=== PATIENT | female | born 1940 | race Caucasian/White ===

== ENCOUNTER 2018-01-02 10:05 | Inpatient (IN) | payer MEDICARE, OTHER ==
[2018-01-02 11:09] LABS: BASO # 0.1 10^3/uL (0.0-0.2); BASO % 0.4 % (0.0-1.0); EOS # 0.1 10^3/uL (0.0-0.50); EOS % 0.4 % (0.0-3.0); HEMATOCRIT 35.5 % (36.0-47.0); IMMATURE GRANULOCYTE % 0.4 % (0-3.0); LYMPH # 1.1 10^3/uL (1.5-4.5); LYMPH % 9.5 % (24.0-44.0); MEAN CORPUSCULAR HEMOGLOBIN 31.7 pg (27.0-33.0); MEAN CORPUSCULAR HGB CONC 33.8 g/dl (32.0-36.5); MEAN CORPUSCULAR VOLUME 93.7 fl (80.0-96.0); MONO # 0.8 10^3/uL (0.0-0.8); MONO % 7.2 % (0.0-5.0); NEUTROPHILS # 9.2 10^3/uL (1.8-7.7); NEUTROPHILS % 82.1 % (36.0-66.0); PLATELET COUNT, AUTOMATED 413 10^3/uL (150-450); RED BLOOD COUNT 3.79 10^6/uL (4.00-5.40); RED CELL DISTRIBUTION WIDTH 12.3 % (11.5-14.5); WHITE BLOOD COUNT 11.2 10^3/uL (4.0-10.0)
[2018-01-02] MEDS: NS 1,000 ML IV (11:13)
[2018-01-02] MEDS: ALPRAZolam 0.25 MG TAB PO (11:13)
[2018-01-02] MEDS: MORPHINE 2 MG/ML 1ML SYRINGE (J2270) IV ×2 (11:14→12:47)
[2018-01-02] MEDS: ONDANSETRON 4MG/2ML VIAL (J2405) IV (11:14)
[2018-01-02 11:36] LABS: ALBUMIN 3.8 GM/DL (3.2-5.2); ALBUMIN/GLOBULIN RATIO 0.95 (1.00-1.93); ALKALINE PHOSPHATASE 114 U/L (45-117); ALT/SGPT 84 U/L (12-78); ANION GAP 6 MEQ/L (8-16); AST/SGOT 24 U/L (7-37); BILIRUBIN,DIRECT 0.1 MG/DL (0.0-0.2); BILIRUBIN,TOTAL 0.4 MG/DL (0.2-1.0); BLOOD UREA NITROGEN 10 MG/DL (7-18); CARBON DIOXIDE LEVEL 25 MEQ/L (21-32); CHLORIDE LEVEL 94 MEQ/L (98-107); CPK CREATINE PHOSPHOKINASE 99 U/L (26-192); CREATININE FOR GFR 0.53 MG/DL (0.55-1.30); GLOMERULAR FILTRATION RATE > 60.0 (>39); GLUCOSE, FASTING 97 MG/DL (70-100); POTASSIUM SERUM 3.8 MEQ/L (3.5-5.1); SODIUM LEVEL 125 MEQ/L (136-145); TOTAL PROTEIN 7.8 GM/DL (6.4-8.2); TROPONIN I < 0.02 NG/ML (< 0.10)
[2018-01-02 11:41] LABS: CK-MB VALUE MASS 2.4 NG/ML (<3.6); MB/CK RELATIVE INDEX 2.42 (< OR =4); THYROID STIMULATING HORMONE 0.294 uIU/ML (0.358-3.740)
[2018-01-02 14:25] LABS: OSMOLALITY SERUM 263 MOSM/KG (280-301)
[2018-01-02 15:48] LABS: ANION GAP 8 MEQ/L (8-16); BLOOD UREA NITROGEN 8 MG/DL (7-18); CALCIUM LEVEL 8.7 MG/DL (8.8-10.2); CARBON DIOXIDE LEVEL 23 MEQ/L (21-32); CHLORIDE LEVEL 104 MEQ/L (98-107); CREATININE FOR GFR 0.54 MG/DL (0.55-1.30); FREE T4 1.21 NG/DL (0.76-1.46); GLOMERULAR FILTRATION RATE > 60.0 (>39); GLUCOSE, FASTING 106 MG/DL (70-100); POTASSIUM SERUM 4.4 MEQ/L (3.5-5.1); SODIUM LEVEL 135 MEQ/L (136-145); THYROID STIMULATING HORMONE 0.282 uIU/ML (0.358-3.740)
[2018-01-02 15:50] LABS: VITAMIN B12 LEVEL 356 PG/ML (247-911)
[2018-01-02 15:51] LABS: FOLATE 20.6 NG/ML (>5.4)
[2018-01-02] MEDS: SIMBRINZA OPTH OS ×2 (16:00→20:53)
[2018-01-02 16:01] LABS: HEPATITIS B SURFACE ANTIGEN NEGATIVE (NEGATIVE)
[2018-01-02 16:27] LABS: HEPATITIS C VIRUS ABY INDEX < 0.0 INDEX (<0.8)
[2018-01-02 16:28] LABS: HEPATITIS B CORE ANTIBODY IGM NEGATIVE (NEGATIVE)
[2018-01-02 16:30] LABS: HEPATITIS A ANTIBODY IGM NEGATIVE (NEGATIVE)
[2018-01-02] MEDS: PERCOCET 5MG/325MG TAB PO ×2 (17:00→23:42)
[2018-01-02 18:17] LABS: ANION GAP 7 MEQ/L (8-16); BLOOD UREA NITROGEN 6 MG/DL (7-18); CALCIUM LEVEL 8.4 MG/DL (8.8-10.2); CARBON DIOXIDE LEVEL 25 MEQ/L (21-32); CHLORIDE LEVEL 102 MEQ/L (98-107); CREATININE FOR GFR 0.54 MG/DL (0.55-1.30); GLOMERULAR FILTRATION RATE > 60.0 (>39); GLUCOSE, FASTING 159 MG/DL (70-100); SODIUM LEVEL 134 MEQ/L (136-145)
[2018-01-02 18:21] LABS: CPK CREATINE PHOSPHOKINASE 75 U/L (26-192); TROPONIN I < 0.02 NG/ML (< 0.10)
[2018-01-02 18:22] LABS: CK-MB VALUE MASS 1.6 NG/ML (<3.6); MB/CK RELATIVE INDEX 2.13 (< OR =4)
[2018-01-02] MEDS: OPTH OS (20:53)
[2018-01-02] MEDS: LUMIGAN 0.01% OS (20:53)
[2018-01-02] MEDS: VALSARTAN 80 MG TAB (DIOVAN) PO (20:54)
[2018-01-02 23:58] LABS: ANION GAP 5 MEQ/L (8-16); BLOOD UREA NITROGEN 9 MG/DL (7-18); CALCIUM LEVEL 8.4 MG/DL (8.8-10.2); CARBON DIOXIDE LEVEL 26 MEQ/L (21-32); CHLORIDE LEVEL 105 MEQ/L (98-107); CREATININE FOR GFR 0.56 MG/DL (0.55-1.30); GLOMERULAR FILTRATION RATE > 60.0 (>39); GLUCOSE, FASTING 96 MG/DL (70-100); POTASSIUM SERUM 4.2 MEQ/L (3.5-5.1); SODIUM LEVEL 136 MEQ/L (136-145)
[2018-01-03 02:32] LABS: ANION GAP 8 MEQ/L (8-16); BLOOD UREA NITROGEN 9 MG/DL (7-18); CALCIUM LEVEL 8.2 MG/DL (8.8-10.2); CARBON DIOXIDE LEVEL 24 MEQ/L (21-32); CHLORIDE LEVEL 104 MEQ/L (98-107); CREATININE FOR GFR 0.57 MG/DL (0.55-1.30); GLOMERULAR FILTRATION RATE > 60.0 (>39); GLUCOSE, FASTING 95 MG/DL (70-100); POTASSIUM SERUM 4.1 MEQ/L (3.5-5.1); SODIUM LEVEL 136 MEQ/L (136-145)
[2018-01-03 02:41] LABS: CK-MB VALUE MASS 1.7 NG/ML (<3.6); CPK CREATINE PHOSPHOKINASE 69 U/L (26-192); MB/CK RELATIVE INDEX 2.46 (< OR =4); TROPONIN I < 0.02 NG/ML (< 0.10)
[2018-01-03 06:19] LABS: HEMATOCRIT 36.7 % (36.0-47.0); HEMOGLOBIN 12.1 g/dl (12.0-15.5); MEAN CORPUSCULAR HEMOGLOBIN 31.4 pg (27.0-33.0); MEAN CORPUSCULAR VOLUME 95.3 fl (80.0-96.0); PLATELET COUNT, AUTOMATED 405 10^3/uL (150-450); RED BLOOD COUNT 3.85 10^6/uL (4.00-5.40); RED CELL DISTRIBUTION WIDTH 12.6 % (11.5-14.5); WHITE BLOOD COUNT 6.7 10^3/uL (4.0-10.0)
[2018-01-03 06:46] LABS: ALBUMIN 3.5 GM/DL (3.2-5.2); ALBUMIN/GLOBULIN RATIO 1.06 (1.00-1.93); ALKALINE PHOSPHATASE 106 U/L (45-117); ALT/SGPT 66 U/L (12-78); ANION GAP 8 MEQ/L (8-16); AST/SGOT 21 U/L (7-37); BILIRUBIN,TOTAL 0.3 MG/DL (0.2-1.0); BLOOD UREA NITROGEN 8 MG/DL (7-18); CALCIUM LEVEL 8.8 MG/DL (8.8-10.2); CARBON DIOXIDE LEVEL 25 MEQ/L (21-32); CHLORIDE LEVEL 104 MEQ/L (98-107); CREATININE FOR GFR 0.58 MG/DL (0.55-1.30); GLOMERULAR FILTRATION RATE > 60.0 (>39); GLUCOSE, FASTING 92 MG/DL (70-100); MAGNESIUM LEVEL 2.3 MG/DL (1.8-2.4); POTASSIUM SERUM 4.3 MEQ/L (3.5-5.1); SODIUM LEVEL 137 MEQ/L (136-145); TOTAL PROTEIN 6.8 GM/DL (6.4-8.2)
[2018-01-03] MEDS: VALSARTAN 80 MG TAB (DIOVAN) PO ×2 (08:25→20:59)
[2018-01-03] MEDS: ASPIRIN 81 MG ENTERIC TAB PO (08:26)
[2018-01-03] MEDS: SIMBRINZA OPTH OS ×3 (08:26→20:59)
[2018-01-03] MEDS: PERCOCET 5MG/325MG TAB PO (09:26)
[2018-01-03 10:22] LABS: CPK CREATINE PHOSPHOKINASE 62 U/L (26-192); MB/CK RELATIVE INDEX 3.22 (< OR =4); TROPONIN I < 0.02 NG/ML (< 0.10)
[2018-01-03] MEDS: GABAPENTIN 300 MG CAP PO ×3 (12:35→20:59)
[2018-01-03] MEDS: ENOXAPARIN 40 MG/0.4 ML SYRINGE (J1650) SC (12:36)
[2018-01-03 19:48] LABS: ANION GAP 6 MEQ/L (8-16); BLOOD UREA NITROGEN 14 MG/DL (7-18); CALCIUM LEVEL 8.5 MG/DL (8.8-10.2); CARBON DIOXIDE LEVEL 24 MEQ/L (21-32); CHLORIDE LEVEL 105 MEQ/L (98-107); CREATININE FOR GFR 0.66 MG/DL (0.55-1.30); GLOMERULAR FILTRATION RATE > 60.0 (>39); GLUCOSE, FASTING 170 MG/DL (70-100); POTASSIUM SERUM 3.8 MEQ/L (3.5-5.1); SODIUM LEVEL 135 MEQ/L (136-145)
[2018-01-03] MEDS: LUMIGAN 0.01% OS (20:59)
[2018-01-03] MEDS: OPTH OS (20:59)
[2018-01-04] MEDS: PERCOCET 5MG/325MG TAB PO ×3 (00:52→21:44)
[2018-01-04 06:48] LABS: HEMATOCRIT 33.4 % (36.0-47.0); HEMOGLOBIN 10.7 g/dl (12.0-15.5); MEAN CORPUSCULAR HEMOGLOBIN 31.6 pg (27.0-33.0); MEAN CORPUSCULAR VOLUME 98.5 fl (80.0-96.0); PLATELET COUNT, AUTOMATED 295 10^3/uL (150-450); RED BLOOD COUNT 3.39 10^6/uL (4.00-5.40); RED CELL DISTRIBUTION WIDTH 12.7 % (11.5-14.5); WHITE BLOOD COUNT 6.4 10^3/uL (4.0-10.0)
[2018-01-04 07:14] LABS: ALBUMIN 3.1 GM/DL (3.2-5.2); ALKALINE PHOSPHATASE 93 U/L (45-117); ALT/SGPT 52 U/L (12-78); ANION GAP 9 MEQ/L (8-16); AST/SGOT 17 U/L (7-37); BILIRUBIN,TOTAL 0.2 MG/DL (0.2-1.0); BLOOD UREA NITROGEN 12 MG/DL (7-18); CALCIUM LEVEL 8.6 MG/DL (8.8-10.2); CARBON DIOXIDE LEVEL 22 MEQ/L (21-32); CHLORIDE LEVEL 107 MEQ/L (98-107); CREATININE FOR GFR 0.53 MG/DL (0.55-1.30); GLOMERULAR FILTRATION RATE > 60.0 (>39); GLUCOSE, FASTING 85 MG/DL (70-100); POTASSIUM SERUM 4.2 MEQ/L (3.5-5.1); SODIUM LEVEL 138 MEQ/L (136-145); TOTAL PROTEIN 6.2 GM/DL (6.4-8.2)
[2018-01-04] MEDS: GABAPENTIN 300 MG CAP PO ×4 (09:00→20:39)
[2018-01-04] MEDS: ASPIRIN 81 MG ENTERIC TAB PO (09:19)
[2018-01-04] MEDS: ENOXAPARIN 40 MG/0.4 ML SYRINGE (J1650) SC (09:20)
[2018-01-04] MEDS: VALSARTAN 80 MG TAB (DIOVAN) PO ×2 (09:20→20:39)
[2018-01-04] MEDS: SIMBRINZA OPTH OS ×3 (09:21→20:39)
[2018-01-04] MEDS: ACETAMINOPHEN TAB 650MG DOSE (2X325MG) PO (12:09)
[2018-01-04] MEDS: OPTH OS (20:39)
[2018-01-04] MEDS: LUMIGAN 0.01% OS (20:39)
[2018-01-05] MEDS: PERCOCET 5MG/325MG TAB PO ×3 (04:40→20:54)
[2018-01-05 07:05] LABS: HEMATOCRIT 32.7 % (36.0-47.0); HEMOGLOBIN 10.6 g/dl (12.0-15.5); MEAN CORPUSCULAR HEMOGLOBIN 30.9 pg (27.0-33.0); MEAN CORPUSCULAR HGB CONC 32.4 g/dl (32.0-36.5); MEAN CORPUSCULAR VOLUME 95.3 fl (80.0-96.0); PLATELET COUNT, AUTOMATED 384 10^3/uL (150-450); RED BLOOD COUNT 3.43 10^6/uL (4.00-5.40); RED CELL DISTRIBUTION WIDTH 12.6 % (11.5-14.5); WHITE BLOOD COUNT 5.5 10^3/uL (4.0-10.0)
[2018-01-05 07:14] LABS: INR 0.92; PROTHROMBIN TIME 12.4 SECONDS (12.4-14.5)
[2018-01-05 07:39] LABS: ALBUMIN 3.1 GM/DL (3.2-5.2); ALBUMIN/GLOBULIN RATIO 0.89 (1.00-1.93); ALKALINE PHOSPHATASE 83 U/L (45-117); ALT/SGPT 47 U/L (12-78); ANION GAP 6 MEQ/L (8-16); AST/SGOT 21 U/L (7-37); BILIRUBIN,TOTAL 0.3 MG/DL (0.2-1.0); BLOOD UREA NITROGEN 10 MG/DL (7-18); CALCIUM LEVEL 8.8 MG/DL (8.8-10.2); CARBON DIOXIDE LEVEL 26 MEQ/L (21-32); CHLORIDE LEVEL 106 MEQ/L (98-107); GLOMERULAR FILTRATION RATE > 60.0 (>39); GLUCOSE, FASTING 93 MG/DL (70-100); POTASSIUM SERUM 3.8 MEQ/L (3.5-5.1); SODIUM LEVEL 138 MEQ/L (136-145); TOTAL PROTEIN 6.6 GM/DL (6.4-8.2)
[2018-01-05] MEDS: ASPIRIN 81 MG ENTERIC TAB PO (09:02)
[2018-01-05] MEDS: VALSARTAN 80 MG TAB (DIOVAN) PO ×2 (09:02→20:53)
[2018-01-05] MEDS: ENOXAPARIN 40 MG/0.4 ML SYRINGE (J1650) SC (09:04)
[2018-01-05] MEDS: SIMBRINZA OPTH OS ×3 (09:05→20:55)
[2018-01-05] MEDS: LUMIGAN 0.01% OS (20:55)
[2018-01-05] MEDS: OPTH OS (20:55)
[2018-01-06] MEDS: PERCOCET 5MG/325MG TAB PO ×3 (03:10→20:46)
[2018-01-06 06:45] LABS: HEMATOCRIT 32.4 % (36.0-47.0); HEMOGLOBIN 10.4 g/dl (12.0-15.5); MEAN CORPUSCULAR HEMOGLOBIN 30.8 pg (27.0-33.0); MEAN CORPUSCULAR HGB CONC 32.1 g/dl (32.0-36.5); MEAN CORPUSCULAR VOLUME 95.9 fl (80.0-96.0); PLATELET COUNT, AUTOMATED 342 10^3/uL (150-450); RED BLOOD COUNT 3.38 10^6/uL (4.00-5.40); RED CELL DISTRIBUTION WIDTH 12.5 % (11.5-14.5); WHITE BLOOD COUNT 5.3 10^3/uL (4.0-10.0)
[2018-01-06 07:12] LABS: ALBUMIN 3.1 GM/DL (3.2-5.2); ALKALINE PHOSPHATASE 83 U/L (45-117); ALT/SGPT 43 U/L (12-78); ANION GAP 8 MEQ/L (8-16); AST/SGOT 17 U/L (7-37); BILIRUBIN,TOTAL 0.2 MG/DL (0.2-1.0); BLOOD UREA NITROGEN 11 MG/DL (7-18); CALCIUM LEVEL 8.6 MG/DL (8.8-10.2); CARBON DIOXIDE LEVEL 24 MEQ/L (21-32); CHLORIDE LEVEL 108 MEQ/L (98-107); CREATININE FOR GFR 0.53 MG/DL (0.55-1.30); GLOMERULAR FILTRATION RATE > 60.0 (>39); GLUCOSE, FASTING 85 MG/DL (70-100); MAGNESIUM LEVEL 2.1 MG/DL (1.8-2.4); POTASSIUM SERUM 4.3 MEQ/L (3.5-5.1); SODIUM LEVEL 140 MEQ/L (136-145); TOTAL PROTEIN 6.2 GM/DL (6.4-8.2)
[2018-01-06] MEDS: VALSARTAN 80 MG TAB (DIOVAN) PO ×2 (08:43→20:45)
[2018-01-06] MEDS: ASPIRIN 81 MG ENTERIC TAB PO (08:43)
[2018-01-06] MEDS: SIMBRINZA OPTH OS ×3 (08:44→20:45)
[2018-01-06] MEDS: ENOXAPARIN 40 MG/0.4 ML SYRINGE (J1650) SC (08:57)
[2018-01-06] MEDS ORDERED: MOM 30ML SUSPENSION UDC PO (09:30)
[2018-01-06] MEDS: LUMIGAN 0.01% OS (20:45)
[2018-01-06] MEDS: OPTH OS (20:45)
[2018-01-07] MEDS: PERCOCET 5MG/325MG TAB PO ×3 (03:46→21:08)
[2018-01-07 06:50] LABS: HEMATOCRIT 34.3 % (36.0-47.0); HEMOGLOBIN 11.1 g/dl (12.0-15.5); MEAN CORPUSCULAR HEMOGLOBIN 30.6 pg (27.0-33.0); MEAN CORPUSCULAR HGB CONC 32.4 g/dl (32.0-36.5); MEAN CORPUSCULAR VOLUME 94.5 fl (80.0-96.0); PLATELET COUNT, AUTOMATED 359 10^3/uL (150-450); RED BLOOD COUNT 3.63 10^6/uL (4.00-5.40); RED CELL DISTRIBUTION WIDTH 12.6 % (11.5-14.5); WHITE BLOOD COUNT 4.9 10^3/uL (4.0-10.0)
[2018-01-07 07:14] LABS: ALBUMIN 3.3 GM/DL (3.2-5.2); ALBUMIN/GLOBULIN RATIO 0.89 (1.00-1.93); ALKALINE PHOSPHATASE 86 U/L (45-117); ALT/SGPT 46 U/L (12-78); ANION GAP 6 MEQ/L (8-16); AST/SGOT 22 U/L (7-37); BILIRUBIN,TOTAL 0.2 MG/DL (0.2-1.0); BLOOD UREA NITROGEN 10 MG/DL (7-18); CALCIUM LEVEL 8.8 MG/DL (8.8-10.2); CARBON DIOXIDE LEVEL 25 MEQ/L (21-32); CHLORIDE LEVEL 107 MEQ/L (98-107); CREATININE FOR GFR 0.54 MG/DL (0.55-1.30); GLOMERULAR FILTRATION RATE > 60.0 (>39); GLUCOSE, FASTING 89 MG/DL (70-100); MAGNESIUM LEVEL 2.1 MG/DL (1.8-2.4); SODIUM LEVEL 138 MEQ/L (136-145)
[2018-01-07] MEDS: SIMBRINZA OPTH OS ×3 (09:00→21:07)
[2018-01-07] MEDS: VALSARTAN 80 MG TAB (DIOVAN) PO ×2 (09:00→21:08)
[2018-01-07] MEDS: ASPIRIN 81 MG ENTERIC TAB PO (09:00)
[2018-01-07] MEDS ORDERED: ISOVUE-M 300 61% 15ML VIAL (Q9967) As Ordered (11:00)
[2018-01-07] MEDS ORDERED: TRIAMCINOLONE ACETONIDE SUSP 40 MG/ML VIAL (J3301) As Ordered (11:00)
[2018-01-07] MEDS ORDERED: BUPIVACAINE HCL 0.25% 30 ML VIAL As Ordered (11:00)
[2018-01-07] MEDS ORDERED: LIDOCAINE 1% SDV INJ 30 ML VIAL As Ordered (11:00)
[2018-01-07] MEDS: OPTH OS (21:07)
[2018-01-07] MEDS: LUMIGAN 0.01% OS (21:07)
[2018-01-08 06:07] LABS: HEMATOCRIT 33.4 % (36.0-47.0); MEAN CORPUSCULAR HEMOGLOBIN 31.3 pg (27.0-33.0); MEAN CORPUSCULAR HGB CONC 32.9 g/dl (32.0-36.5); MEAN CORPUSCULAR VOLUME 94.9 fl (80.0-96.0); PLATELET COUNT, AUTOMATED 359 10^3/uL (150-450); RED BLOOD COUNT 3.52 10^6/uL (4.00-5.40); RED CELL DISTRIBUTION WIDTH 12.8 % (11.5-14.5); WHITE BLOOD COUNT 8.2 10^3/uL (4.0-10.0)
[2018-01-08 06:36] LABS: ALBUMIN 3.5 GM/DL (3.2-5.2); ALKALINE PHOSPHATASE 88 U/L (45-117); ALT/SGPT 43 U/L (12-78); ANION GAP 9 MEQ/L (8-16); AST/SGOT 17 U/L (7-37); BILIRUBIN,TOTAL 0.3 MG/DL (0.2-1.0); BLOOD UREA NITROGEN 14 MG/DL (7-18); CALCIUM LEVEL 8.8 MG/DL (8.8-10.2); CARBON DIOXIDE LEVEL 24 MEQ/L (21-32); CHLORIDE LEVEL 105 MEQ/L (98-107); CREATININE FOR GFR 0.56 MG/DL (0.55-1.30); GLOMERULAR FILTRATION RATE > 60.0 (>39); GLUCOSE, FASTING 131 MG/DL (70-100); MAGNESIUM LEVEL 2.2 MG/DL (1.8-2.4); POTASSIUM SERUM 4.3 MEQ/L (3.5-5.1); SODIUM LEVEL 138 MEQ/L (136-145)
[2018-01-08] MEDS: VALSARTAN 80 MG TAB (DIOVAN) PO (07:53)
[2018-01-08] MEDS: ENOXAPARIN 40 MG/0.4 ML SYRINGE (J1650) SC (07:54)
[2018-01-08] MEDS: ASPIRIN 81 MG ENTERIC TAB PO (07:54)
[2018-01-08] MEDS: SIMBRINZA OPTH OS (07:55)
[2018-01-09 14:14] LABS: ADH PANEL OSMOLALITY 273 mOsmol/kg (280-301)
== END 2018-01-08 12:40 | disposition home or self-care (01) | DRG 552 ==
LOC: M MS5PR 01-03 16:33 → M ED 10:05 → M ED INP 13:55 → M PCU 17:44
PROC: 3E0233Z Introduction of Anti-inflammatory into Muscle, Percutaneous Approach (ICD-10-PCS; principal; 2018-01-07)
DX: M54.9 Dorsalgia, unspecified (principal); E87.1 Hypo-osmolality and hyponatremia; I10 Essential (primary) hypertension; E86.1 Hypovolemia; H40.9 Unspecified glaucoma; G89.29 Other chronic pain; R94.5 Abnormal results of liver function studies; R94.6 Abnormal results of thyroid function studies; R26.81 Unsteadiness on feet; E05.80 Other thyrotoxicosis without thyrotoxic crisis or storm; Z95.0 Presence of cardiac pacemaker; Z98.1 Arthrodesis status; Z90.710 Acquired absence of both cervix and uterus; Z79.82 Long term (current) use of aspirin; Z79.899 Other long term (current) drug therapy; Z88.2 Allergy status to sulfonamides; Z88.8 Allergy status to other drugs, medicaments and biological substances

== ENCOUNTER 2018-01-12 18:44 | Emergency (ER) | payer MEDICARE, OTHER ==
[2018-01-12 19:58] LABS: BASO % 0.4 % (0.0-1.0); EOS # 0.1 10^3/uL (0.0-0.50); EOS % 0.5 % (0.0-3.0); HEMATOCRIT 31.9 % (36.0-47.0); HEMOGLOBIN 10.7 g/dl (12.0-15.5); IMMATURE GRANULOCYTE % 0.5 % (0-3.0); LYMPH # 1.9 10^3/uL (1.5-4.5); LYMPH % 18.9 % (24.0-44.0); MEAN CORPUSCULAR HEMOGLOBIN 31.8 pg (27.0-33.0); MEAN CORPUSCULAR HGB CONC 33.5 g/dl (32.0-36.5); MEAN CORPUSCULAR VOLUME 94.9 fl (80.0-96.0); MONO # 0.9 10^3/uL (0.0-0.8); MONO % 8.9 % (0.0-5.0); NEUTROPHILS % 70.8 % (36.0-66.0); PLATELET COUNT, AUTOMATED 384 10^3/uL (150-450); RED BLOOD COUNT 3.36 10^6/uL (4.00-5.40); RED CELL DISTRIBUTION WIDTH 12.8 % (11.5-14.5); WHITE BLOOD COUNT 9.8 10^3/uL (4.0-10.0)
[2018-01-12 20:04] LABS: ALBUMIN 3.4 GM/DL (3.2-5.2); ALBUMIN/GLOBULIN RATIO 1.13 (1.00-1.93); ALKALINE PHOSPHATASE 71 U/L (45-117); ALT/SGPT 29 U/L (12-78); ANION GAP 8 MEQ/L (8-16); AST/SGOT 23 U/L (7-37); BILIRUBIN,TOTAL 0.2 MG/DL (0.2-1.0); BLOOD UREA NITROGEN 21 MG/DL (7-18); CALCIUM LEVEL 8.5 MG/DL (8.8-10.2); CARBON DIOXIDE LEVEL 23 MEQ/L (21-32); CHLORIDE LEVEL 104 MEQ/L (98-107); CREATININE FOR GFR 0.57 MG/DL (0.55-1.30); GLOMERULAR FILTRATION RATE > 60.0 (>39); GLUCOSE, FASTING 98 MG/DL (70-100); POTASSIUM SERUM 4.7 MEQ/L (3.5-5.1); SODIUM LEVEL 135 MEQ/L (136-145); TOTAL PROTEIN 6.4 GM/DL (6.4-8.2)
[2018-01-12] MEDS: ONDANSETRON 4MG/2ML VIAL (J2405) IV (20:11)
[2018-01-12 20:39] LABS: SODIUM,RANDOM URINE 53 MEQ/L
[2018-01-12 20:42] LABS: MAGNESIUM LEVEL 2.2 MG/DL (1.8-2.4)
== END 2018-01-12 21:54 | disposition home or self-care (01) ==
LOC: M ED 18:44
DX: R11.0 Nausea (principal); R41.0 Disorientation, unspecified; E87.1 Hypo-osmolality and hyponatremia; I10 Essential (primary) hypertension; H40.20X0 Unspecified primary angle-closure glaucoma, stage unspecified; Z88.8 Allergy status to other drugs, medicaments and biological substances; Z88.5 Allergy status to narcotic agent; Z55.2 Failed school examinations; Z79.899 Other long term (current) drug therapy; Z79.82 Long term (current) use of aspirin
CPT/HCPCS: J2405

== ENCOUNTER → 2018-01-19 | Outpatient (CLI) | payer MEDICARE, OTHER ==
[~2018-01-19] MED LIST: BUPIVACAINE HCL 0.25% 30 ML VIAL As Ordered; ISOVUE-M 300 61% 15ML VIAL (Q9967) As Ordered; LIDOCAINE 1% SDV INJ 30 ML VIAL As Ordered; TRIAMCINOLONE ACETONIDE SUSP 40 MG/ML VIAL (J3301) As Ordered
== END ==
LOC: M PAIN 15:00
DX: M79.1 Myalgia (principal); M54.5 Low back pain; G89.29 Other chronic pain
CPT/HCPCS: G0463

== ENCOUNTER → 2018-01-20 | Outpatient (CLI) | payer MEDICARE, OTHER | LOC: M PAIN 08:45 | DX: M79.1 Myalgia (principal); I10 Essential (primary) hypertension; H40.9 Unspecified glaucoma; I44.7 Left bundle-branch block, unspecified; Z87.891 Personal history of nicotine dependence; Z79.891 Long term (current) use of opiate analgesic; Z79.899 Other long term (current) drug therapy; Z98.1 Arthrodesis status; Z95.0 Presence of cardiac pacemaker; Z88.5 Allergy status to narcotic agent; Z88.1 Allergy status to other antibiotic agents; Z88.8 Allergy status to other drugs, medicaments and biological substances | CPT/HCPCS: J3301 ==

== ENCOUNTER 2018-01-22 02:49 | Observation (INO) | payer MEDICARE, OTHER ==
[2018-01-22] MEDS: METHOCARBAMOL 1,000 MG/10 ML VIAL (J2800) IV ×2 (03:45)
[2018-01-22] MEDS: MORPHINE 4 MG/ML 1ML VIAL/SYRINGE (J2270) IV ×4 (03:48→04:47)
[2018-01-22] MEDS: ONDANSETRON 4MG/2ML VIAL (J2405) IV ×2 (03:48)
[2018-01-22 03:56] LABS: BASO % 0.1 % (0.0-1.0); EOS % 0.3 % (0.0-3.0); HEMATOCRIT 32.1 % (36.0-47.0); IMMATURE GRANULOCYTE % 0.3 % (0-3.0); LYMPH # 1.5 10^3/uL (1.5-4.5); LYMPH % 14.4 % (24.0-44.0); MEAN CORPUSCULAR HEMOGLOBIN 31.6 pg (27.0-33.0); MEAN CORPUSCULAR HGB CONC 34.3 g/dl (32.0-36.5); MEAN CORPUSCULAR VOLUME 92.2 fl (80.0-96.0); MONO # 0.8 10^3/uL (0.0-0.8); NEUTROPHILS # 8.1 10^3/uL (1.8-7.7); NEUTROPHILS % 76.9 % (36.0-66.0); PLATELET COUNT, AUTOMATED 354 10^3/uL (150-450); RED BLOOD COUNT 3.48 10^6/uL (4.00-5.40); RED CELL DISTRIBUTION WIDTH 12.6 % (11.5-14.5); WHITE BLOOD COUNT 10.6 10^3/uL (4.0-10.0)
[2018-01-22 04:45] LABS: ANION GAP 9 MEQ/L (8-16); BLOOD UREA NITROGEN 19 MG/DL (7-18); CALCIUM LEVEL 8.7 MG/DL (8.8-10.2); CARBON DIOXIDE LEVEL 23 MEQ/L (21-32); CHLORIDE LEVEL 98 MEQ/L (98-107); CREATININE FOR GFR 0.59 MG/DL (0.55-1.30); GLOMERULAR FILTRATION RATE > 60.0 (>39); GLUCOSE, FASTING 104 MG/DL (70-100); POTASSIUM SERUM 4.5 MEQ/L (3.5-5.1); SODIUM LEVEL 130 MEQ/L (136-145)
[2018-01-22] MEDS ORDERED: ACETAMINOPHEN TAB 650MG DOSE (2X325MG) PO ×2 (07:45)
[2018-01-22] MEDS: ASPIRIN 81 MG ENTERIC TAB PO ×2 (09:23)
[2018-01-22] MEDS: ENOXAPARIN 40 MG/0.4 ML SYRINGE (J1650) SC ×2 (09:23)
[2018-01-22] MEDS: VALSARTAN 80 MG TAB (DIOVAN) PO ×4 (12:46→20:33)
[2018-01-22] MEDS: IBUPROFEN 800 MG TAB PO ×2 (20:19)
[2018-01-22] MEDS: LUMIGAN 0.01% EYE DROPS (PATIENT'S OWN MED) OU ×2 (20:33)
[2018-01-22] MEDS: CARISOPRODOL 350 MG TAB PO ×2 (21:20)
[2018-01-23 06:00] LABS: BASO % 0.5 % (0.0-1.0); EOS # 0.1 10^3/uL (0.0-0.50); EOS % 0.8 % (0.0-3.0); HEMATOCRIT 36.1 % (36.0-47.0); HEMOGLOBIN 11.8 g/dl (12.0-15.5); IMMATURE GRANULOCYTE % 0.4 % (0-3.0); LYMPH # 1.9 10^3/uL (1.5-4.5); LYMPH % 22.2 % (24.0-44.0); MEAN CORPUSCULAR HEMOGLOBIN 31.3 pg (27.0-33.0); MEAN CORPUSCULAR HGB CONC 32.7 g/dl (32.0-36.5); MEAN CORPUSCULAR VOLUME 95.8 fl (80.0-96.0); MONO # 0.8 10^3/uL (0.0-0.8); MONO % 9.6 % (0.0-5.0); NEUTROPHILS # 5.5 10^3/uL (1.8-7.7); NEUTROPHILS % 66.5 % (36.0-66.0); PLATELET COUNT, AUTOMATED 338 10^3/uL (150-450); RED BLOOD COUNT 3.77 10^6/uL (4.00-5.40); WHITE BLOOD COUNT 8.3 10^3/uL (4.0-10.0)
[2018-01-23 06:21] LABS: ANION GAP 6 MEQ/L (8-16); BLOOD UREA NITROGEN 24 MG/DL (7-18); C REACTIVE PROTEIN QUANTITATIV < 0.30 MG/DL (0.00-0.30); CALCIUM LEVEL 8.6 MG/DL (8.8-10.2); CARBON DIOXIDE LEVEL 23 MEQ/L (21-32); CHLORIDE LEVEL 102 MEQ/L (98-107); CREATININE FOR GFR 0.69 MG/DL (0.55-1.30); GLOMERULAR FILTRATION RATE > 60.0 (>39); GLUCOSE, FASTING 92 MG/DL (70-100); POTASSIUM SERUM 4.7 MEQ/L (3.5-5.1); SODIUM LEVEL 131 MEQ/L (136-145)
[2018-01-23] MEDS: VALSARTAN 80 MG TAB (DIOVAN) PO ×2 (09:49)
[2018-01-23] MEDS: ASPIRIN 81 MG ENTERIC TAB PO ×2 (09:49)
[2018-01-23] MEDS: ENOXAPARIN 40 MG/0.4 ML SYRINGE (J1650) SC ×2 (09:50)
== END 2018-01-23 12:00 | disposition home or self-care (01) ==
LOC: M ED 02:49 → M ED INP 07:37 → M MSPAV 16:31
DX: M54.5 Low back pain (principal); G89.29 Other chronic pain; G57.02 Lesion of sciatic nerve, left lower limb; M79.1 Myalgia; M48.061 Spinal stenosis, lumbar region without neurogenic claudication; M47.816 Spondylosis without myelopathy or radiculopathy, lumbar region; M43.16 Spondylolisthesis, lumbar region; I11.9 Hypertensive heart disease without heart failure; H40.9 Unspecified glaucoma; I25.10 Atherosclerotic heart disease of native coronary artery without angina pectoris; G51.8 Other disorders of facial nerve; Z87.828 Personal history of other (healed) physical injury and trauma; Z98.1 Arthrodesis status; Z95.0 Presence of cardiac pacemaker; E05.90 Thyrotoxicosis, unspecified without thyrotoxic crisis or storm; Z79.899 Other long term (current) drug therapy; Z79.82 Long term (current) use of aspirin; Z88.6 Allergy status to analgesic agent; Z88.8 Allergy status to other drugs, medicaments and biological substances; Z88.5 Allergy status to narcotic agent
CPT/HCPCS: J2270

== ENCOUNTER → 2018-01-26 | Outpatient (CLI) | payer MEDICARE, OTHER | LOC: M PAIN 13:30 | DX: M79.1 Myalgia (principal); R52 Pain, unspecified; I10 Essential (primary) hypertension; Z79.82 Long term (current) use of aspirin; Z79.899 Other long term (current) drug therapy; Z88.8 Allergy status to other drugs, medicaments and biological substances; Z88.5 Allergy status to narcotic agent; Z88.6 Allergy status to analgesic agent; Z87.891 Personal history of nicotine dependence; Z95.0 Presence of cardiac pacemaker | CPT/HCPCS: G0463 ==

== ENCOUNTER 2018-02-01 10:45 | Emergency (ER) | payer MEDICARE, OTHER ==
[2018-02-01] MEDS: NS 500 ML IV (11:45)
[2018-02-01] MEDS: PANTOPRAZOLE 40MG INJ (PROTONIX) (C9113) IV (13:15)
[2018-02-01] MEDS: ONDANSETRON 4MG/2ML VIAL (J2405) IV (13:16)
[2018-02-01] MEDS: MORPHINE 4 MG/ML 1ML VIAL/SYRINGE (J2270) IV ×2 (13:20→15:18)
[2018-02-01 13:43] LABS: BASO % 0.1 % (0.0-1.0); EOS % 0.1 % (0.0-3.0); HEMATOCRIT 37.1 % (36.0-47.0); HEMOGLOBIN 12.2 g/dl (12.0-15.5); IMMATURE GRANULOCYTE % 0.4 % (0-3.0); LYMPH # 1.1 10^3/uL (1.5-4.5); LYMPH % 7.4 % (24.0-44.0); MEAN CORPUSCULAR HEMOGLOBIN 31.2 pg (27.0-33.0); MEAN CORPUSCULAR HGB CONC 32.9 g/dl (32.0-36.5); MEAN CORPUSCULAR VOLUME 94.9 fl (80.0-96.0); MONO # 0.8 10^3/uL (0.0-0.8); MONO % 5.5 % (0.0-5.0); NEUTROPHILS # 12.2 10^3/uL (1.8-7.7); NEUTROPHILS % 86.5 % (36.0-66.0); PLATELET COUNT, AUTOMATED 298 10^3/uL (150-450); RED BLOOD COUNT 3.91 10^6/uL (4.00-5.40); RED CELL DISTRIBUTION WIDTH 13.2 % (11.5-14.5); WHITE BLOOD COUNT 14.2 10^3/uL (4.0-10.0)
[2018-02-01 14:35] LABS: ALBUMIN 3.4 GM/DL (3.2-5.2); ALBUMIN/GLOBULIN RATIO 0.85 (1.00-1.93); ALKALINE PHOSPHATASE 64 U/L (45-117); ALT/SGPT 28 U/L (12-78); ANION GAP 11 MEQ/L (8-16); AST/SGOT 19 U/L (7-37); BILIRUBIN,DIRECT 0.1 MG/DL (0.0-0.2); BILIRUBIN,TOTAL 0.3 MG/DL (0.2-1.0); BLOOD UREA NITROGEN 21 MG/DL (7-18); CALCIUM LEVEL 9.3 MG/DL (8.8-10.2); CARBON DIOXIDE LEVEL 25 MEQ/L (21-32); CHLORIDE LEVEL 99 MEQ/L (98-107); CREATININE FOR GFR 0.75 MG/DL (0.55-1.30); GLOMERULAR FILTRATION RATE > 60.0 (>39); GLUCOSE, FASTING 98 MG/DL (70-100); LIPASE 80 U/L (73-393); POTASSIUM SERUM 3.8 MEQ/L (3.5-5.1); SODIUM LEVEL 135 MEQ/L (136-145); TOTAL PROTEIN 7.4 GM/DL (6.4-8.2)
== END 2018-02-01 16:30 | disposition home or self-care (01) ==
LOC: M ED 10:45
DX: M54.9 Dorsalgia, unspecified (principal); G89.29 Other chronic pain; K21.9 Gastro-esophageal reflux disease without esophagitis; R11.2 Nausea with vomiting, unspecified; I10 Essential (primary) hypertension; H40.9 Unspecified glaucoma; Z87.891 Personal history of nicotine dependence; Z88.8 Allergy status to other drugs, medicaments and biological substances; Z88.5 Allergy status to narcotic agent; Z88.1 Allergy status to other antibiotic agents; Z88.2 Allergy status to sulfonamides; Z79.899 Other long term (current) drug therapy; Z79.82 Long term (current) use of aspirin
CPT/HCPCS: C9113

== ENCOUNTER → 2018-02-06 | Outpatient (CLI) | payer MEDICARE, OTHER | LOC: M PAIN 08:45 | DX: M79.1 Myalgia (principal); I10 Essential (primary) hypertension; R19.7 Diarrhea, unspecified; Z79.82 Long term (current) use of aspirin; Z79.899 Other long term (current) drug therapy; Z90.711 Acquired absence of uterus with remaining cervical stump; Z95.0 Presence of cardiac pacemaker; Z87.891 Personal history of nicotine dependence | CPT/HCPCS: G0463 ==

== ENCOUNTER → 2018-02-19 | Outpatient (CLI) | payer MEDICARE, OTHER | LOC: M PAIN 10:15 | DX: G89.29 Other chronic pain (principal); M79.1 Myalgia; G57.02 Lesion of sciatic nerve, left lower limb; I10 Essential (primary) hypertension; Z79.82 Long term (current) use of aspirin; Z79.899 Other long term (current) drug therapy; Z88.5 Allergy status to narcotic agent; Z88.6 Allergy status to analgesic agent; Z88.8 Allergy status to other drugs, medicaments and biological substances; Z86.79 Personal history of other diseases of the circulatory system; Z95.0 Presence of cardiac pacemaker; Z87.891 Personal history of nicotine dependence | CPT/HCPCS: J3301 ==

== ENCOUNTER → 2018-02-24 | Outpatient (CLI) | payer MEDICARE, OTHER | LOC: M PAIN 09:30 | DX: M48.061 Spinal stenosis, lumbar region without neurogenic claudication (principal); G57.02 Lesion of sciatic nerve, left lower limb; M47.27 Other spondylosis with radiculopathy, lumbosacral region; G89.29 Other chronic pain; I10 Essential (primary) hypertension; Z79.82 Long term (current) use of aspirin; Z79.899 Other long term (current) drug therapy; Z88.8 Allergy status to other drugs, medicaments and biological substances; Z88.5 Allergy status to narcotic agent; Z88.6 Allergy status to analgesic agent; Z87.891 Personal history of nicotine dependence; Z95.0 Presence of cardiac pacemaker | CPT/HCPCS: G0463 ==

== ENCOUNTER → 2018-03-04 | Outpatient (CLI) | payer MEDICARE, OTHER ==
[2018-03-04 20:17] LABS: ALBUMIN 3.4 GM/DL (3.2-5.2); ALKALINE PHOSPHATASE 66 U/L (45-117); ALT/SGPT 34 U/L (12-78); ANION GAP 8 MEQ/L (8-16); AST/SGOT 18 U/L (7-37); BILIRUBIN,TOTAL 0.2 MG/DL (0.2-1.0); BLOOD UREA NITROGEN 14 MG/DL (7-18); CALCIUM LEVEL 8.7 MG/DL (8.8-10.2); CARBON DIOXIDE LEVEL 29 MEQ/L (21-32); CHLORIDE LEVEL 98 MEQ/L (98-107); CREATININE FOR GFR 0.74 MG/DL (0.55-1.30); GLOMERULAR FILTRATION RATE > 60.0 (>39); GLUCOSE, FASTING 120 MG/DL (70-100); POTASSIUM SERUM 4.5 MEQ/L (3.5-5.1); SODIUM LEVEL 135 MEQ/L (136-145); TOTAL PROTEIN 6.8 GM/DL (6.4-8.2)
== END ==
LOC: M ADAMS 15:51
DX: E87.1 Hypo-osmolality and hyponatremia (principal)
CPT/HCPCS: 80053

== ENCOUNTER 2018-04-22 11:07 | Emergency (ER) | payer MEDICARE, OTHER ==
[2018-04-22 13:38] LABS: KETONE, URINE AUTO RFX NEGATIVE (NEGATIVE); LEUKOCYTE ESTERASE UR AUTO RFX NEGATIVE (NEGATIVE); RBC, URINE AUTO RFX 1 /HPF (0-3); SPECIFIC GRAVITY UR AUTO RFX 1.005 (1.002-1.035); SQUAM EPITHELIAL CELL UR AURFX 0 /HPF (0-6); WBC, URINE AUTO RFX 0 /HPF (0-3)
[2018-04-22 13:40] LABS: NITRITE, URINE AUTO RFX POSITIVE (NEGATIVE)
[2018-04-22] MEDS: FLUCONAZOLE 100 MG TAB PO (14:17)
[2018-04-22] MEDS: BACTRIM 160MG/800MG DS TAB PO (14:19)
== END 2018-04-22 14:27 | disposition home or self-care (01) ==
LOC: M ED 11:07
DX: N30.00 Acute cystitis without hematuria (principal); I10 Essential (primary) hypertension; H40.9 Unspecified glaucoma; Z79.01 Long term (current) use of anticoagulants; Z88.8 Allergy status to other drugs, medicaments and biological substances; Z91.02 Food additives allergy status; Z86.73 Personal history of transient ischemic attack (TIA), and cerebral infarction without residual deficits

== ENCOUNTER 2018-04-24 02:23 | Inpatient (IN) | payer MEDICARE, OTHER ==
[2018-04-24] MEDS: MORPHINE 4 MG/ML 1ML VIAL/SYRINGE (J2270) IV ×2 (04:26→05:56)
[2018-04-24] MEDS: ONDANSETRON 4MG/2ML VIAL (J2405) IV (04:26)
[2018-04-24] MEDS ORDERED: ONDANSETRON 4MG/2ML VIAL (J2405) IV (09:45)
[2018-04-24] MEDS: ASPIRIN 81 MG ENTERIC TAB PO (10:19)
[2018-04-24] MEDS: VALSARTAN 80 MG TAB (DIOVAN) PO (10:19)
[2018-04-24] MEDS: SENOKOT S TAB PO ×2 (10:19→20:20)
[2018-04-24] MEDS: SERTRALINE HCL 50 MG TAB PO (10:21)
[2018-04-24] MEDS: BACTRIM 160MG/800MG DS TAB PO ×2 (10:21→20:20)
[2018-04-24 16:15] LABS: HEMATOCRIT 31.3 % (36.0-47.0); HEMOGLOBIN 10.4 g/dl (12.0-15.5); MEAN CORPUSCULAR HEMOGLOBIN 31.7 pg (27.0-33.0); MEAN CORPUSCULAR HGB CONC 33.2 g/dl (32.0-36.5); MEAN CORPUSCULAR VOLUME 95.4 fl (80.0-96.0); PLATELET COUNT, AUTOMATED 413 10^3/uL (150-450); RED BLOOD COUNT 3.28 10^6/uL (4.00-5.40); RED CELL DISTRIBUTION WIDTH 12.7 % (11.5-14.5); WHITE BLOOD COUNT 6.7 10^3/uL (4.0-10.0)
[2018-04-24 16:26] LABS: INR 4.07; PROTHROMBIN TIME 40.5 SECONDS (12.1-14.4)
[2018-04-24 16:35] LABS: ANION GAP 11 MEQ/L (8-16); BLOOD UREA NITROGEN 12 MG/DL (7-18); CALCIUM LEVEL 8.8 MG/DL (8.8-10.2); CARBON DIOXIDE LEVEL 23 MEQ/L (21-32); CHLORIDE LEVEL 102 MEQ/L (98-107); CREATININE FOR GFR 0.84 MG/DL (0.55-1.30); GLOMERULAR FILTRATION RATE > 60.0 (>39); GLUCOSE, FASTING 87 MG/DL (70-100); POTASSIUM SERUM 4.7 MEQ/L (3.5-5.1); SODIUM LEVEL 136 MEQ/L (136-145)
[2018-04-24] MEDS: oxyCODONE 5MG TAB PO ×2 (17:56→22:18)
[2018-04-24] MEDS: WARFARIN SOD 2.5 MG TAB PO (17:57)
[2018-04-25 06:01] LABS: HEMATOCRIT 34.4 % (36.0-47.0); HEMOGLOBIN 10.9 g/dl (12.0-15.5); MEAN CORPUSCULAR HEMOGLOBIN 31.4 pg (27.0-33.0); MEAN CORPUSCULAR HGB CONC 31.7 g/dl (32.0-36.5); MEAN CORPUSCULAR VOLUME 99.1 fl (80.0-96.0); PLATELET COUNT, AUTOMATED 413 10^3/uL (150-450); RED BLOOD COUNT 3.47 10^6/uL (4.00-5.40); RED CELL DISTRIBUTION WIDTH 12.8 % (11.5-14.5); WHITE BLOOD COUNT 5.5 10^3/uL (4.0-10.0)
[2018-04-25 06:06] LABS: ANION GAP 8 MEQ/L (8-16); BLOOD UREA NITROGEN 11 MG/DL (7-18); CALCIUM LEVEL 9.1 MG/DL (8.8-10.2); CARBON DIOXIDE LEVEL 22 MEQ/L (21-32); CHLORIDE LEVEL 103 MEQ/L (98-107); CREATININE FOR GFR 0.82 MG/DL (0.55-1.30); GLOMERULAR FILTRATION RATE > 60.0 (>39); GLUCOSE, FASTING 87 MG/DL (70-100); POTASSIUM SERUM 4.7 MEQ/L (3.5-5.1); SODIUM LEVEL 133 MEQ/L (136-145)
[2018-04-25 06:12] LABS: PROTHROMBIN TIME 50.5 SECONDS (12.1-14.4)
[2018-04-25 06:16] LABS: INR 5.37
[2018-04-25] MEDS: VALSARTAN 80 MG TAB (DIOVAN) PO (09:00)
[2018-04-25] MEDS: ASPIRIN 81 MG ENTERIC TAB PO (09:05)
[2018-04-25] MEDS: BACTRIM 160MG/800MG DS TAB PO ×2 (09:05→19:50)
[2018-04-25] MEDS: oxyCODONE 5MG TAB PO ×2 (09:06→18:07)
[2018-04-25] MEDS: SERTRALINE HCL 50 MG TAB PO (09:06)
[2018-04-25] MEDS: SENOKOT S TAB PO ×2 (09:06→19:50)
[2018-04-25] MEDS: PHYTONADIONE 5 MG TAB PO (14:10)
[2018-04-25] MEDS: LUMIGAN (PATIENT'S OWN MED) OS (19:50)
[2018-04-26] MEDS: oxyCODONE 5MG TAB PO ×4 (01:12→21:07)
[2018-04-26 05:49] LABS: HEMATOCRIT 33.3 % (36.0-47.0); HEMOGLOBIN 10.8 g/dl (12.0-15.5); MEAN CORPUSCULAR HEMOGLOBIN 31.6 pg (27.0-33.0); MEAN CORPUSCULAR HGB CONC 32.4 g/dl (32.0-36.5); MEAN CORPUSCULAR VOLUME 97.4 fl (80.0-96.0); PLATELET COUNT, AUTOMATED 406 10^3/uL (150-450); RED BLOOD COUNT 3.42 10^6/uL (4.00-5.40); RED CELL DISTRIBUTION WIDTH 12.4 % (11.5-14.5); WHITE BLOOD COUNT 4.9 10^3/uL (4.0-10.0)
[2018-04-26 06:05] LABS: ANION GAP 8 MEQ/L (8-16); BLOOD UREA NITROGEN 13 MG/DL (7-18); CALCIUM LEVEL 8.9 MG/DL (8.8-10.2); CARBON DIOXIDE LEVEL 25 MEQ/L (21-32); CHLORIDE LEVEL 100 MEQ/L (98-107); CREATININE FOR GFR 0.81 MG/DL (0.55-1.30); GLOMERULAR FILTRATION RATE > 60.0 (>39); GLUCOSE, FASTING 88 MG/DL (70-100); POTASSIUM SERUM 4.3 MEQ/L (3.5-5.1); SODIUM LEVEL 133 MEQ/L (136-145)
[2018-04-26 06:10] LABS: INR 1.54; PROTHROMBIN TIME 18.7 SECONDS (12.1-14.4)
[2018-04-26] MEDS: SERTRALINE HCL 50 MG TAB PO (08:07)
[2018-04-26] MEDS: BACTRIM 160MG/800MG DS TAB PO ×2 (08:07→19:39)
[2018-04-26] MEDS: SENOKOT S TAB PO ×2 (08:07→19:39)
[2018-04-26] MEDS: VALSARTAN 80 MG TAB (DIOVAN) PO (08:08)
[2018-04-26 10:20] LABS: KETONE, URINE AUTO RFX NEGATIVE (NEGATIVE); LEUKOCYTE ESTERASE UR AUTO RFX NEGATIVE (NEGATIVE); MUCUS, URINE RFX SMALL (NEGATIVE); NITRITE, URINE AUTO RFX NEGATIVE (NEGATIVE); RBC, URINE AUTO RFX 0 /HPF (0-3); SQUAM EPITHELIAL CELL UR AURFX 0 /HPF (0-6); URIC ACID CRYSTALS RFX SMALL; WBC, URINE AUTO RFX 1 /HPF (0-3)
[2018-04-26] MEDS: hydrOXYzine 10 MG TAB PO (15:48)
[2018-04-26] MEDS: WARFARIN SOD 1 MG TAB PO (15:48)
[2018-04-26] MEDS: LUMIGAN (PATIENT'S OWN MED) OS (19:40)
[2018-04-27] MEDS: PHENAZOPYRIDINE 100 MG TAB PO ×3 (00:11→20:20)
[2018-04-27] MEDS: SERTRALINE HCL 50 MG TAB PO (08:10)
[2018-04-27] MEDS: SENOKOT S TAB PO ×2 (08:10→20:19)
[2018-04-27] MEDS: VALSARTAN 80 MG TAB (DIOVAN) PO (08:10)
[2018-04-27 08:11] LABS: HEMATOCRIT 33.7 % (36.0-47.0); MEAN CORPUSCULAR HEMOGLOBIN 31.3 pg (27.0-33.0); MEAN CORPUSCULAR HGB CONC 32.6 g/dl (32.0-36.5); PLATELET COUNT, AUTOMATED 428 10^3/uL (150-450); RED BLOOD COUNT 3.51 10^6/uL (4.00-5.40); RED CELL DISTRIBUTION WIDTH 12.5 % (11.5-14.5)
[2018-04-27 08:26] LABS: INR 1.11; PROTHROMBIN TIME 14.5 SECONDS (12.1-14.4)
[2018-04-27 08:31] LABS: ANION GAP 12 MEQ/L (8-16); BLOOD UREA NITROGEN 14 MG/DL (7-18); CARBON DIOXIDE LEVEL 19 MEQ/L (21-32); CHLORIDE LEVEL 100 MEQ/L (98-107); CREATININE FOR GFR 1.05 MG/DL (0.55-1.30); GLUCOSE, FASTING 179 MG/DL (70-100); POTASSIUM SERUM 4.6 MEQ/L (3.5-5.1); SODIUM LEVEL 131 MEQ/L (136-145)
[2018-04-27] MEDS: LACTOBACILLUS ACIDOPHILUS CAP (BACID) PO ×2 (12:00→20:19)
[2018-04-27] MEDS: oxyCODONE 5MG TAB PO ×2 (12:52→22:46)
[2018-04-27] MEDS: WARFARIN SOD 1 MG TAB PO ×2 (16:25)
[2018-04-27] MEDS: BISACODYL 10 MG SUPP PR (20:20)
[2018-04-27] MEDS: LUMIGAN (PATIENT'S OWN MED) OS (20:20)
[2018-04-28] MEDS: PHENAZOPYRIDINE 100 MG TAB PO ×2 (09:16→20:17)
[2018-04-28] MEDS: SENOKOT S TAB PO ×2 (09:17→20:17)
[2018-04-28] MEDS: LACTOBACILLUS ACIDOPHILUS CAP (BACID) PO ×2 (09:17→20:17)
[2018-04-28] MEDS: SERTRALINE HCL 50 MG TAB PO (09:21)
[2018-04-28] MEDS: VALSARTAN 80 MG TAB (DIOVAN) PO (09:31)
[2018-04-28 10:40] LABS: HEMATOCRIT 34.6 % (36.0-47.0); HEMOGLOBIN 11.2 g/dl (12.0-15.5); MEAN CORPUSCULAR HEMOGLOBIN 31.8 pg (27.0-33.0); MEAN CORPUSCULAR HGB CONC 32.4 g/dl (32.0-36.5); MEAN CORPUSCULAR VOLUME 98.3 fl (80.0-96.0); PLATELET COUNT, AUTOMATED 445 10^3/uL (150-450); RED BLOOD COUNT 3.52 10^6/uL (4.00-5.40); RED CELL DISTRIBUTION WIDTH 12.4 % (11.5-14.5)
[2018-04-28 11:00] LABS: INR 1.22; PROTHROMBIN TIME 15.6 SECONDS (12.1-14.4)
[2018-04-28] MEDS: oxyCODONE 5MG TAB PO ×2 (11:11→20:17)
[2018-04-28 11:30] LABS: ANION GAP 9 MEQ/L (8-16); BLOOD UREA NITROGEN 17 MG/DL (7-18); CALCIUM LEVEL 8.9 MG/DL (8.8-10.2); CARBON DIOXIDE LEVEL 24 MEQ/L (21-32); CHLORIDE LEVEL 98 MEQ/L (98-107); GLOMERULAR FILTRATION RATE > 60.0 (>39); GLUCOSE, FASTING 110 MG/DL (70-100); SODIUM LEVEL 131 MEQ/L (136-145)
[2018-04-28] MEDS: ENOXAPARIN 60 MG/0.6 ML SYR (J1650) SC (15:50)
[2018-04-28] MEDS: WARFARIN SOD 5 MG TAB PO (17:26)
[2018-04-28] MEDS: LUMIGAN (PATIENT'S OWN MED) OS (20:19)
[2018-04-29] MEDS: ENOXAPARIN 60 MG/0.6 ML SYR (J1650) SC ×2 (04:01→15:00)
[2018-04-29 07:18] LABS: HEMATOCRIT 33.2 % (36.0-47.0); HEMOGLOBIN 10.6 g/dl (12.0-15.5); MEAN CORPUSCULAR HEMOGLOBIN 31.5 pg (27.0-33.0); MEAN CORPUSCULAR HGB CONC 31.9 g/dl (32.0-36.5); MEAN CORPUSCULAR VOLUME 98.5 fl (80.0-96.0); PLATELET COUNT, AUTOMATED 366 10^3/uL (150-450); RED BLOOD COUNT 3.37 10^6/uL (4.00-5.40); RED CELL DISTRIBUTION WIDTH 12.1 % (11.5-14.5); WHITE BLOOD COUNT 4.7 10^3/uL (4.0-10.0)
[2018-04-29 07:31] LABS: INR 1.36
[2018-04-29 07:59] LABS: ANION GAP 5 MEQ/L (8-16); BLOOD UREA NITROGEN 17 MG/DL (7-18); CALCIUM LEVEL 8.7 MG/DL (8.8-10.2); CARBON DIOXIDE LEVEL 27 MEQ/L (21-32); CHLORIDE LEVEL 103 MEQ/L (98-107); CREATININE FOR GFR 0.73 MG/DL (0.55-1.30); GLOMERULAR FILTRATION RATE > 60.0 (>39); GLUCOSE, FASTING 89 MG/DL (70-100); POTASSIUM SERUM 4.1 MEQ/L (3.5-5.1); SODIUM LEVEL 135 MEQ/L (136-145)
[2018-04-29] MEDS: VALSARTAN 80 MG TAB (DIOVAN) PO (09:00)
[2018-04-29] MEDS: PHENAZOPYRIDINE 100 MG TAB PO ×2 (09:37→20:11)
[2018-04-29] MEDS: SERTRALINE HCL 50 MG TAB PO (09:37)
[2018-04-29] MEDS: SENOKOT S TAB PO ×2 (09:37→20:11)
[2018-04-29] MEDS: LACTOBACILLUS ACIDOPHILUS CAP (BACID) PO ×2 (09:37→20:11)
[2018-04-29] MEDS: ACETAMINOPHEN TAB 650MG DOSE (2X325MG) PO ×2 (12:12→17:12)
[2018-04-29] MEDS: WARFARIN SOD 3 MG TAB PO (17:12)
[2018-04-29] MEDS: LUMIGAN (PATIENT'S OWN MED) OS (20:12)
[2018-04-30] MEDS: ACETAMINOPHEN TAB 650MG DOSE (2X325MG) PO (02:13)
[2018-04-30] MEDS: ENOXAPARIN 60 MG/0.6 ML SYR (J1650) SC (02:26)
[2018-04-30 06:55] LABS: HEMATOCRIT 32.9 % (36.0-47.0); HEMOGLOBIN 10.3 g/dl (12.0-15.5); MEAN CORPUSCULAR HEMOGLOBIN 31.3 pg (27.0-33.0); MEAN CORPUSCULAR HGB CONC 31.3 g/dl (32.0-36.5); RED BLOOD COUNT 3.29 10^6/uL (4.00-5.40); WHITE BLOOD COUNT 3.6 10^3/uL (4.0-10.0)
[2018-04-30 07:00] LABS: PLATELET COUNT, AUTOMATED 239 10^3/uL (150-450)
[2018-04-30 07:06] LABS: INR 1.81; PROTHROMBIN TIME 21.3 SECONDS (12.1-14.4)
[2018-04-30 07:24] LABS: ANION GAP 7 MEQ/L (8-16); BLOOD UREA NITROGEN 16 MG/DL (7-18); CALCIUM LEVEL 8.5 MG/DL (8.8-10.2); CARBON DIOXIDE LEVEL 21 MEQ/L (21-32); CHLORIDE LEVEL 109 MEQ/L (98-107); CREATININE FOR GFR 0.64 MG/DL (0.55-1.30); GLOMERULAR FILTRATION RATE > 60.0 (>39); GLUCOSE, FASTING 85 MG/DL (70-100); POTASSIUM SERUM 4.2 MEQ/L (3.5-5.1); SODIUM LEVEL 137 MEQ/L (136-145)
[2018-04-30] MEDS: VALSARTAN 80 MG TAB (DIOVAN) PO (09:00)
[2018-04-30] MEDS: SENOKOT S TAB PO (09:00)
[2018-04-30] MEDS: LACTOBACILLUS ACIDOPHILUS CAP (BACID) PO (09:01)
[2018-04-30] MEDS: SERTRALINE HCL 50 MG TAB PO (09:02)
== END 2018-04-30 11:15 | disposition home or self-care (01) | DRG 948 ==
LOC: M ED 02:23 → M ED INP 09:39 → M MS5PR 17:15
DX: R53.1 Weakness (principal); N39.0 Urinary tract infection, site not specified; I10 Essential (primary) hypertension; F41.9 Anxiety disorder, unspecified; I49.5 Sick sinus syndrome; F32.9 Major depressive disorder, single episode, unspecified; M54.9 Dorsalgia, unspecified; I69.393 Ataxia following cerebral infarction; Z98.1 Arthrodesis status; Z79.82 Long term (current) use of aspirin; Z79.01 Long term (current) use of anticoagulants; Z95.0 Presence of cardiac pacemaker; Z91.048 Other nonmedicinal substance allergy status; Z88.5 Allergy status to narcotic agent; Z88.6 Allergy status to analgesic agent; Z88.8 Allergy status to other drugs, medicaments and biological substances; Z90.710 Acquired absence of both cervix and uterus; Z86.711 Personal history of pulmonary embolism

== ENCOUNTER → 2018-05-02 | Outpatient (REF) | payer MEDICARE ==
[2018-05-02 13:28] LABS: PROTHROMBIN TIME 28.4 SECONDS (12.1-14.4)
== END ==
LOC: M LAB REF 13:04
DX: Z51.81 Encounter for therapeutic drug level monitoring (principal); Z79.899 Other long term (current) drug therapy
CPT/HCPCS: 85610

== ENCOUNTER → 2018-05-11 | Outpatient (CLI) | payer MEDICARE, OTHER | LOC: M PAIN 13:15 | DX: M48.061 Spinal stenosis, lumbar region without neurogenic claudication (principal); G57.02 Lesion of sciatic nerve, left lower limb; M47.27 Other spondylosis with radiculopathy, lumbosacral region; I10 Essential (primary) hypertension; I44.7 Left bundle-branch block, unspecified; H40.9 Unspecified glaucoma; Z86.73 Personal history of transient ischemic attack (TIA), and cerebral infarction without residual deficits; Z86.711 Personal history of pulmonary embolism; Z98.1 Arthrodesis status; Z95.0 Presence of cardiac pacemaker; Z87.891 Personal history of nicotine dependence; Z79.01 Long term (current) use of anticoagulants; Z79.899 Other long term (current) drug therapy; Z79.891 Long term (current) use of opiate analgesic; Z88.1 Allergy status to other antibiotic agents; Z88.5 Allergy status to narcotic agent; Z88.8 Allergy status to other drugs, medicaments and biological substances | CPT/HCPCS: G0463 ==

== ENCOUNTER → 2018-05-13 | Outpatient (REF) | payer MEDICARE, OTHER ==
[2018-05-13 12:07] LABS: INR 4.09; PROTHROMBIN TIME 40.7 SECONDS (12.1-14.4)
== END ==
LOC: M LAB REF 11:28
DX: Z79.899 Other long term (current) drug therapy (principal); Z79.01 Long term (current) use of anticoagulants
CPT/HCPCS: 85610

== ENCOUNTER → 2018-05-28 | Outpatient (CLI) | payer MEDICARE, OTHER | LOC: M PAIN 10:30 | DX: G89.29 Other chronic pain (principal); M79.18 Myalgia, other site; M79.10 Myalgia, unspecified site; G57.02 Lesion of sciatic nerve, left lower limb; I10 Essential (primary) hypertension; Z79.899 Other long term (current) drug therapy; Z88.5 Allergy status to narcotic agent; Z88.6 Allergy status to analgesic agent; Z88.8 Allergy status to other drugs, medicaments and biological substances; Z86.73 Personal history of transient ischemic attack (TIA), and cerebral infarction without residual deficits | CPT/HCPCS: J3301 ==

== ENCOUNTER → 2018-05-30 | Outpatient (REF) | payer MEDICARE, OTHER ==
[2018-05-30 16:41] LABS: INR 2.13; PROTHROMBIN TIME 24.2 SECONDS (12.1-14.4)
== END ==
LOC: M LABDRWAD 11:03
DX: Z79.01 Long term (current) use of anticoagulants (principal)
CPT/HCPCS: 85610

== ENCOUNTER → 2018-06-05 | Outpatient (REF) | payer MEDICARE, OTHER ==
[2018-06-05 20:10] LABS: APPEARANCE, URINE CLEAR (CLEAR); BACTERIA, URINE AUTO NEGATIVE (NEGATIVE); BILIRUBIN, URINE AUTO NEGATIVE (NEGATIVE); BLOOD, URINE BLOOD NEGATIVE (NEGATIVE); COLOR, URINE YELLOW (YELLOW); GLUCOSE, URINE (UA) AUTO NEGATIVE (NEGATIVE); KETONE, URINE AUTO NEGATIVE (NEGATIVE); LEUKOCYTE ESTERASE, URINE AUTO NEGATIVE (NEGATIVE); NITRITE, URINE AUTO NEGATIVE (NEGATIVE); PROTEIN, URINE AUTO NEGATIVE (NEGATIVE); RBC, URINE AUTO 0 /HPF (0-3); SPECIFIC GRAVITY URINE AUTO 1.003 (1.002-1.035); SQUAMOUS EPITHELIAL CELL UR AU 0 /HPF (0-6); UROBILINOGEN, URINE AUTO 0.2 mg/dL (0.0-2.0); WBC, URINE AUTO 0 /HPF (0-3)
== END ==
LOC: M LAB REF 19:26
DX: R30.0 Dysuria (principal)
CPT/HCPCS: 81001

== ENCOUNTER 2018-06-07 13:14 | Emergency (ER) | payer MEDICARE, OTHER ==
[2018-06-07 13:55] LABS: BASO % 0.4 % (0.0-1.0); EOS % 0.6 % (0.0-3.0); HEMATOCRIT 39.9 % (36.0-47.0); HEMOGLOBIN 12.9 g/dl (12.0-15.5); IMMATURE GRANULOCYTE % 0.3 % (0-3.0); LYMPH # 1.5 10^3/uL (1.5-4.5); LYMPH % 20.1 % (24.0-44.0); MEAN CORPUSCULAR HEMOGLOBIN 30.9 pg (27.0-33.0); MEAN CORPUSCULAR HGB CONC 32.3 g/dl (32.0-36.5); MEAN CORPUSCULAR VOLUME 95.5 fl (80.0-96.0); MONO # 0.8 10^3/uL (0.0-0.8); MONO % 10.3 % (0.0-5.0); NEUTROPHILS % 68.3 % (36.0-66.0); PLATELET COUNT, AUTOMATED 389 10^3/uL (150-450); RED BLOOD COUNT 4.18 10^6/uL (4.00-5.40); RED CELL DISTRIBUTION WIDTH 12.7 % (11.5-14.5); WHITE BLOOD COUNT 7.3 10^3/uL (4.0-10.0)
[2018-06-07 14:02] LABS: AMMONIA 17 uMOL/L (<32)
[2018-06-07 14:11] LABS: OSMOLALITY SERUM 273 MOSM/KG (280-301)
[2018-06-07 14:13] LABS: ACETAMINOPHEN LEVEL < 2.0 UG/ML (10.0-30.0); ALBUMIN 3.7 GM/DL (3.2-5.2); ALBUMIN/GLOBULIN RATIO 0.97 (1.00-1.93); ALKALINE PHOSPHATASE 76 U/L (45-117); ALT/SGPT 31 U/L (12-78); ANION GAP 10 MEQ/L (8-16); AST/SGOT 23 U/L (7-37); BILIRUBIN,DIRECT < 0.1 MG/DL (0.0-0.2); BILIRUBIN,TOTAL 0.3 MG/DL (0.2-1.0); BLOOD UREA NITROGEN 15 MG/DL (7-18); CALCIUM LEVEL 8.2 MG/DL (8.8-10.2); CARBON DIOXIDE LEVEL 24 MEQ/L (21-32); CHLORIDE LEVEL 95 MEQ/L (98-107); CPK CREATINE PHOSPHOKINASE 109 U/L (26-192); CREATININE FOR GFR 0.95 MG/DL (0.55-1.30); ETHYL ALCOHOL (ETHANOL) < 0.003 % (0.000-0.010); GLOMERULAR FILTRATION RATE > 60.0 (>39); GLUCOSE, FASTING 93 MG/DL (70-100); MB/CK RELATIVE INDEX 3.76 (< OR =4); POTASSIUM SERUM 4.4 MEQ/L (3.5-5.1); SALICYLATE LEVEL < 1.7 MG/DL (5.0-30.0); SODIUM LEVEL 129 MEQ/L (136-145); THYROID STIMULATING HORMONE 0.718 uIU/ML (0.358-3.740); TOTAL PROTEIN 7.5 GM/DL (6.4-8.2); TROPONIN I < 0.02 NG/ML (< 0.10)
[2018-06-07 14:22] LABS: INR 4.68; PARTIAL THROMBOPLASTIN TIME 42.1 SECONDS (25.4-37.6); PROTHROMBIN TIME 45.3 SECONDS (12.1-14.4)
[2018-06-07 14:38] LABS: LACTIC ACID SEPSIS PROTOCOL 1.4 MMOL/L (0.4-2.0)
[2018-06-07 14:56] LABS: KETONE, URINE AUTO RFX NEGATIVE (NEGATIVE); LEUKOCYTE ESTERASE UR AUTO RFX NEGATIVE (NEGATIVE); RBC, URINE AUTO RFX 1 /HPF (0-3); SPECIFIC GRAVITY UR AUTO RFX 1.004 (1.002-1.035); SQUAM EPITHELIAL CELL UR AURFX 0 /HPF (0-6); WBC, URINE AUTO RFX 1 /HPF (0-3)
[2018-06-07 14:57] LABS: OSMOLALITY URINE 210 MOSM/KG (500-800)
[2018-06-07 15:01] LABS: NITRITE, URINE AUTO RFX POSITIVE (NEGATIVE)
[2018-06-07 15:11] LABS: AMPHETAMINES LEVEL URINE NEGATIVE (NEGATIVE); BARBITURATES URINE NEGATIVE (NEGATIVE); BENZODIAZEPINES URINE NEGATIVE (NEGATIVE); CANNABINOIDS URINE NEGATIVE (NEGATIVE); COCAINE METABOLITE URINE NEGATIVE (NEGATIVE); CREATININE,RANDOM URINE 22.9 MG/DL; METHADONE URINE NEGATIVE (NEGATIVE); OPIATES URINE NEGATIVE (NEGATIVE); PHENCYCLIDINE URINE NEGATIVE (NEGATIVE); SODIUM,RANDOM URINE 30 MEQ/L
[2018-06-07 15:19] LABS: FREE T4 1.08 NG/DL (0.76-1.46)
== END 2018-06-07 18:00 | disposition home or self-care (01) ==
LOC: M ED 13:14
DX: E87.1 Hypo-osmolality and hyponatremia (principal); H40.9 Unspecified glaucoma; Z95.0 Presence of cardiac pacemaker; Z79.899 Other long term (current) drug therapy; Z79.01 Long term (current) use of anticoagulants; Z88.8 Allergy status to other drugs, medicaments and biological substances; Z91.048 Other nonmedicinal substance allergy status; Z87.891 Personal history of nicotine dependence
CPT/HCPCS: 71045

== ENCOUNTER → 2018-06-12 | Outpatient (CLI) | payer MEDICARE, OTHER ==
[2018-06-12 14:16] LABS: PROTHROMBIN TIME 31.8 SECONDS (12.1-14.4)
== END ==
LOC: M LAB 13:09
DX: Z51.81 Encounter for therapeutic drug level monitoring (principal); Z79.01 Long term (current) use of anticoagulants
CPT/HCPCS: 85610

== ENCOUNTER 2018-06-16 12:33 | Outpatient (RCR) | payer MEDICARE, OTHER | END 2018-06-17 | LOC: M OT 12:33 | DX: Z51.89 Encounter for other specified aftercare (principal); I63.9 Cerebral infarction, unspecified | CPT/HCPCS: 97110 ==

== ENCOUNTER → 2018-06-19 | Outpatient (REF) | payer MEDICARE, OTHER ==
[2018-06-19 13:06] LABS: INR 3.27
== END ==
LOC: M LABDRWAD 12:35
DX: Z79.01 Long term (current) use of anticoagulants (principal)
CPT/HCPCS: 85610

== ENCOUNTER → 2018-06-22 | Outpatient (CLI) | payer MEDICARE, OTHER | LOC: M PAIN 10:30 | DX: M48.061 Spinal stenosis, lumbar region without neurogenic claudication (principal); G57.02 Lesion of sciatic nerve, left lower limb; M47.27 Other spondylosis with radiculopathy, lumbosacral region; G89.29 Other chronic pain; I10 Essential (primary) hypertension; Z79.01 Long term (current) use of anticoagulants; Z79.899 Other long term (current) drug therapy; Z88.5 Allergy status to narcotic agent; Z88.8 Allergy status to other drugs, medicaments and biological substances; Z95.0 Presence of cardiac pacemaker; Z86.73 Personal history of transient ischemic attack (TIA), and cerebral infarction without residual deficits; Z86.711 Personal history of pulmonary embolism; Z87.891 Personal history of nicotine dependence | CPT/HCPCS: G0463 ==

== ENCOUNTER 2018-06-24 12:20 | Outpatient (RCR) | payer MEDICARE, OTHER | END 2018-07-17 | LOC: M OT 12:20 → M ST 06-26 12:58 → M OT 07-01 11:13 → M ST 07-06 12:30 → M OT 07-13 11:33 → M ST 06-29 10:23 → M OT 07-01 11:13 → M ST 07-06 12:30 → M OT 07-13 11:33 | DX: M48.061 Spinal stenosis, lumbar region without neurogenic claudication (principal); G57.02 Lesion of sciatic nerve, left lower limb; M47.27 Other spondylosis with radiculopathy, lumbosacral region | CPT/HCPCS: 97110 ==

== ENCOUNTER → 2018-06-25 | Outpatient (REF) | payer MEDICARE, OTHER ==
[2018-06-25 13:34] LABS: INR 2.05; PROTHROMBIN TIME 23.5 SECONDS (12.1-14.4)
== END ==
LOC: M LABDRWAD 12:47
DX: Z79.01 Long term (current) use of anticoagulants (principal)
CPT/HCPCS: 85610

== ENCOUNTER → 2018-07-14 | Outpatient (REF) | payer MEDICARE, OTHER ==
[2018-07-14 13:13] LABS: INR 2.58; PROTHROMBIN TIME 28.2 SECONDS (12.1-14.4)
== END ==
LOC: M LABDRWAD 12:40
DX: Z51.81 Encounter for therapeutic drug level monitoring (principal); Z79.01 Long term (current) use of anticoagulants
CPT/HCPCS: 85610

== ENCOUNTER → 2018-12-22 | Outpatient (CLI) | payer MEDICARE, OTHER ==
[~2018-12-22] MED LIST changes: +ACET-683 PO; +ACET1TAB55 PO; +AMIT10TA; +ASPI81TA26 PO; +ASPI81TAEC PO; +BACT800T5 PO; +BIMA01SOL OS; -BUPIVACAINE HCL 0.25% 30 ML VIAL As Ordered; +DIFL150T PO; +DIOV160T6 PO; +IBUP80TA PO; -ISOVUE-M 300 61% 15ML VIAL (Q9967) As Ordered; -LIDOCAINE 1% SDV INJ 30 ML VIAL As Ordered; +MORP15TA2 PO; +MS C15TA8 PO; +OXYC-517 PO; +OXYC15TA76 PO; +OXYC1TAB23 PO; +PROT1TAB2 PO; +SERT-155 PO; +SIMB1SUS OS; +SOMA350T PO; -TRIAMCINOLONE ACETONIDE SUSP 40 MG/ML VIAL (J3301) As Ordered; +VALS1TAB66 PO; +WARF-18 PO; +WARF-20 PO; +ZOLO50TA PO
--- NOTE | 2019-01-13 01:13 | ECWPNPC ---
PATIENT NAME: MIREYA PAREDES : 1940 GENDER: FEMALE VISIT DATE: 12/22/2018 DISCHARGE DATE: 12/22/18 1536 VISIT LOCKED DATE TIME: PHYSICIAN: RAJESH FELIX RESOURCE: RAJESH FELIX REASON FOR APPOINTMENT 1. MEDS, JUST GOT BACK FROM [place]. HISTORY OF PRESENT ILLNESS HISTORY OF PRESENT ILLNESS: HERE FOR F/U OF CHRONIC LOW BACK PAIN WITH RADIATION INTO LEFT LEG.RATING PAIN VAS 5/10.CURRENTLY USING PERCOCET 5/325 3 PER DAY THAT IS SOMEWHAT HELPFUL.RATING PAIN VAS 5/10.DESCRIBES PAIN CONTINUOUS AND BURNING. PAIN THE PATIENT DESCRIBES THE PAIN... FALL RISK SCREENING: SCREENING :NO FALLS REPORTED IN THE LAST YEAR CURRENT MEDICATIONS TAKING DIOVAN 80 MG TABLET 1 CAP(S) ORALLY ONCE A DAY TAKING ZOLOFT 50 MG TABLET 1 TABLET ORALLY ONCE A DAY TAKING WARFARIN SODIUM 3 MG TABLET 1 TABLET ORALLY ONCE A DAY TAKING COLACE 100 MG CAPSULE 1 CAPSULE NEEDED ORALLY ONCE A DAY TAKING LUMIGAN 0.03 % SOLUTION 1 DROP INTO AFFECTED EYE IN THE EVENING OPHTHALMIC ONCE A DAY TAKING VALSARTAN 160 MG TABLET 1 TABLET ORALLY ONCE A DAY TAKING PERCOCET 5-325 MG TABLET 1 TABLET NEEDED ORALLY Q4-6H PRN MDD4 THREE MOS SUPPLY CAT D CHRONIC PAIN TAKING ZYPREXA 2.5 MG TABLET 1 TABLET ORALLY BEFORE BEDTIME NOT-TAKING TYLENOL 325 MG TABLET 1 TABLET NEEDED ORALLY EVERY 4 HRS NOT-TAKING TYLENOL WITH CODEINE #3 300-30 MG TABLET 1 TABLET NEEDED ORALLY EVERY 6 HRS MEDICATION LIST REVIEWED AND RECONCILED WITH THE PATIENT PAST MEDICAL HISTORY HTN LEFT BRANCH BUNDLE BLOCK GLAUCOMA LEFT BUTTOCK PAIN 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 ALLERGIES KETOPROFEN: SLOWS KIDNEY FUNCTION - ALLERGY MACROBID: NAUSEA/VOMITING - ALLERGY BETA BLOCKERS: DIGESTIVE PROBLEMS - ALLERGY STATINS: DIGESTIVE PROBLEMS - ALLERGY CYMBALTA: ANAPHYLAXIS - ALLERGY TRAMADOL HCL: ANAPHYLAXIS - ALLERGY HYDROCODONE-ACETAMINOPHEN: ANAPHYLAXIS - ALLERGY IBUPROFEN: ANGIOEDEMA - ALLERGY SOMA: NAUSEA/VOMITING - ALLERGY SURGICAL HISTORY SPINAL FUSION [id number] FACIAL RECONSTRUCTIONS X9 RIGHT EYES SURGERIES X7.EYE REMOVAL 1999 HYSTERECTOMY, TOTAL WITH BSO 1991 GANGLION CYST RIGHT FOOT PACEMAKER INSERTION TONSILLECTOMY A CHILD SEVERAL D&C'S BILATERAL THUMB SURGERIES FOR ARTHRITIS FAMILY HISTORY FATHER: , DIAGNOSED WITH HYPERTENSION MOTHER: , OTHER, HYPERTENSION, HEART DISEASE, STROKE 2DAUGHTER(S) . MOM-GLAUCOMA\N1 DAUGHTER--MULTIPLE AUTOIMMUNES DISEASES. SOCIAL HISTORY GENERAL: TOBACCO USE ARE YOU A:FORMER SMOKER HOW LONG HAS IT BEEN SINCE YOU LAST SMOKED?> 10 YEARS PAIN CLINIC PFS, CLERGY, PUBLIC HEALTH REFERRALS WAS THE PROVIDER NOTIFIED OF ANY PERTINENT INFO?YES HAS THE PATIENT BEEN EDUCATED REGARDING HIS/HER PLAN OF CARE?YES HAS THE PATIENT BEEN EDUCATED REGARDING PAIN, THE RISK FOR PAIN, THE IMPORTANCE OF EFFECTIVE PAIN MANAGEMENT, AND THE PAIN ASSESSMENT PROCESS?YES LATEX QUESTIONNAIRE LATEX ALLERGY : HAVE YOU EVER DEVELOPED ANY TYPE OF REACTION AFTER HANDLING LATEX PRODUCTS SUCH RUBBER GLOVES, CONDOMS, DIAPHRAGMS, BALLOONS, SOCKS, OR UNDERWEAR?NO LATEX ALLERGY : HAVE YOU EVER DEVELOPED ANY TYPE OF REACTION DURING OR AFTER DENTAL APPOINTMENT, VAGINAL/RECTAL EXAMINATION, SURGICAL PROCEDURE, OR ANY OTHER EXPOSURE?NO LATEX RISK : HAVE YOU EVER HAD ANY DIFFICULTY BREATHING OR HIVES AFTER EATING OR HANDLING ANY FRUITS, OR VEGETABLES; SUCH KIWI, BANANAS, STONE FRUITS, OR CHESTNUTSNO LATEX RISK : DO YOU HAVE A PREVIOUS PERSONAL HISTORY OF MORE THAN NINE SURGERIES, SPINA BIFIDA, OR REPEATED CATHERTIZATIONS? NO LATEX RISK : ARE YOU FREQUENTLY EXPOSED TO LATEX PRODUCTS IN YOUR OCCUPATION?NO DATE ASKED : 12/22/2018 CAFFEINE CAFFEINE USE?YES HOW OFTEN AND HOW MUCH? 1 CUP DAILY ADVANCE DIRECTIVE ADVANCE DIRECTIVE DISCUSSED WITH PATIENT:YES PT. HAS HCP, JAME MAI - [phone] -PT ALSO HAS LIVING WILL, POA JAME MAI, NONHOSPITAL DNR EDUCATION LEVEL OF EDUCATION:COLLEGE YAZIDISM [id number] MORMONISM LANGUAGE LANGUAGES SPOKEN:SYRIAC DOMESTIC VIOLENCE DO YOU FEEL SAFE IN YOUR ENVIRONMENT?YES ALCOHOL SCREENING DID YOU HAVE A DRINK CONTAINING ALCOHOL IN THE PAST YEAR?NO POINTS0 INTERPRETATIONNEGATIVE RECREATIONAL DRUG USE DRUG USE?NO LEARNING BARRIERS / SPECIAL NEEDS BARRIERS TO LEARNING?NO HEARING IMPAIRED?NO VISION IMPAIRED?YES :CORRECTIVE LENSES COGNITIVELY IMPAIRED?NO READINESS TO LEARN?YES LEARNING PREFERENCES?YES :HANDOUTS, DEMONSTRATION/VERBAL INSTRUCTION LEARNING CAPABILITIES PRESENT?YES EMOTIONAL BARRIERS?NO SPECIAL DEVICES?YES : OCC. 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 AD05/11/18 1352 REVIEWED WITH PT LASREVIEWED WITH PATIENT 06/22/18 1049 JSREVIEWED WITH PATIENT 12/22/18 1300 BV. HOSPITALIZATION/MAJOR DIAGNOSTIC PROCEDURE THOUGHT SHE WAS HAVING A STROKE AND PAIN MANAGEMENT 01/02/18 SURGERY RELATED STROKE 02/2018 BLADDER INFECTION 07/2018 PNEUMONIA 10/2018 REVIEW OF SYSTEMS REVIEWED BY: PROVIDER: RAJESH ORTIZ . CONSTITUTIONAL: ANY CHANGE IN YOUR MEDICAL CONDITION? NO . CHILLS NO . FEVER NO . INFECTION: DO YOU HAVE NEW INFECTIONS? NO . DO YOU HAVE HISTORY OF MRSA? NO . MUSCULOSKELETAL: ANY NEW PATTERNS OF PAIN OR NUMBNESS? NO . GASTROENTEROLOGY: ANY NEW CHANGE IN BOWEL CONTROL? NO . GENITOURINARY: ANY NEW CHANGE IN BLADDER CONTROL? NO . IS THERE A CHANCE YOU COULD BE ? NO . HEMATOLOGY/LYMPH: DO YOU TAKE ANY BLOOD THINNERS? (FOR EXAMPLE- COUMADIN, PLAVIX, AGGRENOX, PLATEL, PRADAXA, OR XARELTO) YES, WARFARIN . WHEN WAS YOUR LAST DOSE? DATE: TIME: . NEUROLOGY: HAVE YOU FALLEN IN THE PAST 12 MONTHS? NO . ANY NEW EXTREMITY NUMBNESS OR WEAKNESS? NO . CARDIOLOGY: DO YOU HAVE A PACEMAKER OR DEFIBRILLATOR? YES, PACEMAKER . RESPIRATORY: HAVE YOU BEEN SICK IN THE PAST WEEK? NO . FEVER NO . FLU LIKE SYMPTOMS? NO . COUGH NO . INTEGUMENTARY: DO YOU HAVE ANY RASHES OR OPEN SORES? NO . ALLERGIC/IMMUNO: ARE YOU ALLERGIC TO IV DYE? NO . ANY NEW ALLERGIES? NO . PSYCHIATRIC: DO YOU HAVE THOUGHTS OF HURTING YOURSELF OR SOMEONE ELSE? NO . ARE YOU ABUSED, NEGLECTED, OR IN AN UNSAFE ENVIRONMENT? NO . ENDOCRINOLOGY: ARE YOU DIABETIC? NO . OTHER: DO YOU NEED ANY PRESCRIPTIONS? YES, OXYCODONE . IF YES, PLEASE LIST: ____ . ANY NEW PROBLEMS WITH YOUR MEDICATIONS? NO . WHEN DID YOU LAST EAT? ____ . WHEN DID YOU LAST DRINK? ____ . WHAT DID YOU LAST DRINK? ____ . NAME OF PERSON DRIVING YOU HOME? ____ . DO YOU HAVE ANY OTHER QUESTIONS OR CONCERNS NO . VITAL SIGNS WT 120.6 LBS, HT 61 IN, BMI 22.78 INDEX, BP 165/69 MM HG, HR 68 /MIN, RR 16 /MIN, TEMP 97.7 F, OXYGEN SAT % 97%, NA INITIALS SC 14:34, REVIEWED BY: MISTY. EXAMINATION GENERAL EXAMINATION: GENERAL APPEARANCE: AWAKE,ALERT ,PLEAASANT . PSYCH AFFECT NORMAL . LUNGS: LUNG BOWERS ARE CLEAR TO AUSCULTATION BILATERALLY. GOOD MOVEMENT OF AIR . HEART: S1, S2 IN A REGULAR RATE AND RHYTHM. NO SIGNIFICANT MURMURS, RUBS OR GALLOPS NOTED . LUMBAR SACRAL SPINEPALPATION:TENDER OVER BILAT. L3/4-L4/5/ LUMBAR FACETS WITH FACET LOADING.. 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 (REF # [id number] ) BRINGS IN MEDICATIONS WHICH IS APPROPRIATE FOR WHAT WAS DISPENSED. RECENT URINE TOXICOLOGY REVIEWED. NO UNAUTHORIZED MEDICATIONS. NO ILLICIT SUBSTANCES AND PRESCRIBED MEDICATIONS WERE PRESENT. , RISKS AND BENEFITS OF NARCOTIC/OPIOD MEDICATIONS WERE REVIEWED WITH PATIENT - THIS INCLUDES BUT IS NOT LIMITED TO RISK OF DEPENDANCE/DEVELOPMENT OF ADDICTION, MOOD DISTURBANCE AND DEPRESSION, OSTEOPOROSIS, HORMONAL AND LABIDAL CHANGES, RESPIRATORY DEPRESSION AND . PATIENT IS ADVISED NOT TO DRIVE OR DRINK ALCOHOL WHILE ON THESE MEDICATIONSBILAT L3/4-L4/5 THERAPEUTIC LFB. PROCEDURE CODES FA211 ESTABILISHED PATIENT [facility] FACILITY CHARGE DISPOSITION & COMMUNICATION FOLLOW UP POST (REASON: L3/4-L4/5 BILAT LFB THERAPEUTIC) ELECTRONICALLY SIGNED BY DIANA WILSON ON 01/12/2019 AT 03:54 PM EDT DISCLAIMER : THIS IS A VISIT SUMMARY EXTRACTED FROM THE [employer] CHART. IT IS NOT A COPY OF THE [employer] PROGRESS NOTE. MARIEL
== END ==
LOC: M PAIN 14:15
PROVIDERS: ATTEND Nurse Practitioner Family
DX: M48.061 Spinal stenosis, lumbar region without neurogenic claudication (principal); G89.29 Other chronic pain; G57.02 Lesion of sciatic nerve, left lower limb; M47.27 Other spondylosis with radiculopathy, lumbosacral region; I10 Essential (primary) hypertension; Z79.01 Long term (current) use of anticoagulants; Z79.899 Other long term (current) drug therapy; Z88.5 Allergy status to narcotic agent; Z88.6 Allergy status to analgesic agent; Z88.8 Allergy status to other drugs, medicaments and biological substances; Z95.0 Presence of cardiac pacemaker; Z86.73 Personal history of transient ischemic attack (TIA), and cerebral infarction without residual deficits; Z86.711 Personal history of pulmonary embolism; Z87.891 Personal history of nicotine dependence

== ENCOUNTER → 2019-02-09 | Outpatient (CLI) | payer MEDICARE, OTHER ==
[~2019-02-09] MED LIST changes: +BUPIVACAINE HCL 0.25% 30 ML VIAL As Ordered ONE; +ISOVUE-M 300 61% 15ML VIAL (Q9967) As Ordered ONE; +LIDOCAINE 1% SDV INJ 30 ML VIAL As Ordered ONE; +TRIAMCINOLONE ACETONIDE SUSP 40 MG/ML VIAL (J3301) As Ordered ONE; +diazePAM 5 MG TAB As Ordered ONE; +oxyCODONE 5MG TAB As Ordered ONE
--- NOTE | 2019-02-09 12:59 | REP ---
Partial lumbar spine series: Two views . History: Injection procedure for pain. 49 seconds of fluoroscopy time is reported. Findings: A sequence of a two fluoroscopically obtained last image hold procedural spot radiographs of the lumbar spine document needle position and contrast injection associated with injection procedure. Electronically Signed by Jorge Alexandra MD 02/09/2019 12:51 P
--- NOTE | 2019-02-18 00:57 | ECWPNPC ---
PATIENT NAME: MIREYA PAREDES : 1940 GENDER: FEMALE VISIT DATE: 02/09/2019 DISCHARGE DATE: 02/09/19 1218 VISIT LOCKED DATE TIME: PHYSICIAN: MICHAEL SABILLON MD RESOURCE: MICHAEL SABILLON MD REASON FOR APPOINTMENT 1. LUMBAR BILAT THRAPEUTIC BLOCK HISTORY OF PRESENT ILLNESS HISTORY OF PRESENT ILLNESS: PAIN THE PATIENT DESCRIBES THE PAIN... FALL RISK SCREENING: SCREENING :NO FALLS REPORTED IN THE LAST YEAR CURRENT MEDICATIONS TAKING DIOVAN 80 MG TABLET 1 CAP(S) ORALLY ONCE A DAY, NOTES: 02/10 800 TAKING ZOLOFT 50 MG TABLET 1 TABLET ORALLY ONCE A DAY, NOTES: 02/10 800 TAKING LUMIGAN 0.03 % SOLUTION 1 DROP INTO AFFECTED EYE IN THE EVENING OPHTHALMIC ONCE A DAY, NOTES: 02/08 2100 TAKING ZYPREXA 2.5 MG TABLET 1 TABLET ORALLY BEFORE BEDTIME, NOTES: 02/08 2100 TAKING COLACE 100 MG CAPSULE 1 CAPSULE NEEDED ORALLY ONCE A DAY, NOTES: NONE RECENT TAKING PERCOCET 5-325 MG TABLET 1 TABLET NEEDED ORALLY Q4-6H PRN MDD4 THREE MOS SUPPLY CAT D CHRONIC PAIN, NOTES: 02/09 730 TAKING LIPITOR 10 MG TABLET 1 TABLET ORALLY ONCE A DAY, NOTES: 02/08 2100 TAKING SIMBRINZA 1-0.2 % SUSPENSION 1 DROP INTO AFFECTED EYE OPHTHALMIC THREE TIMES A DAY, NOTES: 02/09 09 NOT-TAKING WARFARIN SODIUM 3 MG TABLET 1 TABLET ORALLY ONCE A DAY NOT-TAKING TYLENOL 325 MG TABLET 1 TABLET NEEDED ORALLY EVERY 4 HRS NOT-TAKING TYLENOL WITH CODEINE #3 300-30 MG TABLET 1 TABLET NEEDED ORALLY EVERY 6 HRS DISCONTINUED VALSARTAN 160 MG TABLET 1 TABLET ORALLY ONCE A DAY MEDICATION LIST REVIEWED AND RECONCILED WITH THE PATIENT PAST MEDICAL HISTORY HTN LEFT BRANCH BUNDLE BLOCK GLAUCOMA LEFT BUTTOCK PAIN 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 PNEUMONIA 10/2018 ALLERGIES KETOPROFEN: SLOWS KIDNEY FUNCTION - ALLERGY MACROBID: NAUSEA/VOMITING - ALLERGY BETA BLOCKERS: DIGESTIVE PROBLEMS - ALLERGY STATINS: DIGESTIVE PROBLEMS - ALLERGY CYMBALTA: ANAPHYLAXIS - ALLERGY TRAMADOL HCL: ANAPHYLAXIS - ALLERGY HYDROCODONE-ACETAMINOPHEN: ANAPHYLAXIS - ALLERGY IBUPROFEN: ANGIOEDEMA - ALLERGY SOMA: NAUSEA/VOMITING - ALLERGY SURGICAL HISTORY SPINAL FUSION [id number] FACIAL RECONSTRUCTIONS X9 RIGHT EYES SURGERIES X7.EYE REMOVAL 1999 HYSTERECTOMY, TOTAL WITH BSO 1991 GANGLION CYST RIGHT FOOT PACEMAKER INSERTION TONSILLECTOMY A CHILD SEVERAL D&C'S BILATERAL THUMB SURGERIES FOR ARTHRITIS FAMILY HISTORY FATHER: , DIAGNOSED WITH HYPERTENSION MOTHER: , HYPERTENSION, HEART DISEASE, STROKE, OTHER 2DAUGHTER(S) . MOM-GLAUCOMA\N1 DAUGHTER--MULTIPLE AUTOIMMUNES DISEASES. SOCIAL HISTORY GENERAL: TOBACCO USE ARE YOU A:FORMER SMOKER HOW LONG HAS IT BEEN SINCE YOU LAST SMOKED?> 10 YEARS PAIN CLINIC PFS, CLERGY, PUBLIC HEALTH REFERRALS WAS THE PROVIDER NOTIFIED OF ANY PERTINENT INFO? N/A HAS THE PATIENT BEEN EDUCATED REGARDING HIS/HER PLAN OF CARE?YES HAS THE PATIENT BEEN EDUCATED REGARDING PAIN, THE RISK FOR PAIN, THE IMPORTANCE OF EFFECTIVE PAIN MANAGEMENT, AND THE PAIN ASSESSMENT PROCESS?YES LATEX QUESTIONNAIRE LATEX ALLERGY : HAVE YOU EVER DEVELOPED ANY TYPE OF REACTION AFTER HANDLING LATEX PRODUCTS SUCH RUBBER GLOVES, CONDOMS, DIAPHRAGMS, BALLOONS, SOCKS, OR UNDERWEAR?NO LATEX ALLERGY : HAVE YOU EVER DEVELOPED ANY TYPE OF REACTION DURING OR AFTER DENTAL APPOINTMENT, VAGINAL/RECTAL EXAMINATION, SURGICAL PROCEDURE, OR ANY OTHER EXPOSURE?NO LATEX RISK : HAVE YOU EVER HAD ANY DIFFICULTY BREATHING OR HIVES AFTER EATING OR HANDLING ANY FRUITS, OR VEGETABLES; SUCH KIWI, BANANAS, STONE FRUITS, OR CHESTNUTSNO LATEX RISK : DO YOU HAVE A PREVIOUS PERSONAL HISTORY OF MORE THAN NINE SURGERIES, SPINA BIFIDA, OR REPEATED CATHERTIZATIONS? NO LATEX RISK : ARE YOU FREQUENTLY EXPOSED TO LATEX PRODUCTS IN YOUR OCCUPATION?NO DATE ASKED : 02/09/2019 CAFFEINE CAFFEINE USE?YES HOW OFTEN AND HOW MUCH? 1 CUP DAILY ADVANCE DIRECTIVE ADVANCE DIRECTIVE DISCUSSED WITH PATIENT:YES PT. HAS HCP, JAME MAI - [phone] -PT ALSO HAS LIVING WILL, CLAIR MAI, NONHOSPITAL DNR EDUCATION LEVEL OF EDUCATION:COLLEGE JAIN [id number] RASTAFARIAN LANGUAGE LANGUAGES SPOKEN:FAROESE DOMESTIC VIOLENCE DO YOU FEEL SAFE IN YOUR ENVIRONMENT?YES ALCOHOL SCREENING DID YOU HAVE A DRINK CONTAINING ALCOHOL IN THE PAST YEAR?NO POINTS0 INTERPRETATIONNEGATIVE RECREATIONAL DRUG USE DRUG USE?NO LEARNING BARRIERS / SPECIAL NEEDS BARRIERS TO LEARNING?NO HEARING IMPAIRED?NO VISION IMPAIRED?YES :CORRECTIVE LENSES COGNITIVELY IMPAIRED?NO READINESS TO LEARN?YES LEARNING PREFERENCES?YES :HANDOUTS, DEMONSTRATION/VERBAL INSTRUCTION LEARNING CAPABILITIES PRESENT?YES EMOTIONAL BARRIERS?NO SPECIAL DEVICES?YES : OCC. 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 AD05/11/18 1352 REVIEWED WITH PT NALLELYD WITH PATIENT 06/22/18 1049 JS02/09/19 REVIEWED WITH PT. MITRAWED WITH PATIENT 12/22/18 1300 BV. HOSPITALIZATION/MAJOR DIAGNOSTIC PROCEDURE THOUGHT SHE WAS HAVING A STROKE AND PAIN MANAGEMENT 01/02/18 SURGERY RELATED STROKE 02/2018 BLADDER INFECTION 07/2018 PNEUMONIA 10/2018 REVIEW OF SYSTEMS REVIEWED BY: PROVIDER: . CONSTITUTIONAL: ANY CHANGE IN YOUR MEDICAL CONDITION? NO . CHILLS NO . FEVER NO . INFECTION: DO YOU HAVE NEW INFECTIONS? NO . DO YOU HAVE HISTORY OF MRSA? NO . MUSCULOSKELETAL: ANY NEW PATTERNS OF PAIN OR NUMBNESS? NO . GASTROENTEROLOGY: ANY NEW CHANGE IN BOWEL CONTROL? NO . GENITOURINARY: ANY NEW CHANGE IN BLADDER CONTROL? NO . IS THERE A CHANCE YOU COULD BE ? NO . HEMATOLOGY/LYMPH: DO YOU TAKE ANY BLOOD THINNERS? (FOR EXAMPLE- COUMADIN, PLAVIX, AGGRENOX, PLATEL, PRADAXA, OR XARELTO) NO . WHEN WAS YOUR LAST DOSE? DATE: TIME: . NEUROLOGY: HAVE YOU FALLEN IN THE PAST 12 MONTHS? NO . ANY NEW EXTREMITY NUMBNESS OR WEAKNESS? NO . CARDIOLOGY: DO YOU HAVE A PACEMAKER OR DEFIBRILLATOR? YES PACEMAKER . RESPIRATORY: HAVE YOU BEEN SICK IN THE PAST WEEK? NO . FEVER NO . FLU LIKE SYMPTOMS? NO . COUGH NO . INTEGUMENTARY: DO YOU HAVE ANY RASHES OR OPEN SORES? NO . ALLERGIC/IMMUNO: ARE YOU ALLERGIC TO IV DYE? NO . ANY NEW ALLERGIES? NO . PSYCHIATRIC: DO YOU HAVE THOUGHTS OF HURTING YOURSELF OR SOMEONE ELSE? NO . ARE YOU ABUSED, NEGLECTED, OR IN AN UNSAFE ENVIRONMENT? NO . ENDOCRINOLOGY: ARE YOU DIABETIC? NO . OTHER: DO YOU NEED ANY PRESCRIPTIONS? NO . IF YES, PLEASE LIST: ____ . ANY NEW PROBLEMS WITH YOUR MEDICATIONS? NO . WHEN DID YOU LAST EAT? 02/09 2000 . WHEN DID YOU LAST DRINK? 05/11 2100 . WHAT DID YOU LAST DRINK? WATER . NAME OF PERSON DRIVING YOU HOME? JAME . DO YOU HAVE ANY OTHER QUESTIONS OR CONCERNS NO PT HAS NOT HAD ANY VACCINES IN THE PAST 30 DAYS . VITAL SIGNS WT 120.6 LBS, HT 61 IN, BMI 22.78 INDEX, BP 124/61 MM HG, HR 62 /MIN, RR 16 /MIN, TEMP 97.0 F, OXYGEN SAT % 98%, SAFE IN ENV? (Y/N) Y, NA INITIALS SC 10:10, REVIEWED BY: AD. ASSESSMENTS SPONDYLOSIS OF LUMBAR REGION WITHOUT MYELOPATHY OR RADICULOPATHY - M47.816 (PRIMARY) PROCEDURES PN LUMBAR FACET BLOCK THERAPEUTIC PRE PROCEDURE DIAGNOSIS LUMBAR SPONDYLOSIS POST PROCEDURE DIAGNOSIS LUMBAR SPONDYLOSIS PROCEDURE BILATERAL L1-L2, BILATERAL L2-L3, AND BILATERAL L3-L4 LUMBAR FACET THERAPEUTIC BLOCK SURGEON DR. MICHAEL SABILLON RELIABILITY TECHNOLOGIST NONE ANESTHESIA LOCAL PRE PROCEDURE NOTE THE PATIENT HAS A HISTORY OF CHRONIC LOW BACK PAIN. I EVALUATE THE PATIENT AND REVIEWED THE CHART. I WENT OVER THE RISKS, ALTERNATIVES, AND BENEFITS ASSOCIATED WITH THIS PROCEDURE. THE PATIENT WOULD LIKE TO PROCEED AND GIVE CONSENT TO PERFORMED THE PROCEDURE. THE PATIENT DENIES UNEXPLAINABLE WEIGHT LOSS, FEVER, CHILLS, OR NEW CHANGES IN URINARY OR BOWEL CONTROL DESCRIPTION OF PROCEDURE THE PATIENT WAS BROUGHT TO THE PROCEDURE ROOM AND PLACED IN THE PRONE POSITION. THE LUMBOSACRAL AREA WAS CLEANED WITH CHLORAPREP SOLUTION AND DRAPED ASEPTICALLY. THE PROCEDURE WAS DONE UNDER STERILE CONDITIONS. I CHECKED LATERALITY AND THE LEVEL WHERE THE PROCEDURE WAS GOING TO BE PERFORMED WITH THE PATIENT AND THE SUPPORTING STAFF AT THE MOMENT OF THE TIME OUT IN THE PROCEDURE ROOM. UNDER FLUOROSCOPIC GUIDANCE, THE TARGET POINT WAS SELECTED AT THE RIGHT AND LEFT L1-L2, RIGHT AND LEFT L2-L3, AND RIGHT AND LEFT L3-L4 FACET JOINT. TARGET POINT WAS SELECTED AFTER LATERAL ROTATION AND TILT OF THE MAGNIFIER OF THE C-ARM. LIDOCAINE 0.5% WAS USED TO NUMB THE SKIN AND THE SUBCUTANEOUS TISSUE BELOW IT. SPINAL NEEDLES, 22-GAUGE, WERE ADVANCED UNDER FLUOROSCOPIC GUIDANCE AND FOLLOWING PATIENT FEEDBACK UNTIL THE TARGETS WERE TOUCHED. THE POSITION OF THE NEEDLES WAS VERIFIED WITH AP AND LATERAL VIEWS. AFTER PROPER POSITION OF THE NEEDLES WAS ACHIEVED, ISOVUE-M DYE 30% 0.1 ML WAS INJECTED SHOWING ADEQUATE SPREAD OF THE DYE. THEN A SOLUTION OF 1.9 ML OF BUPIVACAINE 0.125% OF KENALOG 10 MG WAS INJECTED AT EACH SITE. THERE WAS NO EVIDENCE OF BLOOD, PARESTHESIA OR CEREBROSPINAL FLUID DURING THE PROCEDURE. THE PATIENT WAS SENT TO THE RECOVERY ROOM. THE PATIENT WAS MOVING THE EXTREMITIES AND DOING WELL. THERE WAS NO COMPLICATION DURING THE PROCEDURE. FLUOROSCOPY TIME WAS 49 SECONDS POST PROCEDURE NOTE THE PATIENT WILL BE SEEN IN A FOLLOW UP IN THE NEXT FEW WEEKS. INSTRUCTIONS WERE GIVEN, QUESTIONS WERE ANSWERED, AND THE PATIENT EXPRESSED UNDERSTANDING AND AGREES WITH THE PLAN. I, SEKOU AMATO, DOCUMENTED THE ABOVE INFORMATION ACTING A SCRIBE FOR DR. SABILLON. I HAVE REVIEWED THE ABOVE DOCUMENT, WRITTEN BY SEKOU FLORES AND I VERIFY THAT IT IS ACCURATE. DIAGNOSTIC IMAGING [facility] FACET BLOCK (PAIN)[id number] PROCEDURE CODES 6045F RADXPS IN END [id number] PXD [id number] INJ PARAVERT F JNT L/S 1 LEV, MODIFIERS: 50 [id number] INJ PARAVERT F JNT L/S 2 LEV, MODIFIERS: 50 [id number] INJ PARAVERT F JNT L/S 3 LEV, MODIFIERS: 50 DISPOSITION & COMMUNICATION FOLLOW UP 3 WEEKS ELECTRONICALLY SIGNED BY MICHAEL SABILLON MD, MD ON 02/17/2019 AT 12:49 PM EDT DISCLAIMER : THIS IS A VISIT SUMMARY EXTRACTED FROM THE [employer] CHART. IT IS NOT A COPY OF THE [employer] PROGRESS NOTE. MTDD
== END ==
LOC: M PAIN 10:00
PROVIDERS: ATTEND Anesthesiology
DX: M47.816 Spondylosis without myelopathy or radiculopathy, lumbar region (principal); I10 Essential (primary) hypertension; H40.9 Unspecified glaucoma; Z86.73 Personal history of transient ischemic attack (TIA), and cerebral infarction without residual deficits; Z86.711 Personal history of pulmonary embolism; Z98.1 Arthrodesis status; Z95.0 Presence of cardiac pacemaker; Z87.891 Personal history of nicotine dependence; Z79.891 Long term (current) use of opiate analgesic; Z79.899 Other long term (current) drug therapy; Z88.1 Allergy status to other antibiotic agents; Z88.5 Allergy status to narcotic agent; Z88.8 Allergy status to other drugs, medicaments and biological substances
CPT/HCPCS: 64493; 64494; 64495; J3301; Q9967

== ENCOUNTER → 2019-02-25 | Outpatient (REF) | payer MEDICARE, OTHER ==
[~2019-02-25] MED LIST changes: -BUPIVACAINE HCL 0.25% 30 ML VIAL As Ordered ONE; -ISOVUE-M 300 61% 15ML VIAL (Q9967) As Ordered ONE; -LIDOCAINE 1% SDV INJ 30 ML VIAL As Ordered ONE; -TRIAMCINOLONE ACETONIDE SUSP 40 MG/ML VIAL (J3301) As Ordered ONE; -diazePAM 5 MG TAB As Ordered ONE; -oxyCODONE 5MG TAB As Ordered ONE
== END ==
LOC: M LAB REF 11:20
PROVIDERS: ATTEND Physician Assistant
DX: R30.0 Dysuria (principal)

== ENCOUNTER 2019-03-06 18:54 | Emergency (ER) | payer MEDICARE, OTHER ==
[~2019-03-06] VITALS: Ht 154.9 cm; Wt 54.1 kg
[2019-03-06 19:53] LABS: BASO % 0.3 % (0.0-1.0); EOS % 0.3 % (0.0-3.0); HEMATOCRIT 34.2 % (36.0-47.0); HEMOGLOBIN 11.3 g/dl (12.0-15.5); LYMPH # 0.9 10^3/uL (1.5-4.5); LYMPH % 16.4 % (24.0-44.0); MEAN CORPUSCULAR HEMOGLOBIN 32.1 pg (27.0-33.0); MEAN CORPUSCULAR VOLUME 97.2 fl (80.0-96.0); MONO # 0.4 10^3/uL (0.0-0.8); MONO % 6.3 % (0.0-5.0); NEUTROPHILS # 4.4 10^3/uL (1.8-7.7); NEUTROPHILS % 76.2 % (36.0-66.0); PLATELET COUNT, AUTOMATED 278 10^3/uL (150-450); RED BLOOD COUNT 3.52 10^6/uL (4.00-5.40); WHITE BLOOD COUNT 5.7 10^3/uL (4.0-10.0)
[2019-03-06 20:05] LABS: INR 0.97; PARTIAL THROMBOPLASTIN TIME 26.6 SECONDS (25.0-38.4); PROTHROMBIN TIME 12.6 SECONDS (11.8-14.0)
[2019-03-06 20:11] LABS: BLOOD UREA NITROGEN 15 MG/DL (7-18); CALCIUM LEVEL 8.4 MG/DL (8.8-10.2); CARBON DIOXIDE LEVEL 24 MEQ/L (21-32); CHLORIDE LEVEL 97 MEQ/L (98-107); CREATININE FOR GFR 0.75 MG/DL (0.55-1.30); ETHYL ALCOHOL (ETHANOL) < 0.003 % (0.000-0.010); GLOMERULAR FILTRATION RATE > 60.0 (>39); GLUCOSE, FASTING 166 MG/DL (70-100); POTASSIUM SERUM 4.1 MEQ/L (3.5-5.1); SODIUM LEVEL 130 MEQ/L (136-145)
--- NOTE | 2019-03-06 20:16 | REPVR ---
EXAM: CT Head Without Contrast EXAM DATE/TIME: 03/06/2019 7:04 PM CLINICAL HISTORY: 78 years old, female; Pain; Headache not specified; Prior surgery; Surgery date: 6+ months; Surgery type: Eye; Additional info: Severe headache TECHNIQUE: Imaging protocol: Computed tomography images of the head without contrast. Radiation optimization: All CT scans at this facility use at least one of these dose optimization techniques: automated exposure control; mA and/or kV adjustment per patient size (includes targeted exams where dose is matched to clinical indication); or iterative reconstruction. COMPARISON: CT Head without contrast 06/07/2018 1:48 PM FINDINGS: Brain: A new lacunar infarct is identified within the right basal ganglia, which appears to be subacute. A small lacunar infarct is again visualized within the left thalamus. Encephalomalacia and gliosis are identified within the high right frontoparietal region, which has mildly progressed. There are scattered foci of white matter hypodensity, likely representing small vessel ischemic disease in a patient this age. The acuity of the white matter disease is indeterminate. The white-morrissey differentiation is otherwise preserved demonstrating no acute territorial type infarct. No acute intracranial hemorrhage is seen. Midline shift: There is no midline shift. Ventricles: There is stable prominence of the ventricles and sulci, compatible with atrophy. Bones/joints: There is thinning of the left frontal cortex of the skull, which is stable. Sinuses: Visualized sinuses are unremarkable. No fluid levels. Mastoid air cells: No mastoid effusion. Orbits: A right orbital lens implant is visualized. Soft tissues: Unremarkable. Vasculature: Intracranial atherosclerosis visualized. IMPRESSION: 1. No acute intracranial hemorrhage. 2. A new lacunar infarct is identified within the right basal ganglia, which appears to be subacute. A small lacunar infarct is again visualized within the left thalamus. 3. Encephalomalacia and gliosis are identified within the high right frontoparietal region, which has mildly progressed. 4. There are scattered foci of white matter hypodensity, likely representing small vessel ischemic disease in a patient this age. 5. Stable atrophy. 6. If further evaluation is clinically indicated, an MRI of the brain is recommended. Electronically signed by: Nima Haines On 03/06/2019 20:16:20 PM
[2019-03-06 20:18] LABS: ERYTHROCYTE SEDIMENTATION RATE 31 mm/hr (0-30)
[2019-03-06 20:30] VITALS: BP 153/68
[2019-03-06] MEDS ORDERED: WARFARIN SOD 4 MG TAB PO ONE (21:00)
[2019-03-06] MEDS ORDERED: NS 500 ML IV ONE (21:15)
--- NOTE | 2019-03-07 06:50 | ED PDOC ---
Post-Departure Follow-Up dr alarcon faxed formal report of ct head for fu Eduar Jo MD Mar 07, 2019 06:50
== END 2019-03-06 22:20 | disposition home or self-care (01) ==
LOC: M ED 18:54
DX: E87.1 Hypo-osmolality and hyponatremia (principal); I10 Essential (primary) hypertension; Z95.0 Presence of cardiac pacemaker; Z79.01 Long term (current) use of anticoagulants; Z79.899 Other long term (current) drug therapy; Z88.6 Allergy status to analgesic agent; Z88.8 Allergy status to other drugs, medicaments and biological substances; Z88.5 Allergy status to narcotic agent
CPT/HCPCS: 70450; 80048; 85025; 85610; 85652; 85730; 99284; G0480

== ENCOUNTER → 2019-03-09 | Outpatient (CLI) | payer MEDICARE, OTHER ==
--- NOTE | 2019-03-23 02:13 | ECWPNPC ---
PATIENT NAME: MIREYA PAREDES : 1940 GENDER: FEMALE VISIT DATE: 03/09/2019 DISCHARGE DATE: 03/09/19 1244 VISIT LOCKED DATE TIME: PHYSICIAN: RAJESH FELIX RESOURCE: RAJESH FELIX REASON FOR APPOINTMENT 1. MEDS HISTORY OF PRESENT ILLNESS HISTORY OF PRESENT ILLNESS: HERE FOR F/U OF CHRONIC LOW BACK PAIN WITH RADIATION INTO LEFT LEG.RATING PAIN VAS 5/10.CURRENTLY USING PERCOCET 5/325 3 PER DAY THAT IS SOMEWHAT HELPFUL.RATING PAIN VAS 7/10.CHIEF AREA OF PAIN IS LEFT POSTERIOR HAMSTRING AND ANAL PAIN.DESCRIBES PAIN CONTINUOUS AND BURNING. PAIN THE PATIENT DESCRIBES THE PAIN... THE PATIENT DESCRIBES THE PAIN... FALL RISK SCREENING: SCREENING :NO FALLS REPORTED IN THE LAST YEAR CURRENT MEDICATIONS TAKING ZOLOFT 50 MG TABLET 1 TABLET ORALLY ONCE A DAY TAKING LUMIGAN 0.03 % SOLUTION 1 DROP INTO AFFECTED EYE IN THE EVENING OPHTHALMIC ONCE A DAY TAKING ZYPREXA 2.5 MG TABLET 1 TABLET ORALLY BEFORE BEDTIME TAKING COLACE 100 MG CAPSULE 1 CAPSULE NEEDED ORALLY ONCE A DAY TAKING PERCOCET 5-325 MG TABLET 1 TABLET NEEDED ORALLY Q4-6H PRN MDD4 THREE MOS SUPPLY CAT D CHRONIC PAIN TAKING LIPITOR 10 MG TABLET 1 TABLET ORALLY ONCE A DAY TAKING SIMBRINZA 1-0.2 % SUSPENSION 1 DROP INTO AFFECTED EYE OPHTHALMIC THREE TIMES A DAY NOT-TAKING WARFARIN SODIUM 3 MG TABLET 1 TABLET ORALLY ONCE A DAY NOT-TAKING TYLENOL 325 MG TABLET 1 TABLET NEEDED ORALLY EVERY 4 HRS NOT-TAKING TYLENOL WITH CODEINE #3 300-30 MG TABLET 1 TABLET NEEDED ORALLY EVERY 6 HRS DISCONTINUED DIOVAN 80 MG TABLET 1 CAP(S) ORALLY ONCE A DAY MEDICATION LIST REVIEWED AND RECONCILED WITH THE PATIENT PAST MEDICAL HISTORY HTN LEFT BRANCH BUNDLE BLOCK GLAUCOMA LEFT BUTTOCK PAIN 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 PNEUMONIA 10/2018 ALLERGIES KETOPROFEN: SLOWS KIDNEY FUNCTION - ALLERGY MACROBID: NAUSEA/VOMITING - ALLERGY BETA BLOCKERS: DIGESTIVE PROBLEMS - ALLERGY STATINS: DIGESTIVE PROBLEMS - ALLERGY CYMBALTA: ANAPHYLAXIS - ALLERGY TRAMADOL HCL: ANAPHYLAXIS - ALLERGY HYDROCODONE-ACETAMINOPHEN: ANAPHYLAXIS - ALLERGY IBUPROFEN: ANGIOEDEMA - ALLERGY SOMA: NAUSEA/VOMITING - ALLERGY SURGICAL HISTORY SPINAL FUSION [id number] FACIAL RECONSTRUCTIONS X9 RIGHT EYES SURGERIES X7.EYE REMOVAL 1999 HYSTERECTOMY, TOTAL WITH BSO 1991 GANGLION CYST RIGHT FOOT PACEMAKER INSERTION TONSILLECTOMY A CHILD SEVERAL D&C'S BILATERAL THUMB SURGERIES FOR ARTHRITIS FAMILY HISTORY FATHER: , DIAGNOSED WITH HYPERTENSION MOTHER: , OTHER, HYPERTENSION, HEART DISEASE, STROKE 2DAUGHTER(S) . MOM-GLAUCOMA\N1 DAUGHTER--MULTIPLE AUTOIMMUNES DISEASES. SOCIAL HISTORY GENERAL: TOBACCO USE ARE YOU A:FORMER SMOKER HOW LONG HAS IT BEEN SINCE YOU LAST SMOKED?> 10 YEARS PAIN CLINIC PFS, CLERGY, PUBLIC HEALTH REFERRALS WAS THE PROVIDER NOTIFIED OF ANY PERTINENT INFO? N/A HAS THE PATIENT BEEN EDUCATED REGARDING HIS/HER PLAN OF CARE?YES HAS THE PATIENT BEEN EDUCATED REGARDING PAIN, THE RISK FOR PAIN, THE IMPORTANCE OF EFFECTIVE PAIN MANAGEMENT, AND THE PAIN ASSESSMENT PROCESS?YES LATEX QUESTIONNAIRE LATEX ALLERGY : HAVE YOU EVER DEVELOPED ANY TYPE OF REACTION AFTER HANDLING LATEX PRODUCTS SUCH RUBBER GLOVES, CONDOMS, DIAPHRAGMS, BALLOONS, SOCKS, OR UNDERWEAR?NO LATEX ALLERGY : HAVE YOU EVER DEVELOPED ANY TYPE OF REACTION DURING OR AFTER DENTAL APPOINTMENT, VAGINAL/RECTAL EXAMINATION, SURGICAL PROCEDURE, OR ANY OTHER EXPOSURE?NO LATEX RISK : HAVE YOU EVER HAD ANY DIFFICULTY BREATHING OR HIVES AFTER EATING OR HANDLING ANY FRUITS, OR VEGETABLES; SUCH KIWI, BANANAS, STONE FRUITS, OR CHESTNUTSNO LATEX RISK : DO YOU HAVE A PREVIOUS PERSONAL HISTORY OF MORE THAN NINE SURGERIES, SPINA BIFIDA, OR REPEATED CATHERIZATIONS? NO LATEX RISK : ARE YOU FREQUENTLY EXPOSED TO LATEX PRODUCTS IN YOUR OCCUPATION?NO DATE ASKED : 02/09/2019 CAFFEINE CAFFEINE USE?YES HOW OFTEN AND HOW MUCH? 1 CUP DAILY ADVANCE DIRECTIVE ADVANCE DIRECTIVE DISCUSSED WITH PATIENT:YES PT. HAS HCPJAME - [phone] -PT ALSO HAS LIVING WILL, CLAIR MAI, NONHOSPITAL DNR EDUCATION LEVEL OF EDUCATION:COLLEGE WORSHIP [id number] MORMONISM LANGUAGE LANGUAGES SPOKEN:[place] DOMESTIC VIOLENCE DO YOU FEEL SAFE IN YOUR ENVIRONMENT?YES ALCOHOL SCREENING DID YOU HAVE A DRINK CONTAINING ALCOHOL IN THE PAST YEAR?NO POINTS0 INTERPRETATIONNEGATIVE RECREATIONAL DRUG USE DRUG USE?NO LEARNING BARRIERS / SPECIAL NEEDS BARRIERS TO LEARNING?NO HEARING IMPAIRED?NO VISION IMPAIRED?YES :CORRECTIVE LENSES COGNITIVELY IMPAIRED?NO READINESS TO LEARN?YES LEARNING PREFERENCES?YES :HANDOUTS, DEMONSTRATION/VERBAL INSTRUCTION LEARNING CAPABILITIES PRESENT?YES EMOTIONAL BARRIERS?NO SPECIAL DEVICES?YES : OCC. WHEELING WALKER VIDEO MANAGER NEEDED?NO REVIEWED WITH PT 01/26/18 1412REVIEWED WITH PT 02/06/18 0904 BV02/19/18 1055 REVIEWED WITH PT. AD05/11/18 1352 REVIEWED WITH PT LASREVIEWED WITH PATIENT 06/22/18 1049 JS02/09/19 REVIEWED WITH PT. ADRRAMAIEWED WITH PATIENT 12/22/18 1300 BV. HOSPITALIZATION/MAJOR DIAGNOSTIC PROCEDURE THOUGHT SHE WAS HAVING A STROKE AND PAIN MANAGEMENT 01/02/18 SURGERY RELATED STROKE 02/2018 BLADDER INFECTION 07/2018 PNEUMONIA 10/2018 REVIEW OF SYSTEMS REVIEWED BY: PROVIDER: RAJESH ORTIZ . CONSTITUTIONAL: ANY CHANGE IN YOUR MEDICAL CONDITION? NO . CHILLS NO . FEVER NO . INFECTION: DO YOU HAVE NEW INFECTIONS? NO . DO YOU HAVE HISTORY OF MRSA? NO . MUSCULOSKELETAL: ANY NEW PATTERNS OF PAIN OR NUMBNESS? NO . GASTROENTEROLOGY: ANY NEW CHANGE IN BOWEL CONTROL? NO . GENITOURINARY: ANY NEW CHANGE IN BLADDER CONTROL? NO . IS THERE A CHANCE YOU COULD BE ? NO . HEMATOLOGY/LYMPH: DO YOU TAKE ANY BLOOD THINNERS? (FOR EXAMPLE- COUMADIN, PLAVIX, AGGRENOX, PLATEL, PRADAXA, OR XARELTO) NO . WHEN WAS YOUR LAST DOSE? DATE: TIME: . NEUROLOGY: HAVE YOU FALLEN IN THE PAST 12 MONTHS? NO . ANY NEW EXTREMITY NUMBNESS OR WEAKNESS? NO . CARDIOLOGY: DO YOU HAVE A PACEMAKER OR DEFIBRILLATOR? YES, PACEMAKER . RESPIRATORY: HAVE YOU BEEN SICK IN THE PAST WEEK? YES, COLD CHILLS, LOW GRADE FEVER NAUSEA X 1 WEEK, PT SAW PCP FRIDAY CHANGED B/P MED BECAUSE SODIUM LEVEL WAS LOW, NO ABX WERE PRESCRIBED, PROBABLY A VIRUS PER PCP . FEVER YES, LOW GRADE 98.5 WHICH IS HIGH FOR PT . FLU LIKE SYMPTOMS? NO . COUGH NO . INTEGUMENTARY: DO YOU HAVE ANY RASHES OR OPEN SORES? NO . ALLERGIC/IMMUNO: ARE YOU ALLERGIC TO IV DYE? NO . ANY NEW ALLERGIES? NO . PSYCHIATRIC: DO YOU HAVE THOUGHTS OF HURTING YOURSELF OR SOMEONE ELSE? NO . ARE YOU ABUSED, NEGLECTED, OR IN AN UNSAFE ENVIRONMENT? NO . ENDOCRINOLOGY: ARE YOU DIABETIC? NO . OTHER: DO YOU NEED ANY PRESCRIPTIONS? NO . IF YES, PLEASE LIST: ____ . ANY NEW PROBLEMS WITH YOUR MEDICATIONS? YES, B/P MED WAS CHANGED FOR LOW SODIUM NOT SURE OF NEW B/P MED NAME WILL BRING IN NEXT TIME . WHEN DID YOU LAST EAT? ____ . WHEN DID YOU LAST DRINK? ____ . WHAT DID YOU LAST DRINK? ____ . NAME OF PERSON DRIVING YOU HOME? ____ . DO YOU HAVE ANY OTHER QUESTIONS OR CONCERNS NO . VITAL SIGNS WT 121.2 LBS, HT 61 IN, BMI 22.90 INDEX, BP 135/69 MM HG, HR 84 /MIN, RR 16 /MIN, TEMP 96.6 F, OXYGEN SAT % 98%, NA INITIALS AW 1150, REVIEWED BY: EM. EXAMINATION GENERAL EXAMINATION: GENERAL AWAKE,ALERT ,PLEAASANT . PSYCH AFFECT NORMAL . LUNGS: LUNG BOWERS ARE CLEAR TO AUSCULTATION BILATERALLY. GOOD MOVEMENT OF AIR . HEART: S1, S2 IN A REGULAR RATE AND RHYTHM. NO SIGNIFICANT MURMURS, RUBS OR GALLOPS NOTED . MUSCULOSKELETAL:TENDERNESS WITH PALPATION OVER LEFT PROXIMALPOSTERIOR HAMSTRING. LUMBAR SACRAL SPINEPALPATION:TENDER OVER BILAT. L3/4-L4/5/ LUMBAR FACETS WITH FACET LOADING.. ASSESSMENTS LEFT BUTTOCK PAIN - M79.18 (PRIMARY) TREATMENT LEFT BUTTOCK PAIN CONTINUE PERCOCET TABLET, 5-325 MG, 1 TABLET NEEDED, ORALLY, Q4-6H PRN MDD4 THREE MOS SUPPLY CAT D CHRONIC PAIN NOTES: LEFT POSTERIOR HAMSTRING STEROID INJECTION, ISTOP REGISTRY REVIEWED AND DEMONSTRATES COMPLLIANCE. BRINGS IN MEDICATIONS WHICH IS APPROPRIATE FOR WHAT WAS DISPENSED. RECENT URINE TOXICOLOGY REVIEWED. NO UNAUTHORIZED MEDICATIONS. NO ILLICIT SUBSTANCES AND PRESCRIBED MEDICATIONS WERE PRESENT. URINE TOX [facility] NARCOTIC AGREEMENT WAS REVIEWED AND SIGNED TODAY BY THE PATIENT. SEE ATTACHED DOCUMENT FOR FULL DETAILS; SPECIFIC ISSUES WERE REVIEWED: 1) KEEP PAIN MEDS IN THEIR ORIGINAL BOTTLES AND ANY WEEKLY PLANNERS ARE TO BE BROUGHT TO THE PAIN CENTER AT EVERY VISIT. 2) THE PATIENT IS NOT TO INCREASE DOSING OR TIMING OF THEIR PAIN MEDICATION WITHOUT SPECIFIC DIRECTION OF THEIR PAIN CENTERPROVIDER (NOT ER OR OTHER PROVIDERS). 3) ALL PAIN MEDS ARE TO BE KEPT SECURED, IN A LOCKED BOX. 4) NO PAIN MEDS ARE TO BE SHARED WITH ANY OTHER PERSON FOR ANY REASON. 5) NO PAIN MEDS MAY BE TAKEN FROM ANY FRIENDS OR RELATIVES FOR ANY REASON 6) NO MEDS OR SUBSTANCES WHICH ARE NOT LEGAL ARE TO BE USED- NO MARIJUANA, NO COCAINE, AMPHETAMINES, HEROIN, OR OTHERS ARE EVER TO BE USED. 7)URINE TESTING IS DONE TO ACCOUNT FOR MEDS AND SUBSTANCES BEING TAKEN AND WILL BE DONE RANDOMLY., RISKS AND BENEFITS OF NARCOTIC/OPIOD MEDICATIONS WERE REVIEWED WITH PATIENT - THIS INCLUDES BUT IS NOT LIMITED TO RISK OF DEPENDANCE/DEVELOPMENT OF ADDICTION, MOOD DISTURBANCE AND DEPRESSION, OSTEOPOROSIS, HORMONAL AND LABIDAL CHANGES, RESPIRATORY DEPRESSION AND . PATIENT IS ADVISED NOT TO DRIVE OR DRINK ALCOHOL WHILE ON THESE MEDICATIONS. PROCEDURE CODES FA211 ESTABILISHED PATIENT [facility] CHARGE DISPOSITION & COMMUNICATION FOLLOW UP POST (REASON: LEFT POSTERIOR HAMSTRING STEROID INJECTION) ELECTRONICALLY SIGNED BY DIANA WILSON ON 03/22/2019 AT 03:26 PM EDT DISCLAIMER : THIS IS A VISIT SUMMARY EXTRACTED FROM THE [employer] CHART. IT IS NOT A COPY OF THE [employer] PROGRESS NOTE. MARIEL
== END ==
LOC: M PAIN 11:00
PROVIDERS: ATTEND Nurse Practitioner Family
DX: M79.18 Myalgia, other site (principal); I10 Essential (primary) hypertension; Z86.711 Personal history of pulmonary embolism; Z95.0 Presence of cardiac pacemaker; Z87.891 Personal history of nicotine dependence; Z88.1 Allergy status to other antibiotic agents; Z88.5 Allergy status to narcotic agent; Z88.6 Allergy status to analgesic agent; Z88.8 Allergy status to other drugs, medicaments and biological substances; Z79.899 Other long term (current) drug therapy

== ENCOUNTER → 2019-03-11 | Outpatient (CLI) | payer MEDICARE, OTHER ==
[~2019-03-11] MED LIST changes: +BUPIVACAINE HCL 0.25% 30 ML VIAL As Ordered ONE; +ISOVUE-M 200 41% 20ML VIAL (Q9966) As Ordered ONE; +LIDOCAINE 1% SDV INJ 30 ML VIAL As Ordered ONE; +TRIAMCINOLONE ACETONIDE SUSP 40 MG/ML VIAL (J3301) As Ordered ONE; +diazePAM 5 MG TAB As Ordered ONE; +oxyCODONE 5MG TAB As Ordered ONE
--- NOTE | 2019-03-11 15:03 | REP ---
C-ARM VIEWS LEFT PELVIS: Clinical history: Pain. Three C-Arm views are performed during left piriformis injection performed by Dr. Grove. Needle overlies the left hip region. Contrast is injected. 9 seconds fluoroscopy time utilized. Electronically Signed by Byron Hood MD 03/11/2019 05:45 P
--- NOTE | 2019-03-19 23:33 | ECWPNPC ---
PATIENT NAME: MIREYA PAREDES : 1940 GENDER: FEMALE VISIT DATE: 03/11/2019 DISCHARGE DATE: 03/11/19 1156 VISIT LOCKED DATE TIME: PHYSICIAN: MICHAEL SABILLON MD RESOURCE: MICHAEL SABILLON MD REASON FOR APPOINTMENT 1. LEFT POSTERIOR HAMSTRING STEROID INJECTION HISTORY OF PRESENT ILLNESS HISTORY OF PRESENT ILLNESS: PAIN THE PATIENT DESCRIBES THE PAIN... 78 YEAR OLD FEMALE PATIENT WITH A HISTORY OF CHRONIC LEFT BUTTOCK PAIN. THE PATIENT DESCRIBES THE PAIN ACHING, TENDER, AND CONTINUOUS WITH A PAIN SCORE OF 7-9/10 DEPENDING ON PHYSICAL ACTIVITY. THE PATIENT SAYS HER PAIN CAUSES DIFFICULTIES IN PERFORMING HER DAILY ACTIVITIES, SUCH COOKING, CLEANING, AND GROCERY SHOPPING. PATIENT DENIES UNEXPLAINABLE WEIGHT LOSS, FEVER, CHILLS, NEW CHANGES ON HER URINARY OR BOWEL CONTROL. FALL RISK SCREENING: SCREENING :NO FALLS REPORTED IN THE LAST YEAR CURRENT MEDICATIONS TAKING ZOLOFT 50 MG TABLET 1 TABLET ORALLY ONCE A DAY, NOTES: 0800 TAKING LUMIGAN 0.03 % SOLUTION 1 DROP INTO AFFECTED EYE IN THE EVENING OPHTHALMIC ONCE A DAY, NOTES: 03/10/19 PM TAKING ZYPREXA 2.5 MG TABLET 1 TABLET ORALLY BEFORE BEDTIME, NOTES: 03/10/19 PM TAKING COLACE 100 MG CAPSULE 1 CAPSULE NEEDED ORALLY ONCE A DAY, NOTES: NONE RECENT TAKING LIPITOR 10 MG TABLET 1 TABLET ORALLY ONCE A DAY, NOTES: 03/10/19 PM TAKING SIMBRINZA 1-0.2 % SUSPENSION 1 DROP INTO AFFECTED EYE OPHTHALMIC THREE TIMES A DAY, NOTES: 0800 TAKING PERCOCET 5-325 MG TABLET 1 TABLET NEEDED ORALLY Q4-6H PRN MDD4 THREE MOS SUPPLY CAT D CHRONIC PAIN, NOTES: 03/10/19 1700 TAKING NORVASC 5MG TABLET 1 TAB DAILY, NOTES: 0800 NOT-TAKING WARFARIN SODIUM 3 MG TABLET 1 TABLET ORALLY ONCE A DAY NOT-TAKING TYLENOL 325 MG TABLET 1 TABLET NEEDED ORALLY EVERY 4 HRS NOT-TAKING TYLENOL WITH CODEINE #3 300-30 MG TABLET 1 TABLET NEEDED ORALLY EVERY 6 HRS MEDICATION LIST REVIEWED AND RECONCILED WITH THE PATIENT PAST MEDICAL HISTORY HTN LEFT BRANCH BUNDLE BLOCK GLAUCOMA LEFT BUTTOCK PAIN 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 PNEUMONIA 10/2018 ALLERGIES KETOPROFEN: SLOWS KIDNEY FUNCTION - ALLERGY MACROBID: NAUSEA/VOMITING - ALLERGY BETA BLOCKERS: DIGESTIVE PROBLEMS - ALLERGY STATINS: DIGESTIVE PROBLEMS - ALLERGY CYMBALTA: ANAPHYLAXIS - ALLERGY TRAMADOL HCL: ANAPHYLAXIS - ALLERGY HYDROCODONE-ACETAMINOPHEN: ANAPHYLAXIS - ALLERGY IBUPROFEN: ANGIOEDEMA - ALLERGY SOMA: NAUSEA/VOMITING - ALLERGY SURGICAL HISTORY SPINAL FUSION [id number] FACIAL RECONSTRUCTIONS X9 RIGHT EYES SURGERIES X7.EYE REMOVAL 1999 HYSTERECTOMY, TOTAL WITH BSO 1991 GANGLION CYST RIGHT FOOT PACEMAKER INSERTION TONSILLECTOMY A CHILD SEVERAL D&C'S BILATERAL THUMB SURGERIES FOR ARTHRITIS FAMILY HISTORY FATHER: , DIAGNOSED WITH HYPERTENSION MOTHER: , OTHER, HYPERTENSION, HEART DISEASE, STROKE 2DAUGHTER(S) . MOM-GLAUCOMA\N1 DAUGHTER--MULTIPLE AUTOIMMUNES DISEASES. SOCIAL HISTORY GENERAL: TOBACCO USE ARE YOU A:FORMER SMOKER HOW LONG HAS IT BEEN SINCE YOU LAST SMOKED?> 10 YEARS PAIN CLINIC PFS, CLERGY, PUBLIC HEALTH REFERRALS WAS THE PROVIDER NOTIFIED OF ANY PERTINENT INFO? N/A HAS THE PATIENT BEEN EDUCATED REGARDING HIS/HER PLAN OF CARE?YES HAS THE PATIENT BEEN EDUCATED REGARDING PAIN, THE RISK FOR PAIN, THE IMPORTANCE OF EFFECTIVE PAIN MANAGEMENT, AND THE PAIN ASSESSMENT PROCESS?YES LATEX QUESTIONNAIRE LATEX ALLERGY : HAVE YOU EVER DEVELOPED ANY TYPE OF REACTION AFTER HANDLING LATEX PRODUCTS SUCH RUBBER GLOVES, CONDOMS, DIAPHRAGMS, BALLOONS, SOCKS, OR UNDERWEAR?NO LATEX ALLERGY : HAVE YOU EVER DEVELOPED ANY TYPE OF REACTION DURING OR AFTER DENTAL APPOINTMENT, VAGINAL/RECTAL EXAMINATION, SURGICAL PROCEDURE, OR ANY OTHER EXPOSURE?NO LATEX RISK : HAVE YOU EVER HAD ANY DIFFICULTY BREATHING OR HIVES AFTER EATING OR HANDLING ANY FRUITS, OR VEGETABLES; SUCH KIWI, BANANAS, STONE FRUITS, OR CHESTNUTSNO LATEX RISK : DO YOU HAVE A PREVIOUS PERSONAL HISTORY OF MORE THAN NINE SURGERIES, SPINA BIFIDA, OR REPEATED CATHERIZATIONS? NO LATEX RISK : ARE YOU FREQUENTLY EXPOSED TO LATEX PRODUCTS IN YOUR OCCUPATION?NO DATE ASKED : 02/09/2019 CAFFEINE CAFFEINE USE?YES HOW OFTEN AND HOW MUCH? 1 CUP DAILY ADVANCE DIRECTIVE ADVANCE DIRECTIVE DISCUSSED WITH PATIENT:YES PT. HAS HCP, JAME MAI - [phone] -PT ALSO HAS LIVING WILL, CLAIR MAI, NONHOSPITAL DNR EDUCATION LEVEL OF EDUCATION:COLLEGE CONGREGATIONAL [id number] SHINTO LANGUAGE LANGUAGES SPOKEN:GREEK DOMESTIC VIOLENCE DO YOU FEEL SAFE IN YOUR ENVIRONMENT?YES ALCOHOL SCREENING DID YOU HAVE A DRINK CONTAINING ALCOHOL IN THE PAST YEAR?NO POINTS0 INTERPRETATIONNEGATIVE RECREATIONAL DRUG USE DRUG USE?NO LEARNING BARRIERS / SPECIAL NEEDS BARRIERS TO LEARNING?NO HEARING IMPAIRED?NO VISION IMPAIRED?YES :CORRECTIVE LENSES COGNITIVELY IMPAIRED?NO READINESS TO LEARN?YES LEARNING PREFERENCES?YES :HANDOUTS, DEMONSTRATION/VERBAL INSTRUCTION LEARNING CAPABILITIES PRESENT?YES EMOTIONAL BARRIERS?NO SPECIAL DEVICES?YES : OCC. WHEELING WALKER INTERPRETIVE PROGRAM COORDINATOR NEEDED?NO REVIEWED WITH PT 01/26/18 1412REVIEWED WITH PT 02/06/18 0904 BV02/19/18 1055 REVIEWED WITH PT. AD05/11/18 1352 REVIEWED WITH PT LASREVIEWED WITH PATIENT 06/22/18 1049 JSREVIEWED WITH PATIENT 03/11/19 0937 JS02/09/19 REVIEWED WITH PT. ADREVIEWED WITH PATIENT 12/22/18 1300 BV. HOSPITALIZATION/MAJOR DIAGNOSTIC PROCEDURE THOUGHT SHE WAS HAVING A STROKE AND PAIN MANAGEMENT 01/02/18 SURGERY RELATED STROKE 02/2018 BLADDER INFECTION 07/2018 PNEUMONIA 10/2018 REVIEW OF SYSTEMS REVIEWED BY: PROVIDER: MICHAEL SABILLON MD . CONSTITUTIONAL: ANY CHANGE IN YOUR MEDICAL CONDITION? NO . CHILLS NO . FEVER NO . INFECTION: DO YOU HAVE NEW INFECTIONS? NO . DO YOU HAVE HISTORY OF MRSA? NO . MUSCULOSKELETAL: ANY NEW PATTERNS OF PAIN OR NUMBNESS? NO . GASTROENTEROLOGY: ANY NEW CHANGE IN BOWEL CONTROL? NO . GENITOURINARY: ANY NEW CHANGE IN BLADDER CONTROL? NO . IS THERE A CHANCE YOU COULD BE ? NO . HEMATOLOGY/LYMPH: DO YOU TAKE ANY BLOOD THINNERS? (FOR EXAMPLE- COUMADIN, PLAVIX, AGGRENOX, PLATEL, PRADAXA, OR XARELTO) NO . WHEN WAS YOUR LAST DOSE? DATE: TIME: . NEUROLOGY: HAVE YOU FALLEN IN THE PAST 12 MONTHS? NO . ANY NEW EXTREMITY NUMBNESS OR WEAKNESS? NO . CARDIOLOGY: DO YOU HAVE A PACEMAKER OR DEFIBRILLATOR? YES, PACEMAKER . RESPIRATORY: HAVE YOU BEEN SICK IN THE PAST WEEK? YES, LOW SODIUM LEVEL LAST WEEKEND, HAS SEEN DOCTOR SINCE AND WAS GIVEN IV SALINE . FEVER NO . FLU LIKE SYMPTOMS? NO . COUGH NO . INTEGUMENTARY: DO YOU HAVE ANY RASHES OR OPEN SORES? NO . ALLERGIC/IMMUNO: ARE YOU ALLERGIC TO IV DYE? NO . ANY NEW ALLERGIES? NO . PSYCHIATRIC: DO YOU HAVE THOUGHTS OF HURTING YOURSELF OR SOMEONE ELSE? NO . ARE YOU ABUSED, NEGLECTED, OR IN AN UNSAFE ENVIRONMENT? NO . ENDOCRINOLOGY: ARE YOU DIABETIC? NO . OTHER: DO YOU NEED ANY PRESCRIPTIONS? NO . IF YES, PLEASE LIST: ____ . ANY NEW PROBLEMS WITH YOUR MEDICATIONS? NO . WHEN DID YOU LAST EAT? ____03/10/19 1700 . WHEN DID YOU LAST DRINK? ____03/11/19 0800 . WHAT DID YOU LAST DRINK? ____WATER . NAME OF PERSON DRIVING YOU HOME? ____URSULA (CAREGIVER) . DO YOU HAVE ANY OTHER QUESTIONS OR CONCERNS NO . VITAL SIGNS WT 121.1 LBS, HT 61 IN, BMI 22.88 INDEX, BP 120/61 MM HG, HR 63 /MIN, RR 16 /MIN, TEMP 97.8 F, OXYGEN SAT % 96%, SAFE IN ENV? (Y/N) YES, NA INITIALS AW 0853, REVIEWED BY: DRU. EXAMINATION GENERAL EXAMINATION: PATIENT IS ALERT O X 3 AND COOPERATIVE. TENDERNESS IN THE LEFT BUTTOCK OVER THE PIRIFORMIS MUSCLE. 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 PAREDES'S PAIN MANAGEMENT CASE. DUE TO THE LEFT BUTTOCK PAIN, I WOULD LIKE TO PROCEED WITH A LEFT PIRIFORMIS MUSCLE BLOCK UNDER FLUOROSCOPIC GUIDANCE. WE DISCUSSED THE BENEFITS, RISKS, AND ALTERNATIVES OF THE INJECTION AND THE PATIENT WOULD LIKE TO PROCEED. THE PATIENT WILL FOLLOW UP IN SEVERAL WEEKS AFTER THE INJECTION. INSTRUCTIONS WERE GIVEN, QUESTIONS WERE ANSWERED, PATIENT REPORTS UNDERSTANDING AND AGREES WITH THE PLAN. I, SHALINI VALENTE, DOCUMENTED THE ABOVE INFORMATION ACTING A SCRIBE FOR DR. SABILLON. I HAVE REVIEWED THE ABOVE DOCUMENT, WRITTEN BY SHALINI FLORES AND I VERIFY THAT IT IS ACCURATE. . PROCEDURES PREOPERATIVE DIAGNOSIS: LEFT PIRIFORMIS SYNDROME. MYALGIAPOSTOPERATIVE DIAGNOSIS: LEFT PIRIFORMIS SYNDROME. MYALGIAPROCEDURE: LEFT PIRIFORMIS MUSCLE BLOCK UNDER FLUOROSCOPIC GUIDANCE.ANESTHESIA: LOCAL.SURGEON: MICHAEL WHATLEY M.D.PREOPERATIVE NOTE: THE PATIENT HAS HISTORY OF CHRONIC LOW BACK PAIN. I EVALUATED THE PATIENT AND REVIEWED THE CHART. WE BOTH AGREED ON PERFORMING A LEFT PIRIFORMIS MUSCLE BLOCK UNDER FLUOROSCOPIC GUIDANCE. I WENT THROUGH THE RISKS, ALTERNATIVES AND BENEFITS ASSOCIATED WITH THIS PROCEDURE AND THE PATIENTEXPRESSED THAT SHE WOULD LIKE TO PROCEED. THE PATIENT DENIES UNEXPLAINABLE WEIGHT LOSS, FEVER, CHILLS, OR CHANGES IN URINARY OR BOWEL CONTROL.PROCEDURE NOTE: AFTER CONSENT WAS TAKEN, THE PATIENT WAS BROUGHT TO THE PROCEDURE ROOM AND THE PATIENT WAS PLACED IN THE PRONE POSITION. THE LUMBOSACRAL AREA WAS CLEANED WITH CHLORAPREP SOLUTION AND DRAPED ASEPTICALLY. THE PROCEDURE WAS DONE UNDER STERILE CONDITIONS. LATERALLITY WAS CHECK WITH THE PATIENT AND THE STAFF AT THE TIME OF TIME OUT. UNDER FLUOROSCOPIC GUIDANCE, THE TARGET POINT WAS SELECTED AT THE MIDDLE AREA BETWEEN THE LEFT GREATER TROCHANTER OF THE FEMUR AND THE BORDER OF THE SACRUM. LIDOCAINE WAS USED TO NUMB THE SKIN AND THE SUBCUTANEOUS TISSUE BELOW IT. A SPINAL NEEDLE 22 GAUGE, WAS ADVANCED UNDER FLUOROSCOPIC GUIDANCE TO THE SUBSTANCE OF THE LEFT PIRIFORMIS MUSCLE. WHEN APPROPRIATE POSITION OF THE NEEDLE WAS ACHIEVED, ISOVUE M-200 DYE, WAS INJECTED SHOWING ADEQUATE SPREAD OF THE DYE. THEN A SOLUTION OF 30 ML OF BUPIVACAINE, 0.25%, AND KENALOG 40 MG WAS INJECTED. THERE WAS NO EVIDENCE OF BLOOD, PARESTHESIAS OR CEREBROSPINAL FLUID. THE PATIENT WAS SENT TO THE RECOVERY ROOM WHERE SHE WAS MOVING HER EXTREMITIES AND DOING WELL. THERE WERE NO COMPLICATIONS DURING THE PROCEDURE. FLUOROSCOPY TIME WAS 9 SECONDS.POSTOPERATIVE NOTE: I DISCUSSED ALTERNATIVES WITH THE PATIENT. I AM LOOKING FOR LONG-LASTING PAIN RELIEF WITH THIS INTERVENTION. THERE WERE NO COMPLICATIONS. FURTHER RECOMMENDATIONS DEPEND ON HOW THE PATIENT DOES. INSTRUCTIONS WERE GIVEN QUESTIONS WERE ANSWERED PATIENT REPORTS UNDERSTANDING AND AGREES WITH THE PLAN. I, SEKOU AMATO, DOCUMENTED THE ABOVE INFORMATION ACTING A SCRIBE FOR DR. SABILLON. I HAVE REVIEWED THE ABOVE DOCUMENT, WRITTEN BY SEKOU AMATO SCRIBTania AND I VERIFY THAT IT IS ACCURATE. DIAGNOSTIC IMAG[facility] FLUORO GUIDANCE (PAIN)[id number] PROCEDURE CODES 6045F RADXPS IN END [id number] PXD [id number] NEEDLE LOCALIZATION BY XRAY, MODIFIERS: [id number] INJ TRIGGER POINT 08/19 MUSCL, MODIFIERS: LT DISPOSITION & COMMUNICATION FOLLOW UP 3 WEEKS ELECTRONICALLY SIGNED BY MICHAEL SABILLON MD, MD ON 03/19/2019 AT 02:10 PM EDT DISCLAIMER : THIS IS A VISIT SUMMARY EXTRACTED FROM THE [employer] CHART. IT IS NOT A COPY OF THE [employer] PROGRESS NOTE. MTDD
== END ==
LOC: M PAIN 09:00
PROVIDERS: ATTEND Anesthesiology
DX: M79.18 Myalgia, other site (principal); G57.02 Lesion of sciatic nerve, left lower limb; I10 Essential (primary) hypertension; H40.9 Unspecified glaucoma; Z86.718 Personal history of other venous thrombosis and embolism; Z86.73 Personal history of transient ischemic attack (TIA), and cerebral infarction without residual deficits; Z98.1 Arthrodesis status; Z90.710 Acquired absence of both cervix and uterus; Z95.0 Presence of cardiac pacemaker; Z87.891 Personal history of nicotine dependence; Z79.891 Long term (current) use of opiate analgesic; Z79.899 Other long term (current) drug therapy; Z88.8 Allergy status to other drugs, medicaments and biological substances; Z88.5 Allergy status to narcotic agent; Z88.1 Allergy status to other antibiotic agents; Z88.6 Allergy status to analgesic agent
CPT/HCPCS: 20552; 77002; J3301; Q9966

== ENCOUNTER → 2019-03-29 | Outpatient (CLI) | payer MEDICARE, OTHER ==
[~2019-03-29] MED LIST changes: -BUPIVACAINE HCL 0.25% 30 ML VIAL As Ordered ONE; -ISOVUE-M 200 41% 20ML VIAL (Q9966) As Ordered ONE; -LIDOCAINE 1% SDV INJ 30 ML VIAL As Ordered ONE; -TRIAMCINOLONE ACETONIDE SUSP 40 MG/ML VIAL (J3301) As Ordered ONE; -diazePAM 5 MG TAB As Ordered ONE; -oxyCODONE 5MG TAB As Ordered ONE
--- NOTE | 2019-04-14 23:56 | ECWPNPC ---
PATIENT NAME: MIREYA PAREDES : 1940 GENDER: FEMALE VISIT DATE: 03/29/2019 DISCHARGE DATE: 03/29/19 1100 VISIT LOCKED DATE TIME: PHYSICIAN: RAJESH FELIX RESOURCE: RAJESH FELIX REASON FOR APPOINTMENT 1. POST PROCEDURE HISTORY OF PRESENT ILLNESS HISTORY OF PRESENT ILLNESS: HERE FOR POST PROCEDURE F/U.HAD LEFT PIRIFORMIS INJECTION 03/11/19.REPORTING NO IMPROVEMENT POST PROCEDURE.RATING PAIN VAS 8/10.REPORTING ANAL BURNING PAIN AND SEVERE LBP.PAIN IS UNBEARABLE AT TIMES.HX OF EXTENSIVE LUMBAR SURGERY SEVERAL YEARS AGO.REVIEWD MRI AND DISCUSSED TREATMENT OPTIONS. PAIN THE PATIENT DESCRIBES THE PAIN... FALL RISK SCREENING: SCREENING :NO FALLS REPORTED IN THE LAST YEAR CURRENT MEDICATIONS TAKING ZOLOFT 50 MG TABLET 1 TABLET ORALLY ONCE A DAY TAKING LUMIGAN 0.03 % SOLUTION 1 DROP INTO AFFECTED EYE IN THE EVENING OPHTHALMIC ONCE A DAY TAKING ZYPREXA 2.5 MG TABLET 1 TABLET ORALLY BEFORE BEDTIME TAKING COLACE 100 MG CAPSULE 1 CAPSULE NEEDED ORALLY ONCE A DAY TAKING LIPITOR 10 MG TABLET 1 TABLET ORALLY ONCE A DAY TAKING SIMBRINZA 1-0.2 % SUSPENSION 1 DROP INTO AFFECTED EYE OPHTHALMIC THREE TIMES A DAY TAKING PERCOCET 5-325 MG TABLET 1 TABLET NEEDED ORALLY Q4-6H PRN MDD4 THREE MOS SUPPLY CAT D CHRONIC PAIN TAKING NORVASC 5MG TABLET 1 TAB DAILY NOT-TAKING WARFARIN SODIUM 3 MG TABLET 1 TABLET ORALLY ONCE A DAY NOT-TAKING TYLENOL 325 MG TABLET 1 TABLET NEEDED ORALLY EVERY 4 HRS NOT-TAKING TYLENOL WITH CODEINE #3 300-30 MG TABLET 1 TABLET NEEDED ORALLY EVERY 6 HRS MEDICATION LIST REVIEWED AND RECONCILED WITH THE PATIENT PAST MEDICAL HISTORY HTN LEFT BRANCH BUNDLE BLOCK GLAUCOMA LEFT BUTTOCK PAIN 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 PNEUMONIA 10/2018 ALLERGIES KETOPROFEN: SLOWS KIDNEY FUNCTION - ALLERGY MACROBID: NAUSEA/VOMITING - ALLERGY BETA BLOCKERS: DIGESTIVE PROBLEMS - ALLERGY STATINS: DIGESTIVE PROBLEMS - ALLERGY CYMBALTA: ANAPHYLAXIS - ALLERGY TRAMADOL HCL: ANAPHYLAXIS - ALLERGY HYDROCODONE-ACETAMINOPHEN: ANAPHYLAXIS - ALLERGY IBUPROFEN: ANGIOEDEMA - ALLERGY SOMA: NAUSEA/VOMITING - ALLERGY SURGICAL HISTORY SPINAL FUSION [id number] FACIAL RECONSTRUCTIONS X9 RIGHT EYES SURGERIES X7.EYE REMOVAL 1999 HYSTERECTOMY, TOTAL WITH BSO 1991 GANGLION CYST RIGHT FOOT PACEMAKER INSERTION TONSILLECTOMY A CHILD SEVERAL D&C'S BILATERAL THUMB SURGERIES FOR ARTHRITIS FAMILY HISTORY FATHER: , DIAGNOSED WITH HYPERTENSION MOTHER: , HEART DISEASE, STROKE, OTHER, HYPERTENSION 2DAUGHTER(S) . MOM-GLAUCOMA\N1 DAUGHTER--MULTIPLE AUTOIMMUNES DISEASES. SOCIAL HISTORY GENERAL: TOBACCO USE ARE YOU A:FORMER SMOKER HOW LONG HAS IT BEEN SINCE YOU LAST SMOKED?> 10 YEARS PAIN CLINIC PFS, CLERGY, PUBLIC HEALTH REFERRALS WAS THE PROVIDER NOTIFIED OF ANY PERTINENT INFO?YES N/A HAS THE PATIENT BEEN EDUCATED REGARDING HIS/HER PLAN OF CARE?YES HAS THE PATIENT BEEN EDUCATED REGARDING PAIN, THE RISK FOR PAIN, THE IMPORTANCE OF EFFECTIVE PAIN MANAGEMENT, AND THE PAIN ASSESSMENT PROCESS?YES LATEX QUESTIONNAIRE LATEX ALLERGY : HAVE YOU EVER DEVELOPED ANY TYPE OF REACTION AFTER HANDLING LATEX PRODUCTS SUCH RUBBER GLOVES, CONDOMS, DIAPHRAGMS, BALLOONS, SOCKS, OR UNDERWEAR?NO LATEX ALLERGY : HAVE YOU EVER DEVELOPED ANY TYPE OF REACTION DURING OR AFTER DENTAL APPOINTMENT, VAGINAL/RECTAL EXAMINATION, SURGICAL PROCEDURE, OR ANY OTHER EXPOSURE?NO LATEX RISK : HAVE YOU EVER HAD ANY DIFFICULTY BREATHING OR HIVES AFTER EATING OR HANDLING ANY FRUITS, OR VEGETABLES; SUCH KIWI, BANANAS, STONE FRUITS, OR CHESTNUTSNO LATEX RISK : DO YOU HAVE A PREVIOUS PERSONAL HISTORY OF MORE THAN NINE SURGERIES, SPINA BIFIDA, OR REPEATED CATHERIZATIONS? NO LATEX RISK : ARE YOU FREQUENTLY EXPOSED TO LATEX PRODUCTS IN YOUR OCCUPATION?NO DATE ASKED : 03/29/2019 CAFFEINE CAFFEINE USE?YES HOW OFTEN AND HOW MUCH? 1 CUP DAILY ADVANCE DIRECTIVE ADVANCE DIRECTIVE DISCUSSED WITH PATIENT:YES PT. HAS HCP, JAME MAI - [phone] -PT ALSO HAS LIVING WILL, PODoreen MAI, NONHOSPITAL DNR EDUCATION LEVEL OF EDUCATION:COLLEGE PENT[employer]AL [id number] DENOMINATIONAL LANGUAGE LANGUAGES SPOKEN:WOLOF DOMESTIC VIOLENCE DO YOU FEEL SAFE IN YOUR ENVIRONMENT?YES ALCOHOL SCREENING DID YOU HAVE A DRINK CONTAINING ALCOHOL IN THE PAST YEAR?NO POINTS0 INTERPRETATIONNEGATIVE RECREATIONAL DRUG USE DRUG USE?NO LEARNING BARRIERS / SPECIAL NEEDS BARRIERS TO LEARNING?NO HEARING IMPAIRED?NO VISION IMPAIRED?YES :CORRECTIVE LENSES COGNITIVELY IMPAIRED?NO READINESS TO LEARN?YES LEARNING PREFERENCES?YES :HANDOUTS, DEMONSTRATION/VERBAL INSTRUCTION LEARNING CAPABILITIES PRESENT?YES EMOTIONAL BARRIERS?NO SPECIAL DEVICES?YES : OCC. WHEELING WALKER DIRECTOR CALL CENTER SALES NEEDED?NO REVIEWED WITH PT 01/26/18 1412REVIEWED WITH PT 02/06/18 0904 BV02/19/18 1055 REVIEWED WITH PT. AD05/11/18 1352 REVIEWED WITH PT LASREVIEWED WITH PATIENT 06/22/18 1049 JSREVIEWED WITH PATIENT 03/11/19 0937 JS02/09/19 REVIEWED WITH PT. ADREVIEWED WITH PATIENT 12/22/18 1300 BV. HOSPITALIZATION/MAJOR DIAGNOSTIC PROCEDURE THOUGHT SHE WAS HAVING A STROKE AND PAIN MANAGEMENT 01/02/18 SURGERY RELATED STROKE 02/2018 BLADDER INFECTION 07/2018 PNEUMONIA 10/2018 REVIEW OF SYSTEMS REVIEWED BY: PROVIDER: RAJESH ORTIZ . CONSTITUTIONAL: ANY CHANGE IN YOUR MEDICAL CONDITION? NO . CHILLS NO . FEVER NO . INFECTION: DO YOU HAVE NEW INFECTIONS? NO . DO YOU HAVE HISTORY OF MRSA? NO . MUSCULOSKELETAL: ANY NEW PATTERNS OF PAIN OR NUMBNESS? YES, ACROSS LOWER BACK AND DOWN RIGHT LEG. BURNING IN RECTUM IS UNBEARABLE . GASTROENTEROLOGY: ANY NEW CHANGE IN BOWEL CONTROL? NO . GENITOURINARY: ANY NEW CHANGE IN BLADDER CONTROL? NO . IS THERE A CHANCE YOU COULD BE ? NO . HEMATOLOGY/LYMPH: DO YOU TAKE ANY BLOOD THINNERS? (FOR EXAMPLE- COUMADIN, PLAVIX, AGGRENOX, PLATEL, PRADAXA, OR XARELTO) NO . WHEN WAS YOUR LAST DOSE? DATE: TIME: . NEUROLOGY: HAVE YOU FALLEN IN THE PAST 12 MONTHS? YES, PT STATES THAT SHE FELL WHILE AT HOME, NO INJURY, NO REPORT TO ED . ANY NEW EXTREMITY NUMBNESS OR WEAKNESS? NO . CARDIOLOGY: DO YOU HAVE A PACEMAKER OR DEFIBRILLATOR? NO . RESPIRATORY: HAVE YOU BEEN SICK IN THE PAST WEEK? NO . FEVER NO . FLU LIKE SYMPTOMS? NO . COUGH NO . INTEGUMENTARY: DO YOU HAVE ANY RASHES OR OPEN SORES? NO . ALLERGIC/IMMUNO: ARE YOU ALLERGIC TO IV DYE? NO . ANY NEW ALLERGIES? NO . PSYCHIATRIC: DO YOU HAVE THOUGHTS OF HURTING YOURSELF OR SOMEONE ELSE? NO . ARE YOU ABUSED, NEGLECTED, OR IN AN UNSAFE ENVIRONMENT? NO . ENDOCRINOLOGY: ARE YOU DIABETIC? NO . OTHER: DO YOU NEED ANY PRESCRIPTIONS? NO . IF YES, PLEASE LIST: ____ . ANY NEW PROBLEMS WITH YOUR MEDICATIONS? NO . WHEN DID YOU LAST EAT? ____ . WHEN DID YOU LAST DRINK? ____ . WHAT DID YOU LAST DRINK? ____ . NAME OF PERSON DRIVING YOU HOME? ____ . DO YOU HAVE ANY OTHER QUESTIONS OR CONCERNS YES, BURNING IN RECTUM . VITAL SIGNS WT 120.6 LBS, HT 61 IN, BMI 22.78 INDEX, BP 138/80 MM HG, HR 86 /MIN, RR 16 /MIN, TEMP 97.0 F, OXYGEN SAT % 96%, SAFE IN ENV? (Y/N) Y, NA INITIALS AW 1010, REVIEWED BY: ASAD. EXAMINATION GENERAL EXAMINATION: GENERAL AWAKE,ALERT ,PLEAASANT . PSYCH AFFECT NORMAL . LUNGS: LUNG BOWERS ARE CLEAR TO AUSCULTATION BILATERALLY. GOOD MOVEMENT OF AIR . HEART: S1, S2 IN A REGULAR RATE AND RHYTHM. NO SIGNIFICANT MURMURS, RUBS OR GALLOPS NOTED . LUMBAR SACRAL SPINEPALPATION:TENDER OVER BILAT. L3/4-L4/5/ LUMBAR FACETS WITH FACET LOADING.TENDER OVER LEFT PIRIFORMIS.WELL HEALED SURGICAL SCAR LOW THORACIC TO SACRUM. ASSESSMENTS POST LAMINECTOMY SYNDROME - M96.1 (PRIMARY) ANAL PAIN - K62.89 TREATMENT POST LAMINECTOMY SYNDROME CONTINUE COLACE CAPSULE, 100 MG, 1 CAPSULE NEEDED, ORALLY, ONCE A DAY CONTINUE PERCOCET TABLET, 5-325 MG, 1 TABLET NEEDED, ORALLY, Q4-6H PRN MDD4 THREE MOS SUPPLY CAT D CHRONIC PAIN NOTES: CAUDAL EPIDURAL STEROID INJECTION, ISTOP REGISTRY REVIEWED AND DEMONSTRATES COMPLLIANCE. BRINGS IN MEDICATIONS WHICH IS APPROPRIATE FOR WHAT WAS DISPENSED. RECENT URINE TOXICOLOGY REVIEWED. NO UNAUTHORIZED MEDICATIONS. NO ILLICIT SUBSTANCES AND PRESCRIBED MEDICATIONS WERE PRESENT. , RISKS AND BENEFITS OF NARCOTIC/OPIOD MEDICATIONS WERE REVIEWED WITH PATIENT - THIS INCLUDES BUT IS NOT LIMITED TO RISK OF DEPENDANCE/DEVELOPMENT OF ADDICTION, MOOD DISTURBANCE AND DEPRESSION, OSTEOPOROSIS, HORMONAL AND LABIDAL CHANGES, RESPIRATORY DEPRESSION AND . PATIENT IS ADVISED NOT TO DRIVE OR DRINK ALCOHOL WHILE ON THESE MEDICATIONS. PROCEDURE CODES FA211 ESTABILISHED PATIENT [facility] CHARGE DISPOSITION & COMMUNICATION FOLLOW UP POST (REASON: CAUDAL EPIDURAL STEROID INJECTION) ELECTRONICALLY SIGNED BY DIANA WILSON ON 04/14/2019 AT 09:42 AM EDT DISCLAIMER : THIS IS A VISIT SUMMARY EXTRACTED FROM THE [employer] CHART. IT IS NOT A COPY OF THE [employer] PROGRESS NOTE. MTDD
== END ==
LOC: M PAIN 10:00
PROVIDERS: ATTEND Nurse Practitioner Family
DX: M96.1 Postlaminectomy syndrome, not elsewhere classified (principal); K62.89 Other specified diseases of anus and rectum; I10 Essential (primary) hypertension; Z86.711 Personal history of pulmonary embolism; Z87.891 Personal history of nicotine dependence; Z88.1 Allergy status to other antibiotic agents; Z88.5 Allergy status to narcotic agent; Z88.6 Allergy status to analgesic agent; Z88.8 Allergy status to other drugs, medicaments and biological substances; Z79.899 Other long term (current) drug therapy

== ENCOUNTER → 2019-04-08 | Outpatient (CLI) | payer MEDICARE, OTHER ==
[~2019-04-08] MED LIST changes: +BUPIVACAINE HCL 0.25% 30 ML VIAL As Ordered ONE; +ISOVUE-M 200 41% 20ML VIAL (Q9966) As Ordered ONE; +LIDOCAINE 1% SDV INJ 30 ML VIAL As Ordered ONE; +TRIAMCINOLONE ACETONIDE SUSP 40 MG/ML VIAL (J3301) As Ordered ONE; +diazePAM 5 MG TAB As Ordered ONE; +oxyCODONE 5MG TAB As Ordered ONE
--- NOTE | 2019-04-08 16:18 | REP ---
With partial SI joint series: Two views. History: Injection procedure for pain. 10 seconds of fluoroscopy time is reported. Findings: A sequence to last image hold fluoroscopically obtained spot radiographs of the SI joint region document needle position and contrast injection associated with injection procedure. No laterality markers are visible. Electronically Signed by Jorge Alexandra MD 04/08/2019 04:09 P
--- NOTE | 2019-04-08 16:49 | REP ---
SI joint series: Two views. History: Caudal. Findings: A sequence of two last image hold fluoroscopically obtained spot radiographs of the sacrum document needle position associated with what appears to be SI joint injection procedure. No laterality markers are visible. Electronically Signed by Jorge Alexandra MD 04/08/2019 04:52 P
--- NOTE | 2019-04-15 23:29 | ECWPNPC ---
PATIENT NAME: MIREYA PAREDES : 1940 GENDER: FEMALE VISIT DATE: 04/08/2019 DISCHARGE DATE: 04/08/19 1611 VISIT LOCKED DATE TIME: PHYSICIAN: MICHAEL SABILLON MD RESOURCE: MICHAEL SABILLON MD REASON FOR APPOINTMENT 1. LEFT SIJ HISTORY OF PRESENT ILLNESS HISTORY OF PRESENT ILLNESS: PAIN THE PATIENT DESCRIBES THE PAIN... FALL RISK SCREENING: SCREENING :NO FALLS REPORTED IN THE LAST YEAR CURRENT MEDICATIONS TAKING ZOLOFT 50 MG TABLET 1 TABLET ORALLY ONCE A DAY TAKING LUMIGAN 0.03 % SOLUTION 1 DROP INTO AFFECTED EYE IN THE EVENING OPHTHALMIC ONCE A DAY TAKING ZYPREXA 2.5 MG TABLET 1 TABLET ORALLY BEFORE BEDTIME TAKING LIPITOR 10 MG TABLET 1 TABLET ORALLY ONCE A DAY TAKING SIMBRINZA 1-0.2 % SUSPENSION 1 DROP INTO AFFECTED EYE OPHTHALMIC THREE TIMES A DAY TAKING NORVASC 5MG TABLET 1 TAB DAILY TAKING COLACE 100 MG CAPSULE 1 CAPSULE NEEDED ORALLY ONCE A DAY TAKING PERCOCET 5-325 MG TABLET 1 TABLET NEEDED ORALLY Q4-6H PRN MDD4 THREE MOS SUPPLY CAT D CHRONIC PAIN NOT-TAKING WARFARIN SODIUM 3 MG TABLET 1 TABLET ORALLY ONCE A DAY NOT-TAKING TYLENOL 325 MG TABLET 1 TABLET NEEDED ORALLY EVERY 4 HRS NOT-TAKING TYLENOL WITH CODEINE #3 300-30 MG TABLET 1 TABLET NEEDED ORALLY EVERY 6 HRS MEDICATION LIST REVIEWED AND RECONCILED WITH THE PATIENT PAST MEDICAL HISTORY HTN LEFT BRANCH BUNDLE BLOCK GLAUCOMA LEFT BUTTOCK PAIN 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 PNEUMONIA 10/2018 ALLERGIES KETOPROFEN: SLOWS KIDNEY FUNCTION - ALLERGY MACROBID: NAUSEA/VOMITING - ALLERGY BETA BLOCKERS: DIGESTIVE PROBLEMS - ALLERGY STATINS: DIGESTIVE PROBLEMS - ALLERGY CYMBALTA: ANAPHYLAXIS - ALLERGY TRAMADOL HCL: ANAPHYLAXIS - ALLERGY HYDROCODONE-ACETAMINOPHEN: ANAPHYLAXIS - ALLERGY IBUPROFEN: ANGIOEDEMA - ALLERGY SOMA: NAUSEA/VOMITING - ALLERGY SURGICAL HISTORY SPINAL FUSION [id number] FACIAL RECONSTRUCTIONS X9 RIGHT EYES SURGERIES X7.EYE REMOVAL 1999 HYSTERECTOMY, TOTAL WITH BSO 1991 GANGLION CYST RIGHT FOOT PACEMAKER INSERTION TONSILLECTOMY A CHILD SEVERAL D&C'S BILATERAL THUMB SURGERIES FOR ARTHRITIS FAMILY HISTORY FATHER: , DIAGNOSED WITH HYPERTENSION MOTHER: , HYPERTENSION, HEART DISEASE, STROKE, OTHER 2DAUGHTER(S) . MOM-GLAUCOMA\N1 DAUGHTER--MULTIPLE AUTOIMMUNES DISEASES. SOCIAL HISTORY GENERAL: TOBACCO USE ARE YOU A:FORMER SMOKER HOW LONG HAS IT BEEN SINCE YOU LAST SMOKED?> 10 YEARS PAIN CLINIC PFS, CLERGY, PUBLIC HEALTH REFERRALS WAS THE PROVIDER NOTIFIED OF ANY PERTINENT INFO?YES N/A HAS THE PATIENT BEEN EDUCATED REGARDING HIS/HER PLAN OF CARE?YES HAS THE PATIENT BEEN EDUCATED REGARDING PAIN, THE RISK FOR PAIN, THE IMPORTANCE OF EFFECTIVE PAIN MANAGEMENT, AND THE PAIN ASSESSMENT PROCESS?YES LATEX QUESTIONNAIRE LATEX ALLERGY : HAVE YOU EVER DEVELOPED ANY TYPE OF REACTION AFTER HANDLING LATEX PRODUCTS SUCH RUBBER GLOVES, CONDOMS, DIAPHRAGMS, BALLOONS, SOCKS, OR UNDERWEAR?NO LATEX ALLERGY : HAVE YOU EVER DEVELOPED ANY TYPE OF REACTION DURING OR AFTER DENTAL APPOINTMENT, VAGINAL/RECTAL EXAMINATION, SURGICAL PROCEDURE, OR ANY OTHER EXPOSURE?NO LATEX RISK : HAVE YOU EVER HAD ANY DIFFICULTY BREATHING OR HIVES AFTER EATING OR HANDLING ANY FRUITS, OR VEGETABLES; SUCH KIWI, BANANAS, STONE FRUITS, OR CHESTNUTSNO LATEX RISK : DO YOU HAVE A PREVIOUS PERSONAL HISTORY OF MORE THAN NINE SURGERIES, SPINA BIFIDA, OR REPEATED CATHERIZATIONS? NO LATEX RISK : ARE YOU FREQUENTLY EXPOSED TO LATEX PRODUCTS IN YOUR OCCUPATION?NO DATE ASKED : 03/29/2019 CAFFEINE CAFFEINE USE?YES HOW OFTEN AND HOW MUCH? 1 CUP DAILY ADVANCE DIRECTIVE ADVANCE DIRECTIVE DISCUSSED WITH PATIENT:YES PT. HAS HCP, JAME MAI - [phone] -PT ALSO HAS LIVING WILL, CLAIR MAI, NONHOSPITAL DNR EDUCATION LEVEL OF EDUCATION:COLLEGE BAHAI [id number] [employer] LANGUAGE LANGUAGES SPOKEN:LUXEMBOURGISH DOMESTIC VIOLENCE DO YOU FEEL SAFE IN YOUR ENVIRONMENT?YES ALCOHOL SCREENING DID YOU HAVE A DRINK CONTAINING ALCOHOL IN THE PAST YEAR?NO POINTS0 INTERPRETATIONNEGATIVE RECREATIONAL DRUG USE DRUG USE?NO LEARNING BARRIERS / SPECIAL NEEDS BARRIERS TO LEARNING?NO HEARING IMPAIRED?NO VISION IMPAIRED?YES :CORRECTIVE LENSES COGNITIVELY IMPAIRED?NO READINESS TO LEARN?YES LEARNING PREFERENCES?YES :HANDOUTS, DEMONSTRATION/VERBAL INSTRUCTION LEARNING CAPABILITIES PRESENT?YES EMOTIONAL BARRIERS?NO SPECIAL DEVICES?YES : OCC. WHEELING WALKER EXTERNAL RELATIONS MANAGER NEEDED?NO REVIEWED WITH PT 01/26/18 1412REVIEWED WITH PT 02/06/18 0904 BV02/19/18 1055 REVIEWED WITH PT. AD05/11/18 1352 REVIEWED WITH PT LASREVIEWED WITH PATIENT 06/22/18 1049 JSREVIEWED WITH PATIENT 03/11/19 0937 JS02/09/19 REVIEWED WITH PT. BEBETO WITH PATIENT 12/22/18 1300 BV. HOSPITALIZATION/MAJOR DIAGNOSTIC PROCEDURE THOUGHT SHE WAS HAVING A STROKE AND PAIN MANAGEMENT 01/02/18 SURGERY RELATED STROKE 02/2018 BLADDER INFECTION 07/2018 PNEUMONIA 10/2018 REVIEW OF SYSTEMS REVIEWED BY: PROVIDER: . CONSTITUTIONAL: ANY CHANGE IN YOUR MEDICAL CONDITION? NO . CHILLS NO . FEVER NO . INFECTION: DO YOU HAVE NEW INFECTIONS? NO . DO YOU HAVE HISTORY OF MRSA? NO . MUSCULOSKELETAL: ANY NEW PATTERNS OF PAIN OR NUMBNESS? YES, PAIN IS WORSE . GASTROENTEROLOGY: ANY NEW CHANGE IN BOWEL CONTROL? NO . GENITOURINARY: ANY NEW CHANGE IN BLADDER CONTROL? NO . IS THERE A CHANCE YOU COULD BE ? NO . HEMATOLOGY/LYMPH: DO YOU TAKE ANY BLOOD THINNERS? (FOR EXAMPLE- COUMADIN, PLAVIX, AGGRENOX, PLATEL, PRADAXA, OR XARELTO) NO . WHEN WAS YOUR LAST DOSE? DATE: TIME: . NEUROLOGY: HAVE YOU FALLEN IN THE PAST 12 MONTHS? NO . ANY NEW EXTREMITY NUMBNESS OR WEAKNESS? NO . CARDIOLOGY: DO YOU HAVE A PACEMAKER OR DEFIBRILLATOR? YES, PACEMAKER . RESPIRATORY: HAVE YOU BEEN SICK IN THE PAST WEEK? NO . FEVER NO . FLU LIKE SYMPTOMS? NO . COUGH NO . INTEGUMENTARY: DO YOU HAVE ANY RASHES OR OPEN SORES? NO . ALLERGIC/IMMUNO: ARE YOU ALLERGIC TO IV DYE? NO . ANY NEW ALLERGIES? NO . PSYCHIATRIC: DO YOU HAVE THOUGHTS OF HURTING YOURSELF OR SOMEONE ELSE? NO . ARE YOU ABUSED, NEGLECTED, OR IN AN UNSAFE ENVIRONMENT? NO . ENDOCRINOLOGY: ARE YOU DIABETIC? NO . OTHER: DO YOU NEED ANY PRESCRIPTIONS? NO . IF YES, PLEASE LIST: ____ . ANY NEW PROBLEMS WITH YOUR MEDICATIONS? NO . WHEN DID YOU LAST EAT? 04/07/19 PM . WHEN DID YOU LAST DRINK? 04/08/19 1000 . WHAT DID YOU LAST DRINK? WATER . NAME OF PERSON DRIVING YOU HOME? [place] . DO YOU HAVE ANY OTHER QUESTIONS OR CONCERNS YES, 2 WEEKS AGO PT WAS SEEN AT [facility] ER FOR CONFUSION, TREMBLING, SEEN AND TX'D FOR LOW SODIUM, MEDS CHANGED, PT SAW PCP AFTER ER VISIT . VITAL SIGNS WT 119.0 LBS, HT 61 IN, BMI 22.48 INDEX, BP 120/64 MM HG, HR 83 /MIN, RR 16 /MIN, TEMP 97.0 F, OXYGEN SAT % 97%, NA INITIALS 1339, REVIEWED BY: EM. ASSESSMENTS SACROILIITIS, NOT ELSEWHERE CLASSIFIED - M46.1 (PRIMARY) TREATMENT SACROILIITIS, NOT ELSEWHERE CLASSIFIED [facility] FLUORO GUIDANCE (PAIN)[id number] PROCEDURES PN SI PRE PROCEDURE DIAGNOSIS SACROILIITIS, SACROILIAC JOINT DYSFUNCTION POST PROCEDURE DIAGNOSIS SACROILIITIS, SACROILIAC JOINT DYSFUNCTION PROCEDURE LEFT SACROILIAC JOINT BLOCK SURGEON DR. MICHAEL SABILLON CORRECTION WORKER NONE ANESTHESIA LOCAL PRE PROCEDURE NOTE PATIENT WITH HISTORY OF CHRONIC LOW BACK PAIN. I EVALUATED THE PATIENT AND REVIEWED THE CHART. I WENT OVER THE RISKS, ALTERNATIVES, AND BENEFITS ASSOCIATED WITH THIS PROCEDURE. THE PATIENT WOULD LIKE TO PROCEED AND GAVE CONSENT TO PERFORM THE PROCEDURE. THE PATIENT DENIES UNEXPLAINABLE WEIGHT LOSS, FEVER, CHILLS, OR NEW CHANGES IN URINARY OR BOWEL CONTROL DESCRIPTION OF PROCEDURE THE PATIENT WAS BROUGHT TO THE PROCEDURE ROOM AND PLACED IN THE PRONE POSITION. THE LUMBOSACRAL AREA WAS CLEANED WITH CHLORAPREP SOLUTION AND DRAPED ASEPTICALLY. THE PROCEDURE WAS DONE UNDER STERILE CONDITIONS. I CHECKED LATERALITY AND THE LEVEL WHERE THE PROCEDURE WAS GOING TO BE PERFORMED WITH THE PATIENT AND THE SUPPORTING STAFF AT THE MOMENT OF THE TIME OUT IN THE PROCEDURE ROOM. UNDER FLUOROSCOPIC GUIDANCE, TARGET POINT WAS SELECTED AT THE LOWER BORDER OF THE LEFT SACROILIAC JOINT. TARGET POINT WAS SELECTED AFTER MEDIAL ROTATION AND TILT OF THE MAGNIFIER OF THE C-ARM. LIDOCAINE WAS USED TO NUMB THE SKIN AND SUBCUTANEOUS TISSUE BELOW IT. A SPINAL NEEDLE, 22-GAUGE, WAS ADVANCED UNDER FLUOROSCOPIC GUIDANCE AND FOLLOWING PATIENT FEEDBACK UNTIL THE TARGET AREA WAS TOUCHED. THE POSITION OF THE NEEDLE WAS VERIFIED WITH AP AND LATERAL VIEWS. AFTER PROPER POSITION OF THE NEEDLE WAS ACHIEVED, ISOVUE M-200 CONTRAST WAS INJECTED SHOWING SPREAD OF THE DYE. THEN, A SOLUTION OF 30 MG OF KENALOG WAS INJECTED IN LEFT JOINT WITH 3 ML OF BUPIVACAINE 0.125%. THERE WAS NO EVIDENCE OF BLOOD, PARESTHESIA OR CEREBROSPINAL FLUID DURING THE PROCEDURE. THE PATIENT WAS SENT TO THE RECOVERY ROOM. THE PATIENT WAS MOVING THE EXTREMITIES AND DOING WELL. THERE WAS NO COMPLICATION DURING THE PROCEDURE. FLUOROSCOPY TIME WAS 15 SECONDS POST PROCEDURE NOTE THE PATIENT WILL BE SEEN IN A FOLLOW UP IN THE NEXT FEW WEEKS. INSTRUCTIONS WERE GIVEN, QUESTIONS WERE ANSWERED, AND THE PATIENT EXPRESSED UNDERSTANDING AND AGREED WITH THE PLAN. I, SIRIA SHABAZZ, DOCUMENTED THE ABOVE INFORMATION ACTING A SCRIBE FOR DR. SABILLON. I HAVE REVIEWED THE ABOVE DOCUMENT, WRITTEN BY SIRIA CASONIBTania AND I VERIFY THAT IT IS ACCURATE. DIAGNOSTIC IMAGING [facility] FLUORO GUIDE SPINE INJECTION (PAIN)[id number] PROCEDURE CODES 45655 INJECT SACROILIAC JOINT, MODIFIERS: LT 6045F RADXPS IN END [id number] PXD DISPOSITION & COMMUNICATION FOLLOW UP 3 WEEKS ELECTRONICALLY SIGNED BY MICHAEL SABILLON MD, MD ON 04/15/2019 AT 12:18 PM EDT DISCLAIMER : THIS IS A VISIT SUMMARY EXTRACTED FROM THE [employer] CHART. IT IS NOT A COPY OF THE [employer] [facility] PROGRESS NOTE. MTDD
== END ==
LOC: M PAIN 13:30
PROVIDERS: ATTEND Anesthesiology
DX: G89.29 Other chronic pain (principal); M46.1 Sacroiliitis, not elsewhere classified; M54.5 Low back pain; I10 Essential (primary) hypertension; Z79.891 Long term (current) use of opiate analgesic; Z79.899 Other long term (current) drug therapy; Z87.891 Personal history of nicotine dependence; Z88.5 Allergy status to narcotic agent; Z88.8 Allergy status to other drugs, medicaments and biological substances; Z95.5 Presence of coronary angioplasty implant and graft
CPT/HCPCS: G0260; J3301; Q9966

== ENCOUNTER → 2019-04-23 | Outpatient (CLI) | payer MEDICARE, OTHER ==
[~2019-04-23] MED LIST changes: +AMLO5TAB6 PO; +ASPI81TA85 PO; +ATOR1TAB19 PO; +BACL10TA2 PO; +BACL5TAB2 PO; -BUPIVACAINE HCL 0.25% 30 ML VIAL As Ordered ONE; +COLA100C5 PO; -ISOVUE-M 200 41% 20ML VIAL (Q9966) As Ordered ONE; -LIDOCAINE 1% SDV INJ 30 ML VIAL As Ordered ONE; +MIRA1POW3 PO; +SENN1TAB89; -SERT-155 PO; +SERT50TA29 PO; -TRIAMCINOLONE ACETONIDE SUSP 40 MG/ML VIAL (J3301) As Ordered ONE; +ZYPR2.5T2 PO; -diazePAM 5 MG TAB As Ordered ONE; -oxyCODONE 5MG TAB As Ordered ONE
--- NOTE | 2019-04-27 02:29 | ECWPNPC ---
PATIENT NAME: MIREYA PAREDES : 1940 GENDER: FEMALE VISIT DATE: 04/23/2019 DISCHARGE DATE: 04/23/19 1452 VISIT LOCKED DATE TIME: PHYSICIAN: AGUILAR BOSCH RESOURCE: AGUILAR BOSCH REASON FOR APPOINTMENT 1. POST PROC. HISTORY OF PRESENT ILLNESS HISTORY OF PRESENT ILLNESS: PAIN THE PATIENT DESCRIBES THE PAIN... 78-YEAR-OLD FEMALE IN FOR POST LEFT SACROILIAC BLOCK FOLLOW-UP. PATIENT FEELS THE PROCEDURE WAS INEFFECTIVE. SHE RATES HER PAIN AT A 5 OUT OF 10 CURRENTLY AND DESCRIBES IT A BURNING SENSATION. PATIENT DOES ADMIT TO AN APPOINTMENT WITH HER PRIMARY CARE PROVIDER ON FRIDAY SHE FEELS THIS PAIN MAY BE RELATED TO PREVIOUS BOWEL ISSUES. FALL RISK SCREENING: SCREENING :NO FALLS REPORTED IN THE LAST YEAR CURRENT MEDICATIONS TAKING ZOLOFT 50 MG TABLET 1 TABLET ORALLY ONCE A DAY TAKING LUMIGAN 0.03 % SOLUTION 1 DROP INTO AFFECTED EYE IN THE EVENING OPHTHALMIC ONCE A DAY TAKING ZYPREXA 2.5 MG TABLET 1 TABLET ORALLY BEFORE BEDTIME TAKING LIPITOR 10 MG TABLET 1 TABLET ORALLY ONCE A DAY TAKING SIMBRINZA 1-0.2 % SUSPENSION 1 DROP INTO AFFECTED EYE OPHTHALMIC THREE TIMES A DAY TAKING NORVASC 5MG TABLET 1 TAB DAILY TAKING COLACE 100 MG CAPSULE 1 CAPSULE NEEDED ORALLY ONCE A DAY TAKING PERCOCET 5-325 MG TABLET 1 TABLET NEEDED ORALLY Q4-6H PRN MDD4 THREE MOS SUPPLY CAT D CHRONIC PAIN NOT-TAKING WARFARIN SODIUM 3 MG TABLET 1 TABLET ORALLY ONCE A DAY NOT-TAKING TYLENOL 325 MG TABLET 1 TABLET NEEDED ORALLY EVERY 4 HRS NOT-TAKING TYLENOL WITH CODEINE #3 300-30 MG TABLET 1 TABLET NEEDED ORALLY EVERY 6 HRS MEDICATION LIST REVIEWED AND RECONCILED WITH THE PATIENT PAST MEDICAL HISTORY HTN LEFT BRANCH BUNDLE BLOCK GLAUCOMA LEFT BUTTOCK PAIN 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 PNEUMONIA 10/2018 ALLERGIES KETOPROFEN: SLOWS KIDNEY FUNCTION - ALLERGY MACROBID: NAUSEA/VOMITING - ALLERGY BETA BLOCKERS: DIGESTIVE PROBLEMS - ALLERGY STATINS: DIGESTIVE PROBLEMS - ALLERGY CYMBALTA: ANAPHYLAXIS - ALLERGY TRAMADOL HCL: ANAPHYLAXIS - ALLERGY HYDROCODONE-ACETAMINOPHEN: ANAPHYLAXIS - ALLERGY IBUPROFEN: ANGIOEDEMA - ALLERGY SOMA: NAUSEA/VOMITING - ALLERGY SURGICAL HISTORY SPINAL FUSION [id number] FACIAL RECONSTRUCTIONS X9 RIGHT EYES SURGERIES X7.EYE REMOVAL 1999 HYSTERECTOMY, TOTAL WITH BSO 1991 GANGLION CYST RIGHT FOOT PACEMAKER INSERTION TONSILLECTOMY A CHILD SEVERAL D&C'S BILATERAL THUMB SURGERIES FOR ARTHRITIS FAMILY HISTORY FATHER: , DIAGNOSED WITH HYPERTENSION MOTHER: , HYPERTENSION, UNSPECIFIED HEART DISEASE, UNSPECIFIED CEREBRAL ARTERY OCCLUSION WITH CEREBRAL INFARCTION, OTHER SPECIFIED CONDITIONS INFLUENCING HEALTH STATUS 2DAUGHTER(S) . MOM-GLAUCOMA\N1 DAUGHTER--MULTIPLE AUTOIMMUNES DISEASES. SOCIAL HISTORY GENERAL: TOBACCO USE ARE YOU A:FORMER SMOKER HOW LONG HAS IT BEEN SINCE YOU LAST SMOKED?> 10 YEARS PAIN CLINIC PFS, CLERGY, PUBLIC HEALTH REFERRALS WAS THE PROVIDER NOTIFIED OF ANY PERTINENT INFO?YES N/A HAS THE PATIENT BEEN EDUCATED REGARDING HIS/HER PLAN OF CARE?YES HAS THE PATIENT BEEN EDUCATED REGARDING PAIN, THE RISK FOR PAIN, THE IMPORTANCE OF EFFECTIVE PAIN MANAGEMENT, AND THE PAIN ASSESSMENT PROCESS?YES LATEX QUESTIONNAIRE LATEX ALLERGY : HAVE YOU EVER DEVELOPED ANY TYPE OF REACTION AFTER HANDLING LATEX PRODUCTS SUCH RUBBER GLOVES, CONDOMS, DIAPHRAGMS, BALLOONS, SOCKS, OR UNDERWEAR?NO LATEX ALLERGY : HAVE YOU EVER DEVELOPED ANY TYPE OF REACTION DURING OR AFTER DENTAL APPOINTMENT, VAGINAL/RECTAL EXAMINATION, SURGICAL PROCEDURE, OR ANY OTHER EXPOSURE?NO DATE ASKED : 03/29/2019 LATEX RISK : HAVE YOU EVER HAD ANY DIFFICULTY BREATHING OR HIVES AFTER EATING OR HANDLING ANY FRUITS, OR VEGETABLES; SUCH KIWI, BANANAS, STONE FRUITS, OR CHESTNUTSNO LATEX RISK : DO YOU HAVE A PREVIOUS PERSONAL HISTORY OF MORE THAN NINE SURGERIES, SPINA BIFIDA, OR REPEATED CATHERIZATIONS? NO LATEX RISK : ARE YOU FREQUENTLY EXPOSED TO LATEX PRODUCTS IN YOUR OCCUPATION?NO CAFFEINE CAFFEINE USE?YES HOW OFTEN AND HOW MUCH? 1 CUP DAILY ADVANCE DIRECTIVE ADVANCE DIRECTIVE DISCUSSED WITH PATIENT:YES PT. HAS HCP, JAME MAI - [phone] -PT ALSO HAS LIVING WILL, CLAIR MAI, NONHOSPITAL DNR EDUCATION LEVEL OF EDUCATION:COLLEGE JUDAISM [id number] ALEVISM LANGUAGE LANGUAGES SPOKEN:CITIZEN OF [place] DOMESTIC VIOLENCE DO YOU FEEL SAFE IN YOUR ENVIRONMENT?YES ALCOHOL SCREENING DID YOU HAVE A DRINK CONTAINING ALCOHOL IN THE PAST YEAR?NO POINTS0 INTERPRETATIONNEGATIVE RECREATIONAL DRUG USE DRUG USE?NO LEARNING BARRIERS / SPECIAL NEEDS BARRIERS TO LEARNING?NO HEARING IMPAIRED?NO VISION IMPAIRED?YES COGNITIVELY IMPAIRED?NO :CORRECTIVE LENSES READINESS TO LEARN?YES LEARNING PREFERENCES?YES :HANDOUTS, DEMONSTRATION/VERBAL INSTRUCTION LEARNING CAPABILITIES PRESENT?YES EMOTIONAL BARRIERS?NO SPECIAL DEVICES?YES : 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 AD05/11/18 1352 REVIEWED WITH PT LASREVIEWED WITH PATIENT 06/22/18 1049 JSREVIEWED WITH PATIENT 03/11/19 0937 JS02/09/19 REVIEWED WITH PT. ADREVIEWED WITH PATIENT 12/22/18 1300 BVREVIEWED WITH PATIENT 04-23-19 1420 BV. HOSPITALIZATION/MAJOR DIAGNOSTIC PROCEDURE THOUGHT SHE WAS HAVING A STROKE AND PAIN MANAGEMENT 01/02/18 SURGERY RELATED STROKE 02/2018 BLADDER INFECTION 07/2018 PNEUMONIA 10/2018 REVIEW OF SYSTEMS REVIEWED BY: PROVIDER: RICHIE TAYLOR . CONSTITUTIONAL: ANY CHANGE IN YOUR MEDICAL CONDITION? NO . CHILLS NO . FEVER NO . INFECTION: DO YOU HAVE NEW INFECTIONS? NO . DO YOU HAVE HISTORY OF MRSA? NO . MUSCULOSKELETAL: ANY NEW PATTERNS OF PAIN OR NUMBNESS? NO . GASTROENTEROLOGY: ANY NEW CHANGE IN BOWEL CONTROL? NO . GENITOURINARY: ANY NEW CHANGE IN BLADDER CONTROL? NO . IS THERE A CHANCE YOU COULD BE ? NO . HEMATOLOGY/LYMPH: DO YOU TAKE ANY BLOOD THINNERS? (FOR EXAMPLE- COUMADIN, PLAVIX, AGGRENOX, PLATEL, PRADAXA, OR XARELTO) NO . WHEN WAS YOUR LAST DOSE? DATE: TIME: . NEUROLOGY: HAVE YOU FALLEN IN THE PAST 12 MONTHS? YES, PT REPORTS A FEW MINOR FALLS IN THE PAST FEW MONTHS, DENIES ANY INJURIES OR ED VISIT. . ANY NEW EXTREMITY NUMBNESS OR WEAKNESS? NO . CARDIOLOGY: DO YOU HAVE A PACEMAKER OR DEFIBRILLATOR? YES, PACEMAKER . RESPIRATORY: HAVE YOU BEEN SICK IN THE PAST WEEK? NO . FEVER NO . FLU LIKE SYMPTOMS? NO . COUGH NO . INTEGUMENTARY: DO YOU HAVE ANY RASHES OR OPEN SORES? NO . ALLERGIC/IMMUNO: ARE YOU ALLERGIC TO IV DYE? YES, IODINE . ANY NEW ALLERGIES? NO . PSYCHIATRIC: DO YOU HAVE THOUGHTS OF HURTING YOURSELF OR SOMEONE ELSE? NO . ARE YOU ABUSED, NEGLECTED, OR IN AN UNSAFE ENVIRONMENT? NO . ENDOCRINOLOGY: ARE YOU DIABETIC? NO . OTHER: DO YOU NEED ANY PRESCRIPTIONS? NO . IF YES, PLEASE LIST: ____ . ANY NEW PROBLEMS WITH YOUR MEDICATIONS? NO . WHEN DID YOU LAST EAT? ____ . WHEN DID YOU LAST DRINK? ____ . WHAT DID YOU LAST DRINK? ____ . NAME OF PERSON DRIVING YOU HOME? ____ . DO YOU HAVE ANY OTHER QUESTIONS OR CONCERNS NO . VITAL SIGNS WT 119 LBS, HT 61 IN, BMI 22.48 INDEX, BP 128/58 MM HG, HR 85 /MIN, RR 16 /MIN, TEMP 97.6 F, OXYGEN SAT % 97%, NA INITIALS SC 14:10, REVIEWED BY: BV. EXAMINATION GENERAL EXAMINATION: GENERALNO ACUTE DISTRESS, WELL NOURISHED AND HYDRATED. PSYCHAPPROPRIATE MOOD AND AFFECT . LUNGS:CLEAR TO AUSCULTATION BILATERALLY, NO WHEEZES, RHONCHI, RALES. HEART:NO MURMURS, REGULAR RATE AND RHYTHM. 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 PATIENT ADMITS TO AN UPCOMING APPOINTMENT WITH HER PRIMARY CARE PROVIDER TO DISCUSS THIS PAIN SHE FEELS IT MAY BE RELATED TO A PREVIOUS DISIMPACTION. GIVEN PRESENTING SYMPTOMS AND RESULTS OF PHYSICAL EXAMINATION RECOMMENDED THAT WE AWAIT THE RESULTS OF HER VISIT WITH HER PCP PRIOR TO PLANNING FOR MORE PROCEDURES. PATIENT HAS EXPRESSED UNDERSTANDING OF AND WAS IN AGREEMENT WITH TREATMENT PLAN. GIVEN TIME TO ASK QUESTIONS AND EXPRESS CONCERNS. PROCEDURE CODES FA211 ESTABILISHED PATIENT [facility] FACILITY CHARGE DISPOSITION & COMMUNICATION FOLLOW UP 2 MONTHS (REASON: CHRONIC PAIN ) ELECTRONICALLY SIGNED BY DIANA AKHTAR ON 04/26/2019 AT 02:34 PM EDT DISCLAIMER : THIS IS A VISIT SUMMARY EXTRACTED FROM THE [employer] CHART. IT IS NOT A COPY OF THE [employer] PROGRESS NOTE. MARIEL
== END ==
LOC: M PAIN 14:00
PROVIDERS: ATTEND Family Medicine
DX: G57.02 Lesion of sciatic nerve, left lower limb (principal); I10 Essential (primary) hypertension; Z86.711 Personal history of pulmonary embolism; Z95.0 Presence of cardiac pacemaker; Z87.891 Personal history of nicotine dependence; Z88.1 Allergy status to other antibiotic agents; Z88.5 Allergy status to narcotic agent; Z88.6 Allergy status to analgesic agent; Z88.8 Allergy status to other drugs, medicaments and biological substances; Z79.899 Other long term (current) drug therapy

== ENCOUNTER → 2019-04-27 | Outpatient (REF) | payer MEDICARE, OTHER ==
[~2019-04-27] MED LIST changes: -AMLO5TAB6 PO; -ASPI81TA85 PO; -ATOR1TAB19 PO; -BACL10TA2 PO; -BACL5TAB2 PO; -COLA100C5 PO; -MIRA1POW3 PO; -SENN1TAB89; +SERT-155 PO; -SERT50TA29 PO; -ZYPR2.5T2 PO
[2019-04-27 21:35] LABS: APPEARANCE, URINE CLEAR (CLEAR); BACTERIA, URINE AUTO NEGATIVE (NEGATIVE); BILIRUBIN, URINE AUTO NEGATIVE (NEGATIVE); BLOOD, URINE BLOOD NEGATIVE (NEGATIVE); COLOR, URINE YELLOW (YELLOW); GLUCOSE, URINE (UA) AUTO NEGATIVE (NEGATIVE); KETONE, URINE AUTO NEGATIVE (NEGATIVE); LEUKOCYTE ESTERASE, URINE AUTO NEGATIVE (NEGATIVE); MUCUS, URINE SMALL (NEGATIVE); NITRITE, URINE AUTO NEGATIVE (NEGATIVE); PROTEIN, URINE AUTO NEGATIVE (NEGATIVE); RBC, URINE AUTO 1 /HPF (0-3); SPECIFIC GRAVITY URINE AUTO 1.012 (1.002-1.035); SQUAMOUS EPITHELIAL CELL UR AU 0 /HPF (0-6); UROBILINOGEN, URINE AUTO 0.2 mg/dL (0.0-2.0); WBC, URINE AUTO 1 /HPF (0-3)
== END ==
LOC: M LAB REF 13:24
PROVIDERS: ATTEND Physician Assistant Medical
DX: N39.0 Urinary tract infection, site not specified (principal)

== ENCOUNTER → 2019-04-29 | Outpatient (CLI) | payer MEDICARE, OTHER ==
[~2019-04-29] MED LIST changes: +AMLO5TAB6 PO; +ATOR1TAB19 PO; +BACL5TAB2 PO; +ZYPR2.5T2 PO
--- NOTE | 2019-05-04 23:25 | ECWPNPC ---
PATIENT NAME: MIREYA PAREDES : 1940 GENDER: FEMALE VISIT DATE: 04/29/2019 DISCHARGE DATE: 04/29/19 1029 VISIT LOCKED DATE TIME: PHYSICIAN: AGUILAR BOSCH RESOURCE: AGUILAR BOSCH REASON FOR APPOINTMENT 1. INCREASED PAIN- ADD ON PER PASCALE HISTORY OF PRESENT ILLNESS HISTORY OF PRESENT ILLNESS: PAIN THE PATIENT DESCRIBES THE PAIN... 78-YEAR-OLD FEMALE WHO PRESENTS TODAY WITH WORSENING LOW BACK AND LEFT HIP PAIN THAT RADIATES DOWN THE LEFT LEG. SHE RATES HER PAIN CURRENTLY AT A 10 OUT OF 10 AND DESCRIBES IT STABBING. SHE WAS SEEN IN URGENT CARE FOR THIS AND THEY DIAGNOSED HER WITH A UTI SHE WAS SUBSEQUENTLY SEEN BY HER PCP WHO STARTED HER ON OXYCODONE AND CYCLOBENZAPRINE WHICH SHE STATES HAS HELPED A LITTLE. FALL RISK SCREENING: SCREENING :NO FALLS REPORTED IN THE LAST YEAR CURRENT MEDICATIONS TAKING ZOLOFT 25 MG TABLET 1 TABLET ORALLY ONCE A DAY TAKING LUMIGAN 0.03 % SOLUTION 1 DROP INTO AFFECTED EYE IN THE EVENING OPHTHALMIC ONCE A DAY TAKING ZYPREXA 2.5 MG TABLET 1 TABLET ORALLY BEFORE BEDTIME TAKING LIPITOR 10 MG TABLET 1 TABLET ORALLY ONCE A DAY TAKING SIMBRINZA 1-0.2 % SUSPENSION 1 DROP INTO AFFECTED EYE OPHTHALMIC THREE TIMES A DAY TAKING NORVASC 5MG TABLET 1 TAB DAILY TAKING COLACE 100 MG CAPSULE 1 CAPSULE NEEDED ORALLY ONCE A DAY TAKING PERCOCET 5-325 MG TABLET 1 TABLET NEEDED ORALLY Q4-6H PRN MDD4 THREE MOS SUPPLY CAT D CHRONIC PAIN TAKING CYCLOBENZAPRINE HCL 5 MG TABLET 1 TABLET NEEDED ORALLY THREE TIMES A DAY TAKING IBUPROFEN 400 MG TABLET 1 TABLET WITH FOOD OR MILK NEEDED ORALLY THREE TIMES A DAY TAKING OXYCODONE HCL 10 MG TABLET 1 TABLET NEEDED ORALLY EVERY 6 HRS NOT-TAKING WARFARIN SODIUM 3 MG TABLET 1 TABLET ORALLY ONCE A DAY NOT-TAKING TYLENOL 325 MG TABLET 1 TABLET NEEDED ORALLY EVERY 4 HRS NOT-TAKING TYLENOL WITH CODEINE #3 300-30 MG TABLET 1 TABLET NEEDED ORALLY EVERY 6 HRS MEDICATION LIST REVIEWED AND RECONCILED WITH THE PATIENT PAST MEDICAL HISTORY HTN LEFT BRANCH BUNDLE BLOCK GLAUCOMA LEFT BUTTOCK PAIN 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 PNEUMONIA 10/2018 ALLERGIES KETOPROFEN: SLOWS KIDNEY FUNCTION - ALLERGY MACROBID: NAUSEA/VOMITING - ALLERGY BETA BLOCKERS: DIGESTIVE PROBLEMS - ALLERGY STATINS: DIGESTIVE PROBLEMS - ALLERGY CYMBALTA: ANAPHYLAXIS - ALLERGY TRAMADOL HCL: ANAPHYLAXIS - ALLERGY HYDROCODONE-ACETAMINOPHEN: ANAPHYLAXIS - ALLERGY IBUPROFEN: ANGIOEDEMA - ALLERGY SOMA: NAUSEA/VOMITING - ALLERGY SURGICAL HISTORY SPINAL FUSION [id number] FACIAL RECONSTRUCTIONS X9 RIGHT EYES SURGERIES X7.EYE REMOVAL 1999 HYSTERECTOMY, TOTAL WITH BSO 1991 GANGLION CYST RIGHT FOOT PACEMAKER INSERTION TONSILLECTOMY A CHILD SEVERAL D&C'S BILATERAL THUMB SURGERIES FOR ARTHRITIS FAMILY HISTORY FATHER: , DIAGNOSED WITH HYPERTENSION MOTHER: , OTHER SPECIFIED CONDITIONS INFLUENCING HEALTH STATUS, HYPERTENSION, UNSPECIFIED HEART DISEASE, UNSPECIFIED CEREBRAL ARTERY OCCLUSION WITH CEREBRAL INFARCTION 2DAUGHTER(S) . MOM-GLAUCOMA\N1 DAUGHTER--MULTIPLE AUTOIMMUNES DISEASES. SOCIAL HISTORY GENERAL: TOBACCO USE ARE YOU A:FORMER SMOKER HOW LONG HAS IT BEEN SINCE YOU LAST SMOKED?> 10 YEARS PAIN CLINIC PFS, CLERGY, PUBLIC HEALTH REFERRALS WAS THE PROVIDER NOTIFIED OF ANY PERTINENT INFO?YES N/A HAS THE PATIENT BEEN EDUCATED REGARDING HIS/HER PLAN OF CARE?YES HAS THE PATIENT BEEN EDUCATED REGARDING PAIN, THE RISK FOR PAIN, THE IMPORTANCE OF EFFECTIVE PAIN MANAGEMENT, AND THE PAIN ASSESSMENT PROCESS?YES LATEX QUESTIONNAIRE LATEX ALLERGY : HAVE YOU EVER DEVELOPED ANY TYPE OF REACTION AFTER HANDLING LATEX PRODUCTS SUCH RUBBER GLOVES, CONDOMS, DIAPHRAGMS, BALLOONS, SOCKS, OR UNDERWEAR?NO LATEX ALLERGY : HAVE YOU EVER DEVELOPED ANY TYPE OF REACTION DURING OR AFTER DENTAL APPOINTMENT, VAGINAL/RECTAL EXAMINATION, SURGICAL PROCEDURE, OR ANY OTHER EXPOSURE?NO DATE ASKED : 03/29/2019 LATEX RISK : HAVE YOU EVER HAD ANY DIFFICULTY BREATHING OR HIVES AFTER EATING OR HANDLING ANY FRUITS, OR VEGETABLES; SUCH KIWI, BANANAS, STONE FRUITS, OR CHESTNUTSNO LATEX RISK : DO YOU HAVE A PREVIOUS PERSONAL HISTORY OF MORE THAN NINE SURGERIES, SPINA BIFIDA, OR REPEATED CATHERIZATIONS? NO LATEX RISK : ARE YOU FREQUENTLY EXPOSED TO LATEX PRODUCTS IN YOUR OCCUPATION?NO CAFFEINE CAFFEINE USE?YES HOW OFTEN AND HOW MUCH? 1 CUP DAILY ADVANCE DIRECTIVE ADVANCE DIRECTIVE DISCUSSED WITH PATIENT:YES PT. HAS HCP, JAME MAI - [phone] -PT ALSO HAS LIVING WILL, CLAIR MAI, NONHOSPITAL DNR EDUCATION LEVEL OF EDUCATION:COLLEGE CHEONDOISM [id number] SABIANIST LANGUAGE LANGUAGES SPOKEN:[place] DOMESTIC VIOLENCE DO YOU FEEL SAFE IN YOUR ENVIRONMENT?YES ALCOHOL SCREENING DID YOU HAVE A DRINK CONTAINING ALCOHOL IN THE PAST YEAR?NO POINTS0 INTERPRETATIONNEGATIVE RECREATIONAL DRUG USE DRUG USE?NO LEARNING BARRIERS / SPECIAL NEEDS BARRIERS TO LEARNING?NO HEARING IMPAIRED?NO VISION IMPAIRED?YES COGNITIVELY IMPAIRED?NO :CORRECTIVE LENSES READINESS TO LEARN?YES LEARNING PREFERENCES?YES :HANDOUTS, DEMONSTRATION/VERBAL INSTRUCTION LEARNING CAPABILITIES PRESENT?YES EMOTIONAL BARRIERS?NO SPECIAL DEVICES?YES : 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 AD05/11/18 1352 REVIEWED WITH PT LASREVIEWED WITH PATIENT 06/22/18 1049 JSREVIEWED WITH PATIENT 03/11/19 0937 JS02/09/19 REVIEWED WITH PT. ADREVIEWED WITH PATIENT 12/22/18 1300 BVREVIEWED WITH PATIENT 04-23-19 1420 BV. HOSPITALIZATION/MAJOR DIAGNOSTIC PROCEDURE THOUGHT SHE WAS HAVING A STROKE AND PAIN MANAGEMENT 01/02/18 SURGERY RELATED STROKE 02/2018 BLADDER INFECTION 07/2018 PNEUMONIA 10/2018 REVIEW OF SYSTEMS REVIEWED BY: PROVIDER: RICHIE ORTIZ-Desmond . CONSTITUTIONAL: ANY CHANGE IN YOUR MEDICAL CONDITION? NO . CHILLS NO . FEVER NO . INFECTION: DO YOU HAVE NEW INFECTIONS? NO . DO YOU HAVE HISTORY OF MRSA? NO . MUSCULOSKELETAL: ANY NEW PATTERNS OF PAIN OR NUMBNESS? NO . GASTROENTEROLOGY: ANY NEW CHANGE IN BOWEL CONTROL? NO . GENITOURINARY: ANY NEW CHANGE IN BLADDER CONTROL? NO . IS THERE A CHANCE YOU COULD BE ? NO . HEMATOLOGY/LYMPH: DO YOU TAKE ANY BLOOD THINNERS? (FOR EXAMPLE- COUMADIN, PLAVIX, AGGRENOX, PLATEL, PRADAXA, OR XARELTO) NO . WHEN WAS YOUR LAST DOSE? DATE: TIME: . NEUROLOGY: HAVE YOU FALLEN IN THE PAST 12 MONTHS? NO . ANY NEW EXTREMITY NUMBNESS OR WEAKNESS? YES, LBP RADIATING DOWN RIGHT LEG W NUMBNESS . CARDIOLOGY: DO YOU HAVE A PACEMAKER OR DEFIBRILLATOR? YES . RESPIRATORY: HAVE YOU BEEN SICK IN THE PAST WEEK? NO . FEVER NO . FLU LIKE SYMPTOMS? NO . COUGH NO . INTEGUMENTARY: DO YOU HAVE ANY RASHES OR OPEN SORES? NO . ALLERGIC/IMMUNO: ARE YOU ALLERGIC TO IV DYE? NO . ANY NEW ALLERGIES? NO . PSYCHIATRIC: DO YOU HAVE THOUGHTS OF HURTING YOURSELF OR SOMEONE ELSE? NO . ARE YOU ABUSED, NEGLECTED, OR IN AN UNSAFE ENVIRONMENT? NO . ENDOCRINOLOGY: ARE YOU DIABETIC? NO . OTHER: DO YOU NEED ANY PRESCRIPTIONS? NO . IF YES, PLEASE LIST: ____ . ANY NEW PROBLEMS WITH YOUR MEDICATIONS? NO . WHEN DID YOU LAST EAT? ____ . WHEN DID YOU LAST DRINK? ____ . WHAT DID YOU LAST DRINK? ____ . NAME OF PERSON DRIVING YOU HOME? ____ . DO YOU HAVE ANY OTHER QUESTIONS OR CONCERNS NO . VITAL SIGNS WT 119.0 LBS, HT 61 IN, BMI 22.48 INDEX, BP 151/70 MM HG, HR 75 /MIN, RR 16 /MIN, TEMP 96.8 F, OXYGEN SAT % 96%, NA INITIALS AW 0956, REVIEWED BY: BARBARA. EXAMINATION GENERAL EXAMINATION: GENERALNO ACUTE DISTRESS, WELL NOURISHED AND HYDRATED. PSYCHAPPROPRIATE MOOD AND AFFECT . LUNGS:CLEAR TO AUSCULTATION BILATERALLY, NO WHEEZES, RHONCHI, RALES. HEART:NO MURMURS, REGULAR RATE AND RHYTHM. 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 DISCUSSED PAIN WITH PATIENT AND RECOMMENDED SHE GO TO THE ER FOR FURTHER EVALUATION GIVEN THE INTENSITY OF PAIN HOWEVER PATIENT DECLINES AT THIS TIME. ALSO DISCUSSED PREVIOUS PROCEDURES WITH PATIENT AND SHE ADMITS THAT SHE RECEIVED LITTLE TO NO RELIEF WITH THOSE PROCEDURES. GIVEN THE PATIENT HAS EXPERIENCED SOME RELIEF WITH ANY MEDICATIONS FROM HER PCP IT WAS DECIDED THAT SHE WILL CONTINUE THESE MEDICATIONS AND REPORTS THE ER SHOULD HER PAIN PERSIST AND/OR WORSEN. PATIENT HAS EXPRESSED UNDERSTANDING OF AND WAS IN AGREEMENT WITH TREATMENT PLAN. GIVEN TIME TO ASK QUESTIONS AND EXPRESS CONCERNS., ISTOP REGISTRY REVIEWED AND DEMONSTRATES COMPLLIANCE. (REF # [id number] ) BRINGS IN MEDICATIONS WHICH IS APPROPRIATE FOR WHAT WAS DISPENSED. RECENT URINE TOXICOLOGY REVIEWED. NO UNAUTHORIZED MEDICATIONS. NO ILLICIT SUBSTANCES AND PRESCRIBED MEDICATIONS WERE PRESENT. PROCEDURE CODES FA211 ESTABILISHED PATIENT [facility] CHARGE DISPOSITION & COMMUNICATION ELECTRONICALLY SIGNED BY DIANA AKHTRA ON 05/04/2019 AT 09:25 AM EDT DISCLAIMER : THIS IS A VISIT SUMMARY EXTRACTED FROM THE [employer] CHART. IT IS NOT A COPY OF THE [employer] PROGRESS NOTE. MARIEL
== END ==
LOC: M PAIN 09:45
PROVIDERS: ATTEND Family Medicine
DX: M47.27 Other spondylosis with radiculopathy, lumbosacral region (principal); I10 Essential (primary) hypertension; Z86.711 Personal history of pulmonary embolism; Z95.0 Presence of cardiac pacemaker; Z87.891 Personal history of nicotine dependence; Z88.1 Allergy status to other antibiotic agents; Z88.5 Allergy status to narcotic agent; Z88.6 Allergy status to analgesic agent; Z88.8 Allergy status to other drugs, medicaments and biological substances; Z79.899 Other long term (current) drug therapy

== ENCOUNTER 2019-05-07 14:25 | Emergency (ER) | payer MEDICARE, OTHER ==
[~2019-05-07] VITALS: Ht 154.9 cm; Wt 54.9 kg
[~2019-05-07 14:25] MED LIST changes: -AMLO5TAB6 PO; -ATOR1TAB19 PO; -BACL5TAB2 PO; -ZYPR2.5T2 PO
[2019-05-07] MEDS ORDERED: ATOR1TAB19 PO (14:43)
[2019-05-07] MEDS ORDERED: ZYPR2.5T2 PO (14:43)
[2019-05-07] MEDS ORDERED: AMLO5TAB6 PO (14:43)
[2019-05-07] MEDS ORDERED: BACL5TAB2 PO (14:43)
[2019-05-07] MEDS ORDERED: MORPHINE 4 MG/ML 1ML VIAL/SYRINGE (J2270) IV ONE (16:45)
[2019-05-07] MEDS ORDERED: NS 1,000 ML IV ONE (16:45)
[2019-05-07 17:20] LABS: BASO % 0.5 % (0.0-1.0); EOS # 0.1 10^3/uL (0.0-0.5); HEMATOCRIT 40.1 % (36.0-47.0); HEMOGLOBIN 12.9 g/dl (12.0-15.5); LYMPH # 1.1 10^3/uL (1.5-5.0); LYMPH % 20.1 % (24.0-44.0); MEAN CORPUSCULAR HEMOGLOBIN 32.7 pg (27.0-33.0); MEAN CORPUSCULAR HGB CONC 32.2 g/dl (32.0-36.5); MEAN CORPUSCULAR VOLUME 101.5 fl (80.0-96.0); MONO # 0.5 10^3/uL (0.0-0.8); MONO % 8.7 % (0.0-5.0); NEUTROPHILS # 3.8 10^3/uL (1.5-8.5); NEUTROPHILS % 68.3 % (36.0-66.0); PLATELET COUNT, AUTOMATED 246 10^3/uL (150-450); RED BLOOD COUNT 3.95 10^6/uL (4.00-5.40); WHITE BLOOD COUNT 5.5 10^3/uL (4.0-10.0)
[2019-05-07 17:47] LABS: ALBUMIN 3.5 GM/DL (3.2-5.2); ALT/SGPT 32 U/L (12-78); BILIRUBIN,DIRECT 0.1 MG/DL (0.0-0.2); BILIRUBIN,TOTAL 0.3 MG/DL (0.2-1.0); BLOOD UREA NITROGEN 10 MG/DL (7-18); CALCIUM LEVEL 8.8 MG/DL (8.8-10.2); CARBON DIOXIDE LEVEL 28 MEQ/L (21-32); CHLORIDE LEVEL 108 MEQ/L (98-107); CREATININE FOR GFR 0.68 MG/DL (0.55-1.30); GLOMERULAR FILTRATION RATE > 60.0 (>39); GLUCOSE, FASTING 93 MG/DL (70-100); LIPASE 46 U/L (73-393); POTASSIUM SERUM 4.8 MEQ/L (3.5-5.1); SODIUM LEVEL 142 MEQ/L (136-145)
--- NOTE | 2019-05-07 18:01 | REPVR ---
PROCEDURE INFORMATION: Exam: CT Abdomen and Pelvis Without Contrast Exam date and time: 05/07/2019 5:17 PM Clinical history: 78 years old, female; Abdominal pain; Flank; Left; Additional info: Left flank pain TECHNIQUE: Imaging protocol: Computed tomography of the abdomen and pelvis without contrast. Radiation optimization: All CT scans at this facility use at least one of these dose optimization techniques: automated exposure control; mA and/or kV adjustment per patient size (includes targeted exams where dose is matched to clinical indication); or iterative reconstruction. COMPARISON: LIVER US 01/03/2018 4:55 PM FINDINGS: Liver: Normal. No mass. Gallbladder and bile ducts: Normal. No calcified stones. No ductal dilation. Pancreas: There is diffuse pancreatic atrophy. Spleen: Normal. No splenomegaly. Adrenals: Normal. No mass. Kidneys and ureters: Subcapsular cyst right kidney measures 11 mm. Stomach and bowel: There is increased feces throughout the colon consistent with constipation. Mild diverticulosis is present in the distal colon. No diverticulitis. Appendix: No evidence of appendicitis. Intraperitoneal space: Unremarkable. No free air. No significant fluid collection. Vasculature: The aorta demonstrates mild atherosclerotic calcification. Lymph nodes: Unremarkable. No enlarged lymph nodes. Bladder: Unremarkable as visualized. Reproductive: There has been a hysterectomy. Bones/joints: Osteoporosis. Severe degenerative changes in the lumbar spine. Age-indeterminate compression fractures of L1 and L5 although described on prior CT lumbar spine examinations on both 04/24/2018 and 01/22/2018. Severe central spinal stenosis at L2-3 and L3-4, moderate to severe central spinal stenosis at L4-5. Soft tissues: Unremarkable. Other findings: Levoscoliosis. IMPRESSION: 1. There is diffuse pancreatic atrophy. 2. There has been a hysterectomy. 3. There is increased feces throughout the colon consistent with constipation. 4. Mild diverticulosis is present in the distal colon. No diverticulitis. Electronically signed by: Willy Randolph On 05/07/2019 18:01:10 PM
[2019-05-07] MEDS ORDERED: METHYLNALTREXONE BROMIDE 12 MG/0.6 ML VIAL (RELISTOR) SC ONE (19:00)
[2019-05-07 19:35] VITALS: BP 183/95
== END 2019-05-07 19:48 | disposition home or self-care (01) ==
LOC: M ED 14:25
DX: K59.00 Constipation, unspecified (principal); G89.29 Other chronic pain; M54.5 Low back pain; I10 Essential (primary) hypertension; F33.9 Major depressive disorder, recurrent, unspecified; H40.9 Unspecified glaucoma; Z79.899 Other long term (current) drug therapy; Z88.8 Allergy status to other drugs, medicaments and biological substances
CPT/HCPCS: 74176; 80048; 80076; 81001; 83690; 85025; 96361; 96374; 99284; J2270

== ENCOUNTER → 2019-05-27 | Outpatient (CLI) | payer MEDICARE, OTHER ==
[~2019-05-27] MED LIST changes: +AMLO5TAB6 PO; +ASPI81TA85 PO; +ATOR1TAB19 PO; +BACL10TA2 PO; +BACL5TAB2 PO; +COLA100C5 PO; +MIRA1POW3 PO; +SENN1TAB89; -SERT-155 PO; +SERT50TA29 PO; +ZYPR2.5T2 PO
--- NOTE | 2019-06-07 11:46 | ECWPNPC ---
PATIENT NAME: MIREYA PAREDES : 1940 GENDER: FEMALE VISIT DATE: 05/27/2019 DISCHARGE DATE: 05/27/19 1518 VISIT LOCKED DATE TIME: PHYSICIAN: AGUILAR BOSCH RESOURCE: AGUILAR BOSCH REASON FOR APPOINTMENT 1. INCREASED PAIN HISTORY OF PRESENT ILLNESS HISTORY OF PRESENT ILLNESS: PAIN THE PATIENT DESCRIBES THE PAIN... 78-YEAR-OLD FEMALE IN FOR CHRONIC PAIN FOLLOW-UP. SHE RATES HER PAIN CURRENTLY AT AN 8 OUT OF 10 AND DESCRIBES IT BURNING. SHE WOULD LIKE TO DISCUSS A THERAPEUTIC FACET BLOCK. FALL RISK SCREENING: SCREENING :NO FALLS REPORTED IN THE LAST YEAR CURRENT MEDICATIONS TAKING ZOLOFT 25 MG TABLET 1 TABLET ORALLY ONCE A DAY TAKING LUMIGAN 0.03 % SOLUTION 1 DROP INTO AFFECTED EYE IN THE EVENING OPHTHALMIC ONCE A DAY TAKING ZYPREXA 2.5 MG TABLET 1 TABLET ORALLY BEFORE BEDTIME TAKING LIPITOR 10 MG TABLET 1 TABLET ORALLY ONCE A DAY TAKING SIMBRINZA 1-0.2 % SUSPENSION 1 DROP INTO AFFECTED EYE OPHTHALMIC THREE TIMES A DAY TAKING NORVASC 5MG TABLET 1 TAB DAILY TAKING COLACE 100 MG CAPSULE 1 CAPSULE NEEDED ORALLY ONCE A DAY TAKING IBUPROFEN 400 MG TABLET 1 TABLET WITH FOOD OR MILK NEEDED ORALLY THREE TIMES A DAY TAKING PERCOCET 5-325 MG TABLET 1 TABLET NEEDED ORALLY Q4-6H PRN MDD4 THREE MOS SUPPLY CAT D CHRONIC PAIN TAKING ASPIRIN ADULT LOW DOSE 81 MG TABLET DELAYED RELEASE 1 TABLET ORALLY ONCE A DAY NOT-TAKING CYCLOBENZAPRINE HCL 5 MG TABLET 1 TABLET NEEDED ORALLY THREE TIMES A DAY NOT-TAKING OXYCODONE HCL 10 MG TABLET 1 TABLET NEEDED ORALLY EVERY 6 HRS NOT-TAKING WARFARIN SODIUM 3 MG TABLET 1 TABLET ORALLY ONCE A DAY NOT-TAKING TYLENOL 325 MG TABLET 1 TABLET NEEDED ORALLY EVERY 4 HRS NOT-TAKING TYLENOL WITH CODEINE #3 300-30 MG TABLET 1 TABLET NEEDED ORALLY EVERY 6 HRS MEDICATION LIST REVIEWED AND RECONCILED WITH THE PATIENT PAST MEDICAL HISTORY HTN LEFT BRANCH BUNDLE BLOCK GLAUCOMA LEFT BUTTOCK PAIN 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 PNEUMONIA 10/2018 LUMBPSACRAL SPONDYLOSIS WITH RADICULOPATHY ALLERGIES KETOPROFEN: SLOWS KIDNEY FUNCTION - ALLERGY MACROBID: NAUSEA/VOMITING - ALLERGY BETA BLOCKERS: DIGESTIVE PROBLEMS - ALLERGY STATINS: DIGESTIVE PROBLEMS - ALLERGY CYMBALTA: ANAPHYLAXIS - ALLERGY TRAMADOL HCL: ANAPHYLAXIS - ALLERGY HYDROCODONE-ACETAMINOPHEN: ANAPHYLAXIS - ALLERGY SOMA: NAUSEA/VOMITING - ALLERGY SURGICAL HISTORY SPINAL FUSION [id number] FACIAL RECONSTRUCTIONS X9 RIGHT EYES SURGERIES X7.EYE REMOVAL 1999 HYSTERECTOMY, TOTAL WITH BSO 1991 GANGLION CYST RIGHT FOOT PACEMAKER INSERTION TONSILLECTOMY A CHILD SEVERAL D&C'S BILATERAL THUMB SURGERIES FOR ARTHRITIS FAMILY HISTORY FATHER: , DIAGNOSED WITH HYPERTENSION MOTHER: , HYPERTENSION, UNSPECIFIED HEART DISEASE, UNSPECIFIED CEREBRAL ARTERY OCCLUSION WITH CEREBRAL INFARCTION, OTHER SPECIFIED CONDITIONS INFLUENCING HEALTH STATUS 2DAUGHTER(S) . MOM-GLAUCOMA\N1 DAUGHTER--MULTIPLE AUTOIMMUNES DISEASES. SOCIAL HISTORY GENERAL: TOBACCO USE ARE YOU A:FORMER SMOKER HOW LONG HAS IT BEEN SINCE YOU LAST SMOKED?> 10 YEARS PAIN CLINIC PFS, CLERGY, PUBLIC HEALTH REFERRALS WAS THE PROVIDER NOTIFIED OF ANY PERTINENT INFO? N/A HAS THE PATIENT BEEN EDUCATED REGARDING HIS/HER PLAN OF CARE?YES HAS THE PATIENT BEEN EDUCATED REGARDING PAIN, THE RISK FOR PAIN, THE IMPORTANCE OF EFFECTIVE PAIN MANAGEMENT, AND THE PAIN ASSESSMENT PROCESS?YES LATEX QUESTIONNAIRE LATEX ALLERGY : HAVE YOU EVER DEVELOPED ANY TYPE OF REACTION AFTER HANDLING LATEX PRODUCTS SUCH RUBBER GLOVES, CONDOMS, DIAPHRAGMS, BALLOONS, SOCKS, OR UNDERWEAR?NO LATEX ALLERGY : HAVE YOU EVER DEVELOPED ANY TYPE OF REACTION DURING OR AFTER DENTAL APPOINTMENT, VAGINAL/RECTAL EXAMINATION, SURGICAL PROCEDURE, OR ANY OTHER EXPOSURE?NO LATEX RISK : HAVE YOU EVER HAD ANY DIFFICULTY BREATHING OR HIVES AFTER EATING OR HANDLING ANY FRUITS, OR VEGETABLES; SUCH KIWI, BANANAS, STONE FRUITS, OR CHESTNUTSNO LATEX RISK : DO YOU HAVE A PREVIOUS PERSONAL HISTORY OF MORE THAN NINE SURGERIES, SPINA BIFIDA, OR REPEATED CATHERIZATIONS? YES - PLEASE INDICATE : > 9 SURGERIES LATEX RISK : ARE YOU FREQUENTLY EXPOSED TO LATEX PRODUCTS IN YOUR OCCUPATION?NO DATE ASKED : 05/27/2019 CAFFEINE CAFFEINE USE?YES HOW OFTEN AND HOW MUCH? 1 CUP DAILY ADVANCE DIRECTIVE ADVANCE DIRECTIVE DISCUSSED WITH PATIENT:YES PT. HAS HCP, JAME MAI - [phone] -PT ALSO HAS LIVING WILL, CLAIR MAI, NONHOSPITAL DNR EDUCATION LEVEL OF EDUCATION:COLLEGE YARSANI [id number] GNOSTICISM LANGUAGE LANGUAGES SPOKEN:LAO DOMESTIC VIOLENCE DO YOU FEEL SAFE IN YOUR ENVIRONMENT?YES ALCOHOL SCREENING DID YOU HAVE A DRINK CONTAINING ALCOHOL IN THE PAST YEAR?NO POINTS0 INTERPRETATIONNEGATIVE RECREATIONAL DRUG USE DRUG USE?NO LEARNING BARRIERS / SPECIAL NEEDS BARRIERS TO LEARNING?NO HEARING IMPAIRED?NO VISION IMPAIRED?YES COGNITIVELY IMPAIRED?NO :CORRECTIVE LENSES READINESS TO LEARN?YES LEARNING PREFERENCES?YES :HANDOUTS, DEMONSTRATION/VERBAL INSTRUCTION LEARNING CAPABILITIES PRESENT?YES EMOTIONAL BARRIERS?NO SPECIAL DEVICES?YES : OCC. 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 AD05/11/18 1352 REVIEWED WITH PT LASREVIEWED WITH PATIENT 06/22/18 1049 JS05/27/19 1435 REVIEWED WITH PT. ADREVIEWED WITH PATIENT 03/11/19 0937 JS02/09/19 REVIEWED WITH PT. ADREVIEWED WITH PATIENT 12/22/18 1300 BVREVIEWED WITH PATIENT 04-23-19 1420 BV. HOSPITALIZATION/MAJOR DIAGNOSTIC PROCEDURE THOUGHT SHE WAS HAVING A STROKE AND PAIN MANAGEMENT 01/02/18 SURGERY RELATED STROKE 02/2018 BLADDER INFECTION 07/2018 PNEUMONIA 10/2018 SEVERE BACK PAIN 05/07/19 REVIEW OF SYSTEMS REVIEWED BY: PROVIDER: RICHIE TAYLOR . CONSTITUTIONAL: ANY CHANGE IN YOUR MEDICAL CONDITION? NO . CHILLS NO . FEVER NO . INFECTION: DO YOU HAVE NEW INFECTIONS? NO . DO YOU HAVE HISTORY OF MRSA? NO . MUSCULOSKELETAL: ANY NEW PATTERNS OF PAIN OR NUMBNESS? NO . GASTROENTEROLOGY: ANY NEW CHANGE IN BOWEL CONTROL? NO . GENITOURINARY: ANY NEW CHANGE IN BLADDER CONTROL? NO . IS THERE A CHANCE YOU COULD BE ? NO . HEMATOLOGY/LYMPH: DO YOU TAKE ANY BLOOD THINNERS? (FOR EXAMPLE- COUMADIN, PLAVIX, AGGRENOX, PLATEL, PRADAXA, OR XARELTO) NO . WHEN WAS YOUR LAST DOSE? DATE: TIME: . NEUROLOGY: HAVE YOU FALLEN IN THE PAST 12 MONTHS? NO . ANY NEW EXTREMITY NUMBNESS OR WEAKNESS? NO . CARDIOLOGY: DO YOU HAVE A PACEMAKER OR DEFIBRILLATOR? YES, PACEMAKER . RESPIRATORY: HAVE YOU BEEN SICK IN THE PAST WEEK? NO . FEVER NO . FLU LIKE SYMPTOMS? NO . COUGH NO . INTEGUMENTARY: DO YOU HAVE ANY RASHES OR OPEN SORES? NO . ALLERGIC/IMMUNO: ARE YOU ALLERGIC TO IV DYE? NO . ANY NEW ALLERGIES? NO . PSYCHIATRIC: DO YOU HAVE THOUGHTS OF HURTING YOURSELF OR SOMEONE ELSE? NO . ARE YOU ABUSED, NEGLECTED, OR IN AN UNSAFE ENVIRONMENT? NO . ENDOCRINOLOGY: ARE YOU DIABETIC? NO . OTHER: DO YOU NEED ANY PRESCRIPTIONS? NO . IF YES, PLEASE LIST: ____ . ANY NEW PROBLEMS WITH YOUR MEDICATIONS? NO . WHEN DID YOU LAST EAT? ____ . WHEN DID YOU LAST DRINK? ____ . WHAT DID YOU LAST DRINK? ____ . NAME OF PERSON DRIVING YOU HOME? ____ . DO YOU HAVE ANY OTHER QUESTIONS OR CONCERNS YES, NOTICE LUMP LEFT SIDE JUST BELOW RIBS APPROX. 2 1/2 WEEKS AGO. WAS IN THE HOSPITAL ([facility] DUE TO INCREASE IN HER BACK PAIN. . VITAL SIGNS WT 119.0 LBS, HT 61 IN, BMI 22.48 INDEX, BP 118/59 MM HG, HR 89 /MIN, RR 16 /MIN, TEMP 97.9 F, OXYGEN SAT % 96%, SAFE IN ENV? (Y/N) Y, NA INITIALS AW 1422, REVIEWED BY: MARIA D. EXAMINATION GENERAL EXAMINATION: GENERALNO ACUTE DISTRESS, WELL NOURISHED AND HYDRATED. PSYCHAPPROPRIATE MOOD AND AFFECT . LUNGS:CLEAR TO AUSCULTATION BILATERALLY, NO WHEEZES, RHONCHI, RALES. HEART:NO MURMURS, REGULAR RATE AND RHYTHM. BACK:POINT TENDER L3-L4 L4-L5 , ENDORSES INCREASED PAIN WITH FACET LOADING, SURROUNDING SKIN SHOWS NO ERYTHEMA, ECCHYMOSIS, INCREASED WARMTH, AND/OR SKIN ERUPTIONS NOTED. . ASSESSMENTS LUMBOSACRAL SPONDYLOSIS WITH RADICULOPATHY - M47.27 (PRIMARY) TREATMENT LUMBOSACRAL SPONDYLOSIS WITH RADICULOPATHY NOTES: BILATERAL THERAPEUTIC FACET BLOCK L3-L4 L4-L5. CLINICAL NOTES: 78-YEAR-OLD FEMALE IN FOR CHRONIC PAIN FOLLOW-UP. GIVEN PRESENTING SYMPTOMS AND RESULTS PHYSICAL EXAMINATION RECOMMENDED BILATERAL THERAPEUTIC FACET BLOCK WITH POST PROCEDURAL FOLLOW-UP. PATIENT HAS EXPRESSED UNDERSTANDING OF AND WAS IN AGREEMENT WITH TREATMENT PLAN. GIVEN TIME TO ASK QUESTIONS AND EXPRESS CONCERNS., ISTOP REGISTRY REVIEWED AND DEMONSTRATES COMPLLIANCE. (REF # [id number] ) BRINGS IN MEDICATIONS WHICH IS APPROPRIATE FOR WHAT WAS DISPENSED. RECENT URINE TOXICOLOGY REVIEWED. NO UNAUTHORIZED MEDICATIONS. NO ILLICIT SUBSTANCES AND PRESCRIBED MEDICATIONS WERE PRESENT. PREVENTIVE MEDICINE PAIN CLINIC TEACHING: PROCEDURE TEACHING PT DECLINED PRINTED INFORMATION ON FACET BLOCK STATING SHE HAS HAD ONE AND IS FAMILIAR WITH IT. PRINTED PRE-PROCEDURE INSTRUCTIONS GIVEN TO AND REVIEWED WITH PT. AND SHE VERBALIZED UNDERSTANDING. ALSO REVIEWED WAS THE BENEFIT OF HAVING FLU SHOT 30 DAYS BEFORE OR 21-30 AFTER THE PROCEDURE. AD. PROCEDURE CODES FA211 ESTABILISHED PATIENT [facility] CHARGE DISPOSITION & COMMUNICATION FOLLOW UP POSTPROCEDURE (REASON: BILATERAL THERAPEUTIC FACET BLOCK L3-L4 L4-L5) ELECTRONICALLY SIGNED BY DIANA AKHTAR ON 05/28/2019 AT 09:01 AM EDT DISCLAIMER : THIS IS A VISIT SUMMARY EXTRACTED FROM THE [employer] CHART. IT IS NOT A COPY OF THE [employer] PROGRESS NOTE. DEVANGD
== END ==
LOC: M PAIN 14:15
PROVIDERS: ATTEND Family Medicine
DX: M47.27 Other spondylosis with radiculopathy, lumbosacral region (principal); Z79.82 Long term (current) use of aspirin; Z79.891 Long term (current) use of opiate analgesic; Z79.899 Other long term (current) drug therapy; Z87.891 Personal history of nicotine dependence; Z88.5 Allergy status to narcotic agent; Z88.8 Allergy status to other drugs, medicaments and biological substances

== ENCOUNTER 2019-06-01 16:42 | Observation (INO) | payer MEDICARE, OTHER ==
[~2019-06-01] VITALS: Ht 154.9 cm; Wt 52.9 kg
[~2019-06-01 16:42] MED LIST changes: -ASPI81TA85 PO; -BACL10TA2 PO; -COLA100C5 PO; -MIRA1POW3 PO; -SENN1TAB89
[2019-06-01 18:15] LABS: HEMATOCRIT 38.7 % (36.0-47.0); HEMOGLOBIN 12.4 g/dl (12.0-15.5); MEAN CORPUSCULAR HEMOGLOBIN 32.5 pg (27.0-33.0); MEAN CORPUSCULAR VOLUME 101.6 fl (80.0-96.0); PLATELET COUNT, AUTOMATED 263 10^3/uL (150-450); RED BLOOD COUNT 3.81 10^6/uL (4.00-5.40); WHITE BLOOD COUNT 7.1 10^3/uL (4.0-10.0)
[2019-06-01] MEDS ORDERED: ASPI81TA85 PO (18:22)
[2019-06-01] MEDS ORDERED: SENN1TAB89 (18:22)
[2019-06-01 18:51] LABS: ALBUMIN 3.5 GM/DL (3.2-5.2); ALT/SGPT 31 U/L (12-78); BILIRUBIN,TOTAL 0.3 MG/DL (0.2-1.0); BLOOD UREA NITROGEN 9 MG/DL (7-18); CALCIUM LEVEL 8.7 MG/DL (8.8-10.2); CARBON DIOXIDE LEVEL 27 MEQ/L (21-32); CHLORIDE LEVEL 104 MEQ/L (98-107); CK-MB VALUE MASS 4.9 NG/ML (<3.6); CPK CREATINE PHOSPHOKINASE 135 U/L (26-192); CREATININE FOR GFR 0.58 MG/DL (0.55-1.30); GLOMERULAR FILTRATION RATE > 60.0 (>39); GLUCOSE, FASTING 108 MG/DL (70-100); MAGNESIUM LEVEL 1.7 MG/DL (1.8-2.4); MB/CK RELATIVE INDEX 3.63 (< OR =4); POTASSIUM SERUM 4.3 MEQ/L (3.5-5.1); SODIUM LEVEL 138 MEQ/L (136-145); TOTAL PROTEIN 6.9 GM/DL (6.4-8.2); TROPONIN I < 0.02 NG/ML (< 0.10)
[2019-06-01] MEDS ORDERED: amLODIPine 5 MG TAB PO ONE (19:00)
[2019-06-01] MEDS ORDERED: MAGNESIUM OXIDE 400 MG TAB (MAG-OX) PO ONE (19:30)
[2019-06-01] MEDS ORDERED: COLA100C5 PO (19:41)
[2019-06-01] MEDS ORDERED: MIRA1POW3 PO (19:42)
[2019-06-01] MEDS ORDERED: BACL10TA2 PO (19:42)
--- NOTE | 2019-06-01 20:06 | REPVR ---
PROCEDURE INFORMATION: Exam: CT Head Without Contrast Exam date and time: 06/01/2019 7:20 PM Clinical history: 78 years old, female; Other: Seizure TECHNIQUE: Imaging protocol: Computed tomography of the head without contrast. Radiation optimization: All CT scans at this facility use at least one of these dose optimization techniques: automated exposure control; mA and/or kV adjustment per patient size (includes targeted exams where dose is matched to clinical indication); or iterative reconstruction. COMPARISON: CT Head without contrast 03/06/2019 7:03 PM FINDINGS: Brain: Global cerebral atrophy is consistent with patient's age. Decreased attenuation within the white matter tracts of both cerebral hemispheres is nonspecific but typically seen with small vessel disease/chronic white matter ischemic changes of aging. Right frontoparietal encephalomalacia and mild ex vacuo dilatation of the atrium and posterior body of the right lateral ventricle are unchanged. Old tiny bilateral basal ganglia lacunar infarcts, unchanged. No intracranial hemorrhage or mass effect. Ventricles: Mild expected dilatation of the right lateral ventricle, unchanged. Bones/joints: Status post right facial reconstruction with internally fixed healed fracture deformities and prosthetic right globe, unchanged. No acute fracture. Sinuses: Mucosal and bony thickening of the left maxillary sinus, consistent with chronic sinus inflammatory disease. No paranasal sinus air fluid level. Mastoid air cells: Visualized mastoid air cells are well aerated. Soft tissues: Unremarkable. Vasculature: Atherosclerosis of the cavernous carotid arteries. IMPRESSION: No acute abnormality. Electronically signed by: Mirza Osboren On 06/01/2019 20:06:37 PM
[2019-06-01] MEDS ORDERED: PERCOCET 5MG/325MG TAB PO ONE (21:00)
--- NOTE | 2019-06-01 21:34 | ECGEPIP ---
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
[2019-06-01] MEDS ORDERED: DOCUSATE SODIUM 100 MG CAP PO PRN (21:45)
[2019-06-01] MEDS ORDERED: ACETAMINOPHEN TAB 650MG DOSE (2X325MG) PO PRN (21:45)
[2019-06-01] MEDS ORDERED: BACLOFEN 5MG PER 1/2 TABLET PO PRN (21:45)
[2019-06-01] MEDS ORDERED: MIRALAX *UNIT DOSE* 17GM PACKET PO PRN (21:45)
[2019-06-01] MEDS ORDERED: ISOVUE-370 76% 100ML VIAL (Q9967) As Ordered ONE (21:52)
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
--- NOTE | 2019-06-01 22:35 | REPVR ---
PROCEDURE INFORMATION: Exam: CT Angiography Neck With Contrast Exam date and time: 06/01/2019 9:56 PM Clinical history: 78 years old, female; Numbness; Additional info: HX of carotid a. Disease, numbness of RT face TECHNIQUE: Imaging protocol: Computed tomography angiography of the neck with intravenous contrast. 3D rendering: MIP reconstructed images were created and reviewed. Radiation optimization: All CT scans at this facility use at least one of these dose optimization techniques: automated exposure control; mA and/or kV adjustment per patient size (includes targeted exams where dose is matched to clinical indication); or iterative reconstruction. Contrast material: ISOVUE 370; Contrast volume: 75 ml; Contrast route: IV; COMPARISON: CT Spine,cervical w/o contrast 01/02/2018 2:47 PM FINDINGS: VASCULATURE: Right common carotid artery: Unremarkable. No stenosis. No dissection or occlusion. Right internal carotid artery: Mild calcified plaque within the proximal right internal carotid artery with less than 50% stenosis. No right ICA dissection or pseudoaneurysm. Right external carotid artery: Unremarkable. No occlusion or stenosis of the origin. Right vertebral artery: Unremarkable. No stenosis. No dissection or occlusion. Left common carotid artery: Unremarkable. No stenosis. No dissection or occlusion. Left internal carotid artery: Minimal calcified plaque at the origin of the left internal carotid artery with less than 50% stenosis. No dissection or pseudoaneurysm of the left internal carotid artery identified. Left external carotid artery: Unremarkable. No occlusion or stenosis of the origin. Left vertebral artery: Unremarkable. No stenosis. No dissection or occlusion. NECK: Bones/joints: No acute fracture. Soft tissues: Normal. No significant soft tissue swelling. Lungs: 10 mm calcified pleural plaque within the posterior right upper thorax. The lung apices are clear. IMPRESSION: Minimal atherosclerosis of the right and left internal carotid artery origins with less than 50% stenosis. COMMENT: Reference per NASCET criteria for degree of stenosis: Mild: less than 50% stenosis. Moderate: 50-69% stenosis. Severe: 70-94% stenosis. Near occlusion: 95-99% stenosis. Electronically signed by: Mirza Osborne On 06/01/2019 22:35:08 PM
[2019-06-01 23:34] VITALS: BP 154/70
[2019-06-02] MEDS: OLANZapine 2.5MG TABLET PO SCH ×2 (00:25→21:57)
[2019-06-02] MEDS: ATORVASTATIN 10 MG TAB PO SCH ×2 (00:25→21:57)
[2019-06-02] MEDS: PERCOCET 5MG/325MG TAB PO PRN ×4 (03:01→22:54)
[2019-06-02] MEDS: ASPIRIN 81 MG ENTERIC TAB PO SCH (07:56)
[2019-06-02] MEDS: SERTRALINE HCL 50 MG TAB PO SCH (07:56)
[2019-06-02 07:59] VITALS: BP 170/74
[2019-06-02] MEDS: amLODIPine 5 MG TAB PO SCH (07:59)
[2019-06-02 08:00] VITALS: BP 170/74
[2019-06-02] MEDS: HEPARIN SOD (PORCINE) 5000 UNITS/ML VIAL SC SCH ×2 (08:00→21:58)
[2019-06-02] MEDS: GABAPENTIN 300 MG CAP PO SCH ×3 (08:46→21:00)
[2019-06-02 10:36] LABS: HEMATOCRIT 37.5 % (36.0-47.0); MEAN CORPUSCULAR HEMOGLOBIN 32.3 pg (27.0-33.0); MEAN CORPUSCULAR VOLUME 100.8 fl (80.0-96.0); PLATELET COUNT, AUTOMATED 243 10^3/uL (150-450); RED BLOOD COUNT 3.72 10^6/uL (4.00-5.40); WHITE BLOOD COUNT 5.8 10^3/uL (4.0-10.0)
[2019-06-02 11:05] LABS: ALBUMIN 3.2 GM/DL (3.2-5.2); ALT/SGPT 26 U/L (12-78); BILIRUBIN,TOTAL 0.3 MG/DL (0.2-1.0); BLOOD UREA NITROGEN 11 MG/DL (7-18); CALCIUM LEVEL 8.7 MG/DL (8.8-10.2); CARBON DIOXIDE LEVEL 25 MEQ/L (21-32); CHLORIDE LEVEL 102 MEQ/L (98-107); CREATININE FOR GFR 0.67 MG/DL (0.55-1.30); GLOMERULAR FILTRATION RATE > 60.0 (>39); GLUCOSE, FASTING 139 MG/DL (70-100); MAGNESIUM LEVEL 1.8 MG/DL (1.8-2.4); SODIUM LEVEL 134 MEQ/L (136-145); TOTAL PROTEIN 6.3 GM/DL (6.4-8.2)
[2019-06-02 12:00] VITALS: BP 141/65
[2019-06-02] MEDS: ONDANSETRON 4MG/2ML VIAL (J2405) IV PRN (15:14)
[2019-06-02 16:00] VITALS: BP 131/61
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
[2019-06-02 20:00] VITALS: BP 144/68
[2019-06-02] MEDS ORDERED: OLANZapine 2.5MG TABLET PO SCH (21:00)
[2019-06-02] MEDS ORDERED: LUMIGAN 0.01% OS SCH (21:00)
[2019-06-02] MEDS ORDERED: BRINZOLAMIDE 1 % OPHTH SUSP (AZOPT) 10ML OS SCH (21:00)
[2019-06-02] MEDS ORDERED: ATORVASTATIN 10 MG TAB PO SCH (21:00)
[2019-06-03] VITALS: BP_SYST 140; BP_SYST 158; BP_DIAS 67; BP_DIAS 71
[2019-06-03] MEDS: SIMBRINZA OS SCH ×2 (00:05→08:30)
[2019-06-03 04:00] VITALS: BP 137/64
[2019-06-03] MEDS: PERCOCET 5MG/325MG TAB PO PRN ×2 (06:09→14:33)
--- NOTE | 2019-06-03 07:21 | ECHO ---
DATE OF STUDY: 06/02/2019 REFERRING PHYSICIAN: Deion High MD INDICATION: Transient cerebral ischemia, unspecified. HEIGHT: 155 cm WEIGHT: 54 kg 2D MEASUREMENTS: Aortic root 2.7 cm Left atrium 3.1 cm Ventricular septum 1.00 cm Posterior wall 1.03 cm Left ventricle diastole 4.5 cm Aortic annulus 1.8 cm Inferior vena cava 1.1 cm DOPPLER MEASUREMENTS: Aortic valve velocity 175 cm/s LVOT velocity 116 cm/s LVOT VTI 20.4 cm Mitral E velocity 83.9 cm/s Mitral A velocity 67.1 cm/s Mitral deceleration time 183 ms Right ventricle systolic pressure estimated to be 30 mmHg assuming a right atrial pressure of 5 mmHg MITRAL ANNULAR TISSUE DOPPLER: E prime lateral 9.1 cm/s DESCRIPTION: Rhythm appeared to be AV sequential paced at 60 beats per minute. Image quality was fair. No pericardial effusion. This was a 2D, M mode, color flow Doppler and pulse wave Doppler examination and included mitral annular tissue Doppler. CONCLUSIONS: 1. Mild paradoxical septal motion. Preserved overall LV systolic function. LVEF 55% by visual estimate. Normal regional LV wall motion and wall thickening elsewhere. 2. Appearance of right atrial and right ventricular cardiac rhythm management endocardial leads. Normal right ventricle size and systolic function. 3. Mild aortic valve sclerosis of a three-cuspid aortic valve. No aortic regurgitation. 4. Normal LV diastolic function. 5. Otherwise normal appearing echocardiogram Doppler findings.
[2019-06-03 08:00] VITALS: BP 140/70
[2019-06-03] MEDS: SERTRALINE HCL 50 MG TAB PO SCH (08:30)
[2019-06-03] MEDS: ASPIRIN 81 MG ENTERIC TAB PO SCH (08:30)
[2019-06-03] MEDS: HEPARIN SOD (PORCINE) 5000 UNITS/ML VIAL SC SCH (08:30)
[2019-06-03] MEDS: amLODIPine 5 MG TAB PO SCH (08:30)
[2019-06-03] MEDS: GABAPENTIN 300 MG CAP PO SCH (09:00)
[2019-06-03] MEDS: ONDANSETRON 4MG/2ML VIAL (J2405) IV PRN (10:43)
[2019-06-03 12:00] VITALS: BP 138/65
--- NOTE | 2019-06-04 07:17 | EEG ---
DATE OF PROCEDURE:06/02/2019 REFERRING PHYSICIAN: Dr. Deion High DIAGNOSIS: Rule out complex partial seizure. EEG NUMBER: [id number]. HISTORY: The patient is a 78-year-old woman with history of sick sinus syndrome status post pacemaker placement, history of stroke with left-sided incoordination in 2018. She has off-and-on sudden onset numbness of right side of face and head which radiates towards her neck and ears. The patient is currently taking new Neurontin, Lipitor for olanzapine, Zoloft, Percocet etc. TECHNICAL DESCRIPTION: This digital EEG was recorded by 21 scalp ear and two EKG electrodes and was seen was reviewed in bipolar and referential montages following reformatting in 10-20 international electrode placement system. INTERPRETATION: The patient was noted to be in awake and drowsy states during this EEG. Resting awake background rhythm consisted of 8- 9 Hz alpha activity measuring 15 - 20 microvolts in amplitude which was symmetric and reactive to eye opening. Frontal intermittent rhythmic delta activity was noted bilaterally. The patient became drowsy with attenuation of background rhythm with no sleep was achieved. Hyperventilation could not be performed. Photic stimulation remained unremarkable. EKG revealed paced rhythm. No lateralizing or epileptiform abnormalities were seen. No clinical or electrographic seizures were recorded. CONCLUSIONS: This EEG in awake and drowsy states is abnormal due to presence of right greater than left frontal intermittent rhythmic delta activity / FIRDA consistent with nonspecific diffuse of focal cortical dysfunction such as seen in encephalopathy due to multiple potential causes including toxic, metabolic, infectious, medication related or structural brain abnormality. No epileptiform abnormalities were seen. Clinical correlation is recommended.
== END 2019-06-03 15:27 | disposition home or self-care (01) ==
LOC: M ED 16:42 → M ED INP 16:43 → M PCU 23:34
PROVIDERS: ADMIT Internal Medicine; ATTEND Internal Medicine
DX: R20.2 Paresthesia of skin (principal); I10 Essential (primary) hypertension; M54.5 Low back pain; Z95.1 Presence of aortocoronary bypass graft; I49.5 Sick sinus syndrome; Z86.73 Personal history of transient ischemic attack (TIA), and cerebral infarction without residual deficits; Z88.8 Allergy status to other drugs, medicaments and biological substances; Z79.899 Other long term (current) drug therapy; Z79.82 Long term (current) use of aspirin
CPT/HCPCS: 36415; 70450; 70498; 80053; 82550; 82553; 83735; 84484; 85027; 93005; 93041; 93306; 94760; 95819; 96372; 96374; 96376; 99285; G0378; J2405; Q9967

== ENCOUNTER → 2019-06-21 | Outpatient (CLI) | payer MEDICARE, OTHER ==
[~2019-06-21] MED LIST changes: +ASPI81TA85 PO; +BACL10TA2 PO; +BUPIVACAINE HCL 0.25% 30 ML VIAL As Ordered ONE; +COLA100C5 PO; +ISOVUE-M 300 61% 15ML VIAL (Q9967) As Ordered ONE; +LIDOCAINE 1% SDV INJ 30 ML VIAL As Ordered ONE; +MIRA1POW3 PO; +SENN1TAB89; +TRIAMCINOLONE ACETONIDE SUSP 40 MG/ML VIAL (J3301) As Ordered ONE; +diazePAM 5 MG TAB As Ordered ONE; +oxyCODONE 5MG TAB As Ordered ONE
--- NOTE | 2019-06-22 07:39 | REP ---
Partial lumbar spine series: Three views . History: Injection procedure for pain. 18 seconds of fluoroscopy time is reported. Findings: A sequence of three fluoroscopically obtained last image hold procedural spot radiographs of the lumbar spine document needle position and contrast injection associated with injection procedure. Electronically Signed by Jorge Alexandra MD 06/21/2019 12:15 P
--- NOTE | 2019-07-06 04:33 | ECWPNPC ---
PATIENT NAME: MIREYA PAREDES : 1940 GENDER: FEMALE VISIT DATE: 06/21/2019 DISCHARGE DATE: 06/21/19 1240 VISIT LOCKED DATE TIME: PHYSICIAN: MICHAEL SABILLON MD RESOURCE: MICHAEL SABILLON MD REASON FOR APPOINTMENT 1. BILATERAL THERAPEUTIC FACET BLOCK L4-L5, L5-S1 HISTORY OF PRESENT ILLNESS HISTORY OF PRESENT ILLNESS: PAIN THE PATIENT DESCRIBES THE PAIN... FALL RISK SCREENING: SCREENING :NO FALLS REPORTED IN THE LAST YEAR CURRENT MEDICATIONS TAKING ZOLOFT 25 MG TABLET 1 TABLET ORALLY ONCE A DAY, NOTES: 06-21-19799 TAKING LUMIGAN 0.03 % SOLUTION 1 DROP INTO AFFECTED EYE IN THE EVENING OPHTHALMIC ONCE A DAY, NOTES: 06-21-19799 TAKING ZYPREXA 2.5 MG TABLET 1 TABLET ORALLY BEFORE BEDTIME, NOTES: 06-20-192099 TAKING LIPITOR 10 MG TABLET 1 TABLET ORALLY ONCE A DAY, NOTES: 06-20-192099 TAKING SIMBRINZA 1-0.2 % SUSPENSION 1 DROP INTO AFFECTED EYE OPHTHALMIC THREE TIMES A DAY, NOTES: 06-21-192099 TAKING NORVASC 5MG TABLET 1 TAB DAILY, NOTES: 06-21-19799 TAKING COLACE 100 MG CAPSULE 1 CAPSULE NEEDED ORALLY ONCE A DAY, NOTES: 06-20-192099 TAKING IBUPROFEN 400 MG TABLET 1 TABLET WITH FOOD OR MILK NEEDED ORALLY THREE TIMES A DAY, NOTES: NOT LATELY TAKING PERCOCET 5-325 MG TABLET 1 TABLET NEEDED ORALLY Q4-6H PRN MDD4 THREE MOS SUPPLY CAT D CHRONIC PAIN, NOTES: 06-21-19799 NOT-TAKING CYCLOBENZAPRINE HCL 5 MG TABLET 1 TABLET NEEDED ORALLY THREE TIMES A DAY NOT-TAKING OXYCODONE HCL 10 MG TABLET 1 TABLET NEEDED ORALLY EVERY 6 HRS NOT-TAKING WARFARIN SODIUM 3 MG TABLET 1 TABLET ORALLY ONCE A DAY NOT-TAKING TYLENOL 325 MG TABLET 1 TABLET NEEDED ORALLY EVERY 4 HRS NOT-TAKING TYLENOL WITH CODEINE #3 300-30 MG TABLET 1 TABLET NEEDED ORALLY EVERY 6 HRS UNKNOWN ASPIRIN ADULT LOW DOSE 81 MG TABLET DELAYED RELEASE 1 TABLET ORALLY ONCE A DAY, NOTES: 06-21-19799 MEDICATION LIST REVIEWED AND RECONCILED WITH THE PATIENT PAST MEDICAL HISTORY HTN LEFT BRANCH BUNDLE BLOCK GLAUCOMA LEFT BUTTOCK PAIN 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 PNEUMONIA 10/2018 LUMBPSACRAL SPONDYLOSIS WITH RADICULOPATHY ALLERGIES KETOPROFEN: SLOWS KIDNEY FUNCTION - ALLERGY MACROBID: NAUSEA/VOMITING - ALLERGY BETA BLOCKERS: DIGESTIVE PROBLEMS - ALLERGY STATINS: DIGESTIVE PROBLEMS - ALLERGY CYMBALTA: ANAPHYLAXIS - ALLERGY TRAMADOL HCL: ANAPHYLAXIS - ALLERGY HYDROCODONE-ACETAMINOPHEN: ANAPHYLAXIS - ALLERGY SOMA: NAUSEA/VOMITING - ALLERGY SURGICAL HISTORY SPINAL FUSION Z90-[id number] FACIAL RECONSTRUCTIONS X9 RIGHT EYES SURGERIES X7.EYE REMOVAL 1999 HYSTERECTOMY, TOTAL WITH BSO 1991 GANGLION CYST RIGHT FOOT PACEMAKER INSERTION TONSILLECTOMY A CHILD SEVERAL D&C'S BILATERAL THUMB SURGERIES FOR ARTHRITIS FAMILY HISTORY FATHER: , DIAGNOSED WITH HYPERTENSION MOTHER: , HYPERTENSION, UNSPECIFIED HEART DISEASE, UNSPECIFIED CEREBRAL ARTERY OCCLUSION WITH CEREBRAL INFARCTION, OTHER SPECIFIED CONDITIONS INFLUENCING HEALTH STATUS 2DAUGHTER(S) . MOM-GLAUCOMA\N1 DAUGHTER--MULTIPLE AUTOIMMUNES DISEASES. SOCIAL HISTORY GENERAL: TOBACCO USE ARE YOU A:FORMER SMOKER HOW LONG HAS IT BEEN SINCE YOU LAST SMOKED?> 10 YEARS PAIN CLINIC PFS, CLERGY, PUBLIC HEALTH REFERRALS WAS THE PROVIDER NOTIFIED OF ANY PERTINENT INFO? N/A HAS THE PATIENT BEEN EDUCATED REGARDING HIS/HER PLAN OF CARE?YES HAS THE PATIENT BEEN EDUCATED REGARDING PAIN, THE RISK FOR PAIN, THE IMPORTANCE OF EFFECTIVE PAIN MANAGEMENT, AND THE PAIN ASSESSMENT PROCESS?YES LATEX QUESTIONNAIRE LATEX ALLERGY : HAVE YOU EVER DEVELOPED ANY TYPE OF REACTION AFTER HANDLING LATEX PRODUCTS SUCH RUBBER GLOVES, CONDOMS, DIAPHRAGMS, BALLOONS, SOCKS, OR UNDERWEAR?NO LATEX ALLERGY : HAVE YOU EVER DEVELOPED ANY TYPE OF REACTION DURING OR AFTER DENTAL APPOINTMENT, VAGINAL/RECTAL EXAMINATION, SURGICAL PROCEDURE, OR ANY OTHER EXPOSURE?NO DATE ASKED : 05/27/2019 LATEX RISK : HAVE YOU EVER HAD ANY DIFFICULTY BREATHING OR HIVES AFTER EATING OR HANDLING ANY FRUITS, OR VEGETABLES; SUCH KIWI, BANANAS, STONE FRUITS, OR CHESTNUTSNO LATEX RISK : DO YOU HAVE A PREVIOUS PERSONAL HISTORY OF MORE THAN NINE SURGERIES, SPINA BIFIDA, OR REPEATED CATHERIZATIONS? YES - PLEASE INDICATE : > 9 SURGERIES LATEX RISK : ARE YOU FREQUENTLY EXPOSED TO LATEX PRODUCTS IN YOUR OCCUPATION?NO CAFFEINE CAFFEINE USE?YES HOW OFTEN AND HOW MUCH? 1 CUP DAILY ADVANCE DIRECTIVE ADVANCE DIRECTIVE DISCUSSED WITH PATIENT:YES PT. HAS HCP, JAME MAI - [phone] -PT ALSO HAS LIVING WILL, POA JAME POLOI, NONHOSPITAL DNR EDUCATION LEVEL OF EDUCATION:COLLEGE SABIANIST [id number] JEWISH LANGUAGE LANGUAGES SPOKEN:OMANI DOMESTIC VIOLENCE DO YOU FEEL SAFE IN YOUR ENVIRONMENT?YES ALCOHOL SCREENING DID YOU HAVE A DRINK CONTAINING ALCOHOL IN THE PAST YEAR?NO POINTS0 INTERPRETATIONNEGATIVE RECREATIONAL DRUG USE DRUG USE?NO LEARNING BARRIERS / SPECIAL NEEDS BARRIERS TO LEARNING?NO HEARING IMPAIRED?NO VISION IMPAIRED?YES COGNITIVELY IMPAIRED?NO :CORRECTIVE LENSES READINESS TO LEARN?YES LEARNING PREFERENCES?YES :HANDOUTS, DEMONSTRATION/VERBAL INSTRUCTION LEARNING CAPABILITIES PRESENT?YES EMOTIONAL BARRIERS?NO SPECIAL DEVICES?YES : OCC. 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 AD05/11/18 1352 REVIEWED WITH PT LASREVIEWED WITH PATIENT 06/22/18 1049 JS05/27/19 1435 REVIEWED WITH PT. ROEIEWED WITH PATIENT 03/11/19 0937 JS02/09/19 REVIEWED WITH PT. BEBETO WITH PATIENT 12/22/18 1300 BVREVIEWED WITH PATIENT 04-23-19 1420 BV. HOSPITALIZATION/MAJOR DIAGNOSTIC PROCEDURE THOUGHT SHE WAS HAVING A STROKE AND PAIN MANAGEMENT 01/02/18 SURGERY RELATED STROKE 02/2018 BLADDER INFECTION 07/2018 PNEUMONIA 10/2018 SEVERE BACK PAIN 05/07/19 REVIEW OF SYSTEMS REVIEWED BY: PROVIDER: . CONSTITUTIONAL: ANY CHANGE IN YOUR MEDICAL CONDITION? NO . CHILLS NO . FEVER NO . INFECTION: DO YOU HAVE NEW INFECTIONS? NO . DO YOU HAVE HISTORY OF MRSA? NO . MUSCULOSKELETAL: ANY NEW PATTERNS OF PAIN OR NUMBNESS? NO . GASTROENTEROLOGY: ANY NEW CHANGE IN BOWEL CONTROL? NO . GENITOURINARY: ANY NEW CHANGE IN BLADDER CONTROL? NO . IS THERE A CHANCE YOU COULD BE ? NO . HEMATOLOGY/LYMPH: DO YOU TAKE ANY BLOOD THINNERS? (FOR EXAMPLE- COUMADIN, PLAVIX, AGGRENOX, PLATEL, PRADAXA, OR XARELTO) NO . WHEN WAS YOUR LAST DOSE? DATE: TIME: . NEUROLOGY: HAVE YOU FALLEN IN THE PAST 12 MONTHS? NO . ANY NEW EXTREMITY NUMBNESS OR WEAKNESS? NO . CARDIOLOGY: DO YOU HAVE A PACEMAKER OR DEFIBRILLATOR? NO . RESPIRATORY: HAVE YOU BEEN SICK IN THE PAST WEEK? NO . FEVER NO . FLU LIKE SYMPTOMS? NO . COUGH NO . INTEGUMENTARY: DO YOU HAVE ANY RASHES OR OPEN SORES? NO . ALLERGIC/IMMUNO: ARE YOU ALLERGIC TO IV DYE? NO . ANY NEW ALLERGIES? NO . PSYCHIATRIC: DO YOU HAVE THOUGHTS OF HURTING YOURSELF OR SOMEONE ELSE? NO . ARE YOU ABUSED, NEGLECTED, OR IN AN UNSAFE ENVIRONMENT? NO . ENDOCRINOLOGY: ARE YOU DIABETIC? NO . OTHER: DO YOU NEED ANY PRESCRIPTIONS? NO . IF YES, PLEASE LIST: ____ . ANY NEW PROBLEMS WITH YOUR MEDICATIONS? NO . WHEN DID YOU LAST EAT? ____LAST NIGHT 1999 . WHEN DID YOU LAST DRINK? ____THIS MORNING 06-21-19 07 . WHAT DID YOU LAST DRINK? ____WATER . NAME OF PERSON DRIVING YOU HOME? ____URSALA . DO YOU HAVE ANY OTHER QUESTIONS OR CONCERNS NO . VITAL SIGNS WT 118.6 LBS, HT 61 IN, BMI 22.41 INDEX, BP 126/65 MM HG, HR 83 /MIN, RR 16 /MIN, TEMP 96.3 F, OXYGEN SAT % 94%, NA INITIALS AW 1045, REVIEWED BY: KG. ASSESSMENTS SPONDYLOSIS OF LUMBAR REGION WITHOUT MYELOPATHY OR RADICULOPATHY - M47.816 (PRIMARY) SPONDYLOSIS WITHOUT MYELOPATHY OR RADICULOPATHY, LUMBOSACRAL REGION - M47.817 TREATMENT SPONDYLOSIS OF LUMBAR REGION WITHOUT MYELOPATHY OR RADICULOPATHY SMC FACET BLOCK (PAIN)[id number] PROCEDURES PN LUMBAR FACET BLOCK THERAPEUTIC PRE PROCEDURE DIAGNOSIS LUMBAR SPONDYLOSIS, LUMBOSACRAL SPONDYLOSIS POST PROCEDURE DIAGNOSIS LUMBAR SPONDYLOSIS, LUMBOSACRAL SPONDYLOSIS PROCEDURE BILATERAL L4-L5 AND L5-S1 LUMBAR FACET THERAPEUTIC BLOCK SURGEON DR. MICHAEL SABILLON TOOL DISPATCHER NONE ANESTHESIA LOCAL PRE PROCEDURE NOTE THE PATIENT HAS A HISTORY OF CHRONIC LOW BACK PAIN. I EVALUATED THE PATIENT AND REVIEWED THE CHART. I WENT OVER THE RISKS, ALTERNATIVES, AND BENEFITS ASSOCIATED WITH THIS PROCEDURE. THE PATIENT WOULD LIKE TO PROCEED AND GIVES CONSENT TO PERFORMED THE PROCEDURE. THE PATIENT DENIES UNEXPLAINABLE WEIGHT LOSS, FEVER, CHILLS, OR NEW CHANGES IN URINARY OR BOWEL CONTROL DESCRIPTION OF PROCEDURE THE PATIENT WAS BROUGHT TO THE PROCEDURE ROOM AND PLACED IN THE PRONE POSITION. THE LUMBOSACRAL AREA WAS CLEANED WITH CHLORAPREP SOLUTION AND DRAPED ASEPTICALLY. THE PROCEDURE WAS DONE UNDER STERILE CONDITIONS. I CHECKED LATERALITY AND THE LEVEL WHERE THE PROCEDURE WAS GOING TO BE PERFORMED WITH THE PATIENT AND THE SUPPORTING STAFF AT THE MOMENT OF THE TIME OUT IN THE PROCEDURE ROOM. UNDER FLUOROSCOPIC GUIDANCE, THE TARGET POINT WAS SELECTED AT THE RIGHT AND LEFT L4-L5 AND RIGHT AND LEFT L5-S1 FACET JOINTS. TARGET POINT WAS SELECTED AFTER LATERAL ROTATION AND TILT OF THE MAGNIFIER OF THE C-ARM. LIDOCAINE 0.5% WAS USED TO NUMB THE SKIN AND THE SUBCUTANEOUS TISSUE BELOW IT. SPINAL NEEDLES, 22-GAUGE, WERE ADVANCED UNDER FLUOROSCOPIC GUIDANCE AND FOLLOWING PATIENT FEEDBACK UNTIL THE TARGETS WERE TOUCHED. THE POSITION OF THE NEEDLES WAS VERIFIED WITH AP AND LATERAL VIEWS. AFTER PROPER POSITION OF THE NEEDLES WAS ACHIEVED, ISOVUE-M DYE 30% 0.1 ML WAS INJECTED SHOWING ADEQUATE SPREAD OF THE DYE. THEN A SOLUTION OF 1.9 ML OF BUPIVACAINE 0.125% OF KENALOG 10 MG WAS INJECTED AT EACH SITE. THERE WAS NO EVIDENCE OF BLOOD, PARESTHESIA OR CEREBROSPINAL FLUID DURING THE PROCEDURE. THE PATIENT WAS SENT TO THE RECOVERY ROOM. THE PATIENT WAS MOVING THE EXTREMITIES AND DOING WELL. THERE WAS NO COMPLICATION DURING THE PROCEDURE. FLUOROSCOPY TIME WAS 18 SECONDS POST PROCEDURE NOTE THE PATIENT WILL BE SEEN IN A FOLLOW UP IN THE NEXT FEW WEEKS. INSTRUCTIONS WERE GIVEN, QUESTIONS WERE ANSWERED, AND THE PATIENT EXPRESSED UNDERSTANDING AND AGREES WITH THE PLAN. I, SHALINI VALENTE, DOCUMENTED THE ABOVE INFORMATION ACTING A SCRIBE FOR DR. SABILLON. I HAVE REVIEWED THE ABOVE DOCUMENT, WRITTEN BY SHALINI FLORES AND I VERIFY THAT IT IS ACCURATE. PROCEDURE CODES [id number] INJ PARAVERT F JNT L/S 1 LEV, MODIFIERS: 50 [id number] INJ PARAVERT F JNT L/S 2 LEV, MODIFIERS: 50 [id number] RADXPS IN END [id number] PXD DISPOSITION & COMMUNICATION FOLLOW UP 3 WEEKS ELECTRONICALLY SIGNED BY MICHAEL SABILLON MD, MD ON 07/05/2019 AT 05:30 PM EST DISCLAIMER : THIS IS A VISIT SUMMARY EXTRACTED FROM THE [employer] CHART. IT IS NOT A COPY OF THE [employer] PROGRESS NOTE. MTDD
== END ==
LOC: M PAIN 10:30
PROVIDERS: ATTEND Anesthesiology
DX: M47.816 Spondylosis without myelopathy or radiculopathy, lumbar region (principal); M47.817 Spondylosis without myelopathy or radiculopathy, lumbosacral region; I10 Essential (primary) hypertension; Z86.711 Personal history of pulmonary embolism; Z95.0 Presence of cardiac pacemaker; Z87.891 Personal history of nicotine dependence; Z88.1 Allergy status to other antibiotic agents; Z88.5 Allergy status to narcotic agent; Z88.8 Allergy status to other drugs, medicaments and biological substances; Z79.899 Other long term (current) drug therapy
CPT/HCPCS: 64493; 64494; J3301; Q9967

== ENCOUNTER → 2019-06-25 | Outpatient (CLI) | payer MEDICARE, OTHER ==
[~2019-06-25] MED LIST changes: -BUPIVACAINE HCL 0.25% 30 ML VIAL As Ordered ONE; -ISOVUE-M 300 61% 15ML VIAL (Q9967) As Ordered ONE; -LIDOCAINE 1% SDV INJ 30 ML VIAL As Ordered ONE; -TRIAMCINOLONE ACETONIDE SUSP 40 MG/ML VIAL (J3301) As Ordered ONE; -diazePAM 5 MG TAB As Ordered ONE; -oxyCODONE 5MG TAB As Ordered ONE
--- NOTE | 2019-07-15 02:01 | ECWPNPC ---
PATIENT NAME: MIREYA PAREDES : 1940 GENDER: FEMALE VISIT DATE: 06/25/2019 DISCHARGE DATE: 06/25/19 1107 VISIT LOCKED DATE TIME: PHYSICIAN: RAJESH FELIX RESOURCE: RAJESH FELIX REASON FOR APPOINTMENT 1. POST PROC HISTORY OF PRESENT ILLNESS HISTORY OF PRESENT ILLNESS: HERE FOR POST PROCEDURE F/U.HAD BILAT. L4/5-L5/S1 LFBT ON 06/21/19.REPORTING NO IMPROVEMENT POST PROCEDURE.CURRENTLY RATING LOW BACK AND SACRALCOCCYX PAIN 9/10 VAS.USING PERCOCET 5/325 PRN FOR SEVERE PAIN EPISODES WITH SOME IMPROVEMENT.HAS TRIALED MULTIPLE MEDICATIONS OVER THE YEARS FOR CHRONIC PAIN WITH REPORTS OF ADVERSE EFFECTS.SHE WILL BE LEAVING FOR [place] IN THE NEXT COUPLE DAYS AND WILL BE BACK IN SPRING. PAIN THE PATIENT DESCRIBES THE PAIN... FALL RISK SCREENING: SCREENING :NO FALLS REPORTED IN THE LAST YEAR CURRENT MEDICATIONS TAKING ZOLOFT 25 MG TABLET 1 TABLET ORALLY ONCE A DAY, NOTES: 06-21-19 0800 TAKING LUMIGAN 0.03 % SOLUTION 1 DROP INTO AFFECTED EYE IN THE EVENING OPHTHALMIC ONCE A DAY, NOTES: 06-21-19 0800 TAKING ZYPREXA 2.5 MG TABLET 1 TABLET ORALLY BEFORE BEDTIME TAKING LIPITOR 10 MG TABLET 1 TABLET ORALLY ONCE A DAY TAKING SIMBRINZA 1-0.2 % SUSPENSION 1 DROP INTO AFFECTED EYE OPHTHALMIC THREE TIMES A DAY TAKING NORVASC 5MG TABLET 1 TAB DAILY TAKING COLACE 100 MG CAPSULE 1 CAPSULE NEEDED ORALLY ONCE A DAY TAKING IBUPROFEN 400 MG TABLET 1 TABLET WITH FOOD OR MILK NEEDED ORALLY THREE TIMES A DAY TAKING PERCOCET 5-325 MG TABLET 1 TABLET NEEDED ORALLY Q4-6H PRN MDD4 THREE MOS SUPPLY CAT D CHRONIC PAIN TAKING ASPIRIN ADULT LOW DOSE 81 MG TABLET DELAYED RELEASE 1 TABLET ORALLY ONCE A DAY NOT-TAKING CYCLOBENZAPRINE HCL 5 MG TABLET 1 TABLET NEEDED ORALLY THREE TIMES A DAY NOT-TAKING OXYCODONE HCL 10 MG TABLET 1 TABLET NEEDED ORALLY EVERY 6 HRS NOT-TAKING WARFARIN SODIUM 3 MG TABLET 1 TABLET ORALLY ONCE A DAY NOT-TAKING TYLENOL 325 MG TABLET 1 TABLET NEEDED ORALLY EVERY 4 HRS NOT-TAKING TYLENOL WITH CODEINE #3 300-30 MG TABLET 1 TABLET NEEDED ORALLY EVERY 6 HRS MEDICATION LIST REVIEWED AND RECONCILED WITH THE PATIENT PAST MEDICAL HISTORY HTN LEFT BRANCH BUNDLE BLOCK GLAUCOMA LEFT BUTTOCK PAIN 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 PNEUMONIA 10/2018 LUMBPSACRAL SPONDYLOSIS WITH RADICULOPATHY ALLERGIES KETOPROFEN: SLOWS KIDNEY FUNCTION - ALLERGY MACROBID: NAUSEA/VOMITING - ALLERGY BETA BLOCKERS: DIGESTIVE PROBLEMS - ALLERGY STATINS: DIGESTIVE PROBLEMS - ALLERGY CYMBALTA: ANAPHYLAXIS - ALLERGY TRAMADOL HCL: ANAPHYLAXIS - ALLERGY HYDROCODONE-ACETAMINOPHEN: ANAPHYLAXIS - ALLERGY SOMA: NAUSEA/VOMITING - ALLERGY SURGICAL HISTORY SPINAL FUSION [id number] FACIAL RECONSTRUCTIONS X9 RIGHT EYES SURGERIES X7.EYE REMOVAL 1999 HYSTERECTOMY, TOTAL WITH BSO 1991 GANGLION CYST RIGHT FOOT PACEMAKER INSERTION TONSILLECTOMY A CHILD SEVERAL D&C'S BILATERAL THUMB SURGERIES FOR ARTHRITIS FAMILY HISTORY FATHER: , DIAGNOSED WITH HYPERTENSION MOTHER: , HYPERTENSION, UNSPECIFIED HEART DISEASE, UNSPECIFIED CEREBRAL ARTERY OCCLUSION WITH CEREBRAL INFARCTION, OTHER SPECIFIED CONDITIONS INFLUENCING HEALTH STATUS 2DAUGHTER(S) . MOM-GLAUCOMA\N1 DAUGHTER--MULTIPLE AUTOIMMUNES DISEASES. SOCIAL HISTORY GENERAL: TOBACCO USE ARE YOU A:FORMER SMOKER HOW LONG HAS IT BEEN SINCE YOU LAST SMOKED?> 10 YEARS PAIN CLINIC PFS, CLERGY, PUBLIC HEALTH REFERRALS WAS THE PROVIDER NOTIFIED OF ANY PERTINENT INFO? N/A HAS THE PATIENT BEEN EDUCATED REGARDING HIS/HER PLAN OF CARE?YES HAS THE PATIENT BEEN EDUCATED REGARDING PAIN, THE RISK FOR PAIN, THE IMPORTANCE OF EFFECTIVE PAIN MANAGEMENT, AND THE PAIN ASSESSMENT PROCESS?YES LATEX QUESTIONNAIRE LATEX ALLERGY : HAVE YOU EVER DEVELOPED ANY TYPE OF REACTION AFTER HANDLING LATEX PRODUCTS SUCH RUBBER GLOVES, CONDOMS, DIAPHRAGMS, BALLOONS, SOCKS, OR UNDERWEAR?NO LATEX ALLERGY : HAVE YOU EVER DEVELOPED ANY TYPE OF REACTION DURING OR AFTER DENTAL APPOINTMENT, VAGINAL/RECTAL EXAMINATION, SURGICAL PROCEDURE, OR ANY OTHER EXPOSURE?NO DATE ASKED : 05/27/2019 LATEX RISK : HAVE YOU EVER HAD ANY DIFFICULTY BREATHING OR HIVES AFTER EATING OR HANDLING ANY FRUITS, OR VEGETABLES; SUCH KIWI, BANANAS, STONE FRUITS, OR CHESTNUTSNO LATEX RISK : DO YOU HAVE A PREVIOUS PERSONAL HISTORY OF MORE THAN NINE SURGERIES, SPINA BIFIDA, OR REPEATED CATHERIZATIONS? YES - PLEASE INDICATE : > 9 SURGERIES LATEX RISK : ARE YOU FREQUENTLY EXPOSED TO LATEX PRODUCTS IN YOUR OCCUPATION?NO CAFFEINE CAFFEINE USE?YES HOW OFTEN AND HOW MUCH? 1 CUP DAILY ADVANCE DIRECTIVE ADVANCE DIRECTIVE DISCUSSED WITH PATIENT:YES PT. HAS HCP, JAME MAI - [phone] -PT ALSO HAS LIVING WILL, PO[place] JAME MAI, NONHOSPITAL DNR EDUCATION LEVEL OF EDUCATION:COLLEGE MOSQUE [id number] SABIANISM LANGUAGE LANGUAGES SPOKEN:TURKS AND CAICOS ISLANDER DOMESTIC VIOLENCE DO YOU FEEL SAFE IN YOUR ENVIRONMENT?YES ALCOHOL SCREENING DID YOU HAVE A DRINK CONTAINING ALCOHOL IN THE PAST YEAR?NO POINTS0 INTERPRETATIONNEGATIVE RECREATIONAL DRUG USE DRUG USE?NO LEARNING BARRIERS / SPECIAL NEEDS BARRIERS TO LEARNING?NO HEARING IMPAIRED?NO VISION IMPAIRED?YES COGNITIVELY IMPAIRED?NO :CORRECTIVE LENSES READINESS TO LEARN?YES LEARNING PREFERENCES?YES :HANDOUTS, DEMONSTRATION/VERBAL INSTRUCTION LEARNING CAPABILITIES PRESENT?YES EMOTIONAL BARRIERS?NO SPECIAL DEVICES?YES : OCC. WHEELING WALKER ENGINE ROOM HELPER NEEDED?NO REVIEWED WITH PT 01/26/18 1412REVIEWED WITH PT 02/06/18 0904 BV02/19/18 1055 REVIEWED WITH PT. AD05/11/18 1352 REVIEWED WITH PT LASREVIEWED WITH PATIENT 06/22/18 1049 JS05/27/19 1435 REVIEWED WITH PT. ADREVIEWED WITH PATIENT 03/11/19 0937 JS02/09/19 REVIEWED WITH PT. ADREVIEWED WITH PATIENT 12/22/18 1300 BVREVIEWED WITH PATIENT 04-23-19 1420 BV. HOSPITALIZATION/MAJOR DIAGNOSTIC PROCEDURE THOUGHT SHE WAS HAVING A STROKE AND PAIN MANAGEMENT 01/02/18 SURGERY RELATED STROKE 02/2018 BLADDER INFECTION 07/2018 PNEUMONIA 10/2018 SEVERE BACK PAIN 05/07/19 REVIEW OF SYSTEMS REVIEWED BY: PROVIDER: RAJESH ORTIZ . CONSTITUTIONAL: ANY CHANGE IN YOUR MEDICAL CONDITION? NO . CHILLS NO . FEVER NO . INFECTION: DO YOU HAVE NEW INFECTIONS? NO . DO YOU HAVE HISTORY OF MRSA? NO . MUSCULOSKELETAL: ANY NEW PATTERNS OF PAIN OR NUMBNESS? NO . GASTROENTEROLOGY: ANY NEW CHANGE IN BOWEL CONTROL? NO . GENITOURINARY: ANY NEW CHANGE IN BLADDER CONTROL? NO . IS THERE A CHANCE YOU COULD BE ? NO . HEMATOLOGY/LYMPH: DO YOU TAKE ANY BLOOD THINNERS? (FOR EXAMPLE- COUMADIN, PLAVIX, AGGRENOX, PLATEL, PRADAXA, OR XARELTO) NO . WHEN WAS YOUR LAST DOSE? DATE: TIME: . NEUROLOGY: HAVE YOU FALLEN IN THE PAST 12 MONTHS? NO . ANY NEW EXTREMITY NUMBNESS OR WEAKNESS? NO . CARDIOLOGY: DO YOU HAVE A PACEMAKER OR DEFIBRILLATOR? YES . RESPIRATORY: HAVE YOU BEEN SICK IN THE PAST WEEK? NO . FEVER NO . FLU LIKE SYMPTOMS? NO . COUGH NO . INTEGUMENTARY: DO YOU HAVE ANY RASHES OR OPEN SORES? NO . ALLERGIC/IMMUNO: ARE YOU ALLERGIC TO IV DYE? NO . ANY NEW ALLERGIES? NO . PSYCHIATRIC: DO YOU HAVE THOUGHTS OF HURTING YOURSELF OR SOMEONE ELSE? NO . ARE YOU ABUSED, NEGLECTED, OR IN AN UNSAFE ENVIRONMENT? NO . ENDOCRINOLOGY: ARE YOU DIABETIC? NO . OTHER: DO YOU NEED ANY PRESCRIPTIONS? NO . IF YES, PLEASE LIST: ____ . ANY NEW PROBLEMS WITH YOUR MEDICATIONS? NO . WHEN DID YOU LAST EAT? ____ . WHEN DID YOU LAST DRINK? ____ . WHAT DID YOU LAST DRINK? ____ . NAME OF PERSON DRIVING YOU HOME? ____ . DO YOU HAVE ANY OTHER QUESTIONS OR CONCERNS NO . VITAL SIGNS WT 118.6 LBS, HT 61 IN, BMI 22.41 INDEX, BP 122/71 MM HG, HR 69 /MIN, RR 16 /MIN, TEMP 98.0 F, OXYGEN SAT % 96%, NA INITIALS SC 10:35. EXAMINATION GENERAL EXAMINATION: GENERAL AWAKE,ALERT ,PLEASANT . PSYCH AFFECT NORMAL . LUNGS: LUNG BOWERS ARE CLEAR TO AUSCULTATION BILATERALLY. GOOD MOVEMENT OF AIR . HEART: S1, S2 IN A REGULAR RATE AND RHYTHM. NO SIGNIFICANT MURMURS, RUBS OR GALLOPS NOTED . PHYSICAL EXAMINATION T. ASSESSMENTS SPONDYLOSIS OF LUMBAR REGION WITHOUT MYELOPATHY OR RADICULOPATHY - M47.816 (PRIMARY) TREATMENT SPONDYLOSIS OF LUMBAR REGION WITHOUT MYELOPATHY OR RADICULOPATHY REFILL PERCOCET TABLET, 5-325 MG, 1 TABLET NEEDED, ORALLY, 1 Q4-6H PRN MDD4, 30 DAYS, 120, REFILLS 0 NOTES: ISTOP REGISTRY REVIEWED AND DEMONSTRATES COMPLLIANCE. BRINGS IN MEDICATIONS WHICH IS APPROPRIATE FOR WHAT WAS DISPENSED. RECENT URINE TOXICOLOGY REVIEWED. NO UNAUTHORIZED MEDICATIONS. NO ILLICIT SUBSTANCES AND PRESCRIBED MEDICATIONS WERE PRESENT. PROCEDURE CODES FA211 ESTABILISHED PATIENT [facility] FACILITY CHARGE DISPOSITION & COMMUNICATION FOLLOW UP PT WILL CALL IN NOVEMBER ELECTRONICALLY SIGNED BY DIANA WILSON ON 07/14/2019 AT 08:27 AM EST DISCLAIMER : THIS IS A VISIT SUMMARY EXTRACTED FROM THE [employer] CHART. IT IS NOT A COPY OF THE [employer] PROGRESS NOTE. MTDD
== END ==
LOC: M PAIN 10:15
PROVIDERS: ATTEND Nurse Practitioner Family
DX: M47.816 Spondylosis without myelopathy or radiculopathy, lumbar region (principal); I10 Essential (primary) hypertension; Z86.711 Personal history of pulmonary embolism; Z87.891 Personal history of nicotine dependence; Z88.1 Allergy status to other antibiotic agents; Z88.5 Allergy status to narcotic agent; Z88.8 Allergy status to other drugs, medicaments and biological substances; Z95.0 Presence of cardiac pacemaker; Z79.82 Long term (current) use of aspirin; Z79.899 Other long term (current) drug therapy

== ENCOUNTER → 2020-01-20 | Outpatient (CLI) | payer OTHER ==
[~2020-01-20] MED LIST changes: +OXYC-1 PO; -OXYC15TA76 PO
--- NOTE | 2020-01-25 02:09 | ECWPNPC ---
PATIENT NAME: MIREYA PAREDES : 1940 GENDER: FEMALE VISIT DATE: 01/20/2020 DISCHARGE DATE: 01/20/20 1139 VISIT LOCKED DATE TIME: PHYSICIAN: RAJESH FELIX RESOURCE: RAJESH FELIX REASON FOR APPOINTMENT 1. IN OFFICE- [employer]- HISTORY OF PRESENT ILLNESS GENERAL: HERE FOR FOLLOW-UP AFTER RETURNING FROM [place]. SHE IS A SNOWBIRD. CHIEF AREA OF PAIN IS LOW BACK WITH RADIATION INTO THE HIPS BILATERALLY. PAIN HAS BEEN INCREASED LATELY. REVIEWED MRI OF THE LS-SPINE AND DISCUSSED TREATMENT OPTIONS. HAS DONE WELL WITH THERAPEUTIC LUMBAR FACETS IN THE PAST. DISCUSSED RADIOFREQUENCY AND DIAGNOSTIC TESTING FOR RADIOFREQUENCY. -. FALL RISK SCREENING: SCREENING :NO FALLS REPORTED IN THE LAST YEAR PAIN SCREENING: PATIENT HAS A COMPLAINT OF ACUTE OR CHRONIC PAIN :YES 01/20/20 INTENSITY OF PAIN (SCALE OF 1 TO 10):8 WHAT DOES YOUR PAIN FEEL LIKE:BURNING, INTERMITTENT PAIN IS INCREASED BY: UPON AWAKENING Q AM PAIN IS DECREASED BY: PERCOSET NURSING NOTE: -. PAIN CENTER INTAKE QUESTIONS: DO YOU HAVE A HISTORY OF MRSA? :NO DO YOU TAKE A BLOOD THINNERS? :NO DO YOU HAVE ANY BLEEDING DISORDERS? :NO ANY NEW NUMBNESS OR WEAKNESS IN YOUR LEGS OR ARMS? :YES RIGHT FOOT FOOT DROP, LEFT SIDED WEAKNESS ANY PACEMAKER,DEFIBRILLATOR, OR DORSAL COLUMN STIMULATOR? :YES PACEMAKER DO YOU HAVE ANY RASHES OR OPEN SORES? :NO ARE YOU ALLERGIC TO IV DYE? :NO ARE YOU DIABETIC? :NO ANY NEW PROBLEMS WITH YOUR MEDICATIONS? :NO HAVE YOU RECEIVED A VACCINE IN THE PAST 30 DAYS? :NO DO YOU PLAN TO RECEIVE A VACCINE IN THE NEXT 21 DAYS? :NO DO YOU NEED ANY PRESCRIPTION? :NO DO YOU TAKE ANY IMMUNOSUPPRESSIVE MEDICATIONS? :NO CURRENT MEDICATIONS TAKING ZOLOFT 50 MG TABLET 1 TABLET ORALLY ONCE A DAY TAKING LUMIGAN 0.03 % SOLUTION 1 DROP INTO AFFECTED EYE IN THE EVENING OPHTHALMIC ONCE A DAY TAKING ZYPREXA 2.5 MG TABLET 1 TABLET ORALLY BEFORE BEDTIME TAKING LIPITOR 10 MG TABLET 1 TABLET ORALLY ONCE A DAY TAKING SIMBRINZA 1-0.2 % SUSPENSION 1 DROP INTO AFFECTED EYE OPHTHALMIC THREE TIMES A DAY TAKING NORVASC 5MG TABLET 1 TAB DAILY TAKING COLACE 100 MG CAPSULE 1 CAPSULE NEEDED ORALLY ONCE A DAY TAKING ASPIRIN ADULT LOW DOSE 81 MG TABLET DELAYED RELEASE 1 TABLET ORALLY ONCE A DAY TAKING PERCOCET 5-325 MG TABLET 1 TABLET NEEDED ORALLY 1 Q4-6H PRN MDD4 3MOS SUPPLY CAT D CHRONIC PAIN NOT-TAKING IBUPROFEN 400 MG TABLET 1 TABLET WITH FOOD OR MILK NEEDED ORALLY THREE TIMES A DAY NOT-TAKING CYCLOBENZAPRINE HCL 5 MG TABLET 1 TABLET NEEDED ORALLY THREE TIMES A DAY NOT-TAKING OXYCODONE HCL 10 MG TABLET 1 TABLET NEEDED ORALLY EVERY 6 HRS NOT-TAKING WARFARIN SODIUM 3 MG TABLET 1 TABLET ORALLY ONCE A DAY NOT-TAKING TYLENOL 325 MG TABLET 1 TABLET NEEDED ORALLY EVERY 4 HRS NOT-TAKING TYLENOL WITH CODEINE #3 300-30 MG TABLET 1 TABLET NEEDED ORALLY EVERY 6 HRS MEDICATION LIST REVIEWED AND RECONCILED WITH THE PATIENT PAST MEDICAL HISTORY HTN LEFT BRANCH BUNDLE BLOCK GLAUCOMA LEFT BUTTOCK PAIN 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 PNEUMONIA 10/2018 LUMBPSACRAL SPONDYLOSIS WITH RADICULOPATHY ALLERGIES KETOPROFEN: SLOWS KIDNEY FUNCTION - ALLERGY MACROBID: NAUSEA/VOMITING - ALLERGY BETA BLOCKERS: DIGESTIVE PROBLEMS - ALLERGY STATINS: DIGESTIVE PROBLEMS - ALLERGY CYMBALTA: ANAPHYLAXIS - ALLERGY TRAMADOL HCL: ANAPHYLAXIS - ALLERGY HYDROCODONE-ACETAMINOPHEN: ANAPHYLAXIS - ALLERGY SOMA: NAUSEA/VOMITING - ALLERGY SURGICAL HISTORY SPINAL FUSION [id number] FACIAL RECONSTRUCTIONS X9 RIGHT EYES SURGERIES X7.EYE REMOVAL 1999 HYSTERECTOMY, TOTAL WITH BSO 1991 GANGLION CYST RIGHT FOOT PACEMAKER INSERTION TONSILLECTOMY A CHILD SEVERAL D&C'S BILATERAL THUMB SURGERIES FOR ARTHRITIS FAMILY HISTORY FATHER: , DIAGNOSED WITH HYPERTENSION MOTHER: , HYPERTENSION, UNSPECIFIED HEART DISEASE, UNSPECIFIED CEREBRAL ARTERY OCCLUSION WITH CEREBRAL INFARCTION, OTHER SPECIFIED CONDITIONS INFLUENCING HEALTH STATUS 2DAUGHTER(S) . MOM-GLAUCOMA\N1 DAUGHTER--MULTIPLE AUTOIMMUNES DISEASES. SOCIAL HISTORY GENERAL: TOBACCO USE ARE YOU A:FORMER SMOKER HOW LONG HAS IT BEEN SINCE YOU LAST SMOKED?> 10 YEARS LATEX QUESTIONNAIRE LATEX ALLERGY : HAVE YOU EVER DEVELOPED ANY TYPE OF REACTION AFTER HANDLING LATEX PRODUCTS SUCH RUBBER GLOVES, CONDOMS, DIAPHRAGMS, BALLOONS, SOCKS, OR UNDERWEAR?NO LATEX ALLERGY : HAVE YOU EVER DEVELOPED ANY TYPE OF REACTION DURING OR AFTER DENTAL APPOINTMENT, VAGINAL/RECTAL EXAMINATION, SURGICAL PROCEDURE, OR ANY OTHER EXPOSURE?NO DATE ASKED : 05/27/2019 LATEX RISK : HAVE YOU EVER HAD ANY DIFFICULTY BREATHING OR HIVES AFTER EATING OR HANDLING ANY FRUITS, OR VEGETABLES; SUCH KIWI, BANANAS, STONE FRUITS, OR CHESTNUTSNO LATEX RISK : DO YOU HAVE A PREVIOUS PERSONAL HISTORY OF MORE THAN NINE SURGERIES, SPINA BIFIDA, OR REPEATED CATHERIZATIONS? YES - PLEASE INDICATE : > 9 SURGERIES LATEX RISK : ARE YOU FREQUENTLY EXPOSED TO LATEX PRODUCTS IN YOUR OCCUPATION?NO ALCOHOL SCREENING DID YOU HAVE A DRINK CONTAINING ALCOHOL IN THE PAST YEAR?NO POINTS0 INTERPRETATIONNEGATIVE RECREATIONAL DRUG USE DRUG USE?NO CAFFEINE CAFFEINE USE?YES HOW OFTEN AND HOW MUCH? 1 CUP DAILY EPISCOPAL [id number] EPISCOPAL LANGUAGE LANGUAGES SPOKEN:THAI EDUCATION LEVEL OF EDUCATION:COLLEGE LEARNING BARRIERS / SPECIAL NEEDS BARRIERS TO LEARNING?NO HEARING IMPAIRED?NO VISION IMPAIRED?YES COGNITIVELY IMPAIRED?NO :CORRECTIVE LENSES READINESS TO LEARN?YES LEARNING PREFERENCES?YES :HANDOUTS, DEMONSTRATION/VERBAL INSTRUCTION LEARNING CAPABILITIES PRESENT?YES EMOTIONAL BARRIERS?NO SPECIAL DEVICES?YES : OCC. WHEELING WALKER SIGHT MOUNTER NEEDED?NO DOMESTIC VIOLENCE DO YOU FEEL SAFE IN YOUR ENVIRONMENT?YES PAIN CLINIC PFS, CLERGY, PUBLIC HEALTH REFERRALS WAS THE PROVIDER NOTIFIED OF ANY PERTINENT INFO? N/A HAS THE PATIENT BEEN EDUCATED REGARDING HIS/HER PLAN OF CARE?YES HAS THE PATIENT BEEN EDUCATED REGARDING PAIN, THE RISK FOR PAIN, THE IMPORTANCE OF EFFECTIVE PAIN MANAGEMENT, AND THE PAIN ASSESSMENT PROCESS?YES ADVANCE DIRECTIVE ADVANCE DIRECTIVE DISCUSSED WITH PATIENT:YES PT. HAS HCP, JAME MAI - [phone] -PT ALSO HAS LIVING WILL, CLAIR MAI, NONHOSPITAL DNR REVIEWED WITH PT 01/26/18 1412REVIEWED WITH PT 02/06/18 0904 BV02/19/18 1055 REVIEWED WITH PT. AD05/11/18 1352 REVIEWED WITH PT LASREVIEWED WITH PATIENT 06/22/18 1049 JS05/27/19 1435 REVIEWED WITH PT. ADREVIEWED WITH PATIENT 03/11/19 0937 JS02/09/19 REVIEWED WITH PT. ADREVIEWED WITH PATIENT 12/22/18 1300 BVREVIEWED WITH PATIENT 04-23-19 1420 BV. HOSPITALIZATION/MAJOR DIAGNOSTIC PROCEDURE THOUGHT SHE WAS HAVING A STROKE AND PAIN MANAGEMENT 01/02/18 SURGERY RELATED STROKE 02/2018 BLADDER INFECTION 07/2018 PNEUMONIA 10/2018 SEVERE BACK PAIN 05/07/19 REVIEW OF SYSTEMS CONSTITUTIONAL: ANY RECENT FEVER OR ILLNESS NO . CHILLS NO . GASTROENTEROLOGY: BOWEL INCONTINENCE NO . ANY NEW CHANGE IN BOWEL CONTROL? NO . ABDOMINAL PAIN NO . CONSTIPATION NO . GENITOURINARY: ANY NEW CHANGE IN BLADDER CONTROL? NO . IS THERE A CHANCE YOU COULD BE ? NO . URINARY INCONTINENCE NO . CARDIOLOGY: CHEST PRESSURE NO . CHEST PAIN NO . RESPIRATORY: COUGH NO . SHORTNESS OF BREATH NO . VITAL SIGNS WT 132.0 LBS, HT 61 IN, BMI 24.94 INDEX, BP 120/83 MM HG, HR 82 /MIN, RR 18 /MIN, TEMP 97.6 F, OXYGEN SAT % 92%, SAFE IN ENV? (Y/N) Y, NA INITIALS AW 1014, REVIEWED BY: EM. EXAMINATION GENERAL EXAMINATION: GENERAL AWAKE,ALERT ,PLEAASANT . PSYCH AFFECT NORMAL . LUNGS: LUNG BOWERS ARE CLEAR TO AUSCULTATION BILATERALLY. GOOD MOVEMENT OF AIR . HEART: S1, S2 IN A REGULAR RATE AND RHYTHM. NO SIGNIFICANT MURMURS, RUBS OR GALLOPS NOTED . LUMBAR:PALPATION:TENDER OVER BILAT. L4/5-L5/S1 LUMBAR FACETS WITH FACET LOADING.TENDER OVER LEFT PIRIFORMIS.WELL HEALED SURGICAL SCAR LOW THORACIC TO SACRUM. 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 BRINGS IN MEDICATIONS WHICH IS APPROPRIATE FOR WHAT WAS DISPENSED. RECENT URINE TOXICOLOGY REVIEWED. NO UNAUTHORIZED MEDICATIONS. NO ILLICIT SUBSTANCES AND PRESCRIBED MEDICATIONS WERE PRESENT. , RISKS OF NARCOTIC/OPIOD MEDICATIONS INCLUDES BUT IS NOT LIMITED TO RISK OF DEPENDANCE/DEVELOPMENT OF ADDICTION, MOOD DISTURBANCE AND DEPRESSION, OSTEOPOROSIS, HORMONAL AND LABIDAL CHANGES, RESPIRATORY DEPRESSION AND . PATIENT IS ADVISED NOT TO DRIVE OR DRINK ALCOHOL WHILE ON THESE MEDICATIONS. OTHERS CLINICAL NOTES: PRE SCREENING CALL DONE 01/19/20 EM. DISPOSITION & COMMUNICATION FOLLOW UP POST (REASON: BILATERAL L4-5, L5-S1 DIAGNOSTIC LUMBAR FACET BLOCK) ELECTRONICALLY SIGNED BY DIANA WILSON ON 01/24/2020 AT 02:32 PM EDT DISCLAIMER : THIS IS A VISIT SUMMARY EXTRACTED FROM THE [employer] CHART. IT IS NOT A COPY OF THE [employer] PROGRESS NOTE. MARIEL
== END ==
LOC: M PAIN 10:15
PROVIDERS: ATTEND Nurse Practitioner Family
DX: M47.816 Spondylosis without myelopathy or radiculopathy, lumbar region (principal)

== ENCOUNTER → 2020-02-07 | Outpatient (CLI) | payer MEDICARE, OTHER ==
[~2020-02-07] MED LIST changes: +BUPIVACAINE HCL 0.25% 30ML VIAL As Ordered ONE; +ISOVUE-M 300 61% 15ML VIAL As Ordered ONE; +LIDOCAINE 1% SDV 30ML VIAL As Ordered ONE; +XELP0.00
--- NOTE | 2020-02-07 15:04 | REP ---
C-ARM VIEWS OF THE LOWER LUMBAR SPINE: CLINICAL HISTORY: Pain. Multiple C-arm views of the lower lumbar spine performed during bilateral lumbar facet injection by Dr. Grove. [place] are seen along the lower lumbar facet joints. Small amount of contrast is injected. 1 minute 22 seconds of fluoroscopy time utilized. Electronically Signed by Byron Hood MD 02/07/2020 07:36 P
--- NOTE | 2020-02-08 01:14 | ECWPNPC ---
PATIENT NAME: MIREYA PAREDES : 1940 GENDER: FEMALE VISIT DATE: 02/07/2020 DISCHARGE DATE: 02/07/20 1253 VISIT LOCKED DATE TIME: PHYSICIAN: MICHAEL SABILLON MD RESOURCE: MICHAEL SABILLON MD REASON FOR APPOINTMENT 1. GUERO DX LFB L4/L5, L5/S1 HISTORY OF PRESENT ILLNESS GENERAL: -. FALL RISK SCREENING: SCREENING :NO FALLS REPORTED IN THE LAST YEAR PAIN SCREENING: PATIENT HAS A COMPLAINT OF ACUTE OR CHRONIC PAIN :YES 02/04/20 INTENSITY OF PAIN (SCALE OF 1 TO 10):8 WHAT DOES YOUR PAIN FEEL LIKE:ACHING, BURNING, CONTINOUS PAIN IS INCREASED BY: STANDING PAIN IS DECREASED BY: RESTING NURSING NOTE: -. PAIN CENTER INTAKE QUESTIONS: DO YOU HAVE A HISTORY OF MRSA? :NO DO YOU TAKE A BLOOD THINNERS? :NO DO YOU HAVE ANY BLEEDING DISORDERS? :NO ANY NEW NUMBNESS OR WEAKNESS IN YOUR LEGS OR ARMS? :NO ANY PACEMAKER,DEFIBRILLATOR, OR DORSAL COLUMN STIMULATOR? :YES PACEMAKER DO YOU HAVE ANY RASHES OR OPEN SORES? :NO ARE YOU ALLERGIC TO IV DYE? :NO ARE YOU DIABETIC? :NO ANY NEW PROBLEMS WITH YOUR MEDICATIONS? :NO HAVE YOU RECEIVED A VACCINE IN THE PAST 30 DAYS? :NO DO YOU PLAN TO RECEIVE A VACCINE IN THE NEXT 21 DAYS? :NO DO YOU TAKE ANY IMMUNOSUPPRESSIVE MEDICATIONS? :NO ANY HISTORY OF SEIZURES? :NO ANY HISTORY OF CARDIAC ISSUES OR EVENTS? :YES COMPLETE LEFT BBB DO YOU HAVE SLEEP APNEA? : NO. ANY RECENT HEAD INJURY? :NO DO YOU HAVE ANY NEW INFECTIONS? :NO IS THERE A CHANCE YOU COULD BE ? :NO ARE YOU BREAST FEEDING? :NO WHEN DID YOU LAST EAT? : LAST NIGHT WHEN DID YOU LAST DRINK? : -THIS MORNING AT 0800 FOR MEDICATIONS WHAT DID YOU LAST DRINK? : -WATER NAME OF PERSON DRIVING YOU HOME? : -URSLA DO YOU HAVE ANY OTHER QUESTIONS OR CONCERNS? : - CURRENT MEDICATIONS TAKING ZOLOFT 50 MG TABLET 1 TABLET ORALLY ONCE A DAY, NOTES: 02-07-20 0800 TAKING ZYPREXA 2.5 MG TABLET 1 TABLET ORALLY BEFORE BEDTIME, NOTES: 02-06-20 2100 TAKING LIPITOR 10 MG TABLET 1 TABLET ORALLY ONCE A DAY, NOTES: 02-06-202099 TAKING NORVASC 5MG TABLET 1 TAB DAILY, NOTES: 02-07-20799 TAKING ASPIRIN ADULT LOW DOSE 81 MG TABLET DELAYED RELEASE 1 TABLET ORALLY ONCE A DAY, NOTES: 02-07-20799 TAKING COLACE 100 MG CAPSULE 1 CAPSULE NEEDED ORALLY ONCE A DAY, NOTES: 02-06-202099 TAKING PERCOCET 5-325 MG TABLET 1 TABLET NEEDED ORALLY 1 Q4-6H PRN MDD4 3MOS SUPPLY CAT D CHRONIC PAIN, NOTES: 02-06-202099 TAKING XELPROS 0.005 % EMULSION 1 NULL INTO AFFECTED EYE IN THE EVENING OPHTHALMIC ONCE A DAY, NOTES: 02-06-202099 NOT-TAKING LUMIGAN 0.03 % SOLUTION 1 DROP INTO AFFECTED EYE IN THE EVENING OPHTHALMIC ONCE A DAY NOT-TAKING SIMBRINZA 1-0.2 % SUSPENSION 1 DROP INTO AFFECTED EYE OPHTHALMIC THREE TIMES A DAY NOT-TAKING IBUPROFEN 400 MG TABLET 1 TABLET WITH FOOD OR MILK NEEDED ORALLY THREE TIMES A DAY NOT-TAKING CYCLOBENZAPRINE HCL 5 MG TABLET 1 TABLET NEEDED ORALLY THREE TIMES A DAY NOT-TAKING OXYCODONE HCL 10 MG TABLET 1 TABLET NEEDED ORALLY EVERY 6 HRS NOT-TAKING WARFARIN SODIUM 3 MG TABLET 1 TABLET ORALLY ONCE A DAY NOT-TAKING TYLENOL 325 MG TABLET 1 TABLET NEEDED ORALLY EVERY 4 HRS NOT-TAKING TYLENOL WITH CODEINE #3 300-30 MG TABLET 1 TABLET NEEDED ORALLY EVERY 6 HRS MEDICATION LIST REVIEWED AND RECONCILED WITH THE PATIENT PAST MEDICAL HISTORY HTN LEFT BRANCH BUNDLE BLOCK GLAUCOMA LEFT BUTTOCK PAIN 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 PNEUMONIA 10/2018 LUMBPSACRAL SPONDYLOSIS WITH RADICULOPATHY ALLERGIES KETOPROFEN: SLOWS KIDNEY FUNCTION - ALLERGY MACROBID: NAUSEA/VOMITING - ALLERGY BETA BLOCKERS: DIGESTIVE PROBLEMS - ALLERGY STATINS: DIGESTIVE PROBLEMS - ALLERGY CYMBALTA: ANAPHYLAXIS - ALLERGY TRAMADOL HCL: ANAPHYLAXIS - ALLERGY HYDROCODONE-ACETAMINOPHEN: ANAPHYLAXIS - ALLERGY SOMA: NAUSEA/VOMITING - ALLERGY SURGICAL HISTORY SPINAL FUSION [id number] FACIAL RECONSTRUCTIONS X9 RIGHT EYES SURGERIES X7.EYE REMOVAL 1999 HYSTERECTOMY, TOTAL WITH BSO 1991 GANGLION CYST RIGHT FOOT PACEMAKER INSERTION TONSILLECTOMY A CHILD SEVERAL D&C'S BILATERAL THUMB SURGERIES FOR ARTHRITIS FAMILY HISTORY FATHER: , DIAGNOSED WITH HYPERTENSION MOTHER: , HYPERTENSION, UNSPECIFIED HEART DISEASE, UNSPECIFIED CEREBRAL ARTERY OCCLUSION WITH CEREBRAL INFARCTION, OTHER SPECIFIED CONDITIONS INFLUENCING HEALTH STATUS 2DAUGHTER(S) . MOM-GLAUCOMA\N1 DAUGHTER--MULTIPLE AUTOIMMUNES DISEASES. SOCIAL HISTORY GENERAL: TOBACCO USE ARE YOU A:FORMER SMOKER HOW LONG HAS IT BEEN SINCE YOU LAST SMOKED?> 10 YEARS LATEX QUESTIONNAIRE LATEX ALLERGY : HAVE YOU EVER DEVELOPED ANY TYPE OF REACTION AFTER HANDLING LATEX PRODUCTS SUCH RUBBER GLOVES, CONDOMS, DIAPHRAGMS, BALLOONS, SOCKS, OR UNDERWEAR?NO LATEX ALLERGY : HAVE YOU EVER DEVELOPED ANY TYPE OF REACTION DURING OR AFTER DENTAL APPOINTMENT, VAGINAL/RECTAL EXAMINATION, SURGICAL PROCEDURE, OR ANY OTHER EXPOSURE?NO DATE ASKED : 05/27/2019 LATEX RISK : HAVE YOU EVER HAD ANY DIFFICULTY BREATHING OR HIVES AFTER EATING OR HANDLING ANY FRUITS, OR VEGETABLES; SUCH KIWI, BANANAS, STONE FRUITS, OR CHESTNUTSNO LATEX RISK : DO YOU HAVE A PREVIOUS PERSONAL HISTORY OF MORE THAN NINE SURGERIES, SPINA BIFIDA, OR REPEATED CATHERIZATIONS? YES - PLEASE INDICATE : > 9 SURGERIES LATEX RISK : ARE YOU FREQUENTLY EXPOSED TO LATEX PRODUCTS IN YOUR OCCUPATION?NO ALCOHOL SCREENING DID YOU HAVE A DRINK CONTAINING ALCOHOL IN THE PAST YEAR?NO POINTS0 INTERPRETATIONNEGATIVE RECREATIONAL DRUG USE DRUG USE?NO CAFFEINE CAFFEINE USE?YES HOW OFTEN AND HOW MUCH? 1 CUP DAILY LATTER DAY [id number] CAODAISM LANGUAGE LANGUAGES SPOKEN:INDIAN EDUCATION LEVEL OF EDUCATION:COLLEGE LEARNING BARRIERS / SPECIAL NEEDS BARRIERS TO LEARNING?NO HEARING IMPAIRED?NO VISION IMPAIRED?YES COGNITIVELY IMPAIRED?NO :CORRECTIVE LENSES READINESS TO LEARN?YES LEARNING PREFERENCES?YES :HANDOUTS, DEMONSTRATION/VERBAL INSTRUCTION LEARNING CAPABILITIES PRESENT?YES EMOTIONAL BARRIERS?NO SPECIAL DEVICES?YES : OCC. WHEELING WALKER CHILLER HAND NEEDED?NO DOMESTIC VIOLENCE DO YOU FEEL SAFE IN YOUR ENVIRONMENT?YES PAIN CLINIC PFS, CLERGY, PUBLIC HEALTH REFERRALS WAS THE PROVIDER NOTIFIED OF ANY PERTINENT INFO? N/A HAS THE PATIENT BEEN EDUCATED REGARDING HIS/HER PLAN OF CARE?YES HAS THE PATIENT BEEN EDUCATED REGARDING PAIN, THE RISK FOR PAIN, THE IMPORTANCE OF EFFECTIVE PAIN MANAGEMENT, AND THE PAIN ASSESSMENT PROCESS?YES ADVANCE DIRECTIVE ADVANCE DIRECTIVE DISCUSSED WITH PATIENT:YES PT. HAS HCP, JAME MAI - [phone] -PT ALSO HAS LIVING WILL, CLAIR MAI, NONHOSPITAL DNR REVIEWED WITH PT 01/26/18 1412REVIEWED WITH PT 02/06/18 0904 BV02/19/18 1055 REVIEWED WITH PT. AD05/11/18 1352 REVIEWED WITH PT LASREVIEWED WITH PATIENT 06/22/18 1049 JS05/27/19 1435 REVIEWED WITH PT. ADREVIEWED WITH PATIENT 03/11/19 0937 JS02/09/19 REVIEWED WITH PT. ADREVIEWED WITH PATIENT 12/22/18 1300 BVREVIEWED WITH PATIENT 04-23-19 1420 BV. HOSPITALIZATION/MAJOR DIAGNOSTIC PROCEDURE THOUGHT SHE WAS HAVING A STROKE AND PAIN MANAGEMENT 01/02/18 SURGERY RELATED STROKE 02/2018 BLADDER INFECTION 07/2018 PNEUMONIA 10/2018 SEVERE BACK PAIN 05/07/19 VITAL SIGNS WT 129.2 LBS, HT 61 IN, BMI 24.41 INDEX, BP 131/65 MM HG, HR 81 /MIN, RR 18 /MIN, TEMP 97.6 F, OXYGEN SAT % 95%, NA INITIALS AW 1125. EXAMINATION GENERAL EXAMINATION: THE PATIENT IS ALERT, ORIENTED TIMES THREE AND COOPERATIVE. HEART SHOWS REGULAR RHYTHM, NO MURMURS AND NO GALLOPS. LUNGS ARE CLEAR TO AUSCULTATION. ASSESSMENTS SPONDYLOSIS OF LUMBAR REGION WITHOUT MYELOPATHY OR RADICULOPATHY - M47.816 (PRIMARY) SPONDYLOSIS WITHOUT MYELOPATHY OR RADICULOPATHY, LUMBOSACRAL REGION - M47.817 TREATMENT SPONDYLOSIS OF LUMBAR REGION WITHOUT MYELOPATHY OR RADICULOPATHY SMC FACET BLOCK (PAIN)[id number] SPONDYLOSIS WITHOUT MYELOPATHY OR RADICULOPATHY, LUMBOSACRAL REGION SMC FACET BLOCK (PAIN)[id number] OTHERS CLINICAL NOTES: PRE SCREENING CALL DONE 02/04/20 EM. PROCEDURES PAIN NURSING RECORD PRE-PROCEDURE IV SITE NA, IV STARTED # NA, PRE-PROCEDURE ORAL MEDICATIONS NA PROCEDURE IN ROOM 1200, PHYSICIAN IN ROOM 1204, START 1209, FINISH 1221, PHYSICIAN OUT OF ROOM 1224, OUT OF ROOM 1235, STEROID NONE, O2 ROOM AIR, ECG NORMAL SINUS PT IS PACED, PATIENT SHIELDED YES, SAFETY STRAP YES, PREP L NAKIA RN, IV INFUSED NA, DRESSING TEGADERM LOC: 1. ALERT, ORIENTED RESP: 1. REGULAR, NO DYSPNEA COLOR: 1. PINK SKIN: 1. WARM, DRY POSITION: 1. PRONE VITALS: 177/77 61 18 97 % KGULLO RN @ 1200 PT IS PACED 145/65 60 18 97% KGULLO RN @ 1215 143/65 60 18 97% KGULLO RN @1230 1250 177/87 60 97% KGULLO RN PT DISCHARGED DISCHARGE: DRESSING SITE DRY AND INTACT, GAIT PT USES WALKER A RESULT OF STROKE, TEACHING COMPLETED, PATIENT ACKNOWLEDGES UNDERSTANDING DISCHARGE INSTRUCTIONS GIVEN INCLUDING THE DIAGNOSTIC DIARY PN LUMBAR FACET BLOCK DIAGNOSTIC PRE PROCEDURE DIAGNOSIS LUMBAR SPONDYLOSIS, LUMBOSACRAL SPONDYLOSIS POST PROCEDURE DIAGNOSIS LUMBAR SPONDYLOSIS, LUMBOSACRAL SPONDYLOSIS PROCEDURE BILATERAL L4-L5 AND BILATERAL L5-S1 FACET BLOCK DIAGNOSTIC NUMBER [address] MICHAEL SABILLON DRAFTER APPRENTICE NONE ANESTHESIA LOCAL PRE PROCEDURE NOTE THE PATIENT WITH HISTORY OF CHRONIC LOW BACK PAIN. I EVALUATED THE PATIENT AND REVIEWED THE CHART. I WENT OVER THE RISKS, ALTERNATIVES, AND BENEFITS ASSOCIATED WITH THIS PROCEDURE. THE PATIENT WOULD LIKE TO PROCEED AND GAVE CONSENT TO PERFORM THE PROCEDURE. AGREED WITH THE PATIENT WE ARE DOING THIS PROCEDURE TO DETERMINE IF THE PATIENT IS A CANDIDATE FOR A RADIOFREQUENCY ABLATION OF THE FACETS JOINTS. THE PATIENT DENIES UNEXPLAINABLE WEIGHT LOSS, FEVER, CHILLS, OR NEW CHANGES IN URINARY OR BOWEL CONTROL DESCRIPTION OF PROCEDURE THE PATIENT WAS BROUGHT TO THE PROCEDURE ROOM AND PLACED IN THE PRONE POSITION. THE LUMBOSACRAL AREA WAS CLEANED WITH CHLORAPREP SOLUTION AND DRAPED ASEPTICALLY. THE PROCEDURE WAS DONE UNDER STERILE CONDITIONS. I CHECKED LATERALITY AND THE LEVEL WHERE THE PROCEDURE WAS GOING TO BE PERFORMED WITH THE PATIENT AND THE SUPPORTING STAFF AT THE MOMENT OF THE TIME OUT IN THE PROCEDURE ROOM. THERE WAS A LOT OF DEGENERATION. THE VERTEBRAL BODY OF L5 WAS COLLAPSED. IT WAS EXTREMELY DIFFICULT TO LOCATED THE TARGET. UNDER FLUOROSCOPIC GUIDANCE, TARGETS WERE SELECTED AT THE INTERSECTION OF THE RIGHT AND LEFT TRANSVERSE PROCESS OF L4, L5 AND ALA OF S1 WITH ITS RESPECTIVE SUPERIOR ARTICULAR PROCESS. LIDOCAINE WAS USED TO NUMB THE SKIN AND THE SUBCUTANEOUS TISSUE BELOW IT. SPINAL NEEDLE, 22-GAUGE, WAS ADVANCED UNDER FLUOROSCOPIC GUIDANCE AND FOLLOWING PATIENT FEEDBACK UNTIL THE TARGETS WERE REACHED. POSITION OF THE NEEDLES WAS VERIFIED WITH AP AND LATERAL VIEWS. AFTER PROPER POSITION OF THE NEEDLES WAS ACHIEVED, ISOVUE-M DYE 30%, 0.1 ML, WAS INJECTED AT EACH SITE SHOWING ADEQUATE SPREAD OF THE DYE. THEN A SOLUTION OF 0.4 ML OF BUPIVACAINE 0.25% WAS INJECTED AT EACH SITE. THERE WAS NO EVIDENCE OF BLOOD, PARESTHESIA OR CEREBROSPINAL FLUID DURING THE PROCEDURE. THE PATIENT WAS SENT TO THE RECOVERY ROOM. THE PATIENT WAS MOVING THE EXTREMITIES AND DOING WELL. THERE WAS NO COMPLICATION DURING THE PROCEDURE. EBL LESS THAN 5 ML. FLUOROSCOPY TIME WAS 1 MINUTE 22 SECONDS POST PROCEDURE NOTE THE PATIENT WILL REQUIRE EXTRA TIME FOR HER SECOND BLOCK, HALF HOUR INSTEAD OF 15 MINUTES DUE TO THE FACT THE TARGETS WERE HARD TO LOCATE. THE PATIENT WILL DOCUMENT HIS PAIN LEVEL AND RESPONSE TO THIS PROCEDURE EVERY 30 MINUTES. THE PATIENT WILL BE SEEN IN A FOLLOW UP IN THE NEXT FEW WEEKS. FURTHER DETERMINATION FOR HIS CASE WILL BE DONE AT THE NEXT VISIT. INSTRUCTIONS WERE GIVEN, QUESTIONS WERE ANSWERED, AND THE PATIENT EXPRESSED UNDERSTANDING AND AGREED WITH THE PLAN. I, ELIZABET STOVALL, DOCUMENTED THE ABOVE INFORMATION ACTING A SCRIBE FOR DR. SABILLON. I HAVE REVIEWED THE ABOVE DOCUMENT, WRITTEN BY ELIZABET STOVALL, BULB GRADER, AND I VERIFY THAT IT IS ACCURATE A. PROCEDURE CODES 31590 INJ PARAVERT F JNT L/S 1 LEV, MODIFIERS: 50 [id number] INJ PARAVERT F JNT L/S 2 LEV, MODIFIERS: 50 DISPOSITION & COMMUNICATION FOLLOW UP F/UP WITH INDIAN NANNY (REASON: POST LFBD #1 GUERO L4-L5, L5-S1) ELECTRONICALLY SIGNED BY MICHAEL SABILLON MD, MD ON 02/07/2020 AT 04:56 PM EDT DISCLAIMER : THIS IS A VISIT SUMMARY EXTRACTED FROM THE [employer] CHART. IT IS NOT A COPY OF THE [employer] PROGRESS NOTE. MARIEL
== END ==
LOC: M PAIN 11:15
PROVIDERS: ATTEND Anesthesiology
DX: M47.816 Spondylosis without myelopathy or radiculopathy, lumbar region (principal); M47.817 Spondylosis without myelopathy or radiculopathy, lumbosacral region
CPT/HCPCS: 64493; 64494; Q9967

== ENCOUNTER 2020-02-16 15:27 | Emergency (ER) | payer MEDICARE, OTHER ==
[~2020-02-16] VITALS: Ht 154.9 cm; Wt 57.3 kg
[~2020-02-16 15:27] MED LIST changes: -BUPIVACAINE HCL 0.25% 30ML VIAL As Ordered ONE; -ISOVUE-M 300 61% 15ML VIAL As Ordered ONE; -LIDOCAINE 1% SDV 30ML VIAL As Ordered ONE; -XELP0.00
[2020-02-16] MEDS ORDERED: MORPHINE 2 MG/ML 1ML VIAL (J2270) IV ONE ×2 (15:45→17:00)
[2020-02-16] MEDS ORDERED: BOOSTRIX/ADACEL VACCINE (DIPHTH/PERTUSS/ACELL/TETANUS) 0.5ML SYR IM ONE (15:45)
[2020-02-16] MEDS ORDERED: XELP0.00 (16:03)
--- NOTE | 2020-02-16 16:50 | REP ---
Clinical: Trauma. Technique: Frontal view of the pelvis with neutral and frog lateral views of the left hip. Findings: Age-related degenerative changes noted through the pelvis and hips. No acute fracture or dislocation. Impression: No acute fracture or dislocation. Electronically Signed by Jass Jeff MD 02/16/2020 04:41 P
--- NOTE | 2020-02-16 16:51 | REP ---
Clinical: Trauma. Technique: Internal rotation, external rotation, and Y view of the left shoulder. Findings: Acromioclavicular and glenohumeral joints are essentially intact and normal. Old healed fracture of the humeral diaphysis noted. Subacromial space is normal. Surrounding soft tissues are normal. Impression: No acute fracture or dislocation. Old healed humerus fracture. Electronically Signed by Jass Jeff MD 02/16/2020 04:43 P
--- NOTE | 2020-02-16 16:58 | REP ---
LEFT RIB SERIES: FIVE VIEWS INCLUDING PA CHEST. HISTORY: Trauma. COMPARISON CHEST X-RAY: June 07, 2018 FINDINGS: PA chest radiograph demonstrates a bipolar pacemaker in the right heart via the left side as before. There is no evidence of pneumothorax or hydrothorax. Aorta slightly tortuous and calcific, unchanged. No mediastinal widening is seen. Lung otero are clear. Pulmonary vasculature is not increased. Multiple views of the left rib cage demonstrate old post-traumatic deformity in the proximal humeral diaphysis on the left. There is old-appearing deformity of the left lateral 8th and 9th ribs, no acute rib fracture is appreciated. There are degenerative disc changes in the L2-3 disc. There is evidence of wedging in the L1 vertebral body. This is old and unchanged from comparison CT study, May 07, 2019. IMPRESSION: Old-appearing deformity left lateral 8th and 9th ribs, consistent with old fractures. Old wedging L1. Old healed fracture left proximal humerus. No acute rib fracture seen. Pacemaker. Lung otero clear. Electronically Signed by Jorge Alexandra MD 02/16/2020 06:02 P
[2020-02-16] MEDS ORDERED: LIDOCAINE 1% MDV 20ML VIAL SC ONE (17:15)
--- NOTE | 2020-02-16 17:34 | REPVR ---
PROCEDURE INFORMATION: Exam: CT Left Lower Extremity Without Contrast, Hip Exam date and time: 02/16/2020 5:16 PM Age: 79 years old Clinical indication: Injury or trauma; Fall; Initial encounter; Blunt trauma; Hip; Left; Injury date: Today TECHNIQUE: Imaging protocol: CT of the Left lower extremity without contrast was performed. Exam focused on the hip. Radiation optimization: All CT scans at this facility use at least one of these dose optimization techniques: automated exposure control; mA and/or kV adjustment per patient size (includes targeted exams where dose is matched to clinical indication); or iterative reconstruction. COMPARISON: CR Hip,AP,LAT to include Pelvis 02/16/2020 4:17 PM FINDINGS: Bones/joints: No acute bony abnormality identified. Soft tissues: Benign-appearing calcifications superficial to the left tensor fascia. Vasculature: Calcified phleboliths are present in the lower pelvis bilaterally. Bowel: Sigmoid colonic diverticula are present without evidence of diverticulitis. Reproductive: The uterus is status post hysterectomy. IMPRESSION: 1. No acute bony injury identified. 2. Prior hysterectomy. 3. Diverticulosis. Electronically signed by: Jeronimo Modi On 02/16/2020 17:33:39 PM
[2020-02-16 18:31] VITALS: O2SAT 97
[2020-02-16 18:42] VITALS: BP 140/62
== END 2020-02-16 19:05 | disposition home or self-care (01) ==
LOC: M ED 15:27 → EDBD 15:27 → M ED 19:05
DX: S61.412A Laceration without foreign body of left hand, initial encounter (principal); S20.212A Contusion of left front wall of thorax, initial encounter; Z87.81 Personal history of (healed) traumatic fracture; Z95.0 Presence of cardiac pacemaker; K57.30 Diverticulosis of large intestine without perforation or abscess without bleeding; W22.8XXA Striking against or struck by other objects, initial encounter; Y92.89 Other specified places as the place of occurrence of the external cause; Y93.9 Activity, unspecified; Y99.9 Unspecified external cause status; I10 Essential (primary) hypertension; I44.7 Left bundle-branch block, unspecified; Z86.73 Personal history of transient ischemic attack (TIA), and cerebral infarction without residual deficits; H40.9 Unspecified glaucoma; M47.817 Spondylosis without myelopathy or radiculopathy, lumbosacral region; Z79.82 Long term (current) use of aspirin; Z79.899 Other long term (current) drug therapy; Z88.6 Allergy status to analgesic agent; Z88.5 Allergy status to narcotic agent; Z88.8 Allergy status to other drugs, medicaments and biological substances
CPT/HCPCS: 12001; 71101; 73030; 73502; 73700; 90471; 90715; 96374; 96376; 99284; J2270

== ENCOUNTER → 2020-03-07 | Outpatient (CLI) | payer MEDICARE, OTHER ==
[~2020-03-07] MED LIST changes: +AMLO1TAB24 PO; -AMLO5TAB6 PO; -ASPI81TA85 PO; +ASPI81TA86 PO; +XELP0.00
--- NOTE | 2020-03-09 03:11 | ECWPNPC ---
PATIENT NAME: MIREYA PAREDES : 1940 GENDER: FEMALE VISIT DATE: 03/07/2020 DISCHARGE DATE: 03/07/20 1231 VISIT LOCKED DATE TIME: PHYSICIAN: RAJESH FELIX RESOURCE: RAJESH FELIX REASON FOR APPOINTMENT 1. POST LFBD #1 GUERO L4-L5, L5-S1 HISTORY OF PRESENT ILLNESS GENERAL: HERE FOR POST PROCEDURE FOLLOW-UP. HAD BILATERAL L4-5, L5-S1 LUMBAR FACET DIAGNOSTIC ON 02/07/2020. HOURLY PAIN DIARY IS REVIEWED. SHOWING SOME IMPROVEMENT FOR 2 HOURS POSTPROCEDURE THEN PAIN ABRUPTLY RETURNED TO BASELINE. REPORTS FALLING A FEW WEEKS AGO. SHE WAS SEEN IN THE ER POST FALL. IMAGING WAS NEGATIVE. CONTINUES TO HAVE LEFT LOW BACK PAIN WITH RADIATION INTO LEFT GROIN SINCE FALL. REVIEWED MRI OF LUMBOSACRAL SPINE. DISCUSSED TREATMENT OPTIONS. -. FALL RISK SCREENING: SCREENING :ONE FALL WITHOUT INJURY IN THE PAST YEAR PAIN SCREENING: PATIENT HAS A COMPLAINT OF ACUTE OR CHRONIC PAIN :YES LOCATION OF PAIN:LOW BACK, LEFT HIP INTENSITY OF PAIN (SCALE OF 1 TO 10):5 WHAT DOES YOUR PAIN FEEL LIKE:STABBING, SHARP NURSING NOTE: -. PAIN CENTER INTAKE QUESTIONS: DO YOU HAVE A HISTORY OF MRSA? :NO DO YOU TAKE A BLOOD THINNERS? :YES ASPRIRIN DO YOU HAVE ANY BLEEDING DISORDERS? :NO ANY NEW NUMBNESS OR WEAKNESS IN YOUR LEGS OR ARMS? :YES ANY PACEMAKER,DEFIBRILLATOR, OR DORSAL COLUMN STIMULATOR? :NO DO YOU HAVE ANY RASHES OR OPEN SORES? :NO ARE YOU ALLERGIC TO IV DYE? :NO ARE YOU DIABETIC? :NO ANY NEW PROBLEMS WITH YOUR MEDICATIONS? :NO HAVE YOU RECEIVED A VACCINE IN THE PAST 30 DAYS? :YES IF SO WHAT VACCINE AND WHEN? TETANUS- 3 WEEKS AGO DO YOU PLAN TO RECEIVE A VACCINE IN THE NEXT 21 DAYS? :NO DO YOU NEED ANY PRESCRIPTION? :YES PERCOCET DO YOU TAKE ANY IMMUNOSUPPRESSIVE MEDICATIONS? :NO IS THERE A CHANCE YOU COULD BE ? :NO ARE YOU BREAST FEEDING? :NO CURRENT MEDICATIONS TAKING ZOLOFT 50 MG TABLET 1 TABLET ORALLY ONCE A DAY, NOTES: 02-07-20 0800 TAKING ZYPREXA 2.5 MG TABLET 1 TABLET ORALLY BEFORE BEDTIME, NOTES: 02-06-20 2100 TAKING LIPITOR 10 MG TABLET 1 TABLET ORALLY ONCE A DAY, NOTES: 02-06-202099 TAKING NORVASC 5MG TABLET 1 TAB DAILY, NOTES: 02-07-20799 TAKING ASPIRIN ADULT LOW DOSE 81 MG TABLET DELAYED RELEASE 1 TABLET ORALLY ONCE A DAY, NOTES: 02-07-20799 TAKING COLACE 100 MG CAPSULE 1 CAPSULE NEEDED ORALLY ONCE A DAY, NOTES: 02-06-202099 TAKING PERCOCET 5-325 MG TABLET 1 TABLET NEEDED ORALLY 1 Q4-6H PRN MDD4 3MOS SUPPLY CAT D CHRONIC PAIN, NOTES: 02-06-202099 TAKING XELPROS 0.005 % EMULSION 1 NULL INTO AFFECTED EYE IN THE EVENING OPHTHALMIC ONCE A DAY, NOTES: 02-06-202099 NOT-TAKING LUMIGAN 0.03 % SOLUTION 1 DROP INTO AFFECTED EYE IN THE EVENING OPHTHALMIC ONCE A DAY NOT-TAKING SIMBRINZA 1-0.2 % SUSPENSION 1 DROP INTO AFFECTED EYE OPHTHALMIC THREE TIMES A DAY NOT-TAKING IBUPROFEN 400 MG TABLET 1 TABLET WITH FOOD OR MILK NEEDED ORALLY THREE TIMES A DAY NOT-TAKING CYCLOBENZAPRINE HCL 5 MG TABLET 1 TABLET NEEDED ORALLY THREE TIMES A DAY NOT-TAKING OXYCODONE HCL 10 MG TABLET 1 TABLET NEEDED ORALLY EVERY 6 HRS NOT-TAKING WARFARIN SODIUM 3 MG TABLET 1 TABLET ORALLY ONCE A DAY NOT-TAKING TYLENOL 325 MG TABLET 1 TABLET NEEDED ORALLY EVERY 4 HRS NOT-TAKING TYLENOL WITH CODEINE #3 300-30 MG TABLET 1 TABLET NEEDED ORALLY EVERY 6 HRS MEDICATION LIST REVIEWED AND RECONCILED WITH THE PATIENT PAST MEDICAL HISTORY HTN LEFT BRANCH BUNDLE BLOCK GLAUCOMA LEFT BUTTOCK PAIN 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 PNEUMONIA 10/2018 LUMBPSACRAL SPONDYLOSIS WITH RADICULOPATHY ALLERGIES KETOPROFEN: SLOWS KIDNEY FUNCTION - ALLERGY MACROBID: NAUSEA/VOMITING - ALLERGY BETA BLOCKERS: DIGESTIVE PROBLEMS - ALLERGY STATINS: DIGESTIVE PROBLEMS - ALLERGY CYMBALTA: ANAPHYLAXIS - ALLERGY TRAMADOL HCL: ANAPHYLAXIS - ALLERGY HYDROCODONE-ACETAMINOPHEN: ANAPHYLAXIS - ALLERGY SOMA: NAUSEA/VOMITING - ALLERGY SURGICAL HISTORY SPINAL FUSION [id number] FACIAL RECONSTRUCTIONS X9 RIGHT EYES SURGERIES X7.EYE REMOVAL 1999 HYSTERECTOMY, TOTAL WITH BSO 1991 GANGLION CYST RIGHT FOOT PACEMAKER INSERTION TONSILLECTOMY A CHILD SEVERAL D&C'S BILATERAL THUMB SURGERIES FOR ARTHRITIS FAMILY HISTORY FATHER: , DIAGNOSED WITH HYPERTENSION MOTHER: , UNSPECIFIED HEART DISEASE, UNSPECIFIED CEREBRAL ARTERY OCCLUSION WITH CEREBRAL INFARCTION, OTHER SPECIFIED CONDITIONS INFLUENCING HEALTH STATUS, HYPERTENSION 2DAUGHTER(S) . MOM-GLAUCOMA\N1 DAUGHTER--MULTIPLE AUTOIMMUNES DISEASES. SOCIAL HISTORY GENERAL: TOBACCO USE ARE YOU A:FORMER SMOKER HOW LONG HAS IT BEEN SINCE YOU LAST SMOKED?> 10 YEARS LATEX QUESTIONNAIRE LATEX ALLERGY : HAVE YOU EVER DEVELOPED ANY TYPE OF REACTION AFTER HANDLING LATEX PRODUCTS SUCH RUBBER GLOVES, CONDOMS, DIAPHRAGMS, BALLOONS, SOCKS, OR UNDERWEAR?NO LATEX ALLERGY : HAVE YOU EVER DEVELOPED ANY TYPE OF REACTION DURING OR AFTER DENTAL APPOINTMENT, VAGINAL/RECTAL EXAMINATION, SURGICAL PROCEDURE, OR ANY OTHER EXPOSURE?NO LATEX RISK : HAVE YOU EVER HAD ANY DIFFICULTY BREATHING OR HIVES AFTER EATING OR HANDLING ANY FRUITS, OR VEGETABLES; SUCH KIWI, BANANAS, STONE FRUITS, OR CHESTNUTSNO LATEX RISK : DO YOU HAVE A PREVIOUS PERSONAL HISTORY OF MORE THAN NINE SURGERIES, SPINA BIFIDA, OR REPEATED CATHERIZATIONS? NO LATEX RISK : ARE YOU FREQUENTLY EXPOSED TO LATEX PRODUCTS IN YOUR OCCUPATION?NO DATE ASKED : 03/07/2020 ALCOHOL SCREENING DID YOU HAVE A DRINK CONTAINING ALCOHOL IN THE PAST YEAR?NO POINTS0 INTERPRETATIONNEGATIVE RECREATIONAL DRUG USE DRUG USE?NO CAFFEINE CAFFEINE USE?YES HOW OFTEN AND HOW MUCH? 1 CUP DAILY ANABAPTISM [id number] EPISCOPAL LANGUAGE LANGUAGES SPOKEN:MALAY EDUCATION LEVEL OF EDUCATION:COLLEGE LEARNING BARRIERS / SPECIAL NEEDS BARRIERS TO LEARNING?NO HEARING IMPAIRED?NO VISION IMPAIRED?YES COGNITIVELY IMPAIRED?NO :CORRECTIVE LENSES READINESS TO LEARN?YES LEARNING PREFERENCES?YES :HANDOUTS, DEMONSTRATION/VERBAL INSTRUCTION LEARNING CAPABILITIES PRESENT?YES EMOTIONAL BARRIERS?NO SPECIAL DEVICES?YES : OCC. WHEELING WALKER ELECTRICAL CONTINUITY TESTER NEEDED?NO DOMESTIC VIOLENCE DO YOU FEEL SAFE IN YOUR ENVIRONMENT?YES PAIN CLINIC PFS, CLERGY, PUBLIC HEALTH REFERRALS WAS THE PROVIDER NOTIFIED OF ANY PERTINENT INFO? N/A HAS THE PATIENT BEEN EDUCATED REGARDING HIS/HER PLAN OF CARE?YES HAS THE PATIENT BEEN EDUCATED REGARDING PAIN, THE RISK FOR PAIN, THE IMPORTANCE OF EFFECTIVE PAIN MANAGEMENT, AND THE PAIN ASSESSMENT PROCESS?YES ADVANCE DIRECTIVE ADVANCE DIRECTIVE DISCUSSED WITH PATIENT:YES PT. HAS HCP, JAME MAI - [phone] -PT ALSO HAS LIVING WILL, CLAIR MAI, NONHOSPITAL DNR REVIEWED WITH PT 01/26/18 1412REVIEWED WITH PT 02/06/18 0904 BV02/19/18 1055 REVIEWED WITH PT. AD05/11/18 1352 REVIEWED WITH PT LASREVIEWED WITH PATIENT 06/22/18 1049 JS05/27/19 1435 REVIEWED WITH PT. PERCYD WITH PATIENT 03/11/19 0937 JS02/09/19 REVIEWED WITH PT. PERCYD WITH PATIENT 12/22/18 1300 BVREVIEWED WITH PATIENT 04-23-19 1420 BV. HOSPITALIZATION/MAJOR DIAGNOSTIC PROCEDURE THOUGHT SHE WAS HAVING A STROKE AND PAIN MANAGEMENT 01/02/18 SURGERY RELATED STROKE 02/2018 BLADDER INFECTION 07/2018 PNEUMONIA 10/2018 SEVERE BACK PAIN 05/07/19 REVIEW OF SYSTEMS CONSTITUTIONAL: ANY RECENT FEVER NO . CHILLS NO . WEIGHT CHANGE OF UNKNOWN REASONS NO . GASTROENTEROLOGY: NEW UNEXPLAINABLE CHANGES IN BOWEL CONTROL NO . CONSTIPATION NO . GENITOURINARY: ANY NEW CHANGE IN BLADDER CONTROL? NO . NEUROLOGY: NEW ONSET DIZZINESS OR NEUROLOGICAL CHANGES NOT MENTIONED NO . NEW NUMBNESS OR PAIN PATTERNS NOT MENTIONED AND PERTINENT TO TODAY'S VISIT NO . CARDIOLOGY: NEW CHEST PRESSURE NO . NEW CHEST PAIN NO . RESPIRATORY: UNEXPLAINABLE COUGH NO . NEW SHORTNESS OF BREATH NO . VITAL SIGNS WT 130.6 LBS, HT 61 IN, BMI 24.67 INDEX, BP 137/65 MM HG, HR 86 /MIN, RR 16 /MIN, TEMP 98.7 F, OXYGEN SAT % 95%, SAFE IN ENV? (Y/N) YES, NA INITIALS FL 11:37K. JONATHONCHAZ II @ 1152. EXAMINATION GENERAL EXAMINATION: GENERAL ALERT,NO DISTRESS . PSYCH AFFECT NORMAL . LUNGS: LUNG SOUNDS ARE CLEAR . HEART: HEART RATE REGULAR . MUSCULOSKELETAL: MST 5/5 BILAT. LOWER EXTREMITIES . LUMBAR: TENDERNESS LEFT. SIJ . DIAGNOSTIC TESTS REVIEWED CT L/S [id number] . ASSESSMENTS SACROILIITIS - M46.1 (PRIMARY) CHRONIC PRESCRIPTION OPIATE USE - Z79.891 TREATMENT SACROILIITIS REFILL PERCOCET TABLET, 5-325 MG, 1 TABLET NEEDED, ORALLY, 1 Q4-6H PRN MDD4 3MOS SUPPLY CAT D CHRONIC PAIN, 90 DAY(S), 360, REFILLS 0, NOTES: 02-06-202099 NOTES: LEFT SIJ , ISTOP REGISTRY REVIEWED AND DEMONSTRATES COMPLLIANCE. RECENT URINE TOXICOLOGY REVIEWED. NO UNAUTHORIZED MEDICATIONS. NO ILLICIT SUBSTANCES AND PRESCRIBED MEDICATIONS WERE PRESENT. URINE TOXICOLOGY TODAY , RISKS OF NARCOTIC/OPIOD MEDICATIONS INCLUDES BUT IS NOT LIMITED TO RISK OF DEPENDANCE/DEVELOPMENT OF ADDICTION, MOOD DISTURBANCE AND DEPRESSION, OSTEOPOROSIS, HORMONAL AND LABIDAL CHANGES, RESPIRATORY DEPRESSION AND . PATIENT IS ADVISED NOT TO DRIVE OR DRINK ALCOHOL WHILE ON THESE MEDICATIONS. PROCEDURE CODES FA211 ESTABILISHED PATIENT [facility] FACILITY CHARGE DISPOSITION & COMMUNICATION FOLLOW UP POST (REASON: LEFT SIJ) ELECTRONICALLY SIGNED BY DIANA WILSON ON 03/08/2020 AT 08:58 AM EDT DISCLAIMER : THIS IS A VISIT SUMMARY EXTRACTED FROM THE [employer] CHART. IT IS NOT A COPY OF THE [employer] PROGRESS NOTE. MARIEL
== END ==
LOC: M PAIN 11:15
PROVIDERS: ATTEND Nurse Practitioner Family
DX: M46.1 Sacroiliitis, not elsewhere classified (principal); Z79.891 Long term (current) use of opiate analgesic

== ENCOUNTER → 2020-04-11 | Outpatient (CLI) | payer OTHER, MEDICARE ==
[~2020-04-11] MED LIST changes: -AMLO1TAB24 PO; +AMLO5TAB6 PO; +ASPI81TA85 PO; -ASPI81TA86 PO
== END ==
LOC: M PAIN 10:59
PROVIDERS: ATTEND Nurse Practitioner Family
DX: M46.1 Sacroiliitis, not elsewhere classified (principal); Z79.891 Long term (current) use of opiate analgesic

== ENCOUNTER 2020-06-02 14:10 | Emergency (ER) | payer MEDICARE ==
[~2020-06-02] VITALS: Ht 154.9 cm; Wt 57.3 kg
[~2020-06-02 14:10] MED LIST changes: +AMLO1TAB24 PO; -AMLO5TAB6 PO; -ASPI81TA85 PO; +ASPI81TA86 PO
[2020-06-02] MEDS ORDERED: LEVALBUTEROL HFA 45MCG/ACT 15 GM INHALER INH STA (14:27)
--- NOTE | 2020-06-02 15:19 | REPVR ---
PROCEDURE INFORMATION: Exam: XR Chest, 1 View Exam date and time: 06/02/2020 2:59 PM Age: 79 years old Clinical indication: Chest pain TECHNIQUE: Imaging protocol: XR of the chest Views: 1 view. COMPARISON: CR Ribs uni W-PA CHEST ONLY 02/16/2020 4:17 PM FINDINGS: Tubes, catheters and devices: Pacemaker. Lungs: Emphysematous chnage. Pleural space: No pleural effusion. Heart/Mediastinum: No cardiomegaly. Bones/joints: Osteopenia and degenerative change. When correlating with the previous study, no significant interval change is demonstrated. IMPRESSION: Stable appearance of the chest, not significantly changed from 02/16/2020 . Electronically signed by: Cornelio Iyer On 06/02/2020 15:18:54 PM
[2020-06-02 15:28] LABS: BASO % 0.5 % (0.0-1.0); EOS # 0.2 10^3/uL (0.0-0.5); EOS % 2.6 % (0.0-3.0); HEMATOCRIT 39.9 % (36.0-47.0); HEMOGLOBIN 12.7 g/dl (12.0-15.5); LYMPH # 2.1 10^3/uL (1.5-5.0); LYMPH % 28.2 % (24.0-44.0); MEAN CORPUSCULAR HEMOGLOBIN 30.8 pg (27.0-33.0); MEAN CORPUSCULAR HGB CONC 31.8 g/dl (32.0-36.5); MEAN CORPUSCULAR VOLUME 96.6 fl (80.0-96.0); MONO # 0.5 10^3/uL (0.0-0.8); MONO % 6.6 % (0.0-5.0); NEUTROPHILS # 4.5 10^3/uL (1.5-8.5); NEUTROPHILS % 61.4 % (36.0-66.0); PLATELET COUNT, AUTOMATED 319 10^3/uL (150-450); RED BLOOD COUNT 4.13 10^6/uL (4.00-5.40); WHITE BLOOD COUNT 7.4 10^3/uL (4.0-10.0)
[2020-06-02 16:06] LABS: BLOOD UREA NITROGEN 8 MG/DL (7-18); CALCIUM LEVEL 9.7 MG/DL (8.8-10.2); CARBON DIOXIDE LEVEL 25 MEQ/L (21-32); CHLORIDE LEVEL 102 MEQ/L (98-107); CREATININE FOR GFR 0.62 MG/DL (0.55-1.30); GLOMERULAR FILTRATION RATE > 60.0 (>32); GLUCOSE, FASTING 98 MG/DL (70-100); SODIUM LEVEL 134 MEQ/L (136-145); THYROID STIMULATING HORMONE 0.263 uIU/ML (0.358-3.740)
[2020-06-02 16:26] VITALS: BP 124/63
--- NOTE | 2020-06-03 07:56 | ECGEPIP ---
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
== END 2020-06-02 16:44 | disposition home or self-care (01) ==
LOC: M ED 14:10
DX: J20.9 Acute bronchitis, unspecified (principal); I44.7 Left bundle-branch block, unspecified; Z95.0 Presence of cardiac pacemaker; I10 Essential (primary) hypertension; M54.5 Low back pain; I49.5 Sick sinus syndrome; Z87.891 Personal history of nicotine dependence

== ENCOUNTER → 2020-12-21 | Outpatient (CLI) | payer OTHER, MEDICARE ==
[~2020-12-21] MED LIST changes: -AMIT10TA; +AMIT10TA7; +ASPI-569 PO; -ASPI81TAEC PO
--- NOTE | 2020-12-26 13:20 | ECWPNPC ---
PATIENT NAME: MIREYA PAREDES : 1940 GENDER: FEMALE VISIT DATE: 12/21/2020 DISCHARGE DATE: 12/21/20 1205 VISIT LOCKED DATE TIME: PHYSICIAN: RAJESH FELIX RESOURCE: RAJESH FELIX REASON FOR APPOINTMENT 1. BACK HISTORY OF PRESENT ILLNESS GENERAL: HERE FOR FOLLOW-UP OF CHRONIC LOW BACK PAIN. HAS BEEN IN [place] OVER THE PAST FEW MONTHS. WAS DOING WELL UNTIL A FEW WEEKS AGO. SHE BEGAN TO FEEL GENERALLY NOT WELL WITH SHORTNESS OF BREATH AND ACTIVITY INTOLERANCE. SHE WAS SEEN BY HER PRIMARY CARE DOCTOR IN [place] DR. SULLIVAN WHO RECOMMENDED THAT SHE BE EVALUATED AT THE EMERGENCY ROOM. PATIENT REFUSED TO BE SEEN. TODAY SHE DENIES CHEST PAINS. CONTINUES WITH SOME SHORTNESS OF BREATH BUT NOT BAD. SHE WOULD LIKE TO HAVE INJECTIONS. INFORMED HER THAT SHE WOULD NEED TO HAVE MEDICAL CLEARANCE FROM HER PRIMARY CARE DOCTOR BEFORE WE PROCEED AND WE CAN REQUEST THAT TODAY. CONTINUES WITH USE OF PERCOCET 5/325 APPROXIMATELY TWICE A DAY FOR CHRONIC LOW BACK PAIN THAT IS SOMEWHAT HELPFUL. SHE WOULD LIKE TO HAVE INJECTIONS. -. FALL RISK SCREENING: SCREENING ONE FALLS REPORTED IN THE LAST YEAR, 2-3 FALL THIS YEAR NO INJURIES. PAIN SCREENING: PATIENT HAS A COMPLAINT OF ACUTE OR CHRONIC PAIN :YES LOCATION OF PAIN:LOW BACK PAIN GOES DOWN INTO SACROILIAC REGION INTENSITY OF PAIN (SCALE OF 1 TO 10):5 WHAT DOES YOUR PAIN FEEL LIKE:BURNING, CONTINOUS DURATION:CONTINOUS, CONSTANT, ALL DAY PAIN IS INCREASED BY:ACTIVITIES PAIN IS DECREASED BY:USE OF PAIN MEDICATIONS, OTHERS PATIENT STATED THAT SHE HAS TO SIT ON ICE PACK NURSING NOTE: 12/19/2020 WENT TO ER BECAUSE OF HER OXYGEN LEVEL WAS LOW, DID NOT STAY. PAIN CENTER INTAKE QUESTIONS: DO YOU HAVE A HISTORY OF MRSA? :NO DO YOU TAKE A BLOOD THINNERS? :NO ASPRIRIN DO YOU HAVE ANY BLEEDING DISORDERS? :NO ANY NEW NUMBNESS OR WEAKNESS IN YOUR LEGS OR ARMS? :YES ANY PACEMAKER,DEFIBRILLATOR, OR DORSAL COLUMN STIMULATOR? :YES PACEMAKER DO YOU HAVE ANY RASHES OR OPEN SORES? :NO ARE YOU ALLERGIC TO IV DYE? :NO ARE YOU DIABETIC? :NO ANY NEW PROBLEMS WITH YOUR MEDICATIONS? :NO HAVE YOU RECEIVED A VACCINE IN THE PAST 30 DAYS? :YES IF SO WHAT VACCINE AND WHEN? TETANUS- 3 WEEKS AGO DO YOU PLAN TO RECEIVE A VACCINE IN THE NEXT 21 DAYS? :NO DO YOU NEED ANY PRESCRIPTION? :NO DO YOU TAKE ANY IMMUNOSUPPRESSIVE MEDICATIONS? :NO IS THERE A CHANCE YOU COULD BE ? :NO ARE YOU BREAST FEEDING? :NO CURRENT MEDICATIONS TAKING ZOLOFT 50 MG TABLET 1 TABLET ORALLY ONCE A DAY TAKING ZYPREXA 2.5 MG TABLET 1 TABLET ORALLY BEFORE BEDTIME TAKING LIPITOR 10 MG TABLET 1 TABLET ORALLY ONCE A DAY TAKING NORVASC 5MG TABLET 1 TAB DAILY TAKING ASPIRIN ADULT LOW DOSE 81 MG TABLET DELAYED RELEASE 1 TABLET ORALLY ONCE A DAY TAKING COLACE 100 MG CAPSULE 1 CAPSULE NEEDED ORALLY ONCE A DAY TAKING XELPROS 0.005 % EMULSION 1 NULL INTO AFFECTED EYE IN THE EVENING OPHTHALMIC ONCE A DAY TAKING PERCOCET 5-325 MG TABLET 1 TABLET NEEDED ORALLY 1 Q4-6H PRN MDD4 3MOS SUPPLY CAT D CHRONIC PAIN NOT-TAKING LUMIGAN 0.03 % SOLUTION 1 DROP INTO AFFECTED EYE IN THE EVENING OPHTHALMIC ONCE A DAY NOT-TAKING SIMBRINZA 1-0.2 % SUSPENSION 1 DROP INTO AFFECTED EYE OPHTHALMIC THREE TIMES A DAY NOT-TAKING IBUPROFEN 400 MG TABLET 1 TABLET WITH FOOD OR MILK NEEDED ORALLY THREE TIMES A DAY NOT-TAKING CYCLOBENZAPRINE HCL 5 MG TABLET 1 TABLET NEEDED ORALLY THREE TIMES A DAY NOT-TAKING OXYCODONE HCL 10 MG TABLET 1 TABLET NEEDED ORALLY EVERY 6 HRS NOT-TAKING WARFARIN SODIUM 3 MG TABLET 1 TABLET ORALLY ONCE A DAY NOT-TAKING TYLENOL 325 MG TABLET 1 TABLET NEEDED ORALLY EVERY 4 HRS NOT-TAKING TYLENOL WITH CODEINE #3 300-30 MG TABLET 1 TABLET NEEDED ORALLY EVERY 6 HRS MEDICATION LIST REVIEWED AND RECONCILED WITH THE PATIENT PAST MEDICAL HISTORY HTN LEFT BRANCH BUNDLE BLOCK GLAUCOMA LEFT BUTTOCK PAIN 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 PNEUMONIA 10/2018 LUMBPSACRAL SPONDYLOSIS WITH RADICULOPATHY ALLERGIES KETOPROFEN: SLOWS KIDNEY FUNCTION - ALLERGY MACROBID: NAUSEA/VOMITING - ALLERGY BETA BLOCKERS: DIGESTIVE PROBLEMS - ALLERGY STATINS: DIGESTIVE PROBLEMS - ALLERGY CYMBALTA: ANAPHYLAXIS - ALLERGY TRAMADOL HCL: ANAPHYLAXIS - ALLERGY HYDROCODONE-ACETAMINOPHEN: ANAPHYLAXIS - ALLERGY SOMA: NAUSEA/VOMITING - ALLERGY SURGICAL HISTORY SPINAL FUSION [id number] FACIAL RECONSTRUCTIONS X9 RIGHT EYES SURGERIES X7.EYE REMOVAL 1999 HYSTERECTOMY, TOTAL WITH BSO 1991 GANGLION CYST RIGHT FOOT PACEMAKER INSERTION TONSILLECTOMY A CHILD SEVERAL D&C'S BILATERAL THUMB SURGERIES FOR ARTHRITIS SOCIAL HISTORY GENERAL: TOBACCO USE ARE YOU A:FORMER SMOKER HOW LONG HAS IT BEEN SINCE YOU LAST SMOKED?> 10 YEARS LATEX QUESTIONNAIRE LATEX ALLERGY : HAVE YOU EVER DEVELOPED ANY TYPE OF REACTION AFTER HANDLING LATEX PRODUCTS SUCH RUBBER GLOVES, CONDOMS, DIAPHRAGMS, BALLOONS, SOCKS, OR UNDERWEAR?NO LATEX ALLERGY : HAVE YOU EVER DEVELOPED ANY TYPE OF REACTION DURING OR AFTER DENTAL APPOINTMENT, VAGINAL/RECTAL EXAMINATION, SURGICAL PROCEDURE, OR ANY OTHER EXPOSURE?NO LATEX RISK : HAVE YOU EVER HAD ANY DIFFICULTY BREATHING OR HIVES AFTER EATING OR HANDLING ANY FRUITS, OR VEGETABLES; SUCH KIWI, BANANAS, STONE FRUITS, OR CHESTNUTSNO LATEX RISK : DO YOU HAVE A PREVIOUS PERSONAL HISTORY OF MORE THAN NINE SURGERIES, SPINA BIFIDA, OR REPEATED CATHERIZATIONS? NO LATEX RISK : ARE YOU FREQUENTLY EXPOSED TO LATEX PRODUCTS IN YOUR OCCUPATION?NO DATE ASKED : 12/21/2020 ALCOHOL USE: NO. ALCOHOL SCREENING DID YOU HAVE A DRINK CONTAINING ALCOHOL IN THE PAST YEAR?NO POINTS0 INTERPRETATIONNEGATIVE RECREATIONAL DRUG USE DRUG USE?NO CAFFEINE CAFFEINE USE?YES HOW OFTEN AND HOW MUCH? 1 CUP DAILY CHRISTIAN [id number] LATTER DAY LANGUAGE LANGUAGES SPOKEN:SYRIAN EDUCATION LEVEL OF EDUCATION:COLLEGE LEARNING BARRIERS / SPECIAL NEEDS CHANGE FROM LAST VISIT?YES BARRIERS TO LEARNING?NO HEARING IMPAIRED?YES :HEARING AIDES VISION IMPAIRED?YES :CORRECTIVE LENSES COGNITIVELY IMPAIRED?NO READINESS TO LEARN?YES LEARNING PREFERENCES?YES :HANDOUTS, DEMONSTRATION/VERBAL INSTRUCTION LEARNING CAPABILITIES PRESENT?YES EMOTIONAL BARRIERS?NO SPECIAL DEVICES?YES : OCC. WHEELING WALKER MARBLEIZER NEEDED?NO DOMESTIC VIOLENCE DO YOU FEEL SAFE IN YOUR ENVIRONMENT?YES - WAS THE PROVIDER NOTIFIED OF ANY PERTINENT INFO? N/A HAS THE PATIENT BEEN EDUCATED REGARDING HIS/HER PLAN OF CARE?YES HAS THE PATIENT BEEN EDUCATED REGARDING PAIN, THE RISK FOR PAIN, THE IMPORTANCE OF EFFECTIVE PAIN MANAGEMENT, AND THE PAIN ASSESSMENT PROCESS?YES ADVANCE DIRECTIVE ADVANCE DIRECTIVE DISCUSSED WITH PATIENT:YES PT. HAS HCP, JAME MAI - [phone] -PT ALSO HAS LIVING WILL, CLAIR MAI, NONHOSPITAL DNR REVIEWED WITH PT 01/26/18 1412REVIEWED WITH PT 02/06/18 0904 BV02/19/18 1055 REVIEWED WITH PT. AD05/11/18 1352 REVIEWED WITH PT LASREVIEWED WITH PATIENT 06/22/18 1049 JS05/27/19 1435 REVIEWED WITH PT. ADREVIEWED WITH PATIENT 03/11/19 0937 JS02/09/19 REVIEWED WITH PT. ADRRAMAIEWED WITH PATIENT 12/22/18 1300 BVREVIEWED WITH PATIENT 04-23-19 1420 BV. HOSPITALIZATION/MAJOR DIAGNOSTIC PROCEDURE THOUGHT SHE WAS HAVING A STROKE AND PAIN MANAGEMENT 01/02/18 SURGERY RELATED STROKE 02/2018 BLADDER INFECTION 07/2018 PNEUMONIA 10/2018 SEVERE BACK PAIN 05/07/19 REVIEW OF SYSTEMS CONSTITUTIONAL: ANY RECENT FEVER NO . CHILLS NO . WEIGHT CHANGE OF UNKNOWN REASONS NO . GASTROENTEROLOGY: NEW UNEXPLAINABLE CHANGES IN BOWEL CONTROL NO . CONSTIPATION NO . GENITOURINARY: ANY NEW CHANGE IN BLADDER CONTROL? NO . NEUROLOGY: NEW ONSET DIZZINESS OR NEUROLOGICAL CHANGES NOT MENTIONED NO . NEW NUMBNESS OR PAIN PATTERNS NOT MENTIONED AND PERTINENT TO TODAY'S VISIT NO . CARDIOLOGY: NEW CHEST PRESSURE NO . PATIENT DENIES NO . RESPIRATORY: UNEXPLAINABLE COUGH NO . NEW SHORTNESS OF BREATH YES.PAST 3 WEEKS HAS BEEN SOB AND WITH ACTIVITY INTOLERANCE DUE TO THIS.HAD EVALUATION BY PRIMARY CARE LAST WEEK AND THEY ADVISED TO GO TO ER.PATIENT COULDNT WAIT IN ER SO SHE LEFT WITHOUT BEING EVALUATED.STATES SHE FEELS BETTER,BUT CONTINUES WITH EXRETIONAL SOB. . VITAL SIGNS WT 132 LBS, HT 61 IN, BMI 24.94 INDEX, BP 138/64 MM HG, HR 61 /MIN, RR 16 /MIN, TEMP 97.5 F, OXYGEN SAT % 96%, SAFE IN ENV? (Y/N) YEST.NELLIE CHAVEZ. EXAMINATION GENERAL EXAMINATION: GENERALNO ACUTE DISTRESS, WELL NOURISHED AND HYDRATED. PSYCH FLAT AFFECT. LUNGS:CLEAR TO AUSCULTATION BILATERALLY, NO WHEEZES, RHONCHI, RALES. HEART:NO MURMURS, REGULAR RATE AND RHYTHM. 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 REFERRAL TO: RICHIE SULLIVAN REASON:PLEASE EVALUATE FOR MEDICAL CLEARANCE FOR SACROILLIAC JOINT STEROID INJECTIONS AND ANY INTERVENTIONAL THERAPY/INJECTIONS FOR CHRONIC LBP.REPORTING ACTIVITY INTOLERANCE DUE TO SOB.DID NOT GET SEEN BY ER PER YOUR RECOMMENDATION AT HER LAST VISIT A FEW WEEKS AGO. CHRONIC PRESCRIPTION OPIATE USE LAB: URINE TEST GROUP ANITRA BALLARDSai 12/21/2020 12:03:38 PM > LAST DOSE: PERCOCET 12/21/2020 @6AM NOTES: NEED MEDICAL CLEARANCE NOTE FROM PRIMARY CARE PROVIDER IN [place] TO CONSIDER SACROILIAC JOINT BLOCK AND INTERVENTIONAL THERAPY DUE TO PATIENT'S RECENT EPISODES OF SHORTNESS OF BREATH. PROCEDURE CODES FA211 ESTABILISHED PATIENT [facility] FACILITY CHARGE DISPOSITION & COMMUNICATION FOLLOW UP 2 MONTHS (REASON: LBP/REVIEW MED CLEARANCE NOTE/UTOX REVIEW) ELECTRONICALLY SIGNED BY DIANA WILSON ON 12/25/2020 AT 04:26 PM EDT DISCLAIMER : THIS IS A VISIT SUMMARY EXTRACTED FROM THE [employer] CHART. IT IS NOT A COPY OF THE [employer] PROGRESS NOTE. MARIEL
== END ==
LOC: M PAIN 10:45
PROVIDERS: ATTEND Nurse Practitioner Family
DX: M46.1 Sacroiliitis, not elsewhere classified (principal); G89.29 Other chronic pain; Z86.711 Personal history of pulmonary embolism; Z87.891 Personal history of nicotine dependence; Z88.1 Allergy status to other antibiotic agents; Z88.5 Allergy status to narcotic agent; Z88.8 Allergy status to other drugs, medicaments and biological substances; Z95.0 Presence of cardiac pacemaker; Z79.82 Long term (current) use of aspirin; Z79.899 Other long term (current) drug therapy

== ENCOUNTER → 2021-02-08 | Outpatient (CLI) | payer OTHER, MEDICARE ==
--- NOTE | 2021-02-13 03:42 | ECWPNPC ---
PATIENT NAME: MIREYA PAREDES : 1940 GENDER: FEMALE VISIT DATE: 02/08/2021 DISCHARGE DATE: 02/08/21 1145 VISIT LOCKED DATE TIME: PHYSICIAN: RAJESH FELIX RESOURCE: RAJESH FELIX REASON FOR APPOINTMENT 1. LBP/REVIEW MED CLEARANCE NOTE/UTOX REVIEW HISTORY OF PRESENT ILLNESS DEPRESSION SCREENING: PHQ-2 (2015 EDITION) LITTLE INTEREST OR PLEASURE IN DOING THINGS?NOT AT ALL FEELING DOWN, DEPRESSED, OR HOPELESS?NOT AT ALL TOTAL SCORE0 GENERAL: HERE FOR FOLLOW-UP AND MEDICATION MANAGEMENT OF CHRONIC LOW BACK PAIN. PAIN HAS INCREASED OVER THE PAST 3 MONTHS. WE DID RECEIVE CARDIOLOGY CLEARANCE RECENTLY AND THIS IS REVIEWED TODAY. HAS BENEFITED FROM THERAPEUTIC LUMBAR FACET BLOCKS IN THE PAST. CURRENTLY USING PERCOCET 5/325 PERIODICALLY FOR SEVERE PAIN EPISODES WITH SOME IMPROVEMENT. REPORTS SIGNIFICANT ACTIVITY INTOLERANCE DUE TO PAIN. REPORTING POOR SLEEP DUE TO PAIN. DENIES BOWEL OR BLADDER INCONTINENCE. DENIES SADDLE PARESTHESIAS. DENIES RECENT INJURY. DENIES RECENT ILLNESS OR SUDDEN WEIGHT LOSS. ACCOMPANIED IN THE EXAM ROOM WITH HER LIVE-IN HOME HEALTH CARE PROVIDER. FALL RISK SCREENING: SCREENING : NO FALLS REPORTED IN THE LAST YEAR . PAIN SCREENING: PATIENT HAS A COMPLAINT OF ACUTE OR CHRONIC PAIN :YES LOCATION OF PAIN:LOW BACK INTENSITY OF PAIN (SCALE OF 1 TO 10):3 WHAT DOES YOUR PAIN FEEL LIKE:SORE DURATION:CONTINOUS, CONSTANT, ALL DAY PAIN IS INCREASED BY:ACTIVITIES PAIN IS DECREASED BY:USE OF PAIN MEDICATIONS NURSING NOTE: - - -. PAIN CENTER INTAKE QUESTIONS: DO YOU HAVE A HISTORY OF MRSA? :NO DO YOU TAKE A BLOOD THINNERS? :NO ASPIRIN ADULT LOW DOSE 81 MG DO YOU HAVE ANY BLEEDING DISORDERS? :NO ANY NEW NUMBNESS OR WEAKNESS IN YOUR LEGS OR ARMS? :YES PAIN IN THE RIGHT SHOULDER DOWN INTO BOTH HIPS ANY PACEMAKER,DEFIBRILLATOR, OR DORSAL COLUMN STIMULATOR? :YES PACEMAKER DO YOU HAVE ANY RASHES OR OPEN SORES? :NO ARE YOU ALLERGIC TO IV DYE? :NO ARE YOU DIABETIC? :NO ANY NEW PROBLEMS WITH YOUR MEDICATIONS? :NO HAVE YOU RECEIVED A VACCINE IN THE PAST 30 DAYS? :NO DO YOU PLAN TO RECEIVE A VACCINE IN THE NEXT 21 DAYS? :NO DO YOU NEED ANY PRESCRIPTION? :NO DO YOU TAKE ANY IMMUNOSUPPRESSIVE MEDICATIONS? :NO IS THERE A CHANCE YOU COULD BE ? :NO ARE YOU BREAST FEEDING? :NO CURRENT MEDICATIONS TAKING ZOLOFT 50 MG TABLET 1 TABLET ORALLY ONCE A DAY TAKING ZYPREXA 2.5 MG TABLET 1 TABLET ORALLY BEFORE BEDTIME TAKING LIPITOR 10 MG TABLET 1 TABLET ORALLY ONCE A DAY TAKING NORVASC 5MG TABLET 1 TAB DAILY TAKING ASPIRIN ADULT LOW DOSE 81 MG TABLET DELAYED RELEASE 1 TABLET ORALLY ONCE A DAY TAKING COLACE 100 MG CAPSULE 1 CAPSULE NEEDED ORALLY ONCE A DAY TAKING XELPROS 0.005 % EMULSION 1 NULL INTO AFFECTED EYE IN THE EVENING OPHTHALMIC ONCE A DAY TAKING PERCOCET 5-325 MG TABLET 1 TABLET NEEDED ORALLY 1 Q4-6H PRN MDD4 3MOS SUPPLY CAT D CHRONIC PAIN NOT-TAKING LUMIGAN 0.03 % SOLUTION 1 DROP INTO AFFECTED EYE IN THE EVENING OPHTHALMIC ONCE A DAY NOT-TAKING SIMBRINZA 1-0.2 % SUSPENSION 1 DROP INTO AFFECTED EYE OPHTHALMIC THREE TIMES A DAY NOT-TAKING IBUPROFEN 400 MG TABLET 1 TABLET WITH FOOD OR MILK NEEDED ORALLY THREE TIMES A DAY NOT-TAKING CYCLOBENZAPRINE HCL 5 MG TABLET 1 TABLET NEEDED ORALLY THREE TIMES A DAY NOT-TAKING OXYCODONE HCL 10 MG TABLET 1 TABLET NEEDED ORALLY EVERY 6 HRS NOT-TAKING WARFARIN SODIUM 3 MG TABLET 1 TABLET ORALLY ONCE A DAY NOT-TAKING TYLENOL 325 MG TABLET 1 TABLET NEEDED ORALLY EVERY 4 HRS NOT-TAKING TYLENOL WITH CODEINE #3 300-30 MG TABLET 1 TABLET NEEDED ORALLY EVERY 6 HRS MEDICATION LIST REVIEWED AND RECONCILED WITH THE PATIENT PAST MEDICAL HISTORY HTN LEFT BRANCH BUNDLE BLOCK GLAUCOMA LEFT BUTTOCK PAIN 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 PNEUMONIA 10/2018 LUMBPSACRAL SPONDYLOSIS WITH RADICULOPATHY ALLERGIES KETOPROFEN: SLOWS KIDNEY FUNCTION - ALLERGY MACROBID: NAUSEA/VOMITING - ALLERGY BETA BLOCKERS: DIGESTIVE PROBLEMS - ALLERGY STATINS: DIGESTIVE PROBLEMS - ALLERGY CYMBALTA: ANAPHYLAXIS - ALLERGY TRAMADOL HCL: ANAPHYLAXIS - ALLERGY HYDROCODONE-ACETAMINOPHEN: ANAPHYLAXIS - ALLERGY SOMA: NAUSEA/VOMITING - ALLERGY SOCIAL HISTORY GENERAL: TOBACCO USE ARE YOU A:FORMER SMOKER HOW LONG HAS IT BEEN SINCE YOU LAST SMOKED?> 10 YEARS LATEX QUESTIONNAIRE LATEX ALLERGY : HAVE YOU EVER DEVELOPED ANY TYPE OF REACTION AFTER HANDLING LATEX PRODUCTS SUCH RUBBER GLOVES, CONDOMS, DIAPHRAGMS, BALLOONS, SOCKS, OR UNDERWEAR?NO LATEX ALLERGY : HAVE YOU EVER DEVELOPED ANY TYPE OF REACTION DURING OR AFTER DENTAL APPOINTMENT, VAGINAL/RECTAL EXAMINATION, SURGICAL PROCEDURE, OR ANY OTHER EXPOSURE?NO LATEX RISK : HAVE YOU EVER HAD ANY DIFFICULTY BREATHING OR HIVES AFTER EATING OR HANDLING ANY FRUITS, OR VEGETABLES; SUCH KIWI, BANANAS, STONE FRUITS, OR CHESTNUTSNO LATEX RISK : DO YOU HAVE A PREVIOUS PERSONAL HISTORY OF MORE THAN NINE SURGERIES, SPINA BIFIDA, OR REPEATED CATHERIZATIONS? NO LATEX RISK : ARE YOU FREQUENTLY EXPOSED TO LATEX PRODUCTS IN YOUR OCCUPATION?NO DATE ASKED : 02/08/2021 ALCOHOL USE: NO. ALCOHOL SCREENING DID YOU HAVE A DRINK CONTAINING ALCOHOL IN THE PAST YEAR?NO POINTS0 INTERPRETATIONNEGATIVE RECREATIONAL DRUG USE DRUG USE?NO CAFFEINE CAFFEINE USE?YES HOW OFTEN AND HOW MUCH? 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 WHEELING WALKER FRESH FOODS CAKE DECORATOR NEEDED?NO DOMESTIC VIOLENCE DO YOU FEEL SAFE IN YOUR ENVIRONMENT?YES - WAS THE PROVIDER NOTIFIED OF ANY PERTINENT INFO? N/A HAS THE PATIENT BEEN EDUCATED REGARDING HIS/HER PLAN OF CARE?YES HAS THE PATIENT BEEN EDUCATED REGARDING PAIN, THE RISK FOR PAIN, THE IMPORTANCE OF EFFECTIVE PAIN MANAGEMENT, AND THE PAIN ASSESSMENT PROCESS?YES ADVANCE DIRECTIVE ADVANCE DIRECTIVE DISCUSSED WITH PATIENT:YES PT. HAS HCP, JAME MAI - [phone] -PT ALSO HAS LIVING WILL, POA JAME MAI, NONHOSPITAL DNR REVIEWED WITH PT 01/26/18 1412REVIEWED WITH PT 02/06/18 0904 BV02/19/18 1055 REVIEWED WITH PT. AD05/11/18 1352 REVIEWED WITH PT LASREVIEWED WITH PATIENT 06/22/18 1049 JS05/27/19 1435 REVIEWED WITH PT. ADREVIEWED WITH PATIENT 03/11/19 0937 JS02/09/19 REVIEWED WITH PT. ADREVIEWED WITH PATIENT 12/22/18 1300 BVREVIEWED WITH PATIENT 04-23-19 1420 BV. REVIEW OF SYSTEMS CONSTITUTIONAL: ANY RECENT FEVER NO . CHILLS NO . WEIGHT CHANGE OF UNKNOWN REASONS NO . GASTROENTEROLOGY: NEW UNEXPLAINABLE CHANGES IN BOWEL CONTROL NO . CONSTIPATION NO . GENITOURINARY: ANY NEW CHANGE IN BLADDER CONTROL? NO . NEUROLOGY: NEW ONSET DIZZINESS OR NEUROLOGICAL CHANGES NOT MENTIONED NO . NEW NUMBNESS OR PAIN PATTERNS NOT MENTIONED AND PERTINENT TO TODAY'S VISIT NO . CARDIOLOGY: NEW CHEST PRESSURE NO . PATIENT DENIES NO . RESPIRATORY: UNEXPLAINABLE COUGH NO . VITAL SIGNS WT 131.6 LBS, HT 61 IN, BMI 24.86 INDEX, BP 128/71 MM HG, HR 71 /MIN, RR 18 /MIN, TEMP 98.6 F, OXYGEN SAT % 97%, SAFE IN ENV? (Y/N) YES, NA INITIALS AW 1053T.NELLIE CHAVEZ. EXAMINATION GENERAL EXAMINATION: GENERAL AWAKE,ALERT ,PLEAASANT . PSYCH AFFECT NORMAL . LUNGS: LUNG BOWERS ARE CLEAR TO AUSCULTATION BILATERALLY. GOOD MOVEMENT OF AIR . HEART: S1, S2 IN A REGULAR RATE AND RHYTHM. NO SIGNIFICANT MURMURS, RUBS OR GALLOPS NOTED . LUMBAR:PALPATION:TENDER OVER BILAT. L4/5-L5/S1 LUMBAR FACETS WITH FACET LOADING.TENDER OVER LEFT PIRIFORMIS.WELL HEALED SURGICAL SCAR LOW THORACIC TO SACRUM. ASSESSMENTS SPONDYLOSIS OF LUMBAR REGION WITHOUT MYELOPATHY OR RADICULOPATHY - M47.816 (PRIMARY) TREATMENT SPONDYLOSIS OF LUMBAR REGION WITHOUT MYELOPATHY OR RADICULOPATHY NOTES: BILATERAL THERAPEUTIC LUMBAR FACET BLOCK L4-5,L5-S1 PRINTED AND REVIEWED PRE PROCEDURE INFORMATION, PATIENT VERBALIZED UNDERSTANDING KRISTA CHAVEZ. PROCEDURE CODES FA211 ESTABILISHED PATIENT [facility] FACILITY CHARGE DISPOSITION & COMMUNICATION FOLLOW UP POST (REASON: BILATERAL THERAPEUTIC LUMBAR FACET BLOCK L4-5,L5-S1) ELECTRONICALLY SIGNED BY DIANA WILSON ON 02/12/2021 AT 08:42 AM EDT DISCLAIMER : THIS IS A VISIT SUMMARY EXTRACTED FROM THE [employer] CHART. IT IS NOT A COPY OF THE [employer] PROGRESS NOTE. MARIEL
== END ==
LOC: M PAIN 10:45
PROVIDERS: ATTEND Nurse Practitioner Family
DX: M47.816 Spondylosis without myelopathy or radiculopathy, lumbar region (principal); G89.29 Other chronic pain; Z86.711 Personal history of pulmonary embolism; Z87.891 Personal history of nicotine dependence; Z88.1 Allergy status to other antibiotic agents; Z88.5 Allergy status to narcotic agent; Z88.8 Allergy status to other drugs, medicaments and biological substances; Z79.82 Long term (current) use of aspirin; Z79.899 Other long term (current) drug therapy

== ENCOUNTER 2021-02-23 14:56 | Emergency (ER) | payer MEDICARE, OTHER ==
[~2021-02-23] VITALS: Ht 154.9 cm; Wt 59.1 kg
[2021-02-23] MEDS ORDERED: BIMA01SOL (15:43)
[2021-02-23 17:00] LABS: BASO % 0.5 % (0.0-1.0); EOS # 0.3 10^3/uL (0.0-0.5); EOS % 4.7 % (0.0-3.0); HEMATOCRIT 44.5 % (36.0-47.0); HEMOGLOBIN 14.5 g/dl (12.0-15.5); LYMPH # 1.3 10^3/uL (1.5-5.0); LYMPH % 19.4 % (24.0-44.0); MEAN CORPUSCULAR HEMOGLOBIN 31.1 pg (27.0-33.0); MEAN CORPUSCULAR HGB CONC 32.6 g/dl (32.0-36.5); MEAN CORPUSCULAR VOLUME 95.5 fl (80.0-96.0); MONO # 0.7 10^3/uL (0.0-0.8); MONO % 10.4 % (2.0-8.0); NEUTROPHILS # 4.2 10^3/uL (1.5-8.5); NEUTROPHILS % 64.2 % (36.0-66.0); PLATELET COUNT, AUTOMATED 314 10^3/uL (150-450); RED BLOOD COUNT 4.66 10^6/uL (4.00-5.40); WHITE BLOOD COUNT 6.6 10^3/uL (4.0-10.0)
--- NOTE | 2021-02-23 17:19 | ECGEPIP ---
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
[2021-02-23 17:34] LABS: BLOOD UREA NITROGEN 14 MG/DL (7-18); CALCIUM LEVEL 9.3 MG/DL (8.8-10.2); CARBON DIOXIDE LEVEL 26 MEQ/L (21-32); CHLORIDE LEVEL 103 MEQ/L (98-107); CK-MB VALUE MASS 3.7 NG/ML (<3.6); CPK CREATINE PHOSPHOKINASE 191 U/L (26-192); CREATININE FOR GFR 0.56 MG/DL (0.55-1.30); GLOMERULAR FILTRATION RATE > 60.0 (>32); GLUCOSE, FASTING 108 MG/DL (70-100); MB/CK RELATIVE INDEX 1.94 (< OR =4); POTASSIUM SERUM 4.9 MEQ/L (3.5-5.1); SODIUM LEVEL 135 MEQ/L (136-145); TROPONIN I < 0.02 NG/ML (< 0.10)
--- NOTE | 2021-02-23 17:48 | REP ---
INDICATION: weakness COMPARISON: 06/02/2020 TECHNIQUE: Portable AP view of the chest FINDINGS: The mediastinum and cardiac silhouette are stable and within normal limits for portable technique. The lung otero are clear without acute consolidation, effusion, or pneumothorax. Skeletal structures are intact. IMPRESSION: No acute cardiopulmonary process appreciated. <Electronically signed by Jass Jeff > 02/23/21 [id number]
[2021-02-23 19:30] VITALS: BP 153/70
== END 2021-02-23 20:02 | disposition home or self-care (01) ==
LOC: M ED 14:56 → EDBD 14:56 → M ED 20:02
DX: R53.1 Weakness (principal); I44.7 Left bundle-branch block, unspecified; I10 Essential (primary) hypertension; M54.5 Low back pain; Z86.73 Personal history of transient ischemic attack (TIA), and cerebral infarction without residual deficits; Z79.82 Long term (current) use of aspirin; Z79.899 Other long term (current) drug therapy; Z88.8 Allergy status to other drugs, medicaments and biological substances; Z88.6 Allergy status to analgesic agent; Z88.5 Allergy status to narcotic agent

== ENCOUNTER → 2021-03-08 | Outpatient (CLI) | payer OTHER, MEDICARE ==
[~2021-03-08] MED LIST changes: +BIMA01SOL
== END ==
LOC: M LABSMTC 10:43
PROVIDERS: ATTEND Anesthesiology
DX: Z01.812 Encounter for preprocedural laboratory examination (principal); Z20.822 Contact with and (suspected) exposure to COVID-19

== ENCOUNTER → 2021-03-13 | Outpatient (CLI) | payer MEDICARE, OTHER ==
[~2021-03-13] MED LIST changes: +BUPIVACAINE HCL 0.25% 30ML VIAL As Ordered ONE; +ISOVUE-M 300 61% 15ML VIAL As Ordered ONE; +LIDOCAINE 1% SDV 30ML VIAL As Ordered ONE; +TRIAMCINOLONE ACETONIDE SUSP 40 MG/ML VIAL (J3301) As Ordered ONE; +diazePAM 5MG TABLET As Ordered ONE; +oxyCODONE 5MG TAB As Ordered ONE
--- NOTE | 2021-03-13 15:41 | REP ---
INDICATION: BILATERAL THERAPEUTIC LUMBAR FACET BLOCK. COMPARISON: None. TECHNIQUE: Four views. 47.1 seconds of fluoroscopy time is reported. FINDINGS: A sequence of 4 last image hold fluoroscopically obtained spot radiograph(s) of the lumbar spine document(s) needle position(s) and contrast injection associated with injection procedure. IMPRESSION: Procedural imaging. <Electronically signed by Shahram Alexandra > 03/13/21 6422
--- NOTE | 2021-03-16 02:19 | ECWPNPC ---
PATIENT NAME: MIREYA PAREDES : 1940 GENDER: FEMALE VISIT DATE: 03/13/2021 DISCHARGE DATE: 03/13/21 1447 VISIT LOCKED DATE TIME: PHYSICIAN: MICHAEL SABILLON MD RESOURCE: MICHAEL SABILLON MD REASON FOR APPOINTMENT 1. BILATERAL THERAPEUTIC LUMBAR FACET BLOCK L4-5,L5-S1. THANK YOU. HISTORY OF PRESENT ILLNESS GENERAL: -. FALL RISK SCREENING: SCREENING : NO FALLS REPORTED IN THE LAST YEAR. PAIN SCREENING: PATIENT HAS A COMPLAINT OF ACUTE OR CHRONIC PAIN :YES LOCATION OF PAIN:LOW BACK, LEFT HIP, RIGHT HIP INTENSITY OF PAIN (SCALE OF 1 TO 10):10 WHAT DOES YOUR PAIN FEEL LIKE:ACHING, BURNING DURATION:CONTINOUS, CONSTANT PAIN IS INCREASED BY:ACTIVITIES PAIN IS DECREASED BY:USE OF PAIN MEDICATIONS NURSING NOTE: -. PAIN CENTER INTAKE QUESTIONS: DO YOU HAVE A HISTORY OF MRSA? :NO DO YOU TAKE A BLOOD THINNERS? :NO DO YOU HAVE ANY BLEEDING DISORDERS? :NO ANY NEW NUMBNESS OR WEAKNESS IN YOUR LEGS OR ARMS? :NO ANY PACEMAKER,DEFIBRILLATOR, OR DORSAL COLUMN STIMULATOR? :YES PACEMAKER DO YOU HAVE ANY RASHES OR OPEN SORES? :NO ARE YOU ALLERGIC TO IV DYE? :NO ARE YOU DIABETIC? :NO ANY NEW PROBLEMS WITH YOUR MEDICATIONS? :NO HAVE YOU RECEIVED A VACCINE IN THE PAST 30 DAYS? :NO DO YOU PLAN TO RECEIVE A VACCINE IN THE NEXT 21 DAYS? :NO DO YOU TAKE ANY IMMUNOSUPPRESSIVE MEDICATIONS? :NO ANY HISTORY OF SEIZURES? :NO ANY HISTORY OF CARDIAC ISSUES OR EVENTS? :NO DO YOU HAVE ANY KIDNEY OR LIVER DISEASE? :NO DO YOU HAVE SLEEP APNEA? :NO ANY RECENT HEAD INJURY? :NO DO YOU HAVE ANY NEW INFECTIONS? :NO IS THERE A CHANCE YOU COULD BE ? :NO ARE YOU BREAST FEEDING? :NO WHEN DID YOU LAST EAT? : 03/12/21 1800 WHEN DID YOU LAST DRINK? : 0800 WHAT DID YOU LAST DRINK? : WATER NAME OF PERSON DRIVING YOU HOME? : SHAHLA DO YOU HAVE ANY OTHER QUESTIONS OR CONCERNS? : - CURRENT MEDICATIONS TAKING ZOLOFT 100 MG TABLET 1 TABLET ORALLY ONCE A DAY TAKING ZYPREXA 2.5 MG TABLET 1 TABLET ORALLY BEFORE BEDTIME, NOTES: 03/12/21 2100 TAKING LIPITOR 10 MG TABLET 1 TABLET ORALLY ONCE A DAY TAKING NORVASC 5MG TABLET 1 TAB DAILY, NOTES: 0800 TAKING ASPIRIN ADULT LOW DOSE 81 MG TABLET DELAYED RELEASE 1 TABLET ORALLY ONCE A DAY TAKING COLACE 100 MG CAPSULE 1 CAPSULE NEEDED ORALLY ONCE A DAY TAKING LUMIGAN 0.01 % SOLUTION 1 DROP INTO AFFECTED EYE IN THE EVENING OPHTHALMIC ONCE A DAY TAKING PERCOCET 5-325 MG TABLET 1 TABLET NEEDED ORALLY 1 Q4-6H PRN MDD4 3MOS SUPPLY CAT D CHRONIC PAIN, NOTES: 0800 TAKING XANAX 0.5 MG TABLET 1 TABLET ORALLY TWICE A DAY, NOTES: 0900 NOT-TAKING XELPROS 0.005 % EMULSION 1 NULL INTO AFFECTED EYE IN THE EVENING OPHTHALMIC ONCE A DAY NOT-TAKING LUMIGAN 0.03 % SOLUTION 1 DROP INTO AFFECTED EYE IN THE EVENING OPHTHALMIC ONCE A DAY NOT-TAKING SIMBRINZA 1-0.2 % SUSPENSION 1 DROP INTO AFFECTED EYE OPHTHALMIC THREE TIMES A DAY NOT-TAKING IBUPROFEN 400 MG TABLET 1 TABLET WITH FOOD OR MILK NEEDED ORALLY THREE TIMES A DAY NOT-TAKING CYCLOBENZAPRINE HCL 5 MG TABLET 1 TABLET NEEDED ORALLY THREE TIMES A DAY NOT-TAKING OXYCODONE HCL 10 MG TABLET 1 TABLET NEEDED ORALLY EVERY 6 HRS NOT-TAKING WARFARIN SODIUM 3 MG TABLET 1 TABLET ORALLY ONCE A DAY NOT-TAKING TYLENOL 325 MG TABLET 1 TABLET NEEDED ORALLY EVERY 4 HRS NOT-TAKING TYLENOL WITH CODEINE #3 300-30 MG TABLET 1 TABLET NEEDED ORALLY EVERY 6 HRS MEDICATION LIST REVIEWED AND RECONCILED WITH THE PATIENT PAST MEDICAL HISTORY HTN LEFT BRANCH BUNDLE BLOCK GLAUCOMA LEFT BUTTOCK PAIN 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 PNEUMONIA 10/2018 LUMBPSACRAL SPONDYLOSIS WITH RADICULOPATHY ALLERGIES KETOPROFEN: SLOWS KIDNEY FUNCTION - ALLERGY MACROBID: NAUSEA/VOMITING - ALLERGY BETA BLOCKERS: DIGESTIVE PROBLEMS - ALLERGY STATINS: DIGESTIVE PROBLEMS - ALLERGY CYMBALTA: ANAPHYLAXIS - ALLERGY TRAMADOL HCL: ANAPHYLAXIS - ALLERGY HYDROCODONE-ACETAMINOPHEN: ANAPHYLAXIS - ALLERGY SOMA: NAUSEA/VOMITING - ALLERGY SOCIAL HISTORY GENERAL: TOBACCO USE ARE YOU A:FORMER SMOKER HOW LONG HAS IT BEEN SINCE YOU LAST SMOKED?> 10 YEARS LATEX QUESTIONNAIRE LATEX ALLERGY : HAVE YOU EVER DEVELOPED ANY TYPE OF REACTION AFTER HANDLING LATEX PRODUCTS SUCH RUBBER GLOVES, CONDOMS, DIAPHRAGMS, BALLOONS, SOCKS, OR UNDERWEAR?NO LATEX ALLERGY : HAVE YOU EVER DEVELOPED ANY TYPE OF REACTION DURING OR AFTER DENTAL APPOINTMENT, VAGINAL/RECTAL EXAMINATION, SURGICAL PROCEDURE, OR ANY OTHER EXPOSURE?NO DATE ASKED : 02/08/2021 LATEX RISK : HAVE YOU EVER HAD ANY DIFFICULTY BREATHING OR HIVES AFTER EATING OR HANDLING ANY FRUITS, OR VEGETABLES; SUCH KIWI, BANANAS, STONE FRUITS, OR CHESTNUTSNO LATEX RISK : DO YOU HAVE A PREVIOUS PERSONAL HISTORY OF MORE THAN NINE SURGERIES, SPINA BIFIDA, OR REPEATED CATHERIZATIONS? NO LATEX RISK : ARE YOU FREQUENTLY EXPOSED TO LATEX PRODUCTS IN YOUR OCCUPATION?NO ALCOHOL USE: NO. ALCOHOL SCREENING DID YOU HAVE A DRINK CONTAINING ALCOHOL IN THE PAST YEAR?NO POINTS0 INTERPRETATIONNEGATIVE RECREATIONAL DRUG USE DRUG USE?NO CAFFEINE CAFFEINE USE?YES HOW OFTEN AND HOW MUCH? 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 N/A HAS THE PATIENT BEEN EDUCATED REGARDING HIS/HER PLAN OF CARE?YES HAS THE PATIENT BEEN EDUCATED REGARDING PAIN, THE RISK FOR PAIN, THE IMPORTANCE OF EFFECTIVE PAIN MANAGEMENT, AND THE PAIN ASSESSMENT PROCESS?YES ADVANCE DIRECTIVE ADVANCE DIRECTIVE DISCUSSED WITH PATIENT:YES PT. HAS HCP, JAME [facility]I - [phone] -PT ALSO HAS LIVING WILL, POA JAME MAI, NONHOSPITAL DNR REVIEWED WITH PT 01/26/18 1412REVIEWED WITH PT 02/06/18 0904 BV02/19/18 1055 REVIEWED WITH PT. AD05/11/18 1352 REVIEWED WITH PT LASREVIEWED WITH PATIENT 06/22/18 1049 JS05/27/19 1435 REVIEWED WITH PT. ADREVIEWED WITH PATIENT 03/11/19 0937 JS02/09/19 REVIEWED WITH PT. ADREVIEWED WITH PATIENT 12/22/18 1300 BVREVIEWED WITH PATIENT 04-23-19 1420 BV. VITAL SIGNS WT 126.4 LBS, HT 61 IN, BMI 23.88 INDEX, BP 133/63 MM HG, HR 67 /MIN, RR 18 /MIN, TEMP 96.6 F, OXYGEN SAT % 92%, SAFE IN ENV? (Y/N) YES, NA INITIALS AW 1135, REVIEWED BY: APA. EDY RN. EXAMINATION GENERAL: THE PATIENT IS ALERT, ORIENTED TIMES THREE AND COOPERATIVE. LUNGS ARE CLEAR TO AUSCULTATION. HEART SHOWS REGULAR RHYTHM, NO MURMURS AND NO GALLOPS. ASSESSMENTS SPONDYLOSIS WITHOUT MYELOPATHY OR RADICULOPATHY, LUMBAR REGION - M47.816 (PRIMARY) SPONDYLOSIS WITHOUT MYELOPATHY OR RADICULOPATHY, LUMBOSACRAL REGION - M47.817 TREATMENT SPONDYLOSIS WITHOUT MYELOPATHY OR RADICULOPATHY, LUMBAR REGION LAB: FINGERSTICK BLOOD SUGAR ALEXANDER BUSBY 03/13/2021 1:42:17 PM > 90MG/DL [facility] FACET BLOCK (PAIN)[id number] MEDICATION: PAIN VALIUM TAB 5MG ORALLY (DIAZEPAM)ALEXANDER BUSBY 03/13/2021 12:52:11 PM > VERIFIED. ALEIDA SNOWIL Rigo 03/13/2021 12:55:56 PM > VERIFIED EDYLACY R 03/13/2021 12:57:22 PM > ADMINISTERED OXYGEN AT 2 LITERS PER [place],RIO MED[place] 03/13/2021 1:40:26 PM > ON: 1315. SAMREEN SNOWGAIL Rigo 03/13/2021 2:40:18 PM > 02 REMOVED AT 1427 [facility] 03/13/2021 1:41:24 PM > 22G SALINE LOCK OBTAINED IN LEFT HAND, ON FIRST ATTEMPT, POSITIVE FLASH, POSITIVE FLUSH, GOOD BLOOD RETURN NOTED, PATIENT TOLERATED PROCEDURE WELL ALEIDA SNOWIL R 03/13/2021 2:39:08 PM > SITE DISCONTINUED. CATHETER INTACT, BLEEDING CONTROLLED, DSD APPLIED. MEDICATION: PAIN OXYCODONE HCL TAB 10MG ORALLYSALMA BUSBYISSA 03/13/2021 12:52:25 PM > VERIFIED. EDYLACY R 03/13/2021 12:56:14 PM > VERIFIED EDYLACY R 03/13/2021 12:57:39 PM > ADMINISTERED COMPLETION OF PROCEDURAL VISIT WHEN MEETS CRITERIAPELACY RICH[place]D R 03/13/2021 2:41:20 PM > CRITERIA MET OTHERS NOTES: PAT DONE 03/08/21 EM. PROCEDURES PAIN NURSING RECORD PROCEDURE IN ROOM 1333, PHYSICIAN IN ROOM 1354, START 1400, FINISH 1404, PHYSICIAN OUT OF ROOM 1406, OUT OF ROOM 08286, ECG N/A PACED LEFT BUNDLE BRANCH BLOCK, PATIENT SHIELDED YES, SAFETY STRAP YES, PREP CHLOROPREP Deirdre SNOW RN, DRESSING TEGADERM DR. SABILLON LOC: PETRAS,LACY R 03/13/2021 2:00:51 PM > , 1. ALERT, ORIENTED RESP: PETRAS,LACY R 03/13/2021 2:00:55 PM > , 1. REGULAR, NO DYSPNEA WITH 2L [address] COLOR: PETRAS,LACY R 03/13/2021 2:01:08 PM > , 1. PINK SKIN: PETRAS,LACY R 03/13/2021 2:01:10 PM > , 1. WARM, DRY POSITION: PETRAS,LACY R 03/13/2021 2:01:14 PM > , 1. PRONE VITALS: ALEXANDER BUSBY 03/13/2021 1:19:28 PM > 141/69, 68, 99% O2 2L NC, 16, BS 90. PETRAS,LACY R 03/13/2021 1:27:27 PM > 145/79, 62, 18, 98% O2 2L NC PETRAS,LACY R 03/13/2021 1:35:47 PM > 170/82, 60, 18, 100% 02 2L NC PETRAS,LACY R 03/13/2021 1:40:14 PM > ,173/84, 60, 18, 100% 2L 02 NC PETRAS,LACY R 03/13/2021 1:45:47 PM > , 159/67, 60, 18, 100% 2L 02 NC PETRAS,LACY R 03/13/2021 1:50:18 PM > , 153/57, 60, 98% 2L 02 NC PETRAS,LACY R 03/13/2021 1:55:43 PM > , 143/63, 61, 18, 99% 2L 02 NC PETRAS,LACY R 03/13/2021 1:58:23 PM > 153/87, 61, 16, 99% 2L 02 NC PETRAS,LACY R 03/13/2021 2:02:41 PM >143/63, 60, 16, 100% 2L 02 NC SAMREEN SNOWGAIL R 03/13/2021 2:07:52 PM > 147/68, 60, 16, 98% 2L 02 NC PETRJOVANYLACY R 03/13/2021 2:25:52 PM > 167/79, 69, 18, 95% ON RA NOTES ALEXANDER BUSBY 03/13/2021 1:22:52 PM > 15 MINUTE POST PRE SEDATE PATIENT FOUND TO BE LETHERGIC, RESPONSIVE TO VOICE, PATIENT APPEARED PALE, SPO2: 86% RA. CERAMIC CAPACITOR PROCESSOR PLACED PATIENT ON OXYGEN AT 2L VIA NC, CERAMIC CAPACITOR PROCESSOR NOTIFIED ATTENDING PHYSICIAN, DR. SABILLON. COMPLETION OF PROCEDURE APPOINTMENT: POST PAIN 5, DRESSING SITE DRY AND INTACT, IV DISCONTINUED, SITE CLEAR, CATHETER INTACT, GAIT WHEELCHAIR, TEACHING COMPLETED, PATIENT ACKNOWLEDGES UNDERSTANDING YES, PROCEDURE APPOINTMENT COMPLETED AT 1445 BY: Deirdre SNOW RN PN LUMBAR FACET BLOCK THERAPEUTIC PRE PROCEDURE DIAGNOSIS LUMBAR SPONDYLOSIS, LUMBOSACRAL SPONDYLOSIS POST PROCEDURE DIAGNOSIS LUMBAR SPONDYLOSIS, LUMBOSACRAL SPONDYLOSIS PROCEDURE BILATERAL L4-L5 AND BILATERAL L5-S1 LUMBAR FACET THERAPEUTIC BLOCK SURGEON DR. MICHAEL SABILLON COMMUNITY SERVICE COORDINATOR NONE ANESTHESIA LOCAL PRE PROCEDURE NOTE THE PATIENT HAS A HISTORY OF CHRONIC LOW BACK PAIN. I EVALUATED THE PATIENT AND REVIEWED THE CHART. I WENT OVER THE RISKS, ALTERNATIVES, AND BENEFITS ASSOCIATED WITH THIS PROCEDURE. THE PATIENT WOULD LIKE TO PROCEED AND GIVES CONSENT TO PERFORM THE PROCEDURE. THE PATIENT DENIES UNEXPLAINABLE WEIGHT LOSS, FEVER, CHILLS, OR NEW CHANGES IN URINARY OR BOWEL CONTROL. THE PATIENT IS COVID-19 NEGATIVE DESCRIPTION OF PROCEDURE THE PATIENT WAS BROUGHT TO THE PROCEDURE ROOM AND PLACED IN THE PRONE POSITION. THE LUMBOSACRAL AREA WAS CLEANED WITH CHLORAPREP SOLUTION AND DRAPED ASEPTICALLY. THE PROCEDURE WAS DONE UNDER STERILE CONDITIONS. A TIMEOUT WAS PERFORMED WHERE THE CONSENTED SITE WAS VERIFIED WITH EVERYONE IN THE ROOM. UNDER FLUOROSCOPIC GUIDANCE, THE TARGET POINT WAS SELECTED AT THE RIGHT AND LEFT L4-L5 AND RIGHT AND LEFT L5-S1 FACET JOINTS. TARGET POINT WAS SELECTED AFTER LATERAL ROTATION AND TILT OF THE MAGNIFIER OF THE C-ARM. I CONFIRMED AGAIN THE SITE OF TARGET. LIDOCAINE 0.5% WAS USED TO NUMB THE SKIN AND THE SUBCUTANEOUS TISSUE BELOW IT. SPINAL NEEDLES, 22-GAUGE, WERE ADVANCED UNDER FLUOROSCOPIC GUIDANCE AND FOLLOWING PATIENT FEEDBACK UNTIL THE TARGETS WERE TOUCHED. THE POSITION OF THE NEEDLES WAS VERIFIED WITH AP AND LATERAL VIEWS. AFTER PROPER POSITION OF THE NEEDLES WAS ACHIEVED, ISOVUE-M DYE 30%, 0.1 ML, WAS INJECTED SHOWING ADEQUATE SPREAD OF THE DYE. KENALOG 10 MG WAS INJECTED AT EACH SITE. THEN, A SOLUTION OF 1.0 ML OF BUPIVACAINE 0.125% OF WAS USED TO FLUSH EACH SITE. THE MEDICATION WAS VERIFIED WITH THE NURSE. THERE WAS NO EVIDENCE OF BLOOD, PARESTHESIA OR CEREBROSPINAL FLUID DURING THE PROCEDURE. THE PATIENT WAS SENT TO THE RECOVERY ROOM. THE PATIENT WAS MOVING THE EXTREMITIES AND DOING WELL. THERE WERE NO COMPLICATIONS DURING THE PROCEDURE. ESTIMATED BLOOD LOSS WAS LESS THAN 5 ML. FLUOROSCOPY TIME WAS 47 SECONDS POST PROCEDURE NOTE DEPENDING ON THE RESULTS, WE CAN LOOK FOR OTHER SOLUTIONS. THE PATIENT WILL BE SEEN IN A FOLLOW UP IN THE NEXT FEW WEEKS. I AM LOOKING FOR LONG LASTING RELIEF FOR THE PATIENT WITH THIS INTERVENTION. INSTRUCTIONS WERE GIVEN, QUESTIONS WERE ANSWERED, AND THE PATIENT EXPRESSED UNDERSTANDING AND AGREES WITH THE PLAN. I, ELIZABET STOVALL, DOCUMENTED THE ABOVE INFORMATION ACTING A SCRIBE FOR DR. SABILLON. I HAVE REVIEWED THE ABOVE DOCUMENT, WRITTEN BY ELIZABET STOVALL, LABORER POULTRY HATCHERY, AND I VERIFY THAT IT IS ACCURATE PROCEDURE CODES 94218 INJ PARAVERT F JNT L/S 1 LEV, MODIFIERS: 50 [id number] INJ PARAVERT F JNT L/S 2 LEV, MODIFIERS: 50 DISPOSITION & COMMUNICATION FOLLOW UP F/UP WITH RAJESH HOOK (REASON: POST PROCEDURE/MEDICATION MANAGEMENT) ELECTRONICALLY SIGNED BY MICHAEL SABILLON MD, MD ON 03/15/2021 AT 11:19 AM EDT DISCLAIMER : THIS IS A VISIT SUMMARY EXTRACTED FROM THE [employer] CHART. IT IS NOT A COPY OF THE [employer] PROGRESS NOTE. MARIEL
== END ==
LOC: M PAIN 11:00
PROVIDERS: ATTEND Anesthesiology
DX: M47.816 Spondylosis without myelopathy or radiculopathy, lumbar region (principal); M47.27 Other spondylosis with radiculopathy, lumbosacral region; I10 Essential (primary) hypertension; H40.9 Unspecified glaucoma; I44.7 Left bundle-branch block, unspecified; Z87.891 Personal history of nicotine dependence; Z79.891 Long term (current) use of opiate analgesic; Z79.899 Other long term (current) drug therapy; Z79.82 Long term (current) use of aspirin; Z88.1 Allergy status to other antibiotic agents; Z88.5 Allergy status to narcotic agent; Z88.8 Allergy status to other drugs, medicaments and biological substances; Z86.711 Personal history of pulmonary embolism; Z86.73 Personal history of transient ischemic attack (TIA), and cerebral infarction without residual deficits
CPT/HCPCS: 64493; 64494; J3301; Q9967

== ENCOUNTER 2021-03-14 14:17 | Emergency (ER) | payer MEDICARE, OTHER ==
[~2021-03-14] VITALS: Ht 154.9 cm; Wt 55.9 kg
[~2021-03-14 14:17] MED LIST changes: -BUPIVACAINE HCL 0.25% 30ML VIAL As Ordered ONE; -ISOVUE-M 300 61% 15ML VIAL As Ordered ONE; -LIDOCAINE 1% SDV 30ML VIAL As Ordered ONE; -TRIAMCINOLONE ACETONIDE SUSP 40 MG/ML VIAL (J3301) As Ordered ONE; -diazePAM 5MG TABLET As Ordered ONE; -oxyCODONE 5MG TAB As Ordered ONE
[2021-03-14] MEDS ORDERED: ISOVUE-370 76% 100ML VIAL As Ordered ONE (15:20)
[2021-03-14 15:25] LABS: BASO % 0.3 % (0.0-1.0); EOS # 0.1 10^3/uL (0.0-0.5); EOS % 1.3 % (0.0-3.0); HEMATOCRIT 38.8 % (36.0-47.0); HEMOGLOBIN 12.6 g/dl (12.0-15.5); LYMPH # 1.2 10^3/uL (1.5-5.0); LYMPH % 16.4 % (24.0-44.0); MEAN CORPUSCULAR HEMOGLOBIN 30.7 pg (27.0-33.0); MEAN CORPUSCULAR HGB CONC 32.5 g/dl (32.0-36.5); MEAN CORPUSCULAR VOLUME 94.4 fl (80.0-96.0); MONO # 0.7 10^3/uL (0.0-0.8); MONO % 9.3 % (2.0-8.0); NEUTROPHILS # 5.4 10^3/uL (1.5-8.5); NEUTROPHILS % 72.2 % (36.0-66.0); PLATELET COUNT, AUTOMATED 379 10^3/uL (150-450); RED BLOOD COUNT 4.11 10^6/uL (4.00-5.40); WHITE BLOOD COUNT 7.5 10^3/uL (4.0-10.0)
[2021-03-14 15:51] LABS: CK-MB VALUE MASS 3.3 NG/ML (<3.6); CPK CREATINE PHOSPHOKINASE 132 U/L (26-192); MAGNESIUM LEVEL 2.1 MG/DL (1.8-2.4); TROPONIN I < 0.02 NG/ML (< 0.10)
--- NOTE | 2021-03-14 16:01 | REP ---
INDICATION: rule out PE. COMPARISON: None. TECHNIQUE: Contrast dose: 75 ML of Isovue [address] technique: Helical scanning is acquired and overlapping 1.5 mm and contiguous 3 mm axial images are reformatted. In addition, maximum intensity projection and multiplanar re-formation images are generated in sagittal and coronal imaging projections. FINDINGS: There is good opacification in the pulmonary arterial tree. There is no evidence of vessel cut off or filling defect to suggest pulmonary embolus. Homogeneous opacity is seen in the thoracic aorta. There is no evidence of aneurysm or dissection. There is minimal platelike atelectasis in the left lower lobe. There is no evidence of pleural or pericardial effusion. Pacemaker is noted in the right heart. No hilar or mediastinal mass or adenopathy is observed. Lung window settings demonstrate there is no evidence of infiltrate. In the upper abdomen, normal adrenal glands are seen. Visualized upper abdominal structures are unremarkable. No bony destructive lesion is seen. IMPRESSION: No CT evidence of pulmonary embolus. Pacemaker noted. Minimal platelike atelectasis left lower lobe. No active disease. <Electronically signed by Shahram Alexandra > 03/14/21 [id number]
[2021-03-14 17:05] VITALS: BP 145/70
--- NOTE | 2021-03-15 07:42 | ECGEPIP ---
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
== END 2021-03-14 17:39 | disposition home or self-care (01) ==
LOC: M ED 14:17 → EDBD 14:17 → M ED 17:39
DX: R53.1 Weakness (principal); E86.0 Dehydration; T88.7XXA Unspecified adverse effect of drug or medicament, initial encounter; I44.7 Left bundle-branch block, unspecified; R91.8 Other nonspecific abnormal finding of lung field; E78.5 Hyperlipidemia, unspecified; I10 Essential (primary) hypertension; Z86.73 Personal history of transient ischemic attack (TIA), and cerebral infarction without residual deficits; Z95.0 Presence of cardiac pacemaker; Z79.82 Long term (current) use of aspirin; Z79.899 Other long term (current) drug therapy; Z88.8 Allergy status to other drugs, medicaments and biological substances; Z88.6 Allergy status to analgesic agent
CPT/HCPCS: 71275; 80047; 82550; 82553; 83735; 84484; 85025; 93005; 99285; Q9967

== ENCOUNTER → 2021-03-15 | Outpatient (CLI) | payer MEDICARE, OTHER ==
--- NOTE | 2021-03-15 23:15 | ECWPNPC ---
PATIENT NAME: MIREYA PAREDES : 1940 GENDER: FEMALE VISIT DATE: 03/15/2021 DISCHARGE DATE: 03/15/21 1043 VISIT LOCKED DATE TIME: PHYSICIAN: RAJESH FELIX RESOURCE: RAJESH FELIX REASON FOR APPOINTMENT 1. POST BILATERAL THERAPEUTIC LUMBAR FACET BLOCK L4-5,L5-S1 PER DR. Erwin HISTORY OF PRESENT ILLNESS GENERAL: HERE FOR FOLLOW-UP OF CHRONIC LOW BACK PAIN AND POST PROCEDURE VISIT. HAD BILATERAL THERAPEUTIC LUMBAR BLOCK L4-5 L5-S1 ON 03/13/2021. REPORTING SOME IMPROVEMENT TODAY. OVERALL SHE HAS NOT BEEN FEELING WELL OVER THE PAST FEW MONTHS. STATES SHE IS FEELING WEAK. SHE HAS LOST OVER 10 POUNDS SINCE JANUARY. SHE HAS AN APPOINTMENT COMING UP WITH PRIMARY CARE. STATES PAIN IS SO BAD THAT IT IS HARD FOR HER TO FAMILY PRACTITIONER THE SHOWER. REVIEWED HER MEDICATION. ON A FEW OCCASIONS SHE HAS TAKEN 5 TABLETS OF PERCOCET 5/325. WE DISCUSSED THE FACT THAT SHE CANNOT ADJUST PAIN MEDICATION ON HER OWN UNDER NO CIRCUMSTANCES. TODAY WE DISCUSSED THE PLAN TO ALLOW HER TO HAVE ON OCCASION 5 TABLETS/DAY OF PERCOCET 5/325. -. FALL RISK SCREENING: SCREENING : NO FALLS REPORTED IN THE LAST YEAR. PAIN SCREENING: PATIENT HAS A COMPLAINT OF ACUTE OR CHRONIC PAIN :YES LOCATION OF PAIN:LOW BACK INTENSITY OF PAIN (SCALE OF 1 TO 10):4 WHAT DOES YOUR PAIN FEEL LIKE:ACHING, BURNING, CONTINOUS DURATION:CONTINOUS, CONSTANT, ALL DAY PAIN IS INCREASED BY:OTHERS NOTHING PAIN IS DECREASED BY:OTHERS NOTHING NURSING NOTE: -. PAIN CENTER INTAKE QUESTIONS: DO YOU HAVE A HISTORY OF MRSA? :NO DO YOU TAKE A BLOOD THINNERS? :NO ASPIRIN ADULT LOW DOSE 81 MG DO YOU HAVE ANY BLEEDING DISORDERS? :NO ANY NEW NUMBNESS OR WEAKNESS IN YOUR LEGS OR ARMS? :YES PAIN IN THE RIGHT SHOULDER DOWN INTO BOTH HIPS ANY PACEMAKER,DEFIBRILLATOR, OR DORSAL COLUMN STIMULATOR? :YES PACEMAKER DO YOU HAVE ANY RASHES OR OPEN SORES? :NO ARE YOU ALLERGIC TO IV DYE? :NO ARE YOU DIABETIC? :NO ANY NEW PROBLEMS WITH YOUR MEDICATIONS? :NO HAVE YOU RECEIVED A VACCINE IN THE PAST 30 DAYS? :NO DO YOU PLAN TO RECEIVE A VACCINE IN THE NEXT 21 DAYS? :NO DO YOU NEED ANY PRESCRIPTION? :NO DO YOU TAKE ANY IMMUNOSUPPRESSIVE MEDICATIONS? :NO IS THERE A CHANCE YOU COULD BE ? :NO ARE YOU BREAST FEEDING? :NO CURRENT MEDICATIONS TAKING ZOLOFT 100 MG TABLET 1 TABLET ORALLY ONCE A DAY TAKING ZYPREXA 2.5 MG TABLET 1 TABLET ORALLY BEFORE BEDTIME TAKING LIPITOR 10 MG TABLET 1 TABLET ORALLY ONCE A DAY TAKING NORVASC 5MG TABLET 1 TAB DAILY TAKING ASPIRIN ADULT LOW DOSE 81 MG TABLET DELAYED RELEASE 1 TABLET ORALLY ONCE A DAY TAKING COLACE 100 MG CAPSULE 1 CAPSULE NEEDED ORALLY ONCE A DAY TAKING LUMIGAN 0.01 % SOLUTION 1 DROP INTO AFFECTED EYE IN THE EVENING OPHTHALMIC ONCE A DAY TAKING PERCOCET 5-325 MG TABLET 1 TABLET NEEDED ORALLY 1 Q4-6H PRN MDD4 3MOS SUPPLY CAT D CHRONIC PAIN TAKING XANAX 0.5 MG TABLET 1 TABLET ORALLY TWICE A DAY NOT-TAKING XELPROS 0.005 % EMULSION 1 NULL INTO AFFECTED EYE IN THE EVENING OPHTHALMIC ONCE A DAY NOT-TAKING LUMIGAN 0.03 % SOLUTION 1 DROP INTO AFFECTED EYE IN THE EVENING OPHTHALMIC ONCE A DAY NOT-TAKING SIMBRINZA 1-0.2 % SUSPENSION 1 DROP INTO AFFECTED EYE OPHTHALMIC THREE TIMES A DAY NOT-TAKING IBUPROFEN 400 MG TABLET 1 TABLET WITH FOOD OR MILK NEEDED ORALLY THREE TIMES A DAY NOT-TAKING CYCLOBENZAPRINE HCL 5 MG TABLET 1 TABLET NEEDED ORALLY THREE TIMES A DAY NOT-TAKING OXYCODONE HCL 10 MG TABLET 1 TABLET NEEDED ORALLY EVERY 6 HRS NOT-TAKING WARFARIN SODIUM 3 MG TABLET 1 TABLET ORALLY ONCE A DAY NOT-TAKING TYLENOL 325 MG TABLET 1 TABLET NEEDED ORALLY EVERY 4 HRS NOT-TAKING TYLENOL WITH CODEINE #3 300-30 MG TABLET 1 TABLET NEEDED ORALLY EVERY 6 HRS MEDICATION LIST REVIEWED AND RECONCILED WITH THE PATIENT PAST MEDICAL HISTORY HTN LEFT BRANCH BUNDLE BLOCK GLAUCOMA LEFT BUTTOCK PAIN 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 PNEUMONIA 10/2018 LUMBPSACRAL SPONDYLOSIS WITH RADICULOPATHY ALLERGIES KETOPROFEN: SLOWS KIDNEY FUNCTION - ALLERGY MACROBID: NAUSEA/VOMITING - ALLERGY BETA BLOCKERS: DIGESTIVE PROBLEMS - ALLERGY STATINS: DIGESTIVE PROBLEMS - ALLERGY CYMBALTA: ANAPHYLAXIS - ALLERGY TRAMADOL HCL: ANAPHYLAXIS - ALLERGY HYDROCODONE-ACETAMINOPHEN: ANAPHYLAXIS - ALLERGY SOMA: NAUSEA/VOMITING - ALLERGY SOCIAL HISTORY GENERAL: TOBACCO USE ARE YOU A:FORMER SMOKER HOW LONG HAS IT BEEN SINCE YOU LAST SMOKED?> 10 YEARS LATEX QUESTIONNAIRE LATEX ALLERGY : HAVE YOU EVER DEVELOPED ANY TYPE OF REACTION AFTER HANDLING LATEX PRODUCTS SUCH RUBBER GLOVES, CONDOMS, DIAPHRAGMS, BALLOONS, SOCKS, OR UNDERWEAR?NO LATEX ALLERGY : HAVE YOU EVER DEVELOPED ANY TYPE OF REACTION DURING OR AFTER DENTAL APPOINTMENT, VAGINAL/RECTAL EXAMINATION, SURGICAL PROCEDURE, OR ANY OTHER EXPOSURE?NO LATEX RISK : HAVE YOU EVER HAD ANY DIFFICULTY BREATHING OR HIVES AFTER EATING OR HANDLING ANY FRUITS, OR VEGETABLES; SUCH KIWI, BANANAS, STONE FRUITS, OR CHESTNUTSNO LATEX RISK : DO YOU HAVE A PREVIOUS PERSONAL HISTORY OF MORE THAN NINE SURGERIES, SPINA BIFIDA, OR REPEATED CATHERIZATIONS? NO LATEX RISK : ARE YOU FREQUENTLY EXPOSED TO LATEX PRODUCTS IN YOUR OCCUPATION?NO DATE ASKED : 03/15/2021 ALCOHOL USE: NO. ALCOHOL SCREENING DID YOU HAVE A DRINK CONTAINING ALCOHOL IN THE PAST YEAR?NO POINTS0 INTERPRETATIONNEGATIVE RECREATIONAL DRUG USE DRUG USE?NO CAFFEINE CAFFEINE USE?YES HOW OFTEN AND HOW MUCH? 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 WHEELING WALKER ADDRESS CHANGE CLERK NEEDED?NO DOMESTIC VIOLENCE DO YOU FEEL SAFE IN YOUR ENVIRONMENT?YES - WAS THE PROVIDER NOTIFIED OF ANY PERTINENT INFO? N/A HAS THE PATIENT BEEN EDUCATED REGARDING HIS/HER PLAN OF CARE?YES HAS THE PATIENT BEEN EDUCATED REGARDING PAIN, THE RISK FOR PAIN, THE IMPORTANCE OF EFFECTIVE PAIN MANAGEMENT, AND THE PAIN ASSESSMENT PROCESS?YES ADVANCE DIRECTIVE ADVANCE DIRECTIVE DISCUSSED WITH PATIENT:YES PT. HAS HCP, JAME MAI - [phone] -PT ALSO HAS LIVING WILL, CLAIR MAI, NONHOSPITAL DNR REVIEWED WITH PT 01/26/18 1412REVIEWED WITH PT 02/06/18 0904 BV02/19/18 1055 REVIEWED WITH PT. AD05/11/18 1352 REVIEWED WITH PT LASREVIEWED WITH PATIENT 06/22/18 1049 JS05/27/19 1435 REVIEWED WITH PT. ADREVIEWED WITH PATIENT 03/11/19 0937 JS02/09/19 REVIEWED WITH PT. ADREVIEWED WITH PATIENT 12/22/18 1300 BVREVIEWED WITH PATIENT 04-23-19 1420 BV. REVIEW OF SYSTEMS CONSTITUTIONAL: ANY RECENT FEVER NO . CHILLS NO . WEIGHT CHANGE OF UNKNOWN REASONS NO . GASTROENTEROLOGY: NEW UNEXPLAINABLE CHANGES IN BOWEL CONTROL NO . CONSTIPATION NO . GENITOURINARY: ANY NEW CHANGE IN BLADDER CONTROL? NO . NEUROLOGY: NEW ONSET DIZZINESS OR NEUROLOGICAL CHANGES NOT MENTIONED NO . NEW NUMBNESS OR PAIN PATTERNS NOT MENTIONED AND PERTINENT TO TODAY'S VISIT NO . CARDIOLOGY: NEW CHEST PRESSURE NO . PATIENT DENIES NO . RESPIRATORY: UNEXPLAINABLE COUGH NO . VITAL SIGNS WT 126 LBS, HT 61 IN, BMI 23.80 INDEX, BP 150/67 MM HG, HR 63 /MIN, RR 18 /MIN, TEMP 97.5 F, OXYGEN SAT % 96%, SAFE IN ENV? (Y/N) YEST.NELLIE CHAVEZ. EXAMINATION GENERAL EXAMINATION: GENERALAWAKE,ALERT ,PLEASANT . PSYCHAFFECT NORMAL . LUNGS:LUNG BOWERS ARE CLEAR TO AUSCULTATION BILATERALLY. GOOD MOVEMENT OF AIR . HEART:S1, S2 IN A REGULAR RATE AND RHYTHM. NO SIGNIFICANT MURMURS, RUBS OR GALLOPS NOTED . ASSESSMENTS OTHER CHRONIC PAIN - G89.29 (PRIMARY) SPONDYLOSIS WITHOUT MYELOPATHY OR RADICULOPATHY, LUMBAR REGION - M47.816 TREATMENT OTHER CHRONIC PAIN INCREASE PERCOCET TABLET, 10-325 MG, 1/2 TO 1 TAB, ORALLY, Q6-8HR PRN PAIN MDD3 3MOS SUPPLY CATD CHRONIC PAIN, 90 DAY(S), 270, REFILLS 0 PAIN PROCEDURE LOGDATE OF PROCEDURE1PROCEDURE:BILATERAL THERAPEUTIC LUMBAR FACET BLOCK L4-L5,L5-D5VNEYJD OF PRE SEDATEVALIUM 5MG, OXYCODONE 10MGRESULT:IMPROVEMENT NOTES: ISTOP REGISTRY REVIEWED AND DEMONSTRATES COMPLLIANCE. RECENT URINE TOXICOLOGY REVIEWED. NO UNAUTHORIZED MEDICATIONS. NO ILLICIT SUBSTANCES AND PRESCRIBED MEDICATIONS WERE PRESENT. TODAY WE WILL INCREASE OXYCODONE TO 10/325 MG STRENGTH, HALF TABLET TO 1 FULL TABLET EVERY 6-8 HOURS NEEDED FOR PAIN. MAXIMUM DAILY DOSE IS 3 TABLETS. A 90-DAY SUPPLY IS ISSUED. FOLLOW-UP AT PAIN CLINIC IN 2 MONTHS. PROCEDURE CODES FA211 ESTABILISHED PATIENT [facility] FACILITY CHARGE DISPOSITION & COMMUNICATION FOLLOW UP 2 MONTHS (REASON: MED MGNT/AFTER INCREASE OF OXYCODONE) ELECTRONICALLY SIGNED BY DIANA WILSON ON 03/15/2021 AT 01:22 PM EDT DISCLAIMER : THIS IS A VISIT SUMMARY EXTRACTED FROM THE [employer] CHART. IT IS NOT A COPY OF THE [employer] PROGRESS NOTE. DEVANGD
== END ==
LOC: M PAIN 09:45
PROVIDERS: ATTEND Nurse Practitioner Family
DX: G89.29 Other chronic pain (principal); M47.816 Spondylosis without myelopathy or radiculopathy, lumbar region; I44.7 Left bundle-branch block, unspecified; I10 Essential (primary) hypertension; H40.9 Unspecified glaucoma; Z86.73 Personal history of transient ischemic attack (TIA), and cerebral infarction without residual deficits; M47.27 Other spondylosis with radiculopathy, lumbosacral region; Z86.711 Personal history of pulmonary embolism; Z87.891 Personal history of nicotine dependence; Z79.891 Long term (current) use of opiate analgesic; Z79.82 Long term (current) use of aspirin; Z79.899 Other long term (current) drug therapy; Z88.1 Allergy status to other antibiotic agents; Z88.8 Allergy status to other drugs, medicaments and biological substances; Z88.5 Allergy status to narcotic agent

== ENCOUNTER → 2021-05-04 | Outpatient (CLI) | payer MEDICARE, OTHER | LOC: M PAIN 14:00 | PROVIDERS: ATTEND Anesthesiology | DX: M51.16 Intervertebral disc disorders with radiculopathy, lumbar region (principal); M48.062 Spinal stenosis, lumbar region with neurogenic claudication; R25.1 Tremor, unspecified; I10 Essential (primary) hypertension; H40.9 Unspecified glaucoma; Z86.73 Personal history of transient ischemic attack (TIA), and cerebral infarction without residual deficits; Z86.711 Personal history of pulmonary embolism; I44.7 Left bundle-branch block, unspecified; Z87.891 Personal history of nicotine dependence; Z79.82 Long term (current) use of aspirin; Z79.891 Long term (current) use of opiate analgesic; Z79.899 Other long term (current) drug therapy; Z88.1 Allergy status to other antibiotic agents; Z88.5 Allergy status to narcotic agent; Z88.8 Allergy status to other drugs, medicaments and biological substances ==

== ENCOUNTER → 2021-06-20 | Outpatient (CLI) | payer MEDICARE, OTHER | LOC: M LABSMTC 10:14 | PROVIDERS: ATTEND Anesthesiology | DX: Z01.812 Encounter for preprocedural laboratory examination (principal); Z20.822 Contact with and (suspected) exposure to COVID-19 ==

== ENCOUNTER → 2021-06-21 | Outpatient (CLI) | payer MEDICARE, OTHER | LOC: M PAIN 14:15 | PROVIDERS: ATTEND Anesthesiology | DX: M51.16 Intervertebral disc disorders with radiculopathy, lumbar region (principal); M48.062 Spinal stenosis, lumbar region with neurogenic claudication; G89.29 Other chronic pain; Z86.711 Personal history of pulmonary embolism; Z87.891 Personal history of nicotine dependence; Z96.0 Presence of urogenital implants; Z88.1 Allergy status to other antibiotic agents; Z88.5 Allergy status to narcotic agent; Z88.8 Allergy status to other drugs, medicaments and biological substances; Z79.82 Long term (current) use of aspirin; Z79.891 Long term (current) use of opiate analgesic; Z79.899 Other long term (current) drug therapy ==

== ENCOUNTER → 2021-06-25 | Outpatient (CLI) | payer MEDICARE, OTHER ==
[~2021-06-25] MED LIST changes: +BUPIVACAINE HCL 0.25% 30ML VIAL As Ordered ONE; +ISOVUE-M 300 61% 15ML VIAL As Ordered ONE; +LIDOCAINE 1% SDV 30ML VIAL As Ordered ONE; +dexameTHASONE 10MG/1ML VIAL PRES.FREE (J1100 PER 1MG) As Ordered ONE; +diazePAM 2 MG TAB As Ordered ONE; +oxyCODONE 5MG TAB As Ordered ONE
--- NOTE | 2021-06-26 09:14 | REP ---
INDICATION: BILATERAL TRANSFORAMINAL EPIDURAL STEROID INJECTION L3-L4. COMPARISON: None. TECHNIQUE: C-arm fluoroscopic images provided for bilateral transforaminal epidural steroid injection at L3-[address] Lai of the pain clinic. FINDINGS: Catheters overlie the foramina at L3-4 1st on the right and on the left. Fluoroscopic observation of the but dural contrast/steroid mixture into the foramina at these levels. IMPRESSION: 1. Status post bilateral transforaminal epidural steroid injection at L3-4. 2. Fluoroscopy time uppercase 66 seconds. <Electronically signed by Carlos Alberto Graf > 06/26/21 [id number]
== END ==
LOC: M PAIN 13:45
PROVIDERS: ATTEND Anesthesiology
DX: M51.16 Intervertebral disc disorders with radiculopathy, lumbar region (principal); Z86.711 Personal history of pulmonary embolism; Z95.0 Presence of cardiac pacemaker; Z87.891 Personal history of nicotine dependence; Z88.1 Allergy status to other antibiotic agents; Z88.5 Allergy status to narcotic agent; Z88.8 Allergy status to other drugs, medicaments and biological substances; Z79.82 Long term (current) use of aspirin; Z79.899 Other long term (current) drug therapy
CPT/HCPCS: 64483; J1100; Q9967

== ENCOUNTER → 2021-12-14 | Outpatient (CLI) | payer OTHER ==
[~2021-12-14] MED LIST changes: -BUPIVACAINE HCL 0.25% 30ML VIAL As Ordered ONE; -ISOVUE-M 300 61% 15ML VIAL As Ordered ONE; -LIDOCAINE 1% SDV 30ML VIAL As Ordered ONE; -dexameTHASONE 10MG/1ML VIAL PRES.FREE (J1100 PER 1MG) As Ordered ONE; -diazePAM 2 MG TAB As Ordered ONE; -oxyCODONE 5MG TAB As Ordered ONE
== END ==
LOC: M PAIN 10:30
PROVIDERS: ATTEND Nurse Practitioner Family
DX: M51.16 Intervertebral disc disorders with radiculopathy, lumbar region (principal); M48.062 Spinal stenosis, lumbar region with neurogenic claudication; G89.29 Other chronic pain; Z86.711 Personal history of pulmonary embolism; Z95.0 Presence of cardiac pacemaker; Z87.891 Personal history of nicotine dependence; Z88.8 Allergy status to other drugs, medicaments and biological substances; Z79.82 Long term (current) use of aspirin; Z79.899 Other long term (current) drug therapy

== ENCOUNTER → 2022-01-07 | Outpatient (CLI) | payer MEDICARE | LOC: M PLAIMG 10:11 | PROVIDERS: ATTEND Nurse Practitioner Family | DX: M51.16 Intervertebral disc disorders with radiculopathy, lumbar region (principal); M25.78 Osteophyte, vertebrae; M48.061 Spinal stenosis, lumbar region without neurogenic claudication ==

== ENCOUNTER → 2022-03-14 | Outpatient (CLI) | payer OTHER | LOC: M PAIN 10:30 | PROVIDERS: ATTEND Nurse Practitioner Family | DX: M48.061 Spinal stenosis, lumbar region without neurogenic claudication (principal); M96.1 Postlaminectomy syndrome, not elsewhere classified; G89.29 Other chronic pain; Z95.0 Presence of cardiac pacemaker; Z86.711 Personal history of pulmonary embolism; Z87.891 Personal history of nicotine dependence; Z88.8 Allergy status to other drugs, medicaments and biological substances; Z79.82 Long term (current) use of aspirin; Z79.899 Other long term (current) drug therapy ==

== ENCOUNTER → 2022-05-17 | Outpatient (CLI) | payer MEDICARE | LOC: M CARPUL 10:43 | PROVIDERS: ATTEND Physician Assistant | DX: R60.0 Localized edema (principal); I34.0 Nonrheumatic mitral (valve) insufficiency; Z95.0 Presence of cardiac pacemaker ==

== ENCOUNTER → 2022-05-30 | Outpatient (CLI) | payer OTHER, MEDICARE | LOC: M LABSMTC 11:21 | PROVIDERS: ATTEND Anesthesiology | DX: Z01.812 Encounter for preprocedural laboratory examination (principal); Z20.822 Contact with and (suspected) exposure to COVID-19 ==

== ENCOUNTER → 2022-06-04 | Outpatient (CLI) | payer MEDICARE, OTHER ==
[~2022-06-04] MED LIST changes: +BUPIVACAINE HCL 0.25% 30ML VIAL As Ordered ONE; +ISOVUE-M 300 61% 15ML VIAL As Ordered ONE; +LIDOCAINE 1% SDV 30ML VIAL As Ordered ONE; +diazePAM 2 MG TAB As Ordered ONE; +oxyCODONE 5MG TAB As Ordered ONE
== END ==
LOC: M PAIN 11:40
PROVIDERS: ATTEND Anesthesiology
DX: M48.061 Spinal stenosis, lumbar region without neurogenic claudication (principal); M96.1 Postlaminectomy syndrome, not elsewhere classified; G89.29 Other chronic pain; I10 Essential (primary) hypertension; Z86.711 Personal history of pulmonary embolism; Z87.891 Personal history of nicotine dependence; Z88.8 Allergy status to other drugs, medicaments and biological substances; Z79.82 Long term (current) use of aspirin; Z79.899 Other long term (current) drug therapy
CPT/HCPCS: 64483; J1100; Q9967

== ENCOUNTER → 2022-06-14 | Outpatient (CLI) | payer OTHER ==
[~2022-06-14] MED LIST changes: -BUPIVACAINE HCL 0.25% 30ML VIAL As Ordered ONE; -ISOVUE-M 300 61% 15ML VIAL As Ordered ONE; -LIDOCAINE 1% SDV 30ML VIAL As Ordered ONE; -diazePAM 2 MG TAB As Ordered ONE; -oxyCODONE 5MG TAB As Ordered ONE
== END ==
LOC: M PAIN 15:30
PROVIDERS: ATTEND Anesthesiology
DX: M51.16 Intervertebral disc disorders with radiculopathy, lumbar region (principal); M48.061 Spinal stenosis, lumbar region without neurogenic claudication; G89.29 Other chronic pain; I10 Essential (primary) hypertension; Z95.0 Presence of cardiac pacemaker; Z86.711 Personal history of pulmonary embolism; Z87.891 Personal history of nicotine dependence; Z88.8 Allergy status to other drugs, medicaments and biological substances; Z79.82 Long term (current) use of aspirin; Z79.899 Other long term (current) drug therapy

== ENCOUNTER 2022-12-26 04:14 | Emergency (ER) | payer MEDICARE, OTHER ==
[~2022-12-26] VITALS: Ht 162.6 cm; Wt 60.5 kg
[~2022-12-26 04:14] MED LIST changes: +SENN-134; -SENN1TAB89
[2022-12-26] MEDS ORDERED: CLON0.5T2 (04:26)
[2022-12-26 05:11] LABS: BASO % 0.3 % (0.0-1.0); EOS # 0.3 10^3/uL (0.0-0.5); EOS % 4.1 % (0.0-3.0); HEMATOCRIT 39.9 % (36.0-47.0); HEMOGLOBIN 12.9 g/dl (12.0-15.5); LYMPH # 1.5 10^3/uL (1.5-5.0); MEAN CORPUSCULAR HEMOGLOBIN 30.6 pg (27.0-33.0); MEAN CORPUSCULAR HGB CONC 32.3 g/dl (32.0-36.5); MEAN CORPUSCULAR VOLUME 94.8 fl (80.0-96.0); MONO # 0.8 10^3/uL (0.0-0.8); MONO % 12.6 % (2.0-8.0); NEUTROPHILS # 3.8 10^3/uL (1.5-8.5); NEUTROPHILS % 59.5 % (36.0-66.0); PLATELET COUNT, AUTOMATED 265 10^3/uL (150-450); RED BLOOD COUNT 4.21 10^6/uL (4.00-5.40); WHITE BLOOD COUNT 6.4 10^3/uL (4.0-10.0)
[2022-12-26] MEDS ORDERED: MORPHINE 2 MG/ML 1ML VIAL IV ONE (05:20)
[2022-12-26] MEDS ORDERED: LIDOCAINE 1% MDV 20ML VIAL SC ONE (06:35)
[2022-12-26 06:36] LABS: BLOOD UREA NITROGEN 15 MG/DL (9-23); CALCIUM LEVEL 8.2 MG/DL (8.3-10.6); CARBON DIOXIDE LEVEL 29 MMOL/L (20-31); CHLORIDE LEVEL 101 MMOL/L (98-107); CREATININE FOR GFR 0.63 MG/DL (0.55-1.30); GLOMERULAR FILTRATION RATE > 60.0 (>32); GLUCOSE, FASTING 101 MG/DL (74-106); MAGNESIUM LEVEL 1.8 MG/DL (1.8-2.4); POTASSIUM SERUM 3.4 MMOL/L (3.5-5.1); SODIUM LEVEL 137 MMOL/L (136-145)
[2022-12-26] MEDS ORDERED: PERCOCET 5MG/325MG TAB PO ONE (08:25)
[2022-12-26] MEDS ORDERED: BOOSTRIX VACCINE (TETANUS/DIPHTH/ACEL. PERTUSSIS) 0.5ML SYR IM ONE (08:25)
[2022-12-26] MEDS ORDERED: ceFAZolin SOD 1 GM in D5W MINI-BAG PLUS 50 ML IV ONE (08:25)
[2022-12-26] MEDS ORDERED: BACI500O8 TOP (09:44)
[2022-12-26 10:39] VITALS: BP 123/56
== END 2022-12-26 10:52 | disposition home or self-care (01) ==
LOC: M ED 04:14 → EDBD 04:14 → M ED 10:52
DX: S51.802A Unspecified open wound of left forearm, initial encounter (principal); S51.812A Laceration without foreign body of left forearm, initial encounter; R26.9 Unspecified abnormalities of gait and mobility; W19.XXXA Unspecified fall, initial encounter; Y92.009 Unspecified place in unspecified non-institutional (private) residence as the place of occurrence of the external cause; F32.9 Major depressive disorder, single episode, unspecified; Z79.82 Long term (current) use of aspirin; Z79.899 Other long term (current) drug therapy; Z88.8 Allergy status to other drugs, medicaments and biological substances; Z88.6 Allergy status to analgesic agent
CPT/HCPCS: 36415; 70450; 71045; 72125; 72131; 73030; 73110; 73502; 80048; 83735; 84484; 85025; 90471; 90715; 93005; 96374; 96375; 99284; J0690

== ENCOUNTER 2023-02-15 12:28 | Emergency (ER) | payer MEDICARE, OTHER ==
[~2023-02-15] VITALS: Ht 157.5 cm; Wt 63.6 kg
[~2023-02-15 12:28] MED LIST changes: +BACI500O8 TOP; +CHLO125TA PO; +CLON0.5T2 PO; +D 101000 PO; +GABA-282 PO; +NETA2.5D2 OS
[2023-02-15 12:47] VITALS: BP 149/71; TEMP 97.7; O2SAT 97
[2023-02-15 14:06] LABS: BASO % 0.3 % (0.0-1.0); EOS # 0.1 10^3/uL (0.0-0.5); EOS % 2.4 % (0.0-3.0); HEMATOCRIT 39.7 % (36.0-47.0); HEMOGLOBIN 12.7 g/dl (12.0-15.5); LYMPH # 1.2 10^3/uL (1.5-5.0); LYMPH % 20.3 % (24.0-44.0); MEAN CORPUSCULAR HEMOGLOBIN 30.9 pg (27.0-33.0); MEAN CORPUSCULAR VOLUME 96.6 fl (80.0-96.0); MONO # 0.6 10^3/uL (0.0-0.8); MONO % 9.8 % (2.0-8.0); NEUTROPHILS # 3.9 10^3/uL (1.5-8.5); NEUTROPHILS % 66.9 % (36.0-66.0); PLATELET COUNT, AUTOMATED 266 10^3/uL (150-450); RED BLOOD COUNT 4.11 10^6/uL (4.00-5.40); WHITE BLOOD COUNT 5.8 10^3/uL (4.0-10.0)
[2023-02-15 14:37] LABS: ALBUMIN 3.5 G/DL (3.2-5.2); ALKALINE PHOSPHATASE 70 U/L (46-116); ALT/SGPT 23 U/L (7.0-40); AST/SGOT 22 U/L (<34); BILIRUBIN,DIRECT < 0.1 MG/DL (<0.4); BILIRUBIN,TOTAL 0.3 MG/DL (0.3-1.2); BLOOD UREA NITROGEN 20 MG/DL (9-23); CALCIUM LEVEL 9.8 MG/DL (8.3-10.6); CARBON DIOXIDE LEVEL 28 MMOL/L (20-31); CHLORIDE LEVEL 100 MMOL/L (98-107); CREATININE FOR GFR 0.71 MG/DL (0.55-1.30); GLOMERULAR FILTRATION RATE > 60.0 (>32); GLUCOSE, FASTING 80 MG/DL (74-106); POTASSIUM SERUM 3.8 MMOL/L (3.5-5.1); SODIUM LEVEL 137 MMOL/L (136-145); TOTAL PROTEIN 6.8 G/DL (5.7-8.2)
[2023-02-15 14:40] LABS: THYROID STIMULATING HORMONE 0.763 uIU/ML (0.55-4.78)
[2023-02-15 14:44] LABS: RSV AMPLIFICATION NEGATIVE (NEGATIVE)
[2023-02-15 15:02] LABS: INR 0.91; PROTHROMBIN TIME 12.4 SECONDS (12.5-14.5)
== END 2023-02-15 16:15 | disposition home or self-care (01) ==
LOC: M ED 12:28
DX: S50.02XA Contusion of left elbow, initial encounter (principal); S51.012A Laceration without foreign body of left elbow, initial encounter; R53.1 Weakness; W19.XXXA Unspecified fall, initial encounter; I10 Essential (primary) hypertension; I44.7 Left bundle-branch block, unspecified; R56.9 Unspecified convulsions; Z86.711 Personal history of pulmonary embolism; Z95.0 Presence of cardiac pacemaker; R25.1 Tremor, unspecified; M75.31 Calcific tendinitis of right shoulder; Z79.82 Long term (current) use of aspirin; Z79.899 Other long term (current) drug therapy; Z88.8 Allergy status to other drugs, medicaments and biological substances; Z88.6 Allergy status to analgesic agent

== ENCOUNTER 2023-02-19 12:11 | Emergency (ER) | payer MEDICARE, OTHER ==
[~2023-02-19] VITALS: Ht 154.9 cm; Wt 58.4 kg
[2023-02-19 12:11] VITALS: BP 133/68; TEMP 98.1; O2SAT 95
== END 2023-02-19 15:52 | disposition home or self-care (01) ==
LOC: M ED 12:11
DX: R26.9 Unspecified abnormalities of gait and mobility (principal); I10 Essential (primary) hypertension; Z86.73 Personal history of transient ischemic attack (TIA), and cerebral infarction without residual deficits; M48.07 Spinal stenosis, lumbosacral region; Z86.711 Personal history of pulmonary embolism; R56.9 Unspecified convulsions; Z79.82 Long term (current) use of aspirin; Z79.899 Other long term (current) drug therapy; Z88.8 Allergy status to other drugs, medicaments and biological substances; Z88.6 Allergy status to analgesic agent; Z88.5 Allergy status to narcotic agent

== ENCOUNTER → 2023-03-13 | Outpatient (CLI) | payer MEDICARE, OTHER | LOC: M SOG 13:10 | PROVIDERS: ATTEND Physician Assistant | DX: M25.522 Pain in left elbow (principal); Z53.9 Procedure and treatment not carried out, unspecified reason ==

== ENCOUNTER → 2023-04-04 | Outpatient (CLI) | payer OTHER | LOC: M PAIN 16:00 | PROVIDERS: ATTEND Nurse Practitioner Family | DX: M51.16 Intervertebral disc disorders with radiculopathy, lumbar region (principal); G89.29 Other chronic pain; I10 Essential (primary) hypertension; Z95.0 Presence of cardiac pacemaker; Z87.891 Personal history of nicotine dependence; Z88.8 Allergy status to other drugs, medicaments and biological substances; Z79.82 Long term (current) use of aspirin; Z79.899 Other long term (current) drug therapy ==

== ENCOUNTER → 2023-05-02 | Outpatient (CLI) | payer MEDICARE | LOC: M PLAIMG 13:14 | PROVIDERS: ATTEND Nurse Practitioner Family | DX: M96.1 Postlaminectomy syndrome, not elsewhere classified (principal) ==

== ENCOUNTER 2023-05-23 15:48 | Observation (INO) | payer MEDICARE, OTHER ==
[~2023-05-23] VITALS: Ht 154.9 cm; Wt 57.0 kg
[~2023-05-23 15:48] MED LIST changes: +ASPI81CH33 PO
[2023-05-23] MEDS ORDERED: OXYC10TA3 PO (17:12)
[2023-05-23] MEDS ORDERED: clonazePAM 0.5 MG TAB PO ONE (19:10)
[2023-05-23] MEDS ORDERED: ACETAMINOPHEN *IV* 1,000 MG in IV 1 EA IV ONE (20:55)
[2023-05-23] MEDS ORDERED: diazePAM 5MG TABLET PO ONE (20:55)
[2023-05-23 21:15] LABS: ERYTHROCYTE SEDIMENTATION RATE 40 mm/hr (0-30)
[2023-05-23 21:16] LABS: BASO % 0.2 % (0.0-1.0); EOS # 0.1 10^3/uL (0.0-0.5); EOS % 0.8 % (0.0-3.0); HEMATOCRIT 40.1 % (36.0-47.0); HEMOGLOBIN 13.4 g/dl (12.0-15.5); LYMPH # 1.5 10^3/uL (1.5-5.0); LYMPH % 17.8 % (24.0-44.0); MEAN CORPUSCULAR HEMOGLOBIN 31.5 pg (27.0-33.0); MEAN CORPUSCULAR HGB CONC 33.4 g/dl (32.0-36.5); MEAN CORPUSCULAR VOLUME 94.4 fl (80.0-96.0); MONO # 0.6 10^3/uL (0.0-0.8); MONO % 6.4 % (2.0-8.0); NEUTROPHILS # 6.4 10^3/uL (1.5-8.5); NEUTROPHILS % 74.5 % (36.0-66.0); RED BLOOD COUNT 4.25 10^6/uL (4.00-5.40); WHITE BLOOD COUNT 8.6 10^3/uL (4.0-10.0)
[2023-05-23 21:28] LABS: BLOOD UREA NITROGEN 13 MG/DL (9-23); CARBON DIOXIDE LEVEL 26 MMOL/L (20-31); CHLORIDE LEVEL 97 MMOL/L (98-107); CREATININE FOR GFR 0.47 MG/DL (0.55-1.30); GLOMERULAR FILTRATION RATE > 60.0 (>32); GLUCOSE, FASTING 105 MG/DL (74-106); POTASSIUM SERUM 5.6 MMOL/L (3.5-5.1); SODIUM LEVEL 131 MMOL/L (136-145)
[2023-05-23] MEDS ORDERED: OLAN1TAB16 PO (23:24)
[2023-05-23] MEDS ORDERED: HOME MED LIST COMPLETE! XX SCH (23:25)
[2023-05-23] MEDS: fentaNYL 100 MCG/2 ML INJECTION IV PRN ×2 (23:34→23:35)
[2023-05-24] MEDS ORDERED: ONDANSETRON 4MG 2ML VIAL IV PRN (00:30)
[2023-05-24] MEDS: fentaNYL 100 MCG/2 ML INJECTION IV PRN (01:08)
[2023-05-24] MEDS: NORCO, ANEXSIA 5/325MG TABLET (HYDROcodone/ACETAMINOPHEN) PO PRN (02:05)
[2023-05-24 02:07] LABS: RSV AMPLIFICATION NEGATIVE (NEGATIVE)
[2023-05-24] MEDS ORDERED: MIRALAX *UNIT DOSE* 17GM PACKET PO PRN (06:50)
[2023-05-24 06:52] LABS: PLTBLUE- EDTA FREE CALC 233 K/mm3 (172-450)
[2023-05-24 06:55] LABS: PLTBLUE- EDTA FREE MACHINE 212 10^3/uL (172-450)
[2023-05-24 07:22] LABS: ALBUMIN 3.7 G/DL (3.2-5.2); ALKALINE PHOSPHATASE 84 U/L (46-116); ALT/SGPT 18 U/L (7.0-40); AST/SGOT 18 U/L (<34); BILIRUBIN,TOTAL 0.5 MG/DL (0.3-1.2); BLOOD UREA NITROGEN 13 MG/DL (9-23); CALCIUM LEVEL 9.3 MG/DL (8.3-10.6); CARBON DIOXIDE LEVEL 26 MMOL/L (20-31); CHLORIDE LEVEL 96 MMOL/L (98-107); CREATININE FOR GFR 0.53 MG/DL (0.55-1.30); GLOMERULAR FILTRATION RATE > 60.0 (>32); GLUCOSE, FASTING 104 MG/DL (74-106); POTASSIUM SERUM 3.8 MMOL/L (3.5-5.1); SODIUM LEVEL 130 MMOL/L (136-145)
[2023-05-24 07:25] LABS: HEMATOCRIT 38.1 % (36.0-47.0); HEMOGLOBIN 12.8 g/dl (12.0-15.5); MEAN CORPUSCULAR HEMOGLOBIN 31.7 pg (27.0-33.0); MEAN CORPUSCULAR HGB CONC 33.6 g/dl (32.0-36.5); MEAN CORPUSCULAR VOLUME 94.3 fl (80.0-96.0); PLATELET COUNT, AUTOMATED 327 10^3/uL (150-450); RED BLOOD COUNT 4.04 10^6/uL (4.00-5.40); WHITE BLOOD COUNT 8.8 10^3/uL (4.0-10.0)
[2023-05-24] MEDS: ASPIRIN 81MG CHEW TABLET PO SCH (08:44)
[2023-05-24] MEDS: GABAPENTIN 300 MG CAP PO SCH ×2 (08:44→20:19)
[2023-05-24] MEDS: DOCUSATE SODIUM 100MG CAPSULE PO SCH ×2 (08:44→20:19)
[2023-05-24] MEDS: NS 1,000 ML IV SCH ×2 (08:45→21:39)
[2023-05-24] MEDS: CHLORTHALIDONE 12.5MG PER 1/2 TABLET PO SCH (08:45)
[2023-05-24] MEDS: SERTRALINE 100 MG TAB PO SCH (08:45)
[2023-05-24] MEDS: clonazePAM 0.5 MG TAB PO SCH ×2 (08:50→20:19)
[2023-05-24] MEDS: HEPARIN SOD (PORCINE) 5000UNITS/ML 1ML VIAL/SYRINGE SC SCH ×2 (08:59→20:18)
[2023-05-24] MEDS: ANEXSIA, NORCO 7.5MG/325MG TABLET(HYDROCODONE/APAP) PO PRN ×2 (09:03→17:39)
[2023-05-24 14:35] VITALS: BP 145/66; TEMP 97.5; O2SAT 96
[2023-05-24 20:00] VITALS: BP 141/64; TEMP 97.6; O2SAT 94
[2023-05-24] MEDS: ATORVASTATIN 10 MG TAB PO SCH (20:19)
[2023-05-24] MEDS: SENNA 8.6 MG TAB (SENOKOT) PO SCH (20:19)
[2023-05-24] MEDS: OLANZapine 5 MG TAB PO SCH (20:55)
[2023-05-25 04:00] VITALS: BP 159/68; TEMP 97; O2SAT 92
[2023-05-25] MEDS: NS 1,000 ML IV SCH (06:31)
[2023-05-25 08:03] LABS: HEMATOCRIT 38.4 % (36.0-47.0); HEMOGLOBIN 12.4 g/dl (12.0-15.5); MEAN CORPUSCULAR HEMOGLOBIN 31.4 pg (27.0-33.0); MEAN CORPUSCULAR HGB CONC 32.3 g/dl (32.0-36.5); MEAN CORPUSCULAR VOLUME 97.2 fl (80.0-96.0); PLATELET COUNT, AUTOMATED 333 10^3/uL (150-450); RED BLOOD COUNT 3.95 10^6/uL (4.00-5.40); WHITE BLOOD COUNT 6.5 10^3/uL (4.0-10.0)
[2023-05-25] MEDS: SERTRALINE 100 MG TAB PO SCH (08:10)
[2023-05-25] MEDS: HEPARIN SOD (PORCINE) 5000UNITS/ML 1ML VIAL/SYRINGE SC SCH ×2 (08:10→20:33)
[2023-05-25] MEDS: ASPIRIN 81MG CHEW TABLET PO SCH (08:10)
[2023-05-25] MEDS: clonazePAM 0.5 MG TAB PO SCH ×2 (08:10→20:33)
[2023-05-25] MEDS: CHLORTHALIDONE 12.5MG PER 1/2 TABLET PO SCH (08:11)
[2023-05-25] MEDS: DOCUSATE SODIUM 100MG CAPSULE PO SCH ×2 (08:11→20:33)
[2023-05-25] MEDS: ANEXSIA, NORCO 7.5MG/325MG TABLET(HYDROCODONE/APAP) PO PRN (08:12)
[2023-05-25] MEDS: GABAPENTIN 300 MG CAP PO SCH ×2 (08:17→20:33)
[2023-05-25 08:21] LABS: ALBUMIN 3.3 G/DL (3.2-5.2); ALKALINE PHOSPHATASE 79 U/L (46-116); ALT/SGPT 17 U/L (7.0-40); AST/SGOT 17 U/L (<34); BILIRUBIN,TOTAL 0.4 MG/DL (0.3-1.2); BLOOD UREA NITROGEN 11 MG/DL (9-23); CALCIUM LEVEL 8.8 MG/DL (8.3-10.6); CARBON DIOXIDE LEVEL 27 MMOL/L (20-31); CHLORIDE LEVEL 104 MMOL/L (98-107); CREATININE FOR GFR 0.56 MG/DL (0.55-1.30); GLOMERULAR FILTRATION RATE > 60.0 (>32); GLUCOSE, FASTING 94 MG/DL (74-106); SODIUM LEVEL 137 MMOL/L (136-145); TOTAL PROTEIN 6.3 G/DL (5.7-8.2)
[2023-05-25 14:00] VITALS: BP 138/65; TEMP 97.2; O2SAT 97
[2023-05-25] MEDS: NORCO, ANEXSIA 5/325MG TABLET (HYDROcodone/ACETAMINOPHEN) PO PRN ×2 (16:00→22:45)
[2023-05-25] MEDS: OLANZapine 5 MG TAB PO SCH (20:33)
[2023-05-25] MEDS: SENNA 8.6 MG TAB (SENOKOT) PO SCH (20:33)
[2023-05-25] MEDS: ATORVASTATIN 10 MG TAB PO SCH (20:33)
[2023-05-25 22:14] VITALS: BP 139/67; TEMP 97.7; O2SAT 94
[2023-05-26] MEDS: NORCO, ANEXSIA 5/325MG TABLET (HYDROcodone/ACETAMINOPHEN) PO PRN ×2 (04:21→17:16)
[2023-05-26 06:18] VITALS: BP 124/60; TEMP 97.3; O2SAT 96
[2023-05-26 08:06] LABS: HEMATOCRIT 38.9 % (36.0-47.0); HEMOGLOBIN 12.5 g/dl (12.0-15.5); MEAN CORPUSCULAR HEMOGLOBIN 31.8 pg (27.0-33.0); MEAN CORPUSCULAR HGB CONC 32.1 g/dl (32.0-36.5); PLATELET COUNT, AUTOMATED 261 10^3/uL (150-450); RED BLOOD COUNT 3.93 10^6/uL (4.00-5.40); WHITE BLOOD COUNT 5.1 10^3/uL (4.0-10.0)
[2023-05-26 08:29] LABS: ALBUMIN 3.1 G/DL (3.2-5.2); ALKALINE PHOSPHATASE 78 U/L (46-116); ALT/SGPT 23 U/L (7.0-40); AST/SGOT 22 U/L (<34); BILIRUBIN,TOTAL 0.3 MG/DL (0.3-1.2); BLOOD UREA NITROGEN 12 MG/DL (9-23); CARBON DIOXIDE LEVEL 28 MMOL/L (20-31); CHLORIDE LEVEL 105 MMOL/L (98-107); CREATININE FOR GFR 0.61 MG/DL (0.55-1.30); GLOMERULAR FILTRATION RATE > 60.0 (>32); GLUCOSE, FASTING 85 MG/DL (74-106); POTASSIUM SERUM 3.8 MMOL/L (3.5-5.1); SODIUM LEVEL 139 MMOL/L (136-145)
[2023-05-26] MEDS: SERTRALINE 100 MG TAB PO SCH (09:37)
[2023-05-26] MEDS: clonazePAM 0.5 MG TAB PO SCH ×2 (09:37→20:28)
[2023-05-26] MEDS: ASPIRIN 81MG CHEW TABLET PO SCH (09:37)
[2023-05-26] MEDS: DOCUSATE SODIUM 100MG CAPSULE PO SCH ×2 (09:38→20:27)
[2023-05-26] MEDS: GABAPENTIN 300 MG CAP PO SCH ×2 (09:38→20:28)
[2023-05-26] MEDS: HEPARIN SOD (PORCINE) 5000UNITS/ML 1ML VIAL/SYRINGE SC SCH ×2 (09:38→20:28)
[2023-05-26] MEDS: CHLORTHALIDONE 12.5MG PER 1/2 TABLET PO SCH (09:38)
[2023-05-26 14:00] VITALS: BP 120/60; TEMP 97.8; O2SAT 95
[2023-05-26] MEDS: ATORVASTATIN 10 MG TAB PO SCH (20:28)
[2023-05-26] MEDS: OLANZapine 5 MG TAB PO SCH (20:28)
[2023-05-26] MEDS: [UNRECOGNIZED DRUG - OTHER] OS SCH (20:28)
[2023-05-26] MEDS: SENNA 8.6 MG TAB (SENOKOT) PO SCH (20:29)
[2023-05-26 20:44] VITALS: BP 125/59; TEMP 96.8; O2SAT 96
[2023-05-27] MEDS: NORCO, ANEXSIA 5/325MG TABLET (HYDROcodone/ACETAMINOPHEN) PO PRN ×3 (00:24→18:08)
[2023-05-27 05:19] VITALS: BP 169/78; TEMP 97.3; O2SAT 97
[2023-05-27 06:50] LABS: HEMATOCRIT 39.7 % (36.0-47.0); HEMOGLOBIN 12.7 g/dl (12.0-15.5); MEAN CORPUSCULAR HEMOGLOBIN 31.3 pg (27.0-33.0); MEAN CORPUSCULAR VOLUME 97.8 fl (80.0-96.0); PLATELET COUNT, AUTOMATED 321 10^3/uL (150-450); RED BLOOD COUNT 4.06 10^6/uL (4.00-5.40); WHITE BLOOD COUNT 6.6 10^3/uL (4.0-10.0)
[2023-05-27 07:14] LABS: ALBUMIN 3.6 G/DL (3.2-5.2); ALKALINE PHOSPHATASE 92 U/L (46-116); ALT/SGPT 22 U/L (7.0-40); AST/SGOT 18 U/L (<34); BILIRUBIN,TOTAL 0.4 MG/DL (0.3-1.2); BLOOD UREA NITROGEN 8 MG/DL (9-23); CALCIUM LEVEL 9.4 MG/DL (8.3-10.6); CARBON DIOXIDE LEVEL 30 MMOL/L (20-31); CHLORIDE LEVEL 101 MMOL/L (98-107); CREATININE FOR GFR 0.56 MG/DL (0.55-1.30); GLOMERULAR FILTRATION RATE > 60.0 (>32); GLUCOSE, FASTING 91 MG/DL (74-106); POTASSIUM SERUM 3.8 MMOL/L (3.5-5.1); SODIUM LEVEL 136 MMOL/L (136-145)
[2023-05-27] MEDS: DOCUSATE SODIUM 100MG CAPSULE PO SCH ×2 (09:38→20:33)
[2023-05-27] MEDS: CHLORTHALIDONE 12.5MG PER 1/2 TABLET PO SCH (09:38)
[2023-05-27] MEDS: clonazePAM 0.5 MG TAB PO SCH ×2 (09:38→20:33)
[2023-05-27] MEDS: ASPIRIN 81MG CHEW TABLET PO SCH (09:38)
[2023-05-27] MEDS: HEPARIN SOD (PORCINE) 5000UNITS/ML 1ML VIAL/SYRINGE SC SCH ×2 (09:38→20:32)
[2023-05-27] MEDS: GABAPENTIN 300 MG CAP PO SCH ×2 (09:38→20:33)
[2023-05-27] MEDS: SERTRALINE 100 MG TAB PO SCH (09:38)
[2023-05-27 14:04] VITALS: BP 114/57; TEMP 97.8; O2SAT 96
[2023-05-27 19:56] VITALS: BP 147/66; TEMP 98.3; O2SAT 97
[2023-05-27] MEDS: OLANZapine 5 MG TAB PO SCH (20:33)
[2023-05-27] MEDS: SENNA 8.6 MG TAB (SENOKOT) PO SCH (20:33)
[2023-05-27] MEDS: [UNRECOGNIZED DRUG - OTHER] OS SCH (20:33)
[2023-05-27] MEDS: ATORVASTATIN 10 MG TAB PO SCH (20:33)
[2023-05-28 05:56] VITALS: BP 131/60; TEMP 97.5; O2SAT 96
[2023-05-28 06:44] LABS: HEMATOCRIT 36.3 % (36.0-47.0); HEMOGLOBIN 11.9 g/dl (12.0-15.5); MEAN CORPUSCULAR HEMOGLOBIN 31.7 pg (27.0-33.0); MEAN CORPUSCULAR HGB CONC 32.8 g/dl (32.0-36.5); MEAN CORPUSCULAR VOLUME 96.8 fl (80.0-96.0); PLATELET COUNT, AUTOMATED 343 10^3/uL (150-450); RED BLOOD COUNT 3.75 10^6/uL (4.00-5.40); WHITE BLOOD COUNT 7.4 10^3/uL (4.0-10.0)
[2023-05-28 07:03] LABS: ALBUMIN 3.4 G/DL (3.2-5.2); ALKALINE PHOSPHATASE 92 U/L (46-116); ALT/SGPT 22 U/L (7.0-40); AST/SGOT 20 U/L (<34); BILIRUBIN,TOTAL 0.5 MG/DL (0.3-1.2); BLOOD UREA NITROGEN 12 MG/DL (9-23); CARBON DIOXIDE LEVEL 29 MMOL/L (20-31); CHLORIDE LEVEL 101 MMOL/L (98-107); GLOMERULAR FILTRATION RATE > 60.0 (>32); GLUCOSE, FASTING 93 MG/DL (74-106); POTASSIUM SERUM 3.6 MMOL/L (3.5-5.1); SODIUM LEVEL 136 MMOL/L (136-145); TOTAL PROTEIN 6.6 G/DL (5.7-8.2)
[2023-05-28] MEDS: clonazePAM 0.5 MG TAB PO SCH ×2 (08:12→20:50)
[2023-05-28] MEDS: CHLORTHALIDONE 12.5MG PER 1/2 TABLET PO SCH (08:12)
[2023-05-28] MEDS: SERTRALINE 100 MG TAB PO SCH (08:12)
[2023-05-28] MEDS: GABAPENTIN 300 MG CAP PO SCH ×2 (08:12→20:50)
[2023-05-28] MEDS: DOCUSATE SODIUM 100MG CAPSULE PO SCH ×3 (08:12→20:27)
[2023-05-28] MEDS: ASPIRIN 81MG CHEW TABLET PO SCH (08:13)
[2023-05-28] MEDS: HEPARIN SOD (PORCINE) 5000UNITS/ML 1ML VIAL/SYRINGE SC SCH ×2 (08:13→20:52)
[2023-05-28] MEDS: NORCO, ANEXSIA 5/325MG TABLET (HYDROcodone/ACETAMINOPHEN) PO PRN ×3 (08:13→20:51)
[2023-05-28 14:18] VITALS: BP 120/60; TEMP 97.9; O2SAT 97
[2023-05-28 19:39] VITALS: BP 131/62; TEMP 96.9; O2SAT 95
[2023-05-28] MEDS: SENNA 8.6 MG TAB (SENOKOT) PO SCH (20:27)
[2023-05-28] MEDS: OLANZapine 5 MG TAB PO SCH (20:51)
[2023-05-28] MEDS: ATORVASTATIN 10 MG TAB PO SCH (20:51)
[2023-05-28] MEDS: [UNRECOGNIZED DRUG - OTHER] OS SCH (20:53)
[2023-05-29 05:59] VITALS: BP 152/70; TEMP 96.3; O2SAT 95
[2023-05-29 07:10] VITALS: BP 129/65; TEMP 97.3; O2SAT 91
[2023-05-29 08:25] LABS: BLOOD UREA NITROGEN 15 MG/DL (9-23); CALCIUM LEVEL 9.2 MG/DL (8.3-10.6); CARBON DIOXIDE LEVEL 29 MMOL/L (20-31); CHLORIDE LEVEL 101 MMOL/L (98-107); CREATININE FOR GFR 0.53 MG/DL (0.55-1.30); GLOMERULAR FILTRATION RATE > 60.0 (>32); GLUCOSE, FASTING 91 MG/DL (74-106); MAGNESIUM LEVEL 1.8 MG/DL (1.8-2.4); POTASSIUM SERUM 4.4 MMOL/L (3.5-5.1); SODIUM LEVEL 138 MMOL/L (136-145)
[2023-05-29] MEDS: ASPIRIN 81MG CHEW TABLET PO SCH (08:52)
[2023-05-29] MEDS: DOCUSATE SODIUM 100MG CAPSULE PO SCH ×2 (08:52→20:28)
[2023-05-29] MEDS: GABAPENTIN 300 MG CAP PO SCH ×2 (08:52→20:27)
[2023-05-29] MEDS: ACETAMINOPHEN TAB 650MG DOSE (2X325MG) PO PRN (08:52)
[2023-05-29] MEDS: HEPARIN SOD (PORCINE) 5000UNITS/ML 1ML VIAL/SYRINGE SC SCH ×2 (08:53→20:28)
[2023-05-29] MEDS: SERTRALINE 100 MG TAB PO SCH (08:53)
[2023-05-29] MEDS: clonazePAM 0.5 MG TAB PO SCH ×2 (08:53→20:27)
[2023-05-29] MEDS: CHLORTHALIDONE 12.5MG PER 1/2 TABLET PO SCH (09:30)
[2023-05-29] MEDS: NORCO, ANEXSIA 5/325MG TABLET (HYDROcodone/ACETAMINOPHEN) PO PRN ×2 (10:02→18:14)
[2023-05-29 14:00] VITALS: BP 151/69; TEMP 97.5; O2SAT 96
[2023-05-29] MEDS: ERYTHROMYCIN OPHTH OINT OS SCH ×2 (17:05→20:28)
[2023-05-29 20:00] VITALS: BP 145/71; TEMP 97.7; O2SAT 93
[2023-05-29] MEDS: ATORVASTATIN 10 MG TAB PO SCH (20:27)
[2023-05-29] MEDS: SENNA 8.6 MG TAB (SENOKOT) PO SCH (20:28)
[2023-05-29] MEDS: OLANZapine 5 MG TAB PO SCH (20:28)
[2023-05-29] MEDS: [UNRECOGNIZED DRUG - OTHER] OS SCH (20:32)
[2023-05-30] MEDS: NORCO, ANEXSIA 5/325MG TABLET (HYDROcodone/ACETAMINOPHEN) PO PRN ×3 (00:52→11:35)
[2023-05-30 06:00] VITALS: BP 147/70; TEMP 97.2; O2SAT 95
[2023-05-30] MEDS: HEPARIN SOD (PORCINE) 5000UNITS/ML 1ML VIAL/SYRINGE SC SCH ×2 (09:23→20:28)
[2023-05-30] MEDS: SERTRALINE 100 MG TAB PO SCH (09:26)
[2023-05-30] MEDS: GABAPENTIN 300 MG CAP PO SCH ×2 (09:26→20:28)
[2023-05-30] MEDS: ASPIRIN 81MG CHEW TABLET PO SCH (09:26)
[2023-05-30] MEDS: DOCUSATE SODIUM 100MG CAPSULE PO SCH ×2 (09:26→20:28)
[2023-05-30] MEDS: CHLORTHALIDONE 12.5MG PER 1/2 TABLET PO SCH (09:26)
[2023-05-30] MEDS: clonazePAM 0.5 MG TAB PO SCH ×2 (09:34→20:28)
[2023-05-30] MEDS: ERYTHROMYCIN OPHTH OINT OS SCH ×3 (09:35→20:29)
[2023-05-30 14:00] VITALS: BP 115/55; TEMP 97.5; O2SAT 97
[2023-05-30] MEDS: ANEXSIA, NORCO 7.5MG/325MG TABLET(HYDROCODONE/APAP) PO PRN (16:02)
[2023-05-30] MEDS: ATORVASTATIN 10 MG TAB PO SCH (20:28)
[2023-05-30] MEDS: SENNA 8.6 MG TAB (SENOKOT) PO SCH (20:28)
[2023-05-30] MEDS: OLANZapine 5 MG TAB PO SCH (20:28)
[2023-05-30] MEDS: ANALGESIC BALM CRM 3OZ TOP PRN (20:28)
[2023-05-30] MEDS: [UNRECOGNIZED DRUG - OTHER] OS SCH (20:29)
[2023-05-31] MEDS: ANEXSIA, NORCO 7.5MG/325MG TABLET(HYDROCODONE/APAP) PO PRN (01:54)
[2023-05-31 06:00] VITALS: BP 152/82; TEMP 97.7; O2SAT 95
[2023-05-31] MEDS: clonazePAM 0.5 MG TAB PO SCH ×2 (09:34→20:48)
[2023-05-31] MEDS: SERTRALINE 100 MG TAB PO SCH (09:34)
[2023-05-31] MEDS: CHLORTHALIDONE 12.5MG PER 1/2 TABLET PO SCH (09:34)
[2023-05-31] MEDS: ASPIRIN 81MG CHEW TABLET PO SCH (09:34)
[2023-05-31] MEDS: GABAPENTIN 300 MG CAP PO SCH ×2 (09:34→20:48)
[2023-05-31] MEDS: HEPARIN SOD (PORCINE) 5000UNITS/ML 1ML VIAL/SYRINGE SC SCH ×2 (09:35→20:49)
[2023-05-31] MEDS: NORCO, ANEXSIA 5/325MG TABLET (HYDROcodone/ACETAMINOPHEN) PO PRN ×2 (09:35→21:41)
[2023-05-31] MEDS: ERYTHROMYCIN OPHTH OINT OS SCH ×3 (09:36→20:49)
[2023-05-31] MEDS: LIDOCAINE 5% (LIDODERM) PATCH TD SCH (09:36)
[2023-05-31] MEDS: DOCUSATE SODIUM 100MG CAPSULE PO SCH ×2 (09:37→20:48)
[2023-05-31] MEDS: OLANZapine 5 MG TAB PO SCH (20:48)
[2023-05-31] MEDS: ATORVASTATIN 10 MG TAB PO SCH (20:48)
[2023-05-31] MEDS: ANALGESIC BALM CRM 3OZ TOP PRN (20:49)
[2023-05-31] MEDS: SENNA 8.6 MG TAB (SENOKOT) PO SCH (20:49)
[2023-05-31] MEDS: [UNRECOGNIZED DRUG - OTHER] OS SCH (20:51)
[2023-06-01 04:55] VITALS: BP 133/79; TEMP 97.3; O2SAT 96
[2023-06-01] MEDS: ASPIRIN 81MG CHEW TABLET PO SCH (09:22)
[2023-06-01] MEDS: GABAPENTIN 300 MG CAP PO SCH ×2 (09:22→20:06)
[2023-06-01] MEDS: DOCUSATE SODIUM 100MG CAPSULE PO SCH ×2 (09:22→20:07)
[2023-06-01] MEDS: SERTRALINE 100 MG TAB PO SCH (09:22)
[2023-06-01] MEDS: clonazePAM 0.5 MG TAB PO SCH ×2 (09:22→20:07)
[2023-06-01] MEDS: CHLORTHALIDONE 12.5MG PER 1/2 TABLET PO SCH (09:23)
[2023-06-01] MEDS: ERYTHROMYCIN OPHTH OINT OS SCH ×3 (09:23→20:20)
[2023-06-01] MEDS: NORCO, ANEXSIA 5/325MG TABLET (HYDROcodone/ACETAMINOPHEN) PO PRN (09:24)
[2023-06-01] MEDS: LIDOCAINE 5% (LIDODERM) PATCH TD SCH (09:24)
[2023-06-01] MEDS: HEPARIN SOD (PORCINE) 5000UNITS/ML 1ML VIAL/SYRINGE SC SCH ×2 (09:25→20:06)
[2023-06-01] MEDS: ANALGESIC BALM CRM 3OZ TOP PRN (18:15)
[2023-06-01] MEDS: ATORVASTATIN 10 MG TAB PO SCH (20:06)
[2023-06-01] MEDS: [UNRECOGNIZED DRUG - OTHER] OS SCH (20:06)
[2023-06-01] MEDS: OLANZapine 5 MG TAB PO SCH (20:06)
[2023-06-01] MEDS: SENNA 8.6 MG TAB (SENOKOT) PO SCH (20:07)
[2023-06-01] MEDS: ACETAMINOPHEN TAB 650MG DOSE (2X325MG) PO PRN (20:07)
[2023-06-02] MEDS: NORCO, ANEXSIA 5/325MG TABLET (HYDROcodone/ACETAMINOPHEN) PO PRN (00:06)
[2023-06-02 05:26] VITALS: BP 154/81; TEMP 97.5; O2SAT 97
[2023-06-02] MEDS: CHLORTHALIDONE 12.5MG PER 1/2 TABLET PO SCH (09:18)
[2023-06-02] MEDS: DOCUSATE SODIUM 100MG CAPSULE PO SCH ×2 (09:18→20:25)
[2023-06-02] MEDS: HEPARIN SOD (PORCINE) 5000UNITS/ML 1ML VIAL/SYRINGE SC SCH ×2 (09:18→20:16)
[2023-06-02] MEDS: ASPIRIN 81MG CHEW TABLET PO SCH (09:18)
[2023-06-02] MEDS: GABAPENTIN 300 MG CAP PO SCH ×2 (09:18→20:16)
[2023-06-02] MEDS: SERTRALINE 100 MG TAB PO SCH (09:18)
[2023-06-02] MEDS: clonazePAM 0.5 MG TAB PO SCH ×2 (09:18→20:16)
[2023-06-02] MEDS: LIDOCAINE 5% (LIDODERM) PATCH TD SCH (09:19)
[2023-06-02] MEDS: ERYTHROMYCIN OPHTH OINT OS SCH ×3 (09:20→20:17)
[2023-06-02] MEDS: ANEXSIA, NORCO 7.5MG/325MG TABLET(HYDROCODONE/APAP) PO PRN ×2 (10:28→18:41)
[2023-06-02] MEDS: ANALGESIC BALM CRM 3OZ TOP PRN (14:42)
[2023-06-02] MEDS: ATORVASTATIN 10 MG TAB PO SCH (20:16)
[2023-06-02] MEDS: OLANZapine 5 MG TAB PO SCH (20:16)
[2023-06-02] MEDS: [UNRECOGNIZED DRUG - OTHER] OS SCH (20:17)
[2023-06-02] MEDS: SENNA 8.6 MG TAB (SENOKOT) PO SCH (20:25)
[2023-06-03] MEDS: ANEXSIA, NORCO 7.5MG/325MG TABLET(HYDROCODONE/APAP) PO PRN ×2 (03:58→13:04)
[2023-06-03 05:15] VITALS: BP 134/48; TEMP 97.3; O2SAT 93
[2023-06-03] MEDS: HEPARIN SOD (PORCINE) 5000UNITS/ML 1ML VIAL/SYRINGE SC SCH ×2 (08:15→19:42)
[2023-06-03] MEDS: GABAPENTIN 300 MG CAP PO SCH ×2 (08:15→19:42)
[2023-06-03] MEDS: LIDOCAINE 5% (LIDODERM) PATCH TD SCH (08:15)
[2023-06-03] MEDS: ASPIRIN 81MG CHEW TABLET PO SCH (08:15)
[2023-06-03] MEDS: CHLORTHALIDONE 12.5MG PER 1/2 TABLET PO SCH (08:15)
[2023-06-03] MEDS: clonazePAM 0.5 MG TAB PO SCH ×2 (08:15→19:42)
[2023-06-03] MEDS: SERTRALINE 100 MG TAB PO SCH (08:15)
[2023-06-03] MEDS: DOCUSATE SODIUM 100MG CAPSULE PO SCH ×2 (08:15→19:42)
[2023-06-03] MEDS: ERYTHROMYCIN OPHTH OINT OS SCH ×3 (08:16→19:44)
[2023-06-03] MEDS: ANALGESIC BALM CRM 3OZ TOP PRN (17:06)
[2023-06-03] MEDS: SENNA 8.6 MG TAB (SENOKOT) PO SCH (19:41)
[2023-06-03] MEDS: ATORVASTATIN 10 MG TAB PO SCH (19:42)
[2023-06-03] MEDS: OLANZapine 5 MG TAB PO SCH (19:42)
[2023-06-03] MEDS: [UNRECOGNIZED DRUG - OTHER] OS SCH (19:44)
[2023-06-03] MEDS: ACETAMINOPHEN TAB 650MG DOSE (2X325MG) PO PRN (21:30)
[2023-06-04] MEDS: ANEXSIA, NORCO 7.5MG/325MG TABLET(HYDROCODONE/APAP) PO PRN ×2 (03:15→11:38)
[2023-06-04 05:03] VITALS: BP 129/50; TEMP 97.7; O2SAT 98
[2023-06-04] MEDS: DOCUSATE SODIUM 100MG CAPSULE PO SCH ×2 (08:35→20:26)
[2023-06-04] MEDS: CHLORTHALIDONE 12.5MG PER 1/2 TABLET PO SCH (08:35)
[2023-06-04] MEDS: HEPARIN SOD (PORCINE) 5000UNITS/ML 1ML VIAL/SYRINGE SC SCH ×2 (08:36→20:25)
[2023-06-04] MEDS: GABAPENTIN 300 MG CAP PO SCH ×2 (08:36→20:27)
[2023-06-04] MEDS: clonazePAM 0.5 MG TAB PO SCH ×2 (08:36→20:26)
[2023-06-04] MEDS: ASPIRIN 81MG CHEW TABLET PO SCH (08:36)
[2023-06-04] MEDS: SERTRALINE 100 MG TAB PO SCH (08:36)
[2023-06-04] MEDS: LIDOCAINE 5% (LIDODERM) PATCH TD SCH (08:39)
[2023-06-04] MEDS: POLYTRIM OPTH DROPS 10ML OS SCH ×2 (20:26→21:00)
[2023-06-04] MEDS: ATORVASTATIN 10 MG TAB PO SCH (20:26)
[2023-06-04] MEDS: OLANZapine 5 MG TAB PO SCH (20:27)
[2023-06-04] MEDS: SENNA 8.6 MG TAB (SENOKOT) PO SCH (20:27)
[2023-06-04] MEDS: PERCOCET 5MG/325MG TAB PO PRN (20:28)
[2023-06-04] MEDS: [UNRECOGNIZED DRUG - OTHER] OS SCH (20:29)
[2023-06-05 04:55] VITALS: BP 134/52; TEMP 97.5; O2SAT 97
[2023-06-05] MEDS: POLYTRIM OPTH DROPS 10ML OS SCH ×6 (05:03→20:40)
[2023-06-05 08:22] VITALS: BP 126/73
[2023-06-05] MEDS: DOCUSATE SODIUM 100MG CAPSULE PO SCH ×2 (08:27→20:37)
[2023-06-05] MEDS: SERTRALINE 100 MG TAB PO SCH (08:27)
[2023-06-05] MEDS: GABAPENTIN 300 MG CAP PO SCH ×2 (08:27→20:37)
[2023-06-05] MEDS: ASPIRIN 81MG CHEW TABLET PO SCH (08:27)
[2023-06-05] MEDS: clonazePAM 0.5 MG TAB PO SCH ×2 (08:27→20:38)
[2023-06-05] MEDS: PERCOCET 5MG/325MG TAB PO PRN ×3 (08:27→20:38)
[2023-06-05] MEDS: HEPARIN SOD (PORCINE) 5000UNITS/ML 1ML VIAL/SYRINGE SC SCH ×2 (08:28→20:37)
[2023-06-05] MEDS: LIDOCAINE 5% (LIDODERM) PATCH TD SCH (08:28)
[2023-06-05] MEDS: CHLORTHALIDONE 12.5MG PER 1/2 TABLET PO SCH (08:32)
[2023-06-05] MEDS: ATORVASTATIN 10 MG TAB PO SCH (20:37)
[2023-06-05] MEDS: OLANZapine 5 MG TAB PO SCH (20:37)
[2023-06-05] MEDS: SENNA 8.6 MG TAB (SENOKOT) PO SCH (20:37)
[2023-06-05] MEDS: [UNRECOGNIZED DRUG - OTHER] OS SCH (20:41)
[2023-06-06] MEDS: POLYTRIM OPTH DROPS 10ML OS SCH ×3 (05:05→11:14)
[2023-06-06 05:25] VITALS: BP 144/67; TEMP 97.7; O2SAT 94
[2023-06-06] MEDS: ASPIRIN 81MG CHEW TABLET PO SCH (08:11)
[2023-06-06] MEDS: GABAPENTIN 300 MG CAP PO SCH (08:11)
[2023-06-06] MEDS: DOCUSATE SODIUM 100MG CAPSULE PO SCH (08:11)
[2023-06-06] MEDS: clonazePAM 0.5 MG TAB PO SCH (08:12)
[2023-06-06] MEDS: CHLORTHALIDONE 12.5MG PER 1/2 TABLET PO SCH (08:12)
[2023-06-06] MEDS: SERTRALINE 100 MG TAB PO SCH (08:12)
[2023-06-06 08:13] VITALS: BP 150/80
[2023-06-06] MEDS: HEPARIN SOD (PORCINE) 5000UNITS/ML 1ML VIAL/SYRINGE SC SCH (08:13)
[2023-06-06] MEDS: LIDOCAINE 5% (LIDODERM) PATCH TD SCH (08:13)
[2023-06-06] MEDS: PERCOCET 5MG/325MG TAB PO PRN (08:17)
[2023-06-06] MEDS ORDERED: AMLO1TAB25 PO (08:58)
[2023-06-06] MEDS ORDERED: COLA100C5 PO (08:58)
[2023-06-06] MEDS ORDERED: SENN-188 PO (08:58)
[2023-06-06] MEDS ORDERED: POLY2.5S OS (08:58)
[2023-06-06] MEDS ORDERED: MIRA1POW3 PO (08:58)
[2023-06-06] MEDS ORDERED: PERCOCET PO (08:58)
[2023-06-06] MEDS ORDERED: ACET1TAB55 PO (08:58)
== END 2023-06-06 12:02 ==
LOC: M ED 15:48 → M ED INP 15:49 → ENRESERV 05-24 13:19 → M MS4PR 05-24 14:44 → M MSPAV 05-29 07:15
PROVIDERS: ADMIT Internal Medicine; ATTEND Internal Medicine
DX: M54.50 Low back pain, unspecified (principal); M48.54XA Collapsed vertebra, not elsewhere classified, thoracic region, initial encounter for fracture; M51.34 Other intervertebral disc degeneration, thoracic region; H10.32 Unspecified acute conjunctivitis, left eye; I10 Essential (primary) hypertension; E78.00 Pure hypercholesterolemia, unspecified; F41.9 Anxiety disorder, unspecified; F29 Unspecified psychosis not due to a substance or known physiological condition; E87.1 Hypo-osmolality and hyponatremia; E87.8 Other disorders of electrolyte and fluid balance, not elsewhere classified; Z88.8 Allergy status to other drugs, medicaments and biological substances; Z88.5 Allergy status to narcotic agent; Z79.82 Long term (current) use of aspirin; Z79.899 Other long term (current) drug therapy
CPT/HCPCS: 36415; 72128; 72131; 73700; 80047; 80048; 80053; 81001; 83735; 85025; 85027; 85049; 85652; 86140; 87631; 96361; 96372; 96374; 96375; 97116; 97161; 97165; 97530; 97535; 99285; G0378; J0131; J3010

== ENCOUNTER 2023-06-21 11:10 | Emergency (ER) | payer MEDICARE, OTHER ==
[~2023-06-21] VITALS: Ht 154.9 cm; Wt 56.8 kg
[~2023-06-21 11:10] MED LIST changes: +AMLO1TAB25 PO; +OLAN1TAB16 PO; +OXYC10TA3 PO; +PERCOCET PO; +POLY2.5S OS; +SENN-188 PO
[2023-06-21] MEDS ORDERED: PERCOCET 5MG/325MG TAB PO ONE (17:40)
[2023-06-21] MEDS ORDERED: LIDOCAINE 5% (LIDODERM) PATCH TD ONE (17:40)
[2023-06-21 20:02] VITALS: BP 137/60; TEMP 97.1; O2SAT 93
== END 2023-06-21 20:24 | disposition short-term general hospital (02) ==
LOC: M ED 11:10
DX: S32.040A Wedge compression fracture of fourth lumbar vertebra, initial encounter for closed fracture (principal); R26.2 Difficulty in walking, not elsewhere classified; M25.78 Osteophyte, vertebrae; M47.812 Spondylosis without myelopathy or radiculopathy, cervical region; W19.XXXA Unspecified fall, initial encounter; I10 Essential (primary) hypertension; G40.909 Epilepsy, unspecified, not intractable, without status epilepticus; Z86.79 Personal history of other diseases of the circulatory system; Z88.5 Allergy status to narcotic agent; Z88.8 Allergy status to other drugs, medicaments and biological substances; Z91.048 Other nonmedicinal substance allergy status; Z95.0 Presence of cardiac pacemaker; Z79.82 Long term (current) use of aspirin; Z79.891 Long term (current) use of opiate analgesic; Z79.899 Other long term (current) drug therapy

== ENCOUNTER → 2023-12-22 | Outpatient (CLI) | payer OTHER ==
[~2023-12-22] MED LIST changes: -MIRA1POW3 PO; +MIRA33506 PO
== END ==
LOC: M PAIN 11:15
PROVIDERS: ATTEND Nurse Practitioner Family
DX: M79.18 Myalgia, other site (principal); Z79.891 Long term (current) use of opiate analgesic; M48.061 Spinal stenosis, lumbar region without neurogenic claudication; G89.29 Other chronic pain; I10 Essential (primary) hypertension; H40.9 Unspecified glaucoma; M47.26 Other spondylosis with radiculopathy, lumbar region; R25.1 Tremor, unspecified; Z86.73 Personal history of transient ischemic attack (TIA), and cerebral infarction without residual deficits; Z86.711 Personal history of pulmonary embolism; Z87.891 Personal history of nicotine dependence; Z79.82 Long term (current) use of aspirin; Z79.899 Other long term (current) drug therapy; Z88.8 Allergy status to other drugs, medicaments and biological substances

== ENCOUNTER → 2024-01-27 | Outpatient (CLI) | payer OTHER | LOC: M PAIN 11:30 | PROVIDERS: ATTEND Nurse Practitioner Family | DX: M48.061 Spinal stenosis, lumbar region without neurogenic claudication (principal); G89.29 Other chronic pain; I10 Essential (primary) hypertension; H40.9 Unspecified glaucoma; M47.26 Other spondylosis with radiculopathy, lumbar region; Z87.891 Personal history of nicotine dependence; Z79.891 Long term (current) use of opiate analgesic; Z79.899 Other long term (current) drug therapy; Z86.73 Personal history of transient ischemic attack (TIA), and cerebral infarction without residual deficits; Z86.711 Personal history of pulmonary embolism; Z95.0 Presence of cardiac pacemaker; Z88.8 Allergy status to other drugs, medicaments and biological substances ==

== ENCOUNTER → 2024-02-18 | Outpatient (REF) | payer OTHER ==
[2024-02-18 17:27] LABS: APPEARANCE, URINE CLEAR (CLEAR); BACTERIA, URINE AUTO NEGATIVE (NEGATIVE); BILIRUBIN, URINE AUTO NEGATIVE (NEGATIVE); BLOOD, URINE BLOOD NEGATIVE (NEGATIVE); COLOR, URINE YELLOW (YELLOW); GLUCOSE, URINE (UA) AUTO NEGATIVE (NEGATIVE); KETONE, URINE AUTO NEGATIVE (NEGATIVE); LEUKOCYTE ESTERASE, URINE AUTO NEGATIVE (NEGATIVE); NITRITE, URINE AUTO NEGATIVE (NEGATIVE); PROTEIN, URINE AUTO NEGATIVE (NEGATIVE); RBC, URINE AUTO 0 /HPF (0-3); SPECIFIC GRAVITY URINE AUTO 1.009 (1.002-1.035); SQUAMOUS EPITHELIAL CELL UR AU 1 /HPF (0-6); UROBILINOGEN, URINE AUTO 0.2 mg/dL (0.0-2.0); WBC, URINE AUTO 1 /HPF (0-3)
== END ==
LOC: M LAB REF 16:16
PROVIDERS: ATTEND Physician Assistant
DX: N39.0 Urinary tract infection, site not specified (principal)

== ENCOUNTER 2024-02-27 09:53 | Emergency (ER) | payer OTHER, MEDICARE ==
[~2024-02-27] VITALS: Ht 154.9 cm; Wt 57.0 kg
[2024-02-27] MEDS: fentaNYL 100 MCG/2 ML INJECTION IV ONE (10:29)
[2024-02-27 10:55] LABS: BASO % 0.6 % (0.0-1.0); EOS # 0.1 10^3/uL (0.0-0.5); EOS % 2.1 % (0.0-3.0); HEMATOCRIT 37.3 % (36.0-47.0); HEMOGLOBIN 12.1 g/dl (12.0-15.5); LYMPH # 1.3 10^3/uL (1.5-5.0); LYMPH % 26.7 % (24.0-44.0); MEAN CORPUSCULAR HEMOGLOBIN 31.4 pg (27.0-33.0); MEAN CORPUSCULAR HGB CONC 32.4 g/dl (32.0-36.5); MEAN CORPUSCULAR VOLUME 96.9 fl (80.0-96.0); MONO # 0.5 10^3/uL (0.0-0.8); MONO % 11.2 % (2.0-8.0); NEUTROPHILS # 2.9 10^3/uL (1.5-8.5); NEUTROPHILS % 59.2 % (36.0-66.0); PLATELET COUNT, AUTOMATED 273 10^3/uL (150-450); RED BLOOD COUNT 3.85 10^6/uL (4.00-5.40); WHITE BLOOD COUNT 4.8 10^3/uL (4.0-10.0)
[2024-02-27 11:21] LABS: BLOOD UREA NITROGEN 15 MG/DL (9-23); CALCIUM LEVEL 9.3 MG/DL (8.3-10.6); CARBON DIOXIDE LEVEL 25 MMOL/L (20-31); CHLORIDE LEVEL 103 MMOL/L (98-107); CREATININE FOR GFR 0.71 MG/DL (0.55-1.30); GLOMERULAR FILTRATION RATE > 60.0 (>32); GLUCOSE, FASTING 120 MG/DL (74-106); POTASSIUM SERUM 4.8 MMOL/L (3.5-5.1); SODIUM LEVEL 136 MMOL/L (136-145)
[2024-02-27 14:01] VITALS: TEMP 97.5
[2024-02-27 14:16] VITALS: BP 159/84; O2SAT 95
== END 2024-02-27 15:05 | disposition home or self-care (01) ==
LOC: M ED 09:53 → EDBD 09:53 → M ED 15:05
DX: S22.010A Wedge compression fracture of first thoracic vertebra, initial encounter for closed fracture (principal); M51.36 Other intervertebral disc degeneration, lumbar region; M51.34 Other intervertebral disc degeneration, thoracic region; Y92.9 Unspecified place or not applicable; Y93.9 Activity, unspecified; Y99.9 Unspecified external cause status; I10 Essential (primary) hypertension; Z87.891 Personal history of nicotine dependence; Z88.8 Allergy status to other drugs, medicaments and biological substances; Z79.1 Long term (current) use of non-steroidal anti-inflammatories (NSAID); Z79.899 Other long term (current) drug therapy
CPT/HCPCS: 71045; 72128; 72131; 80048; 85025; 96374; 99284; J3010

== ENCOUNTER → 2024-03-31 | Outpatient (CLI) | payer OTHER | LOC: M PAIN 11:30 | PROVIDERS: ATTEND Anesthesiology | DX: M48.061 Spinal stenosis, lumbar region without neurogenic claudication (principal); M51.16 Intervertebral disc disorders with radiculopathy, lumbar region; G57.90 Unspecified mononeuropathy of unspecified lower limb; G89.29 Other chronic pain; I10 Essential (primary) hypertension; H40.9 Unspecified glaucoma; Z87.891 Personal history of nicotine dependence; Z79.891 Long term (current) use of opiate analgesic; Z79.82 Long term (current) use of aspirin; Z79.899 Other long term (current) drug therapy; Z88.2 Allergy status to sulfonamides; Z88.8 Allergy status to other drugs, medicaments and biological substances ==

== ENCOUNTER 2024-04-04 11:39 | Emergency (ER) | payer MEDICARE, OTHER ==
[~2024-04-04] VITALS: Ht 154.9 cm; Wt 52.3 kg
[2024-04-04 12:47] LABS: BASO % 0.4 % (0.0-1.0); EOS % 0.4 % (0.0-3.0); HEMATOCRIT 40.1 % (36.0-47.0); HEMOGLOBIN 13.1 g/dl (12.0-15.5); LYMPH # 1.4 10^3/uL (1.5-5.0); LYMPH % 19.5 % (24.0-44.0); MEAN CORPUSCULAR HEMOGLOBIN 31.7 pg (27.0-33.0); MEAN CORPUSCULAR HGB CONC 32.7 g/dl (32.0-36.5); MEAN CORPUSCULAR VOLUME 97.1 fl (80.0-96.0); MONO # 0.6 10^3/uL (0.0-0.8); MONO % 7.9 % (2.0-8.0); NEUTROPHILS % 71.4 % (36.0-66.0); PLATELET COUNT, AUTOMATED 265 10^3/uL (150-450); RED BLOOD COUNT 4.13 10^6/uL (4.00-5.40); WHITE BLOOD COUNT 7.1 10^3/uL (4.0-10.0)
[2024-04-04] MEDS: MORPHINE 4 MG/ML 1ML VIAL IV ONE (12:56)
[2024-04-04] MEDS: NS 1,000 ML IV SCH (12:56)
[2024-04-04 13:20] LABS: LIPASE 22 U/L (12-53)
[2024-04-04 13:22] LABS: ALBUMIN 3.7 G/DL (3.2-5.2); ALKALINE PHOSPHATASE 72 U/L (46-116); ALT/SGPT 29 U/L (7.0-40); AST/SGOT 20 U/L (<34); BILIRUBIN,DIRECT < 0.1 MG/DL (<0.4); BILIRUBIN,TOTAL 0.3 MG/DL (0.3-1.2); BLOOD UREA NITROGEN 14 MG/DL (9-23); CALCIUM LEVEL 9.3 MG/DL (8.3-10.6); CARBON DIOXIDE LEVEL 29 MMOL/L (20-31); CHLORIDE LEVEL 101 MMOL/L (98-107); CREATININE FOR GFR 0.59 MG/DL (0.55-1.30); GLOMERULAR FILTRATION RATE > 60.0 (>32); GLUCOSE, FASTING 87 MG/DL (74-106); POTASSIUM SERUM 4.6 MMOL/L (3.5-5.1); SODIUM LEVEL 133 MMOL/L (136-145); TOTAL PROTEIN 7.1 G/DL (5.7-8.2)
[2024-04-04] MEDS ORDERED: ISOVUE-370 76% 100ML VIAL As Ordered ONE (13:28)
[2024-04-04 14:52] VITALS: O2SAT 96
[2024-04-04 15:01] VITALS: BP 156/83; TEMP 96.8
== END 2024-04-04 15:22 | disposition home or self-care (01) ==
LOC: EDBD 11:39 → M ED 11:39
DX: M54.50 Low back pain, unspecified (principal); S32.040D Wedge compression fracture of fourth lumbar vertebra, subsequent encounter for fracture with routine healing; S32.010A Wedge compression fracture of first lumbar vertebra, initial encounter for closed fracture; S32.050A Wedge compression fracture of fifth lumbar vertebra, initial encounter for closed fracture; W19.XXXA Unspecified fall, initial encounter; Y92.9 Unspecified place or not applicable; Y93.9 Activity, unspecified; Y99.9 Unspecified external cause status; I10 Essential (primary) hypertension; Z86.711 Personal history of pulmonary embolism; H40.9 Unspecified glaucoma; R56.9 Unspecified convulsions; R25.1 Tremor, unspecified; F17.200 Nicotine dependence, unspecified, uncomplicated; Z79.82 Long term (current) use of aspirin; Z79.84 Long term (current) use of oral hypoglycemic drugs; Z79.899 Other long term (current) drug therapy; Z88.6 Allergy status to analgesic agent; Z88.8 Allergy status to other drugs, medicaments and biological substances; Z88.5 Allergy status to narcotic agent
CPT/HCPCS: 51701; 72131; 73700; 74177; 80048; 80076; 83690; 85025; 93041; 96361; 96374; 99285; Q9967

== ENCOUNTER 2024-04-05 12:01 | Emergency (ER) | payer OTHER, MEDICARE ==
[~2024-04-05] VITALS: Ht 154.9 cm; Wt 52.3 kg
[2024-04-05 12:53] LABS: BASO % 0.4 % (0.0-1.0); EOS # 0.1 10^3/uL (0.0-0.5); EOS % 0.6 % (0.0-3.0); HEMATOCRIT 44.7 % (36.0-47.0); HEMOGLOBIN 14.5 g/dl (12.0-15.5); LYMPH # 0.9 10^3/uL (1.5-5.0); LYMPH % 9.8 % (24.0-44.0); MEAN CORPUSCULAR HEMOGLOBIN 31.9 pg (27.0-33.0); MEAN CORPUSCULAR HGB CONC 32.4 g/dl (32.0-36.5); MEAN CORPUSCULAR VOLUME 98.5 fl (80.0-96.0); MONO # 0.5 10^3/uL (0.0-0.8); MONO % 5.5 % (2.0-8.0); NEUTROPHILS # 7.8 10^3/uL (1.5-8.5); NEUTROPHILS % 82.5 % (36.0-66.0); PLATELET COUNT, AUTOMATED 303 10^3/uL (150-450); RED BLOOD COUNT 4.54 10^6/uL (4.00-5.40); WHITE BLOOD COUNT 9.5 10^3/uL (4.0-10.0)
[2024-04-05 13:22] LABS: BLOOD UREA NITROGEN 14 MG/DL (9-23); CARBON DIOXIDE LEVEL 28 MMOL/L (20-31); CHLORIDE LEVEL 99 MMOL/L (98-107); CREATININE FOR GFR 0.59 MG/DL (0.55-1.30); GLOMERULAR FILTRATION RATE > 60.0 (>32); GLUCOSE, FASTING 85 MG/DL (74-106); SODIUM LEVEL 135 MMOL/L (136-145)
[2024-04-05 18:36] VITALS: BP 142/67; TEMP 98.5; O2SAT 94
== END 2024-04-05 18:36 | disposition home or self-care (01) ==
LOC: M ED 12:01 → EDBD 12:01 → M ED 18:36
DX: S00.03XA Contusion of scalp, initial encounter (principal); M54.50 Low back pain, unspecified; W01.198A Fall on same level from slipping, tripping and stumbling with subsequent striking against other object, initial encounter; Y92.009 Unspecified place in unspecified non-institutional (private) residence as the place of occurrence of the external cause; Y93.89 Activity, other specified; Y99.9 Unspecified external cause status; S32.010A Wedge compression fracture of first lumbar vertebra, initial encounter for closed fracture; S32.050A Wedge compression fracture of fifth lumbar vertebra, initial encounter for closed fracture; M85.88 Other specified disorders of bone density and structure, other site; M51.36 Other intervertebral disc degeneration, lumbar region; I10 Essential (primary) hypertension; Z79.82 Long term (current) use of aspirin; Z79.899 Other long term (current) drug therapy; Z88.6 Allergy status to analgesic agent; Z88.8 Allergy status to other drugs, medicaments and biological substances

== ENCOUNTER 2024-04-10 09:31 | Emergency (ER) | payer MEDICARE, OTHER ==
[~2024-04-10] VITALS: Ht 154.9 cm; Wt 53.5 kg
[2024-04-10] MEDS ORDERED: NIFE1TAB52 PO (11:05)
[2024-04-10] MEDS ORDERED: ATOR1TAB19 PO (11:05)
[2024-04-10] MEDS ORDERED: CYAN-1 PO (11:05)
[2024-04-10] MEDS ORDERED: OXYC1TAB23 PO (11:05)
[2024-04-10] MEDS ORDERED: CLON0.5T2 PO (11:05)
[2024-04-10] MEDS ORDERED: NETA2.5D2 OS (11:05)
[2024-04-10] MEDS ORDERED: MELA3TAB29 PO (11:05)
[2024-04-10] MEDS ORDERED: SENN-186 PO (11:05)
[2024-04-10] MEDS ORDERED: HOME MED LIST COMPLETE! XX SCH (12:15)
[2024-04-10] MEDS: PERCOCET 5MG/325MG TAB PO ONE (12:21)
[2024-04-10] MEDS ORDERED: PERC5TAB12 PO (14:18)
[2024-04-10 15:20] VITALS: BP 145/65; TEMP 97.6; O2SAT 95
== END 2024-04-10 15:45 | disposition home or self-care (01) ==
LOC: EDBD 09:31 → M ED 09:31
DX: M54.6 Pain in thoracic spine (principal); I10 Essential (primary) hypertension; Z79.82 Long term (current) use of aspirin; Z79.899 Other long term (current) drug therapy; Z88.8 Allergy status to other drugs, medicaments and biological substances; Z88.6 Allergy status to analgesic agent; Z88.5 Allergy status to narcotic agent

== ENCOUNTER 2024-05-11 08:55 | Inpatient (IN) | payer MEDICARE ==
[~2024-05-11] VITALS: Ht 160 cm; Wt 49.4 kg
[~2024-05-11 08:55] MED LIST changes: +CYAN-1 PO; +MELA3TAB29 PO; +NETA2.5D2 OU; +NIFE1TAB52 PO; +PERC5TAB12 PO; +SENN-186 PO
[2024-05-11] MEDS: ACETAMINOPHEN *IV* 1,000 MG in IV 1 EA IV ONE (13:45)
[2024-05-11] MEDS: NS 500 ML IV ONE (13:46)
[2024-05-11 13:49] LABS: BASO % 0.1 % (0.0-1.0); EOS % 0.2 % (0.0-3.0); HEMATOCRIT 39.5 % (36.0-47.0); HEMOGLOBIN 12.8 g/dl (12.0-15.5); LYMPH # 1.6 10^3/uL (1.5-5.0); LYMPH % 7.8 % (24.0-44.0); MEAN CORPUSCULAR HEMOGLOBIN 31.4 pg (27.0-33.0); MEAN CORPUSCULAR HGB CONC 32.4 g/dl (32.0-36.5); MEAN CORPUSCULAR VOLUME 96.8 fl (80.0-96.0); MONO # 1.2 10^3/uL (0.0-0.8); MONO % 5.9 % (2.0-8.0); NEUTROPHILS # 17.7 10^3/uL (1.5-8.5); NEUTROPHILS % 85.5 % (36.0-66.0); PLATELET COUNT, AUTOMATED 256 10^3/uL (150-450); RED BLOOD COUNT 4.08 10^6/uL (4.00-5.40); WHITE BLOOD COUNT 20.7 10^3/uL (4.0-10.0)
[2024-05-11 14:22] LABS: ALBUMIN 3.6 G/DL (3.2-5.2); ALKALINE PHOSPHATASE 124 U/L (46-116); ALT/SGPT 49 U/L (7.0-40); AST/SGOT 52 U/L (<34); BILIRUBIN,TOTAL 0.5 MG/DL (0.3-1.2); BLOOD UREA NITROGEN 17 MG/DL (9-23); CALCIUM LEVEL 10.2 MG/DL (8.3-10.6); CARBON DIOXIDE LEVEL 28 MMOL/L (20-31); CHLORIDE LEVEL 102 MMOL/L (98-107); CPK CREATINE PHOSPHOKINASE 270 U/L (34-145); CREATININE FOR GFR 0.67 MG/DL (0.55-1.30); GLOMERULAR FILTRATION RATE > 60.0 (>32); GLUCOSE, FASTING 115 MG/DL (74-106); MB/CK RELATIVE INDEX 0.37 (< OR =4); POTASSIUM SERUM 3.6 MMOL/L (3.5-5.1); SODIUM LEVEL 136 MMOL/L (136-145); TOTAL PROTEIN 7.2 G/DL (5.7-8.2)
[2024-05-11] MEDS: cefTRIAXone SOD 1 GM in D5W MINI-BAG PLUS 50 ML IV ONE (14:29)
[2024-05-11] MEDS ORDERED: ISOVUE-370 76% 100ML VIAL As Ordered ONE (14:44)
[2024-05-11] MEDS ORDERED: HOME MED LIST COMPLETE! XX SCH (18:45)
[2024-05-12] MEDS ORDERED: MAALOX 30 ML SUSP *UDC PO PRN (00:35)
[2024-05-12] MEDS ORDERED: LIDOCAINE 5% (LIDODERM) PATCH TD PRN (00:35)
[2024-05-12] MEDS ORDERED: MOM 30ML SUSPENSION UDC PO PRN (00:35)
[2024-05-12] MEDS ORDERED: ONDANSETRON 4MG 2ML VIAL IV PRN (00:35)
[2024-05-12 01:29] LABS: HEMATOCRIT 36.3 % (36.0-47.0); HEMOGLOBIN 11.8 g/dl (12.0-15.5); MEAN CORPUSCULAR HEMOGLOBIN 31.3 pg (27.0-33.0); MEAN CORPUSCULAR HGB CONC 32.5 g/dl (32.0-36.5); MEAN CORPUSCULAR VOLUME 96.3 fl (80.0-96.0); PLATELET COUNT, AUTOMATED 219 10^3/uL (150-450); RED BLOOD COUNT 3.77 10^6/uL (4.00-5.40); WHITE BLOOD COUNT 15.3 10^3/uL (4.0-10.0)
[2024-05-12 01:57] LABS: ALKALINE PHOSPHATASE 113 U/L (46-116); ALT/SGPT 50 U/L (7.0-40); AST/SGOT 53 U/L (<34); BILIRUBIN,TOTAL 0.5 MG/DL (0.3-1.2); BLOOD UREA NITROGEN 12 MG/DL (9-23); CALCIUM LEVEL 9.1 MG/DL (8.3-10.6); CARBON DIOXIDE LEVEL 27 MMOL/L (20-31); CHLORIDE LEVEL 104 MMOL/L (98-107); CREATININE FOR GFR 0.49 MG/DL (0.55-1.30); GLOMERULAR FILTRATION RATE > 60.0 (>32); GLUCOSE, FASTING 109 MG/DL (74-106); MAGNESIUM LEVEL 1.7 MG/DL (1.8-2.4); POTASSIUM SERUM 3.4 MMOL/L (3.5-5.1); SODIUM LEVEL 136 MMOL/L (136-145); TOTAL PROTEIN 6.4 G/DL (5.7-8.2)
[2024-05-12] MEDS ORDERED: SENNA 8.6 MG TAB (SENOKOT) PO PRN (02:55)
[2024-05-12] MEDS ORDERED: PILL CUTTER 1 EACH XX PRN (03:05)
[2024-05-12] MEDS: MAG SULF 1GM/100ML (MAG RUN) 1 GM in IV 1 EA IV ONE (04:43)
[2024-05-12] MEDS: KCL 10MEQ/100ML SWI (KRUN) 10 MEQ in IV 1 EA IV ONE (04:47)
[2024-05-12] MEDS ORDERED: HEPARIN SOD (PORCINE) 5000UNITS/ML 1ML VIAL/SYRINGE SC SCH (06:00)
[2024-05-12 06:52] VITALS: BP 120/73; TEMP 97.3; O2SAT 94
[2024-05-12] MEDS: GABAPENTIN 300 MG CAP PO SCH (09:59)
[2024-05-12] MEDS: cefTRIAXone SOD 1 GM in D5W MINI-BAG PLUS 50 ML IV SCH (09:59)
[2024-05-12] MEDS: ASPIRIN 81MG ENTERIC TABLET PO SCH (10:00)
[2024-05-12] MEDS: DOCUSATE SODIUM 100MG CAPSULE PO SCH (10:02)
[2024-05-12] MEDS: SERTRALINE HCL 50 MG TAB PO SCH (10:02)
[2024-05-12] MEDS: NIFEdipine 30MG XL TAB PO SCH (10:05)
[2024-05-12] MEDS: ATORVASTATIN 10 MG TAB PO SCH (10:05)
[2024-05-12 12:00] VITALS: BP 144/90; TEMP 97.5; O2SAT 92
[2024-05-12] MEDS: CALCITONIN NASAL SPRAY 3.7ML BTL SCH (17:59)
[2024-05-12] MEDS: PERCOCET 5MG/325MG TAB PO PRN (18:02)
[2024-05-12 19:36] VITALS: BP 141/92; TEMP 97.7; O2SAT 95
[2024-05-12] MEDS: OLANZapine 5 MG TAB PO SCH (21:35)
[2024-05-12] MEDS: ROCKLATAN OU SCH (21:47)
[2024-05-12] MEDS: RAMELTEON 8 MG TAB (ROZEREM) PO PRN (23:17)
[2024-05-13] MEDS: clonazePAM 0.5 MG TAB PO PRN (02:52)
[2024-05-13 03:53] VITALS: BP 136/62; TEMP 98.2; O2SAT 95
[2024-05-13 05:32] LABS: HEMATOCRIT 37.8 % (36.0-47.0); HEMOGLOBIN 12.2 g/dl (12.0-15.5); MEAN CORPUSCULAR HEMOGLOBIN 30.9 pg (27.0-33.0); MEAN CORPUSCULAR HGB CONC 32.3 g/dl (32.0-36.5); MEAN CORPUSCULAR VOLUME 95.7 fl (80.0-96.0); PLATELET COUNT, AUTOMATED 228 10^3/uL (150-450); RED BLOOD COUNT 3.95 10^6/uL (4.00-5.40); WHITE BLOOD COUNT 9.9 10^3/uL (4.0-10.0)
[2024-05-13 05:55] LABS: ALBUMIN 2.9 G/DL (3.2-5.2); ALKALINE PHOSPHATASE 118 U/L (46-116); ALT/SGPT 33 U/L (7.0-40); AST/SGOT 27 U/L (<34); BILIRUBIN,TOTAL 0.5 MG/DL (0.3-1.2); BLOOD UREA NITROGEN 9 MG/DL (9-23); CALCIUM LEVEL 9.1 MG/DL (8.3-10.6); CARBON DIOXIDE LEVEL 19 MMOL/L (20-31); CHLORIDE LEVEL 106 MMOL/L (98-107); CREATININE FOR GFR 0.39 MG/DL (0.55-1.30); GLOMERULAR FILTRATION RATE > 60.0 (>32); GLUCOSE, FASTING 109 MG/DL (74-106); MAGNESIUM LEVEL 1.8 MG/DL (1.8-2.4); POTASSIUM SERUM 3.9 MMOL/L (3.5-5.1); SODIUM LEVEL 137 MMOL/L (136-145); TOTAL PROTEIN 6.3 G/DL (5.7-8.2)
[2024-05-13 12:00] VITALS: BP 115/60; TEMP 97.3; O2SAT 95
[2024-05-13 20:45] VITALS: BP 152/74; TEMP 97; O2SAT 95
[2024-05-14 05:31] LABS: HEMOGLOBIN 11.4 g/dl (12.0-15.5); MEAN CORPUSCULAR HEMOGLOBIN 30.5 pg (27.0-33.0); MEAN CORPUSCULAR HGB CONC 31.7 g/dl (32.0-36.5); MEAN CORPUSCULAR VOLUME 96.3 fl (80.0-96.0); PLATELET COUNT, AUTOMATED 269 10^3/uL (150-450); RED BLOOD COUNT 3.74 10^6/uL (4.00-5.40); WHITE BLOOD COUNT 7.4 10^3/uL (4.0-10.0)
[2024-05-14 06:00] VITALS: BP 150/78; TEMP 96.6; O2SAT 93
[2024-05-14 06:14] LABS: BLOOD UREA NITROGEN 14 MG/DL (9-23); CALCIUM LEVEL 8.8 MG/DL (8.3-10.6); CARBON DIOXIDE LEVEL 26 MMOL/L (20-31); CHLORIDE LEVEL 106 MMOL/L (98-107); CREATININE FOR GFR 0.47 MG/DL (0.55-1.30); GLOMERULAR FILTRATION RATE > 60.0 (>32); GLUCOSE, FASTING 91 MG/DL (74-106); POTASSIUM SERUM 4.1 MMOL/L (3.5-5.1); SODIUM LEVEL 135 MMOL/L (136-145)
[2024-05-14] MEDS ORDERED: PENI500T PO (09:17)
[2024-05-14] MEDS ORDERED: BACI1CAP PO (09:17)
[2024-05-14] MEDS: LACTOBACILLUS ACIDOPHILUS CAP (BACID) PO SCH (10:05)
[2024-05-14 10:08] VITALS: BP 98/50
[2024-05-14] MEDS: amLODIPine 5 MG TAB PO ONE (10:08)
[2024-05-14] MEDS: PENICILLIN V POTASSIUM 500 MG TAB PO SCH (11:26)
[2024-05-14] MEDS: ACETAMINOPHEN TAB 650MG DOSE (2X325MG) PO PRN (11:27)
[2024-05-14 11:54] VITALS: BP 115/60
== END 2024-05-14 13:17 | disposition home health service (06) | DRG 690 ==
LOC: M ED 08:55 → EDBD 08:55 → M ED INP 22:48 → M MSPAV 05-12 06:45
PROVIDERS: ADMIT Internal Medicine; ATTEND General Practice
DX: N39.0 Urinary tract infection, site not specified (principal); M48.56XA Collapsed vertebra, not elsewhere classified, lumbar region, initial encounter for fracture; I10 Essential (primary) hypertension; E78.00 Pure hypercholesterolemia, unspecified; M51.34 Other intervertebral disc degeneration, thoracic region; M51.36 Other intervertebral disc degeneration, lumbar region; F41.9 Anxiety disorder, unspecified; Z86.73 Personal history of transient ischemic attack (TIA), and cerebral infarction without residual deficits; H40.9 Unspecified glaucoma; Z66 Do not resuscitate; Z79.899 Other long term (current) drug therapy; Z79.82 Long term (current) use of aspirin; Z88.8 Allergy status to other drugs, medicaments and biological substances; Z86.711 Personal history of pulmonary embolism; Z97.0 Presence of artificial eye

== ENCOUNTER → 2024-05-17 | Outpatient (CLI) | payer MEDICARE ==
[~2024-05-17] MED LIST changes: +BACI1CAP PO; +PENI500T PO
== END ==
LOC: M SOG 09:25
PROVIDERS: ATTEND Orthopaedic Surgery
DX: M54.6 Pain in thoracic spine (principal); M85.88 Other specified disorders of bone density and structure, other site; M47.814 Spondylosis without myelopathy or radiculopathy, thoracic region

== ENCOUNTER → 2024-06-01 | Outpatient (CLI) | payer OTHER ==
[~2024-06-01] MED LIST changes: +GABA-1172 PO; -GABA-282 PO
== END ==
LOC: M PAIN 10:30
PROVIDERS: ATTEND Nurse Practitioner Family
DX: M48.061 Spinal stenosis, lumbar region without neurogenic claudication (principal); G89.29 Other chronic pain; I10 Essential (primary) hypertension; H40.9 Unspecified glaucoma; M47.26 Other spondylosis with radiculopathy, lumbar region; Z87.891 Personal history of nicotine dependence; Z79.82 Long term (current) use of aspirin; Z79.891 Long term (current) use of opiate analgesic; Z79.899 Other long term (current) drug therapy; Z88.1 Allergy status to other antibiotic agents; Z88.8 Allergy status to other drugs, medicaments and biological substances